=== PATIENT | male | born 1975 | race Caucasian/White ===

== ENCOUNTER 2022-12-31 09:59 | Outpatient (OUT) | payer BC, SELFPAY ==
--- NOTE | 2022-12-31 10:33 | PM.CN ---
Consult Note: HPI Data of Consult Patient: known to practice within the last 3 years Consult date: 12/31/22 Requesting Physician: CHUNG SKINNER NP Primary Care Provider: TELLO POWER Consult Narrative Narrative: Patient is here for f/u of chronic left lumbar pain . Pain today is left lower lumbar radiating to left leg with slight weakness left leg . We discussed the TFNB procedure. He would like to review educational materials and call later to schedule. Denies new sensorimotor or bowel or bladder issues. Denies medication adverse SE. Pain medication regimen assists patient in better ability to complete ADLs. He had TPI at last visit without any relief of pain. States he has been moving and lifting heavy boxes this week and has increase in pain in low back. We discussed medrol dose pack. cc:: CC: CHUNG SKINNER NP Review of Systems ROS Status of ROS 10 or more systems reviewed and unremarkable except as noted in history and below Musculoskeletal Reports: back pain Exam Constitutional Documenting provider has reviewed patient's vital signs: yes Common normals: no apparent distress, average body habitus, oriented x3, no limitations, healthy appearing, alert and well nourished General appearance: cooperative, comfortable and well developed Orientation/consciousness: Yes awake, Yes oriented to person, Yes oriented to place and Yes oriented to time HENMT Common normals: normocephalic and moist oral mucous membranes Respiratory Common normals: normal respiratory effort, no retractions and no use of accessory muscles Effort & inspection: able to speak in complete sentences and symmetric chest movement Back & Pelvis Lumbar spine/lower back: normal to inspection, ROM limited, pain with ROM, paraspinal muscle tenderness and paraspinal muscle spasm Other: positive facet load left muscle strength 5/5 bilat LE with intact sensation Assessment and Plan Assessment and Plan (1) Lumbar radiculopathy: (2) Lumbar stenosis: (3) Lumbar spondylosis: Plan may call to schedule left lumbar TFNB L4 L5 under fluoroscopy medrol dose pack
== END 2022-12-31 10:00 | disposition home or self-care (01) ==
LOC: PM 10:00
PROVIDERS: PCP Physician Assistant; Visit Provider Nurse Practitioner
DX: M47.26 Other spondylosis with radiculopathy, lumbar region (principal); M48.061 Spinal stenosis, lumbar region without neurogenic claudication
CPT/HCPCS: G0463

== ENCOUNTER 2023-01-18 07:09 | Day surgery (SDC) | payer BC, SELFPAY ==
[2023-01-18 07:28] VITALS: BP 111/70; PULSE 71; RESP 16; TEMP 36.4; O2SAT 100
[2023-01-18] MEDS: TRIAMCINOLONE ACETONIDE 40 MG/ML VIAL 80 MG INJ (08:37)
[2023-01-18] MEDS: LIDOCAINE HCL 2% PF 100 MG/5 ML VIAL INJ (08:37)
[2023-01-18] MEDS: BUPIVACAINE HCL 0.25% PF 25 MG/10 ML VIAL 2 ML INJ (08:37)
[2023-01-18] MEDS: IOHEXOL 240 MG/ML - 10 ML VIAL INJ (08:37)
[2023-01-18 08:40] VITALS: BP 131/71; BP 132/83; PULSE 75; PULSE 78; RESP 20; O2SAT 96; O2SAT 97
--- NOTE | 2023-01-18 08:43 | P.ON_ITS ---
Date of procedure: 01/18/23 Pre-op diagnosis: Lumbar stenosis with neurogenic claudication Post-op diagnosis: same as pre-op Procedure: Procedure: Left L4-5, L5-S1 transforaminal epidural steroid injection Medications: Bupivacaine 0.25% 2cc, kenalog 80mg The patient was seen and examined in the preoperative holding area.? Informed consent was obtained and placed on the chart.? Patient was brought to the medical procedure unit and placed in the prone position where a timeout was completed verifying the correct patient, procedure site, position, and planned special equipment using sterile aseptic technique.? Under direct fluoroscopic visualization a 25-gauge Quincke tipped spinal needle was advanced to the designated neural foramen where contrast dye was injected to show adequate spread.? The needle was inserted at level left L4-5. There was no evidence of vascular or adverse uptake.? Epidural spread was appreciated.? The above- mentioned injectate was then placed in a 1.5 mL aliquot preceded by negative aspiration.? The needle was removed. The needle was inserted and the procedure repeated at level left L5-S1.? The surgery site was covered.? Patient was taken to the postprocedural recovery area and monitored for an appropriate length of time before found suitable for discharge in the accompaniment of a responsible adult. Anesthesia: Local Surgeon: Spencer Centeno Pathology: none sent Condition: stable Disposition: no change
== END 2023-01-18 08:46 | disposition home or self-care (01) ==
PROVIDERS: PCP Physician Assistant; Visit Provider Anesthesiology
DX: M48.062 Spinal stenosis, lumbar region with neurogenic claudication (principal)
CPT/HCPCS: 64483; 64484; Q9966

== ENCOUNTER 2023-02-08 10:43 | Outpatient (OUT) | payer BC, SELFPAY ==
--- NOTE | 2023-02-08 16:24 | P.CN_ITS ---
Consult Note: HPI Data of Consult Patient: known to practice within the last 3 years Consult date: 02/08/23 Requesting Physician: Spencer Centeno MD Primary Care Provider: TELLO POWER Consult Narrative Reason for consult: low back pain Narrative: 47yom who presents for assessment. significant relief of radiating leg pain after lumbar epidural steroid injection. primary complaint is residual low back pain. imaging reviewed, significant for moderate facet arthropathy at multiple levels in lumbar spine. previously underwent left lumbar RFA >1 year ago, with >6 months relief of >50%. continues in provider directed home exercise program. utilizes robaxin and diclofenac, as needed. cc:: CC: Spencer Centeno MD Review of Systems ROS Status of ROS 10 or more systems reviewed and unremarkable except as noted in history and below Meds Home Medications and Allergies Home Medications Medication Instructions Recorded Confirmed Type albuterol 90 mcg/actuation aerosol 90 mcg inhalation PRN shortness of 01/11/23 History inhaler breath or wheezing diclofenac sodium 50 mg 100 mg PO Q12H 01/11/23 01/18/23 History tablet,delayed release esomeprazole magnesium 40 mg 40 mg PO Q24H 01/11/23 01/18/23 History capsule,delayed release fluticasone propionate 50 1 spray intranasal DAILY PRN 01/11/23 01/18/23 History mcg/actuation nasal allergy symptoms spray,suspension (24 Hour Allergy Relief) loratadine 5 mg-pseudoephedrine ER 1 tab PO Q12H 01/11/23 01/18/23 History 120 mg tablet,extended release,12hr (Claritin-D 12 Hour) losartan 100 mg tablet 100 mg PO DAILY 01/11/23 01/18/23 History olopatadine 0.2 % eye drops 1 drp ophthalmic (eye) DAILY 01/11/23 01/18/23 History (Pataday Once Daily Relief) olopatadine 0.6 % nasal spray 2 spray intranasal BID 01/11/23 01/18/23 History (Patanase) amlodipine 5 mg tablet 5 mg PO DAILY 01/18/23 01/18/23 History metoprolol succinate 25 mg capsule 25 mg PO DAILY 01/18/23 01/18/23 History sprinkle, ext. release 24 hr (Kapspargo Sprinkle) methocarbamol 500 mg tablet 500 mg PO BID 02/08/23 02/08/23 History Allergies Allergy/AdvReac Type Severity Reaction Status Date / Time No Known Drug Allergies Allergy Verified 01/11/23 09:56 Exam Narrative Exam Narrative: Psych-alert and oriented x 3. Attentive and appropriate, constitutionally normal, displays normal mood and affect per situation.? There are no obvious deficits in memory, reasoning, or intellect.? Skin-no obvious rashes, bruising, erythema noted to the patient's area of pain. Extremities- extremities are warm with minimal edema and palpable pulses. Lumbar-no significant tenderness to palpation noted in the lumbar spine and paraspinal musculature.? Pain is elicited with extension, and lateral rotation of the lumbar spine. Range of motion is slightly diminished with these motions due to pain. Facet loading maneuvers are positive on the left and do appear to be concordant with the patient's normal complaints of pain.? Coordination remains intact.? Gait remains non-antalgic. Assessment and Plan Assessment and Plan (1) Lumbar spondylosis: (2) Lumbar stenosis: Plan 47yom who presents for assessment. continues to have axial low back pain, prev iously relieved by lumbar RFA, as noted. given symptoms and previous relief, prudent to repeat left L4-5, L5-S1 RFA under fluoroscopic guidance. to be done at 80 degree celsius temp for 90 seconds at each level. he expressed understanding. medications reviewed, no changes. follow up after procedure.
== END 2023-02-08 10:44 | disposition home or self-care (01) ==
LOC: PM 10:43
PROVIDERS: PCP Physician Assistant; Visit Provider Anesthesiology
DX: M47.816 Spondylosis without myelopathy or radiculopathy, lumbar region (principal); M48.061 Spinal stenosis, lumbar region without neurogenic claudication
CPT/HCPCS: G0463

== ENCOUNTER 2023-03-01 07:24 | Day surgery (SDC) | payer BC, SELFPAY ==
[2023-03-01 07:45] VITALS: BP 125/81; PULSE 74; RESP 16; TEMP 37.1; O2SAT 98
[2023-03-01 08:28] VITALS: BP 129/77; PULSE 80; RESP 16; O2SAT 98
[2023-03-01] MEDS: BUPIVACAINE HCL 0.25% PF 25 MG/10 ML VIAL 2 ML INJ (08:32)
[2023-03-01] MEDS: LIDOCAINE HCL 2% 400 MG/20 ML MDV 10 ML INJ (08:32)
[2023-03-01] MEDS: TRIAMCINOLONE ACETONIDE 40 MG/ML VIAL INJ (08:32)
[2023-03-01 08:40] VITALS: BP 117/73; PULSE 82; O2SAT 96
--- NOTE | 2023-03-01 08:40 | P.ON_ITS ---
Date of procedure: 03/01/23 Pre-op diagnosis: Lumbar spondylosis Post-op diagnosis: same as pre-op Procedure: Procedure: Left L4-5, L5-S1 radiofrequency ablation Medications: Bupivacaine 0.25% 3cc, kenalog 40mg, lidocaine 2% 3cc The patient was seen and examined in the preoperative holding area.? The site was marked.? Written informed consent was obtained and placed on the chart.? The patient was brought to the medical procedure unit and placed in the prone position.? A timeout was completed verifying correct patient, procedure, positioning, and special requirements.? The skin overlying the target points, the designated medial branch, were prepped and draped in the usual sterile fashion.? The target point was achieved with a 20-gauge 15 cm with a 10 mm curved active tip radiofrequency cannula under direct fluoroscopic visualization.? The needle was inserted at level L4 on the left side. Needle tip position was confirmed with lateral fluoroscopic position.? Motor stimulation was carried out at 2 Hz up to 5 volts with the absence of extremity activity.? This was repeated at level L5, S1 on left side.?? Sensory stimulation was carried out.? Concordant pain was realized at the above- mentioned sites.? Then radiofrequency lesioning was carried out times 90 seconds at 80 degrees times 2 lesions at each level.? The radiofrequency probe was removed prior to cannula removal.? The above-mentioned injectate was placed in 1 mL increments.? The needle was removed.? Insertion sites were covered.? The patient was taken to the postoperative recovery area and monitored for an appropriate length of time before being found suitable for discharge in the company of a responsible adult. Anesthesia: Local Surgeon: Spencer Centeno Pathology: none sent Condition: stable Disposition: no change
[2023-03-01 08:41] VITALS: RESP 16
== END 2023-03-01 08:45 | disposition home or self-care (01) ==
PROVIDERS: PCP Physician Assistant; Visit Provider Anesthesiology
DX: M47.816 Spondylosis without myelopathy or radiculopathy, lumbar region (principal)
CPT/HCPCS: 64635; 64636

== ENCOUNTER 2023-04-14 10:48 | Outpatient (OUT) | payer BC, SELFPAY ==
--- NOTE | 2023-04-14 11:28 | PM.CN ---
Consult Note: HPI Data of Consult Patient: known to practice within the last 3 years Requesting Physician: Lorena Santana NP Primary Care Provider: TELLO POWER Consult Narrative Reason for consult: f/u Narrative: Ophelia Cruz a pleasant 47 year old male presents for evaluation and management of chronic back pain. Pain 10% improved since left L4/5 L5/S1 RFA. Patient continues to have low back pain that radiates into left hip, lateral thigh and down to left foot. Patient rating pain 0/10 at this time, it is intermittent and worse with activity and with car rides, gets up to 6-7/10. cc:: CC: Lorena Santana NP Review of Systems ROS Status of ROS 10 or more systems reviewed and unremarkable except as noted in history and below Musculoskeletal Reports: back pain Meds Home Medications and Allergies Home Medications Medication Instructions Recorded Confirmed Type albuterol 90 mcg/actuation aerosol 90 mcg inhalation PRN shortness of 01/11/23 History inhaler breath or wheezing diclofenac sodium 50 mg 100 mg PO Q12H 01/11/23 03/01/23 History tablet,delayed release esomeprazole magnesium 40 mg 40 mg PO Q24H 01/11/23 03/01/23 History capsule,delayed release fluticasone propionate 50 1 spray intranasal DAILY PRN 01/11/23 03/01/23 History mcg/actuation nasal allergy symptoms spray,suspension (24 Hour Allergy Relief) loratadine 5 mg-pseudoephedrine ER 1 tab PO Q12H 01/11/23 03/01/23 History 120 mg tablet,extended release,12hr (Claritin-D 12 Hour) losartan 100 mg tablet 100 mg PO DAILY 01/11/23 03/01/23 History olopatadine 0.2 % eye drops 1 drp ophthalmic (eye) DAILY 01/11/23 03/01/23 History (Pataday Once Daily Relief) olopatadine 0.6 % nasal spray 2 spray intranasal BID 01/11/23 03/01/23 History (Patanase) amlodipine 5 mg tablet 5 mg PO DAILY 01/18/23 03/01/23 History metoprolol succinate 25 mg capsule 25 mg PO DAILY 01/18/23 03/01/23 History sprinkle, ext. release 24 hr (K[place]spargo Sprinkle) methocarbamol 500 mg tablet 500 mg PO BID 02/08/23 03/01/23 History diclofenac sodium 50 mg 50 mg PO TID PRN pain #90 tabs 03/22/23 Rx tablet,delayed release methocarbamol 500 mg tablet 500 mg PO BID PRN spasms #60 tabs 03/22/23 Rx Allergies Allergy/AdvReac Type Severity Reaction Status Date / Time No Known Drug Allergies Allergy Verified 03/01/23 07:43 Exam Constitutional Documenting provider has reviewed patient's vital signs: yes Common normals: no apparent distress, average body habitus, oriented x3, no limitations, healthy appearing, alert and well nourished General appearance: cooperative, comfortable and well developed Orientation/consciousness: Yes awake, Yes oriented to person, Yes oriented to place and Yes oriented to time HENMT Common normals: normocephalic and moist oral mucous membranes Respiratory Common normals: normal respiratory effort, no retractions and no use of accessory muscles Effort & inspection: able to speak in complete sentences and symmetric chest movement Back & Pelvis Lumbar spine/lower back: ROM limited, pain with ROM, paraspinal muscle tenderness and straight leg raise positive left Other: muscle strength 5/5 bilat LE with intact sensation scoliois noted Extremity Common normals: normal to inspection and full ROM Neuro Common normals: oriented x3, CN's II-XII intact bilaterally, moves all extremities, no focal motor deficits, no sensory deficits noted, deep tendon reflexes 2+ bilaterally and gait normal Assessment and Plan Assessment and Plan (1) Lumbar stenosis: (2) Lumbar radiculopathy: (3) Lumbar spondylosis: Plan Left L4-5 L5-S1 TFESI under fluoroscopy continue current medications f/u after procedure
== END 2023-04-14 10:49 | disposition home or self-care (01) ==
LOC: PM 10:55
PROVIDERS: PCP Physician Assistant; Visit Provider Nurse Practitioner
DX: M48.061 Spinal stenosis, lumbar region without neurogenic claudication (principal); M54.16 Radiculopathy, lumbar region; M47.816 Spondylosis without myelopathy or radiculopathy, lumbar region
CPT/HCPCS: G0463

== ENCOUNTER 2023-05-10 08:00 | Day surgery (SDC) | payer BC, SELFPAY ==
[2023-05-10 08:56] VITALS: BP 116/76; PULSE 75; RESP 16; TEMP 36.7; O2SAT 98
[2023-05-10 09:18] VITALS: BP 111/69; BP 115/73; PULSE 72; PULSE 73; RESP 18; O2SAT 98
[2023-05-10] MEDS: 0.9 % SODIUM CHLORIDE 10 ML INJ (09:22)
[2023-05-10] MEDS: BUPIVACAINE HCL 0.25% PF 25 MG/10 ML VIAL INJ (09:23)
[2023-05-10] MEDS: IOHEXOL 240 MG/ML - 10 ML VIAL 24 MG INJ (09:23)
--- NOTE | 2023-05-10 09:23 | P.ON_ITS ---
Date of procedure: 05/10/23 Pre-op diagnosis: Lumbar stenosis with neurogenic claudication Post-op diagnosis: same as pre-op Procedure: Procedure: Left L4-5, L5-S1 transforaminal epidural steroid injection Medications: Bupivacaine 0.25% 2cc, lidocaine 2% 1cc, kenalog 80mg The patient was seen and examined in the preoperative holding area.? Informed consent was obtained and placed on the chart.? Patient was brought to the medical procedure unit and placed in the prone position where a timeout was completed verifying the correct patient, procedure site, position, and planned special equipment using sterile aseptic technique.? Under direct fluoroscopic visualization a 25-gauge Quincke tipped spinal needle was advanced to the designated neural foramen where contrast dye was injected to show adequate spread.? The needle was inserted at level left L4-5. There was no evidence of vascular or adverse uptake.? Epidural spread was appreciated.? The above- mentioned injectate was then placed in a 1.5 mL aliquot preceded by negative aspiration.? The needle was removed. The needle was inserted and the procedure repeated at level left L5-S1.? The surgery site was covered.? Patient was taken to the postprocedural recovery area and monitored for an appropriate length of time before found suitable for discharge in the accompaniment of a responsible adult. Anesthesia: Local Surgeon: Spencer Centeno Pathology: none sent Condition: stable Disposition: no change
[2023-05-10] MEDS: TRIAMCINOLONE ACETONIDE 40 MG/ML VIAL 80 MG INJ (09:24)
[2023-05-10] MEDS: LIDOCAINE HCL 2% PF 100 MG/5 ML VIAL 3 ML INJ (09:24)
== END 2023-05-10 09:25 | disposition home or self-care (01) ==
PROVIDERS: PCP Physician Assistant; Visit Provider Anesthesiology
DX: M48.062 Spinal stenosis, lumbar region with neurogenic claudication (principal)
CPT/HCPCS: 64483; 64484; Q9966

== ENCOUNTER 2023-05-27 10:50 | Outpatient (OUT) | payer BC, SELFPAY ==
--- OUTSIDE RECORDS SUMMARY | 2023-05-27 10:57 | XMS_ITS | CCD ---
Author Name Unknown Address [id number] [place] [id number] Organization [facility] Care Team Providers Care Editor Greeting Card Name Role Phone ALVARADO ., DR ABRAN Mosquera Admitting Unavailable MOSLEY ., JOSE Consulting Unavailable ALVARADO ., DR ABRAN Mosquera Attending Unavailable HEMMER, DR ARLENE Womack Consulting Unavailable MISC, DR MORENO Primary Care Unavailable ALVARADO ., DR ABRAN Mosquera Attending Unavailable MOSLEY ., JOSE Consulting Unavailable ALVARADO ., DR ABRAN Mosquera Admitting Unavailable LAKSHMIPATHY ., NARENDRANATH Consulting Maegan vailable ALVARADO ., DR ABRAN Mosquera Attending Unavailable MISC, DR MORENO Primary Care Unavailable MOSLEY ., JOSE Consulting Unavailable ALVARADO ., DR ABRAN Mosquera Admitting Unavailable ALVARADO ., DR ABRAN Mosquera Attending Unavailable MISC, DR MORENO Primary Care Unavailable MOSLEY ., JOSE Consulting Unavailable ALVARADO ., DR ABRAN Mosquera Admitting Unavailable HEMMER, DR ARLENE Womack Consulting Unavailable ALVARADO ., DR ABRAN Mosquera Attending Unavailable MOSLEY ., JOSE Consulting Unavailable ALVARADO ., DR ABRAN Mosquera Admitting Unavailable HEMMER, DR ARLENE Womack Consulting Unavailable ALVARADO ., DR ABRAN Mosquera Attending Unavailable MOSLEY ., JOSE Consulting Unavailable ALVARADO ., DR ABRAN Mosquera Admitting Unavailable HEMMER, DR ARLENE Womack Consulting Unavailable ALVARADO ., DR ABRAN Mosquera Attending Unavailable MOSLEY ., JOSE Consulting Unavailable ALVARADO ., DR ABRAN Mosquera Admitting Unavailable HEMMER, DR ARLENE Womack Consulting Unavailable MOSLEY ., JOSE Consulting Unavailable ALVARADO ., DR ABRAN Mosquera Admitting Unavailable ALVARADO ., DR ABRAN Mosquera Attending Unavailable HEMMER, DR ARLENE Womack Consulting Unavailable ALVARADO ., DR ABRAN Mosquera Admitting Unavailable ALVARADO ., DR ABRAN Mosquera Consulting Unavailable ALVARADO ., DR ABRAN Mosquera Attending Unavailable RICHMOND ROSAS Consulting Unavailable HEMMER, DR ARLENE M Consulting Unavailable Arlene Power Primary Care Provider MENDOZA Power Attending Provider MENDOZA Power Attending Provider [phone] YENIFER Power Primary Care Provider [phone] YENIFER Power Attending Provider [phone] Arlene Power Admitting Unavailable Arlene Power Primary Care Unavailable Arlene Power Attending Unavailable Arlene Power Admitting Unavailable Arlene Power Attending Unavailable Giedraitis , Spencer Vicente Attending Unavailable Giedraitis , Andmaría Vicente Attending Unavailable Giedraitis , Andrius Vicente Attending Unavailable Gieditis , Spencer Vicente Attending Unavailable ARLENE POWER Attending Unavailable ARLENE POWER Attending Unavailable ARLENE POWER Referring Unavailable Medications Completed/Discontinued Medications Medication Drug Class(es) Dates Sig (Normalized) Sig (Original) [id number] 200 actuat albuterol 0.09 mg/actuat metered dose inhaler (1 source) beta2-Adrenergic Agonist Start: 02-12-2016 take 2 puff(s) by inhalation every six hours as needed albuterol HFA (VENTOLIN HFA) 90 mcg/actuation inhaler Inhale 2 Puffs as instructed every 6 hours as needed. 0 02/12/2016 Active Comment on above: Inhale 2 Puffs as in structed every 6 hours as needed. esomeprazole 40 mg delayed release oral capsule (1 source) Proton Pump Inhibitor Start: 04-06-2013 take 1 capsule by mouth once daily esomeprazole (NEXIUM) 40 mg capsule Take 1 capsule by mouth once daily. 30 capsule 0 04/06/2013 Active Comment on above: Take 1 capsule by [facility] once daily. fluticasone propionate 0.05 mg/actuat metered dose nasal spray (1 source) Corticosteroid Start: 04-06-2013 fluticasone (FLONASE) 50 mcg/actuation nasal spray 2 Sprays once daily. 6 04/06/2013 Active Comment on above: 2 Sprays once daily. Problems Active Problems Problem Classification Problem Date Documented Date Episodic/Chronic Essential hypertension (1 source) Essential (primary) hypertension; Translations: [Essential (primary) hypertension] Onset: 01-29-2023 Chronic Osteoarthritis (1 source) Disorder of patellofemoral joint; Translations: [Unilateral primary osteoarthritis, unspecified knee] Onset: 03-18-2016 03-18-2016 Chronic Other acquired deformities (1 source) Scoliosis deformity of spine; Translations: [Scoliosis, unspecified] 08-06-2021 Chronic Other connective tissue disease (4 sources) Other muscle spasm; Translations: [OTHER MUSCLE SPASM] Onset: 09-17-2022 Episodic Other connective tissue disease (1 source) Myalgia, other site; Translations: [MYALGIA OTHER SITE] Onset: 09-20-2022 Episodic Other nervous system disorders (1 source) Other chronic pain; Translations: [OTHER CHRONIC PAIN] Onset: 10-30-2021 Chronic Spondylosis; intervertebral disc disorders; other back problems (13 sources) Spondylosis without myelopathy or radiculopathy, lumbar region; Translations: [Other intervertebral disc degeneration, lumbar region] Onset: 10-02-2021 Chronic Unclassified (1 source) LOW BACK PAIN, UNSPECIFIED; Translations: [LOW BACK PAIN, UNSPECIFIED] Onset: 10-30-2021 Unclassified (1 source) Pain in right knee; Translations: [Pain in right knee] Onset: 04-28-2023 Past or Other Problems Problem Classification Problem Date Documented Da te Episodic/Chronic Joint disorders and dislocations; trauma-related (1 source) Tear of medial meniscus of knee; Translations: [Other tear of medial meniscus, current injury, unspecified knee, initial encounter] Onset: 01-01-2016 01-01-2016 Episodic Spondylosis; intervertebral disc disorders; other back problems (10 sources) Muscle spasm of back; Translations: [Intervertebral disc disorders with radiculopathy, lumbar region] Onset: 10-08-2021 Episodic Results Test Name Value Interpretation Reference Range Facility MR KNEE RIGHT WO IV CONTRAST on 05-11-2023 MR KNEE RIGHT WO IV CONTRAST Exam: MR KNEE RIGHT WO IV CONTRAST History: Chronic increasing knee pain. Meniscal tear. Technique: Multiplanar multisequence MRI of the knee was performed without contrast. Comparison: None available Findings: Quadriceps and patellar tendons are intact. Small joint effusion. Anterior and posterior cruciate ligaments are intact. The medial collateral ligament, lateral collateral ligament, and popliteus are intact. Horizontal tear of the body through posterior horn of the medial meniscus. The lateral meniscus is intact. Diffuse cartilage abnormality of the weightbearing medial femoral condyle including full-thickness cartilage loss of the outer weightbearing medial femoral condyle with mild subcortical bone marrow edema. Full-thickness cartilage loss of the anterior medial tibial plateau with mild subcortical bone marrow edema. Popliteal fossa structures are intact. Septated Berumen's cyst measures approximately 4 cm in AP dimension by 4.5 cm in transverse dimension by 9 cm in craniocaudal dimension. IMPRESSION: Horizontal tear of the body through posterior horn of the medial meniscus. Medial compartment osteoarthritis. ELECTRONICALLY SIGNED BY: Romel Fonseca DO Normal Not Available XR knee RT 4V*on 04-28-2023 XR knee RT 4V* [facility] [address] [place] [address] [place] [address] XRay Report Signed Patient: Ophelia Cruz MR#: [id number] : 1975 Acct:[id number] Age/Sex: 47 / M ADM Date: 04/28/23 Loc: XD Room: Type: [facility] Attending Dr: Arlene MENDEZC Copies to: [facility] Ordering Provider: [facility] Date of Service: 04/28/23 XR/XR knee RT 4V*: M25.561, M17.11 RIGHT KNEE - 4 views COMPARISON: None CLINICAL DATA: Pain behind the patella and swelling for the past month. Patient dense and needles a lot of work. AP, lateral and both oblique views were obtained. There is no acute fracture or dislocation. There is mild narrowing of the medial tibiofemoral joint compartment. Is also mild spurring, greater medially. There is a trace amount of joint fluid. XR/XR knee RT 4V* IMPRESSION: MILD DEGENERATIVE CHANGES, GREATEST MEDIALLY. Impression dictated by: Arlene Colon M.D.04/28/2023 4:58 PM Dictation Location: [place] [address] Transcribed By: [facility] 04/28/231657 Dictated By: Arlene Colon MD 12/06/23 1653 Signed By: 04/28/23 1658 Normal [facility] Alanine aminotransferase [En zymatic activity/volume] in Serum or PlasmaOrdered By: Arlene Power on 01-29-2023 ALT [Catalytic activity/Vol] 25 U/L 7-52 [facility] Albumin [Mass/volume] in Ser um or Plasma by Bromocresol green (BCG) dye binding methoOrdered By: Arlene Power on 01-29-2023 Albumin BCG dye [Mass/Vol] 4.3 g/dL 3.5-5.7 [facility] Alkaline phosphatase [Enzyma tic activity/volume] in Serum or PlasmaOrdered By: Arlene Power on 01-29-2023 ALP [Catalytic activity/Vol] 52 U/L 34-104 [facility] Aspartate aminotransferase [ Enzymatic activity/volume] in Serum or PlasmaOrdered By: Arlene Power on 01-29-2023 AST [Catalytic activity/Vol] 15 U/L 13-39 [facility] Basophils Auto (Bld) [#/Vol] Ordered By: Arlene Power on 01-29-2023 Basophils (Bld) [#/Vol] 0.0 10*3/uL 0.0-0.2 [facility] Basophils/100 WBC Auto (Bld) Ordered By: Arlene Power on 01-29-2023 Basophils/100 WBC (Bld) 0.5 % . [facility] Bilirubin.total [Mass/volume ] in Serum or PlasmaOrdered By: Arlene Power on 01-29-2023 Bilirubin [Mass/Vol] 0.5 mg/dL 0.3-1.0 [facility] Calcium [Mass/volume] in Ser um or PlasmaOrdered By: Arlene Power on 01-29-2023 Calcium [Mass/Vol] 9.4 mg/dL 8.6-10.3 [facility] Carbon dioxide, total [Moles /volume] in Serum or PlasmaOrdered By: Arlene Power on 01-29-2023 CO2 [Moles/Vol] 31.5 mmol/L 21.0-31.0 [facility] Chloride [Moles/volume] in S jeff or PlasmaOrdered By: Arlene Power on 01-29-2023 Chloride [Moles/Vol] 105 mmol/L 98-107 [facility] Cholesterol [Mass/volume] in Serum or PlasmaOrdered By: Arlene Power on 01-29-2023 Cholesterol [Mass/Vol] 186 mg/dL 140-200 [facility] Comment on above: Chol less than 200 m g/dl low riskChol 201-239 mg/dl borderline riskChol 240 mg/dl and greater high risk Cholesterol in LDL Calc [Mas s/Vol]Ordered By: Arlene Power on 01-29-2023 Cholesterol in LDL [Mass/Vol] 122 mg/dL 0-100 [facility] Comment on above: LDL ATP III CLASSIFI CATIONLDL less than 100 mg/dL OptimalLDL 100-129 mg/dL Near or above optimalLDL 130-159 mg/dL Borderline highLDL 160-189 mg/dL HighLDL greater than 189 mg/dL Very high Cholesterol in VLDL Calc [Ma ss/Vol]Ordered By: Arlene Power on 01-29-2023 Cholesterol in VLDL [Mass/Vol] 22 mg/dL [facility] Complete Blood Count Auto Di ffon 01-29-2023 Basophils (Bld) [#/Vol] 0.0 10*3/uL Normal 0.0-0.2 [facility] Comment on above: Result Comment: PERF ORMED BY: [place] [address] PATHOLOGIST HUMAN RESOURCES DIRECTOR IAN CHRISTINE M.D. Performed By: #### L IPID, CBC, CMP, PSAS #### [facility] [address] [place] [address] [place] Basophils/100 WBC (Bld) 0.5 % Normal . [facility] Comment on above: Performed By: #### L IPID, CBC, CMP, PSAS #### [facility] [address] [place] [address] [place] Eosinophils (Bld) [#/Vol] 0.3 10*3/uL Normal 0.0-0.45 [facility] Comment on above: Performed By: #### L IPID, CBC, CMP, PSAS #### [facility] [address] [place] [address] Eosinophils/100 WBC (Bld) 3.8 % Normal . [facility] Comment on above: Performed By: #### L IPID, CBC, CMP, PSAS #### [address] Erythrocyte distribution width (RBC) [Ratio] 13.8 % Normal 12.0-14.8 [facility] Comment on above: Performed By: #### L IPID, CBC, CMP, PSAS #### [address] Hematocrit (Bld) [Volume fraction] 40.2 % Normal 38.8-50.0 [facility] Comment on above: Performed By: #### L IPID, CBC, CMP, PSAS #### [address] Hemoglobin (Bld) [Mass/Vol] 13.7 g/dL Normal 13.0-17.0 [facility] Comment on above: Performed By: #### L IPID, CBC, CMP, PSAS #### [address] Lymphocytes (Bld) [#/Vol] 2.4 10*3/uL Normal 1.00-4.8 [facility] Comment on above: Performed By: #### L IPID, CBC, CMP, PSAS #### [address] Lymphocytes/100 WBC (Bld) 29.7 % Normal . [facility] Comment on above: Performed By: #### L IPID, CBC, CMP, PSAS #### [address] MCH (RBC) [Entitic mass] 30.0 pg Normal 27.5-35.2 [facility] Comment on above: Performed By: #### L IPID, CBC, CMP, PSAS #### [address] MCV (RBC) [Entitic vol] 87.7 fL Normal 83.5-101 [facility] Comment on above: Performed By: #### L IPID, CBC, CMP, PSAS #### [address] Mean Corpuscular HGB Conc 34.2 g/dL Normal 32.5-35.6 [facility] Comment on above: Performed By: #### L IPID, CBC, CMP, PSAS #### [address] Monocytes (Bld) [#/Vol] 0.5 10*3/uL Normal 0.0-0.8 [facility] Comment on above: Performed By: #### L IPID, CBC, CMP, PSAS #### [address] Monocytes/100 WBC (Bld) 6.6 % Normal . [facility] Comment on above: Performed By: #### L IPID, CBC, CMP, PSAS #### [address] Neutrophils (Bld) [#/Vol] 4.8 10*3/uL Normal 1.8-7.7 [facility] Comment on above: Performed By: #### L IPID, CBC, CMP, PSAS #### [address] Neutrophils/100 WBC (Bld) 59.4 % Normal . [facility] Comment on above: Performed By: #### L IPID, CBC, CMP, PSAS #### [address] NRBC% 0.1 /100{WBC} Normal 0-0.5 [facility] Comment on above: Performed By: #### L IPID, CBC, CMP, PSAS #### [address] Platelet mean volume (Bld) [Entitic vol] 8.9 fL Normal 6.6-10.1 [facility] Comment on above: Performed By: #### L IPID, CBC, CMP, PSAS #### [address] Platelets (Bld) [#/Vol] 269 10*3/uL Normal 150-450 [facility] Comment on above: Performed By: #### L IPID, CBC, CMP, PSAS #### [address] RBC (Bld) [#/Vol] 4.58 10*6/uL Normal 3.90-5.60 [facility] Comment on above: Performed By: #### L IPID, CBC, CMP, PSAS #### [address] WBC (Bld) [#/Vol] 8.0 10*3/uL Normal 4.1-10.5 [facility] Comment on above: Performed By: #### L IPID, CBC, CMP, PSAS #### [address] Comprehensive Metabolic Pane luis 01-29-2023 Albumin [Mass/Vol] 4.3 g/dL Normal 3.5-5.7 [facility] Comment on above: Performed By: #### L IPID, CBC, CMP, PSAS #### [address] Albumin/Globulin [Mass ratio] 2.0 {ratio} Normal [facility] Comment on above: Performed By: #### L IPID, CBC, CMP, PSAS #### [address] ALP [Catalytic activity/Vol] 52 U/L Normal 34-104 [facility] Comment on above: Performed By: #### L IPID, CBC, CMP, PSAS #### [address] ALT [Catalytic activity/Vol] 25 U/L Normal 7-52 [facility] Comment on above: Performed By: #### L IPID, CBC, CMP, PSAS #### [address] Anion gap [Moles/Vol] 9.8 mmol/L Normal 6.0-15.0 [facility] Comment on above: Performed By: #### L IPID, CBC, CMP, PSAS #### [facility] [address] AST [Catalytic activity/Vol] 15 U/L Normal 13-39 [facility] Comment on above: Performed By: #### L IPID, CBC, CMP, PSAS #### [address] Bilirubin [Mass/Vol] 0.5 mg/dL Normal 0.3-1.0 [facility] Comment on above: Performed By: #### L IPID, CBC, CMP, PSAS #### [address] Calcium [Mass/Vol] 9.4 mg/dL Normal 8.6-10.3 [facility] Comment on above: Performed By: #### L IPID, CBC, CMP, PSAS #### [address] Chloride [Moles/Vol] 105 mmol/L Normal 98-107 [facility] Comment on above: Performed By: #### L IPID, CBC, CMP, PSAS #### [address] CO2 [Moles/Vol] 31.5 mmol/L High 21.0-31.0 [facility] Comment on above: Performed By: #### L IPID, CBC, CMP, PSAS #### [address] Creatinine [Mass/Vol] 0.94 mg/dL Normal 0.70-1.30 [facility] Comment on above: Performed By: #### L IPID, CBC, CMP, PSAS #### [address] GFR/1.73 sq M.predicted MDRD (S/P/Bld) [Vol rate/Area] mL/min/{1.73_m2} Normal [facility] Comment on above: Performed By: #### L IPID, CBC, CMP, PSAS #### [facility] [address] Globulin (S) [Mass/Vol] 2.1 g/dL Normal [facility] Comment on above: Performed By: #### L IPID, CBC, CMP, PSAS #### [facility] [address] Glucose [Mass/Vol] 87 mg/dL Normal 70-100 [facility] Comment on above: Result Comment: [facility] Glucose Reference Range is dependent on time and content of last meal. Glucose of more than 200 mg/dL in a nonstressed, ambulatory subject supports the diagnosis of Diabetes Mellitus. ADA recommended reference range Performed By: #### L IPID, CBC, CMP, PSAS #### [facility] [address] [place] [address] [place] Potassium [Moles/Vol] 4.3 mmol/L Normal 3.5-5.1 [facility] Comment on above: Performed By: #### L IPID, CBC, CMP, PSAS #### [facility] [address] [place] [address] [place] Protein [Mass/Vol] 6.4 g/dL Normal 6.4-8.9 [facility] Comment on above: Performed By: #### L IPID, CBC, CMP, PSAS #### [facility] [address] [place] [address] [place] Sodium [Moles/Vol] 142 mmol/L Normal 136-145 [facility] Comment on above: Performed By: #### L IPID, CBC, CMP, PSAS #### [facility] [address] [place] [address] [place] Urea nitrogen [Mass/Vol] 18 mg/dL Normal 7-25 [facility] Comment on above: Performed By: #### L IPID, CBC, CMP, PSAS #### [facility] [address] [place] [address] [place] Creatinine [Mass/volume] in Serum or PlasmaOrdered By: Arlene Power on 01-29-2023 Creatinine [Mass/Vol] 0.94 mg/dL 0.70-1.30 [facility] Eosinophils Auto (Bld) [#/Vo l]Ordered By: Arlene Power on 01-29-2023 Eosinophils (Bld) [#/Vol] 0.3 10*3/uL 0.0-0.45 [facility] Eosinophils/100 WBC Auto (Bl d)Ordered By: Arlene Power on 01-29-2023 Eosinophils/100 WBC (Bld) 3.8 % . [facility] Erythrocyte distribution wid th Auto (RBC) [Ratio]Ordered By: Arlene Power on 01-29-2023 Erythrocyte distribution width (RBC) [Ratio] 13.8 % 12.0-14.8 [facility] Globulin Calc (S) [Mass/Vol] Ordered By: Arlene Power on 01-29-2023 Globulin (S) [Mass/Vol] 2.1 g/dL [facility] Glucose [Mass/volume] in Ser um or PlasmaOrdered By: Arlene Power on 01-29-2023 Glucose [Mass/Vol] 87 mg/dL 70-100 [facility] Comment on above: ADA recommended refe rence rangeRandom Glucose Reference Range is dependent on time and content of last meal. Glucose of more than 200 mg/dL in a nonstressed, ambulatory subject supports the diagnosis of Diabetes Mellitus. Hematocrit Auto (Bld) [Volum e fraction]Ordered By: Arlene Power on 01-29-2023 Hematocrit (Bld) [Volume fraction] 40.2 % 38.8-50.0 [facility] Hemoglobin [Mass/volume] in BloodOrdered By: Arlene Power on 01-29-2023 Hemoglobin (Bld) [Mass/Vol] 13.7 g/dL 13.0-17.0 [facility] Leukocytes [#/volume] correc jaime for nucleated erythrocytes in Blood by Automated counOrdered By: Arlene Power on 01-29-2023 WBC corrected for nucl RBC Auto (Bld) [#/Vol] 8.0 10*3/uL 4.1-10.5 [facility] Lipid Panelon 01-29-2023 Cholesterol [Mass/Vol] 186 mg/dL Normal 140-200 [facility] Comment on above: Result Comment: Chol less than 200 mg/dl low risk Chol 201-239 mg/dl borderline risk Chol 240 mg/dl and greater high risk Performed By: #### L IPID, CBC, CMP, PSAS #### [facility] [address] Cholesterol in HDL [Mass/Vol] 42 mg/dL Normal 23-92 [facility] Comment on above: Result Comment: HDL CHOL ATP-III CLASSIFICATION Cardiovascular Risk HDL > or equal to 60 mg/dL LOW HDL < 40 mg/dL HIGH Performed By: #### L IPID, CBC, CMP, PSAS #### [facility] [address] Cholesterol.total/Choles terol in HDL [Mass ratio] 4.4 {ratio} Normal <5.0 [facility] Comment on above: Result Comment: PERF ORMED BY: [place] [address] PATHOLOGIST HUMAN RESOURCES DIRECTOR IAN CHRISTINE M.D. Performed By: #### L IPID, CBC, CMP, PSAS #### [facility] [address] [place] [address] LDL Cholesterol,Calculated 122 mg/dL High 0-100 [facility] Comment on above: Result Comment: LDL ATP III CLASSIFICATION LDL less than 100 mg/dL Optimal LDL 100-129 mg/dL Near or above optimal LDL 130-159 mg/dL Borderline high LDL 160-189 mg/dL High LDL greater than 189 mg/dL Very high Performed By: #### L IPID, CBC, CMP, PSAS #### [facility] [address] [place] [address] [place] Triglyceride w/Reflex 110 mg/dL Normal 0-149 [facility] Comment on above: Result Comment: TRIG ATP III CLASSIFICATION TRIG less than 150 mg/dL Normal TRIG 150-199 mg/dL Borderline high TRIG 200-500 mg/dL High TRIG greater than 500 mg/dL Very high Standard traceable to the Center for Disease Conrtrol and Prevention (CDC) test method. Performed By: #### L IPID, CBC, CMP, PSAS #### [facility] [address] VLDL CHOLESTEROL 22 mg/dL Normal [facility] Comment on above: Performed By: #### L IPID, CBC, CMP, PSAS #### [facility] [address] Lymphocytes Auto (Bld) [#/Vo l]Ordered By: Arlene Power on 01-29-2023 Lymphocytes (Bld) [#/Vol] 2.4 10*3/uL 1.00-4.8 [facility] Lymphocytes/100 WBC Auto (Bl d)Ordered By: Arlene Power on 01-29-2023 Lymphocytes/100 WBC (Bld) 29.7 % . [facility] MCH Auto (RBC) [Entitic mass ]Ordered By: Arlene Power on 01-29-2023 MCH (RBC) [Entitic mass] 30.0 pg 27.5-35.2 [facility] MCHC Auto (RBC) [Mass/Vol]Or dered By: Arlene Power on 01-29-2023 MCHC (RBC) [Mass/Vol] 34.2 g/dL 32.5-35.6 [facility] MCV Auto (RBC) [Entitic vol] Ordered By: Arlene Power on 01-29-2023 MCV (RBC) [Entitic vol] 87.7 fL 83.5-101 [facility] Monocytes Auto (Bld) [#/Vol] Ordered By: Arlene Power on 01-29-2023 Monocytes (Bld) [#/Vol] 0.5 10*3/uL 0.0-0.8 [facility] Monocytes/100 WBC Auto (Bld) Ordered By: Arlene Power on 01-29-2023 Monocytes/100 WBC (Bld) 6.6 % . [facility] Neutrophils Auto (Bld) [#/Vo l]Ordered By: Arlene Power on 01-29-2023 Neutrophils (Bld) [#/Vol] 4.8 10*3/uL 1.8-7.7 [facility] Neutrophils/100 WBC Auto (Bl d)Ordered By: Arlene Power on 01-29-2023 Neutrophils/100 WBC (Bld) 59.4 % . [facility] No Panel InformationOrdered By: Arlene Power on 01-29-2023 Estimated GFR (CKD-EPI) > 60.0 mL/Min [facility] Creatinine Clearance (Chem N/A [facility] Nucleated erythrocytes [Pres ence] in Blood by Automated countOrdered By: Arlene Power on 01-29-2023 Nucleated RBC Auto Ql (Bld) 0.1 /100{WBC} 0-0.5 [facility] PSA Screen (Yearly Only)on 0 01-29-2023 PSA Screen (Yearly Only) 0.590 ng/mL Normal 0.000-4.00 0 [facility] Comment on above: Order Comment: Is pa tient <50 yrs? Medicare does not pay <50.: NA What is the date of the last PSA Screen?: NA OR...The date Patient is eligible for PSA Screen?: NA Is Medicare the insurance?: NA Did you verify eligibility (Dx Time) check TestViewGp: NOT MEDICARE Result Comment: PERF ORMED BY: [place] [address] PATHOLOGIST HUMAN RESOURCES DIRECTOR IAN CHRISTINE M.D. Performed By: #### L IPID, CBC, CMP, PSAS #### [address] Platelet mean volume Auto (B ld) [Entitic vol]Ordered By: Arlene Power on 01-29-2023 Platelet mean volume (Bld) [Entitic vol] 8.9 fL 6.6-10.1 [facility] Platelets Auto (Bld) [#/Vol] Ordered By: Arlene Power on 01-29-2023 Platelets (Bld) [#/Vol] 269 10*3/uL 150-450 [facility] Potassium [Moles/volume] in Serum or PlasmaOrdered By: Arlene Power on 01-29-2023 Potassium [Moles/Vol] 4.3 mmol/L 3.5-5.1 [facility] Prostate specific Ag [Mass/v olume] in Serum or PlasmaOrdered By: Arlene Power on 01-29-2023 Prostate specific Ag [Mass/Vol] 0.590 ng/mL 0.000-4.000 [facility] Protein [Mass/volume] in Ser um or PlasmaOrdered By: Arlene Power on 01-29-2023 Protein [Mass/Vol] 6.4 g/dL 6.4-8.9 [facility] RBC Auto (Bld) [#/Vol]Ordere d By: Arlene Power on 01-29-2023 RBC (Bld) [#/Vol] 4.58 10*6/uL 3.90-5.60 [facility] Serum or plasma albumin/glob ulin mass ratioOrdered By: Arlene Power on 01-29-2023 Albumin/Globulin [Mass ratio] 2.0 {ratio} [facility] Serum or plasma anion gap de terminationOrdered By: Arlene Power on 01-29-2023 Anion gap [Moles/Vol] 9.8 mmol/L 6.0-15.0 [facility] Serum or plasma high density lipoprotein (HDL) cholesterol measurementOrdered By: Arlene Power on 01-29-2023 Cholesterol in HDL [Mass/Vol] 42 mg/dL 23-92 [facility] Comment on above: HDL CHOL ATP-III CLA SSIFICATION Cardiovascular RiskHDL > or equal to 60 mg/dL LOWHDL < 40 mg/dL HIGH Serum or plasma total choles terol/high density lipoprotein (HDL) cholesterol mass ratOrdered By: Arlene Power on 01-29-2023 Cholesterol.total/Choles terol in HDL [Mass ratio] 4.4 {ratio} <5.0 [facility] Sodium [Moles/volume] in Ser um or PlasmaOrdered By: Arlene Power on 01-29-2023 Sodium [Moles/Vol] 142 mmol/L 136-145 [facility] Triglyceride [Mass/volume] i n Serum or PlasmaOrdered By: Arlene Power on 01-29-2023 Triglyceride [Mass/Vol] 110 mg/dL 0-149 [facility] Comment on above: TRIG ATP III CLASSIF ICATIONTRIG less than 150 mg/dL NormalTRIG 150-199 mg/dL Borderline highTRIG 200-500 mg/dL High TRIG greater than 500 mg/dL Very highStandard traceable to the Center for Disease Conrtrol and Prevention (CDC) test method. Urea nitrogen [Mass/volume] in Serum or PlasmaOrdered By: Arlene Power on 01-29-2023 Urea nitrogen [Mass/Vol] 18 mg/dL 7-25 [facility] WBC Auto (Bld) [#/Vol]Ordere d By: Arlene Power on 01-29-2023 WBC (Bld) [#/Vol] 8.0 10*3/uL 4.1-10.5 [facility] XR Chest 2 Views*on 11-13-19 XR Chest 2 Views* HISTORY: Unexplained weight loss COMPARISON: None available TECHNIQUE: Frontal and lateral views of the chest FINDINGS: The cardiomediastinal silhouette is within normal limits. No pneumothorax, pleural effusion, or consolidation. No lung mass or mediastinal mass identified. If there is concern for mass, CT of the chest with contrast is recommended. No acute osseous abnormality. IMPRESSION: No radiographic evidence of acute intrathoracic process. Report reported and signed by Romel Fonseca on 11/12/2021 1646 Normal [facility] Manager Photo No Panel Informationon 08-06 [facility] XR LUMBAR 4V AP/LAT/ FLEX/EX Ton 08-06-2021 XR LUMBAR 4V AP/LAT/ FLEX/EXT * * *Final Report* * * DATE OF EXAM: Aug 06 2021 12:13PM [id number] [id number] - XR LUMBAR 4V AP/LAT/ FLEX/EXT / PROCEDURE REASON: multiple diagnoses * * * * Physician Interpretation * * * * HISTORY: Chronic Low back pain. Pain radiates into Left hip. History of scoliosis Degeneration of lumbar intervertebral disc Scoliosis of lumbosacral spine, unspecified scoliosis type Degeneration of lumbar or lumbosacral intervertebral disc . TECHNIQUE: XR LUMBAR 4V AP/LAT/ FLEX/EXT, XR SCOLIOSIS 2V PA STAND/LAT Laterality: NOT APPLICABLE Number of different views (projections): 4 (accession [id number]), 2 (accession [id number]) COMPARISON: 06/18/2021 MRI RESULT: Counting reference: Lumbosacral junction. For the purposes of this report, L4-5 is considered the level of the iliac crest and assume there are 5 lumbar-type vertebrae. Anatomic variant: None. Alignment: S-shaped scoliosis of the thoracic and lumbar spine with a dextroscoliosis in the thoracic spine centered at approximately T8 and a levoscoliosis in the lumbar spine centered at L3. Slightly exaggerated thoracic kyphosis at T11 with exaggeration of the lumbar lordosis. Grade 1-2 anterolisthesis of L5 on S1. Stepwise retrolisthesis of L1 on L2, L2 on L3 and L3 on L4. Lumbar alignment does not appear to significantly change between flexion or extension. Vertebral body heights: Vertebral body heights appear maintained Disc heights: Multilevel degenerative disc changes throughout the lumbar spine. With moderate narrowing throughout multiple lumbar spine levels. Mild disc height loss throughout the thoracic spine, though exam is limited due to patient positioning and technique. Facet joints: Moderate facet arthropathy. Pedicles: Pedicles appear to be intact. Other: Sacroiliac joints are maintained. IMPRESSION: S-shaped scoliosis of the thoracic and lumbar spine as described with associated thoracic and lumbar spondylosis. Life Enrichment Director: RENE Transcribe Date/Time: Aug 08 2021 10:07A Dictated by : DASIA RATLIFF MD This examination was interpreted and the report reviewed and electronically signed by: DASIA RATLIFF MD on Aug 08 2021 10:09AM EST [id number] Normal [facility] XR SCOLIOSIS 2V PA STAND/LAT on 08-06-2021 XR SCOLIOSIS 2V PA STAND/LAT * * *Final Report* * * DATE OF EXAM: Aug 06 2021 12:13PM [id number] [id number] - XR SCOLIOSIS 2V PA STAND/LAT / PROCEDURE REASON: multiple diagnoses * * * * Physician Interpretation * * * * HISTORY: Chronic Low back pain. Pain radiates into Left hip. History of scoliosis Degeneration of lumbar intervertebral disc Scoliosis of lumbosacral spine, unspecified scoliosis type Degeneration of lumbar or lumbosacral intervertebral disc . TECHNIQUE: XR LUMBAR 4V AP/LAT/ FLEX/EXT, XR SCOLIOSIS 2V PA STAND/LAT Laterality: NOT APPLICABLE Number of different views (projections): 4 (accession [id number]), 2 (accession [id number]) COMPARISON: 06/18/2021 MRI RESULT: Counting reference: Lumbosacral junction. For the purposes of this report, L4-5 is considered the level of the iliac crest and assume there are 5 lumbar-type vertebrae. Anatomic variant: None. Alignment: S-shaped scoliosis of the thoracic and lumbar spine with a dextroscoliosis in the thoracic spine centered at approximately T8 and a levoscoliosis in the lumbar spine centered at L3. Slightly exaggerated thoracic kyphosis at T11 with exaggeration of the lumbar lordosis. Grade 1-2 anterolisthesis of L5 on S1. Stepwise retrolisthesis of L1 on L2, L2 on L3 and L3 on L4. Lumbar alignment does not appear to significantly change between flexion or extension. Vertebral body heights: Vertebral body heights appear maintained Disc heights: Multilevel degenerative disc changes throughout the lumbar spine. With moderate narrowing throughout multiple lumbar spine levels. Mild disc height loss throughout the thoracic spine, though exam is limited due to patient positioning and technique. Facet joints: Moderate facet arthropathy. Pedicles: Pedicles appear to be intact. Other: Sacroiliac joints are maintained. IMPRESSION: S-shaped scoliosis of the thoracic and lumbar spine as described with associated thoracic and lumbar spondylosis. Life Enrichment Director: RENE Transcribe Date/Time: Aug 08 2021 10:07A Dictated by : DASIA RATLIFF MD This examination was interpreted and the report reviewed and electronically signed by: DASIA RATLIFF MD on Aug 08 2021 10:09AM EST [id number] Normal [facility] MRI Lumbar Spine w/oon 06-18 MRI Lumbar Spine w/o HISTORY: Low back pain with radiation to the left leg, ongoing for 3 years. TECHNIQUE: Routine lumbosacral spine MR protocol WITHOUT gadolinium. Contrast: None. COMPARISON: Lumbar spine radiograph 02/03/19. RESULT: Counting reference: Lumbosacral junction. For the purposes of this report, L5-S1 is considered the last well-formed disc space. Alignment: Mild straightening of the lumbar lordosis. Stable moderate levoscoliosis centered at L2-3. Vertebral body heights are maintained. Loss of disc space at L5-S1. Grade 1 anterolisthesis of L5 on S1. Bone marrow signal/fracture: Heterogeneity of the bone marrow without suspicious replacement. Conus: The conus is within normal limits of signal intensity and morphology. Paraspinal soft tissues: Paraspinal soft tissues are within normal limits. Lower thoracic spine: Visualized lower thoracic canal and foramina are without significant narrowing. Multilevel degenerative changes of the lumbar spine including endplate remodeling, Schmorl's nodes, disc bulges, facet degenerative changes and ligamentum flavum hypertrophy L1-L2: Disc bulge asymmetric to the right, ligamentum flavum hypertrophy and facet degenerative changes without significant canal stenosis. Mild right subarticular recess narrowing. Mild right neural foraminal narrowing. Left neural foramen is patent. L2-L3: Disc bulge asymmetric to the right, ligamentum flavum hypertrophy and facet degenerative changes with mild canal stenosis. Severe narrowing of the right subarticular recess. Moderate right neural foraminal narrowing with abutment of the exiting right L2 nerve root. Left neural foramen is patent. L3-L4: Disc bulge asymmetric to the right, facet degenerative change and ligamentum flavum hypertrophy with moderate canal stenosis. Right greater than left narrowing of the subarticular recesses. Right greater than left mild neural foraminal narrowing. L4-L5: Disc bulge slightly asymmetric to the left, facet degenerative changes and ligamentum flavum hypertrophy with resultant moderate canal stenosis. Moderate left and mild right neural foraminal narrowing. L5-S1: Disc bulge asymmetric to the left, facet degenerative changes and ligamentum flavum hypertrophy without significant canal stenosis. Severe left and moderate right neural foraminal narrowing with mild mass-effect on the exiting left L5 nerve. Sacrum and iliac wings: The visualized sacrum and iliac wings are within normal limits. The presacral soft tissues are normal in appearance. IMPRESSION: Advanced multilevel degenerative changes of the lumbar spine with up to moderate canal stenosis and severe neural foraminal narrowing, most prominent at L4-L5 and L5-S1. Mass-effect on the exiting right L2 and left L5 nerve roots. Multilevel subarticular recess narrowing, most prominent at L2-L3 and L3-L4. Report reported and signed by MARY JANE HILARIO on 06/19/2021 1215 Normal [facility] Manager Photo Complete Blood Count with Au to Diffon 05-29-2021 Basophils (Bld) [#/Vol] 0.04 10*3/uL Normal 0.00-0.20 [facility] Manager Photo Comment on above: Performed By: #### T SH reflex FT4, LIPD, CBCAD, CMP #### [facility] [address] [place], [place] [id number] Basophils/100 WBC (Bld) 0.6 % Normal [facility] Comment on above: Performed By: #### T SH reflex FT4, LIPD, CBCAD, CMP #### [facility] [address], [place] [id number] Eosinophils (Bld) [#/Vol] 0.38 10*3/uL Normal 0.02-0.50 [facility] Specialist Comment on above: Performed By: #### T SH reflex FT4, LIPD, CBCAD, CMP #### [facility] [address], [place] [id number] Eosinophils/100 WBC (Bld) 5.5 % Normal [facility] Specialist Comment on above: Performed By: #### T SH reflex FT4, LIPD, CBCAD, CMP #### [facility] [address], [place] [id number] Erythrocyte distribution width (RBC) [Ratio] 13.4 % Normal 11.0-15.0 [facility] Comment on above: Performed By: #### T SH reflex FT4, LIPD, CBCAD, CMP #### [facility] [address], [place] [id number] Hematocrit (Bld) [Volume fraction] 44.5 % Normal 38.5-50.0 [facility] Specialist Comment on above: Performed By: #### T SH reflex FT4, LIPD, CBCAD, CMP #### [facility] [address], [place] [id number] Hemoglobin (Bld) [Mass/Vol] 14.9 g/dL Normal 13.0-17.1 [facility] Specialist Comment on above: Performed By: #### T SH reflex FT4, LIPD, CBCAD, CMP #### [facility] [address], [place] [id number] Lymphocytes (Bld) [#/Vol] 2.4 10*3/uL Normal 0.9-3.9 [facility] Specialist Comment on above: Performed By: #### T SH reflex FT4, LIPD, CBCAD, CMP #### [facility] [address], [place] [id number] Lymphocytes/100 WBC (Bld) 34.9 % Normal [place] Manager Photo Comment on above: Performed By: #### T SH reflex FT4, LIPD, CBCAD, CMP #### [facility] [address], [place] [id number] MCH (RBC) [Entitic mass] 29.6 pg Normal 27.0-33.0 [facility] Comment on above: Performed By: #### T SH reflex FT4, LIPD, CBCAD, CMP #### [facility] [address], [place] [id number] MCHC (RBC) [Mass/Vol] 33.5 g/dL Normal 32.0-36.0 [facility] Comment on above: Performed By: #### T SH reflex FT4, LIPD, CBCAD, CMP #### [facility] [address], [place] [id number] MCV (RBC) [Entitic vol] 89 fL Normal 80-100 [facility] Comment on above: Performed By: #### T SH reflex FT4, LIPD, CBCAD, CMP #### [facility] [address], [place] [id number] Monocytes (Bld) [#/Vol] 0.6 10*3/uL Normal 0.2-0.9 [facility] Comment on above: Performed By: #### T SH reflex FT4, LIPD, CBCAD, CMP #### [facility] [address], [place] [id number] Monocytes/100 WBC (Bld) 8.1 % Normal [facility] Comment on above: Performed By: #### T SH reflex FT4, LIPD, CBCAD, CMP #### [facility] [address], [place] [id number] Neutrophils (Bld) [#/Vol] 3.5 10*3/uL Normal 1.5-7.8 [facility] Comment on above: Performed By: #### T SH reflex FT4, LIPD, CBCAD, CMP #### [facility] [address], [place] [id number] Neutrophils/100 WBC (Bld) 50.6 % Normal [facility] Comment on above: Performed By: #### T SH reflex FT4, LIPD, CBCAD, CMP #### [facility] [address], [place] [id number] Platelet mean volume (Bld) [Entitic vol] 11.20 fL Normal 7.50-12.50 [facility] Comment on above: Performed By: #### T SH reflex FT4, LIPD, CBCAD, CMP #### [facility] [address], [place] [id number] Platelets (Bld) [#/Vol] 234 10*3/uL Normal 140-400 [facility] Specialist Comment on above: Performed By: #### T SH reflex FT4, LIPD, CBCAD, CMP #### [facility] [address], [place] [id number] RBC (Bld) [#/Vol] 5.03 10*6/uL Normal 4.20-5.80 [facility] Specialist Comment on above: Performed By: #### T SH reflex FT4, LIPD, CBCAD, CMP #### [facility] [address], [place] [id number] RDW-SD 43.7 fL Normal 37.0-50.0 [facility] Specialist Comment on above: Performed By: #### T SH reflex FT4, LIPD, CBCAD, CMP #### [facility] [address], [place] [id number] WBC (Bld) [#/Vol] 6.9 10*3/uL Normal 3.8-11.0 [facility] Manager Photo Comment on above: Performed By: #### T SH reflex FT4, LIPD, CBCAD, CMP #### [facility] [address], [place] [id number] Comprehensive Metabolic Pane luis 05-29-2021 Albumin [Mass/Vol] 4.6 g/dL Normal 3.6-5.1 [facility] Manager Photo Comment on above: Performed By: #### T SH reflex FT4, LIPD, CBCAD, CMP #### [facility] [address], [place] [id number] Albumin/Globulin [Mass ratio] 2.1 {ratio} Normal 1.0-2.5 [place] Manager Photo Comment on above: Performed By: #### T SH reflex FT4, LIPD, CBCAD, CMP #### [facility] [address], [place] [id number] ALP [Catalytic activity/Vol] 82 U/L Normal 40-129 [facility] Specialist Comment on above: Performed By: #### T SH reflex FT4, LIPD, CBCAD, CMP #### [facility] [address] [facility] [place] [id number] ALT [Catalytic activity/Vol] 47 U/L High 9-46 [facility] Specialist Comment on above: Result Comment: 04/23 Female reference range changed. Performed By: #### T SH reflex FT4, LIPD, CBCAD, CMP #### [facility] [address], [place] [id number] Anion gap [Moles/Vol] 20 mmol/L Normal 12-20 [facility] Comment on above: Result Comment: Effe ctive 05/29/2019 reference range changed. Performed By: #### T SH reflex FT4, LIPD, CBCAD, CMP #### [facility] [address], [place] [id number] AST [Catalytic activity/Vol] 26 U/L Normal 10-40 [facility] Specialist Comment on above: Performed By: #### T SH reflex FT4, LIPD, CBCAD, CMP #### [facility] [address], [place] [id number] Bilirubin [Mass/Vol] 0.67 mg/dL Normal 0.30-1.20 [facility] Comment on above: Performed By: #### T SH reflex FT4, LIPD, CBCAD, CMP #### [facility] [address], [place] [id number] BUN/CREA 13 Ratio Normal 6-22 [facility] Specialist Comment on above: Performed By: #### T SH reflex FT4, LIPD, CBCAD, CMP #### [facility] [address] [id number] Calcium [Mass/Vol] 9.5 mg/dL Normal 8.6-10.2 [facility] Comment on above: Performed By: #### T SH reflex FT4, LIPD, CBCAD, CMP #### [facility] [address], [place] [id number] Chloride [Moles/Vol] 102 mmol/L Normal 98-107 [facility] Comment on above: Performed By: #### T SH reflex FT4, LIPD, CBCAD, CMP #### [facility] [address], [place] [id number] CO2 [Moles/Vol] 24 mmol/L Normal 20-31 [facility] Comment on above: Performed By: #### T SH reflex FT4, LIPD, CBCAD, CMP #### [facility] [address], [place] [id number] Creatinine [Mass/Vol] 1.0 mg/dL Normal 0.7-1.4 [facility] Comment on above: Performed By: #### T SH reflex FT4, LIPD, CBCAD, CMP #### [facility] [address], [place] [id number] eGFRAA 101 mL/min/1.73m2 Normal >60 [facility] Comment on above: Performed By: #### T SH reflex FT4, LIPD, CBCAD, CMP #### [facility] [address], [place] [id number] eGFRNAA 83 mL/min/1.73m2 Normal >60 [facility] Comment on above: Performed By: #### T SH reflex FT4, LIPD, CBCAD, CMP #### [facility] [address], [place] [id number] Globulin (S) [Mass/Vol] 2.2 g/dL Normal 1.9-3.7 [facility] Comment on above: Performed By: #### T SH reflex FT4, LIPD, CBCAD, CMP #### [facility] [address], [place] [id number] Glucose [Mass/Vol] 94 mg/dL Normal 65-99 [facility] Comment on above: Result Comment: For FASTING Glucose --- ADA reference ranges: Normal 65-99 mg/dl Prediabetes 100-125 Diabetes >/= 126 Performed By: #### T SH reflex FT4, LIPD, CBCAD, CMP #### [facility] [address], [place] [id number] Potassium [Moles/Vol] 4.0 mmol/L Normal 3.5-5.5 [facility] Comment on above: Performed By: #### T SH reflex FT4, LIPD, CBCAD, CMP #### [facility] [address], [place] [id number] Protein [Mass/Vol] 6.8 g/dL Normal 6.1-8.1 [facility] Manager Photo Comment on above: Performed By: #### T SH reflex FT4, LIPD, CBCAD, CMP #### [facility] [address], [place] [id number] Sodium [Moles/Vol] 142 mmol/L Normal 135-146 [facility] [place] Manager Photo Comment on above: Performed By: #### T SH reflex FT4, LIPD, CBCAD, CMP #### [facility] [address], [place] [id number] Urea nitrogen [Mass/Vol] 13 mg/dL Normal 7-25 [facility] Manager Photo Comment on above: Performed By: #### T SH reflex FT4, LIPD, CBCAD, CMP #### [facility] [address], [place] [id number] Lipid Panelon 05-29-2021 Cholesterol [Mass/Vol] 214 mg/dL High 125-200 [facility] Comment on above: Result Comment: Low risk < 200mg/dL Borderline risk 201-239 mg/dl High risk > or equal to 240 Performed By: #### T SH reflex FT4, LIPD, CBCAD, CMP #### [facility] [address], [place] [id number] Cholesterol in HDL [Mass/Vol] 41 mg/dL Normal >40 [facility] Manager Photo Comment on above: Result Comment: High Cardiovascular Risk HDL <40 mg/dL Low Cardiovascular Risk HDL > or equal to 60 mg/dl Performed By: #### T SH reflex FT4, LIPD, CBCAD, CMP #### [facility] [address], [place] [id number] Cholesterol in LDL [Mass/Vol] 132 mg/dL Normal [facility] Specialist Comment on above: Result Comment: LDL ATP III CLASSIFICATION LDL less than 100 mg/dl Optimal LDL 100-129 mg/dl Near or above optimal LDL 130-159 Borderline high LDL 160-189 High LDL greater than 189 mg/dl Very High Performed By: #### T SH reflex FT4, LIPD, CBCAD, CMP #### [facility] [address], [place] [id number] Cholesterol in VLDL [Mass/Vol] 41 mg/dL Normal [facility] Specialist Comment on above: Performed By: #### T SH reflex FT4, LIPD, CBCAD, CMP #### [facility] [address], [place] [id number] Cholesterol.total/Choles terol in HDL [Mass ratio] 5 {ratio} Normal [facility] Specialist Comment on above: Performed By: #### T SH reflex FT4, LIPD, CBCAD, CMP #### [facility] [address], [place] [id number] Triglyceride [Mass/Vol] 204 mg/dL High 30-150 [facility] Manager Photo Comment on above: Result Comment: TRIG ATPIII CLASSIFICATIONS TRIG less than 150 mg/dl Normal TRIG 150-199 mg/dl Borderline High TRIG 200-500 mg/dl High TRIG greather than 500 mg/dl Very High Performed By: #### T SH reflex FT4, LIPD, CBCAD, CMP #### [facility] [address], [place] [id number] TSH w/ Reflex to Free T4on 0 05-29-2021 TSH 1.320 uIU/mL Normal 0.400-4.500 [facility] Manager Photo Comment on above: Performed By: #### T SH reflex FT4, LIPD, CBCAD, CMP #### [facility] [address], [place] [id number] Encounters Encounter Date Encounter Type Care Provider Facility Start: 05-11-2023 End: 05-12-2023 ambulatory ARLENE POWER Not Available Start: 05-10-2023 End: 05-11-2023 ambulatory Spencer Centeno MD Facility:[facility] Start: 04-29-2023 End: 04-29-2023 ambulatory ARLENE M HEMMER Not Available Start: 04-28-2023 End: 04-28-2023 ambulatory Arlene Hemmer Facility:[facility] Start: 04-28-2023 End: 04-28-2023 ambulatory PA-C Arlene Hemmer Work Phone: [facility] Work Phone: Start: 04-28-2023 End: 04-28-2023 Patient encounter procedure PA-C Arlene Hemmer Work Phone: [facility] Work Phone: Start: 04-09-2023 End: 04-09-2023 ambulatory ARLENE Womack HEMMER Not Available Start: 03-01-2023 End: 03-02-2023 ambulatory Spencer Centeno MD Facility: [facility] Start: 02-08-2023 End: 02-09-2023 ambulatory Spencer Centeno MD Facility: [facility] Start: 01-29-2023 End: 01-29-2023 ambulatory Arlene Hemmer Facility:[facility] Start: 01-29-2023 End: 01-29-2023 ambulatory [employer]-C Arlene Hemmer Work Phone: [facility] Work Phone: Start: 01-29-2023 End: 01-29-2023 Patient encounter procedure [employer]PER[employer]OR-C Arlene Hemmer Work Phone: [facility] [place] Work Phone: Start: 01-18-2023 End: 01-19-2023 ambulatory Spencer Centeno MD Facility:[facility] Start: 09-17-2022 End: 09-18-[address] DOCTOR SAUL Facility:[facility] Start: 06-18-2022 End: 06-19-[address] ABRAN ALVARADO . Facility:[facility] Start: 06-11-2022 End: [address] ABRAN ALVARADO . Facility:[facility] Start: 03-19-2022 End: 03-20-[address] ABRAN ALVARADO . Facility:[facility] Start: 02-19-2022 End: 02-20-[address] ABRAN ALVARADO . Facility:[facility] Start: 12-17-2021 End: 12-18-[address] ABRAN ALVARADO . Facility:[facility] Start: 11-27-2021 End: 11-28-2021 ambulatory JOSE MOSLEY . Facility:[facility] Start: 10-28-2021 End: 10-28-[address] ABRAN ALVARADO . Facility:[facility] Start: 10-02-2021 End: 10-03-[address] ABRAN ALVARADO . Facility:[facility] Start: 08-06-2021 End: 08-06-2021 Subsequent hospital visit by physician Xr [facility] Comment on above: Degeneration of lumb ar intervertebral disc [M51.36] Procedures Date Procedure Procedure Detail Performing Clinician Start: 04-28-2023 X-ray of right knee PAHafsa Power Work Phone: Start: 08-06-2021 Radex spine lumbosac ral minimum 4 views Marilyn Stallworth PA-C Work Phone: Plan of Treatment Date Care Activity Detail Author Start: 01-22-2023 Influenza vaccination INFLUENZA (#1) [facility] Start: 05-24-2022 DEPRESSION ASSESSMENT DEPRESSION ASS ESSMENT [facility] Start: 07-09-2021 COVID-19 VACCINE (3 - Booster for Malissa series) COVID-19 VACCINE (3 - Booster for Malissa series) [facility] Start: 2019 COLOGUARD (FIT-DNA) COLOGUARD (FIT-D NA) [facility] Start: 2019 Colonoscopy COLONOSCOPY [facility] Start: 2019 COLORECTAL CANCER SCREENING COLORECTAL CANCER SCREENING [facility] Start: [address] COLONOGRAPHY [facility] Start: 2019 DIABETES SCREEN DIABETES SCREEN [facility] Start: 2019 FECAL OCCULT BLOOD FECAL OCCULT BLOO D [facility] Start: 2019 [facility] Start: 2009 LIPID SCREEN LIPID SCREEN [facility] Start: 1993 Urine microalbumin profile DTAP,TDAP ,TD (1 - Tdap) [facility] Start: 1992 HEPATITIS C SCREENING HEPATITIS C SC MACK [facility] Start: 1992 HIV SCREENING HIV SCREENING [facility] Start: 1974 HEPATITIS B (1 of 3 - 3-dose series) HEPATITIS B (1 of 3 - 3-dose series) [facility] Payers Date Payer Category Payer Self-pay [id number] 2017 Unknown [id number] 1974 Unknown [id number] [id number] 1974 Unknown [id number] 2.16.840.1.894419.3.579.2.593 1974 Unknown [id number] 2.16.840.1.743593.3.579.2.593 1974 Unknown [id number] 2.16.840.1.796797.3.579.2.593 1974 Unknown [id number] 2.16.840.1.557349.3.579.2.593 1974 Unknown [id number] 2.16.840.1.543898.3.579.2.593 1974 Unknown [id number] 2.16.840.1.093759.3.579.2.593 1974 Unknown [id number] 2.16.840.1.339469.3.579.2.593 1974 Unknown [id number] 2.16.840.1.045988.3.579.2.593 1974 Unknown [id number] 2.16.840.1.763821.3.579.2.196 1974 Unknown [id number] 2.16.840.1.852093.3.579.2.196 1974 Unknown [id number] 2.16.840.1.957375.3.579.2.196 1974 Unknown [id number] 2.16.840.1.348099.3.579.2.196 1974 Unknown [id number] 2.16.840.1.711188.3.579.2.9 1974 Unknown [id number] 2.16.840.1.691281.3.579.2.1259 1974 Unknown [id number] 2.16.840.1.891169.3.579.2.9 1959 Unknown [id number] Private Health Insurance [employer] [id number] Unknown [id number] 2.16.840.1.564504.3.579.2.531 Unknown [id number] 2.16.840.1.055648.3.579.2.531 Social History Date Type Detail Facility Start: 07-04-2019 Tobacco smoking stat RUSTIS Never smoked tobacco [facility] Start: 07-04-2019 Tobacco use and exposure Smoke less tobacco non-user [facility] Start: 08-01-2021 Alcohol intake Current drinke r of alcohol (finding) [facility] Start: 04-28-2020 End: 08-01-2021 History of Social function [facility] Start: 04-28-2020 End: 08-01-2021 Tobacco use panel [facility] Adult Depression Screening Assessment 0 [facility] Start: 02-12-2016 Alcohol Comment occ [facility] Start: 1975 Sex Assigned At Male C [facility] Start: 07-29-2021 Gender identity Identifies as male gender (finding) [facility] Start: 07-29-2021 Sexual orientation Heterosexual (uzma cardenas) [facility] Clinical Notes 07-03-2021 to 09-17-2022 Note Date & Type Note Facility 09-17-2022 Note CONSULTATION PROCEDURE DATE: 09/17/2022 PROCEDURE: Trigger point injection left gluteus ronna. PREOPERATIVE DIAGNOSIS: Pain secondary to myofascial spasm left gluteus ronna, as well as lumbar spondylosis. POSTOPERATIVE DIAGNOSIS: Pain secondary to myofascial spasm left gluteus ronna, as well as lumbar spondylosis. SOLUTION USED FOR INJECTION: 2 mL of 2% lidocaine, 2 mL of 0.25% Marcaine and 10 mg of Kenalog, total of 5 mL and 5 mL used for the injection at all three sites, along the same muscle group. PROCEDURE: After informed consent was obtained from the patient, placed in the prone position. Skin overlying the area was prepped with alcohol. A 25 gauge 1 1/2 inch needle was inserted over the left upper outer quadrant of the gluteus ronna. Needle tip was advanced until a mild twitch response. This was repeated in two other locations in the gluteus ronna as well, a total of 5 mL; approximately 1-1.5 mL used for the injection at each site. Post procedure reports reduction in pain symptoms. IMMEDIATE COMPLICATIONS: None. [facility] 06-18-2022 Note CONSULTATION PROCEDURE DATE: 06/18/2022 PREOPERATIVE DIAGNOSIS: Left gluteal muscle spasm. POSTOPERATIVE DIAGNOSIS: Left gluteal muscle spasm. PROCEDURE: Left gluteal trigger point injection. Subsequent to obtaining informed consent, the patient was placed in the upright standing forward flexion position. Alcohol prep was used to sterilize the site. A 25 gauge needle with 0.125% Marcaine and 40 mg of Kenalog was placed to rest inside the trigger zone. Negative heme. Medication was injected in a slow, fan-like pattern and the patient tolerated the procedure well. She will be followed up in the office. [facility] 06-11-2022 Note CONSULTATION CONSULTATION DATE: 06/11/2022 HISTORY OF PRESENT ILLNESS: This is a 46-year-old male who returns to the clinic for a three month follow up for his left hip pain and chronic back pain. The patient did have lumbar radiofrequency ablations between L2-L5 in November of 2021. He also received a left lumbar trigger point injection on 03/19/2022, which gave him great relief. Patient did take a two week vacation to [place] and overall did quite well. Upon returning to work in early April, patient was having increased left gluteal spasms and hip pain. Activities such as pushing, pulling, standing, walking and lifting aggravate the pain. He does use Biofreeze but not heat. He feels the heat aggravates his pain. Medications include diclofenac 50 mg t.i.d., Robaxin 500 mg b.i.d., which he finds helpful. Patient's REVIEW OF SYSTEMS / PAST MEDICAL HISTORY / ALLERGIES and IMAGES have been reviewed and noted on the chart. PHYSICAL EXAM: VITAL SIGNS: Blood pressure 128/85, heart rate is 79. Temperature is 96.9. He is 5'11 , weighs 96 kg. GENERAL IMPRESSION: Pleasant, appropriate, no acute distress. FOCUSED EXAM - BACK: No reproduction of spinal axial pain upon compression along the lumbar facets. Left paravertebral and gluteal muscles are spasmodic with a trigger point identified to the left gluteal muscle. Positive jump response to palpation, which reproduces his symptomatology. Aiyana's point is non-tender bilaterally. Negative FABERs and compression test. MUSCULOSKELETAL: Motor is intact, 5/5 bilaterally. Patient walks unassisted with a stable gait. Good muscle tone throughout. NEUROLOGICAL: Radicular sensory is intact. +2 bilateral patellar and Achilles reflexes. DIAGNOSIS: Left gluteal spasm, lumbar degenerative disc disease, lumbar spondylosis. PLAN: We will refill his diclofenac and Robaxin at the set dose and frequency. We will preauthorize for left gluteal trigger point injection and bring him back to the clinic at the time of authorization. In the meantime, he is to continue with Biofreeze and stretches which were shown to him in the clinic today. Patient agrees with this plan and all questions answered. [facility] 03-19-2022 Note CONSULTATION PROCEDURE DATE: 03/19/2022 PREOPERATIVE DIAGNOSIS: Left lumbar paravertebral spasm. POSTOPERATIVE DIAGNOSIS: Left lumbar paravertebral spasm. PROCEDURE: Left lumbar trigger point injection x1. Subsequent to obtaining informed consent, the patient was placed in the upright standing forward flexion position. Alcohol prep was used to sterilize the site. A 25 gauge needle with 0.125% Marcaine and 40 mg of Kenalog was placed to rest inside the trigger zone. Negative heme. Medication was injected in a slow, fan-like pattern and patient tolerated the procedure well. She will be followed up in the office in three months. [facility] 02-19-2022 Note CONSULTATION CONSULTATION DATE: 02/19/2022 HISTORY OF PRESENT ILLNESS: This is a 46-year-old male who return to the clinic for a three month follow up and status post lumbar trigger point injection. His last visit was on 12/17/2021, and the patient reports that the trigger point injection greatly decreased his pain for about a week. His medications include tizanidine 4 mg q.h.s. and diclofenac 15 mg once or two daily. Today, the patient describes pain 1/10. As the day goes on and in the evening, the pain gets up to 8/10. The patient, during the work day, feels a catch in his left lower lumbar area, as well as night time, and it feels like a tight, binding, achy feeling. The patient did have radiofrequency ablation to his lumbar region, which was completed on 10/28/2021. The patient is still feeling relief from that procedure. The patient's shares that she rubs his back down with a menthol heat rub, and can feel slight bumps which are possible muscle spasms in his left lumbar region. Patient denies any radicular pain or vasomotor changes. Patient shares that he and his family are going to [place] for a couple weeks at the end of February, and the patient is worried about mobility and pain during that trip. Activities that aggravate his pain are prolonged standing, walking, prolonged supine position and lifting. He does daily use Voltaren and a menthol heat rub with heat application, which is beneficial. Patient's REVIEW OF SYSTEMS / PAST MEDICAL HISTORY / ALLERGIES and IMAGES have been reviewed and they are noted on the chart. PHYSICAL EXAM: VITAL SIGNS: Blood pressure 134/89, heart rate is 73. Temperature is 97.7. He is 5'11, weigh 92.5 kg. GENERAL IMPRESSION: Pleasant, appropriate, no acute distress. FOCUSED EXAM - BACK: Range of motion is functional in lateral rotation and flexion/extension. Paravertebral muscles are taut on the left and paravertebral muscles are supple and atrophied to the right thoracic and lumbar region. Reproduction of patient's pain symptomatology to compression along the left thoracic trapezius and left lumbar muscles. Positive jump response to palpation both locations. Aiyana's point mildly tender to the left with no radiating pain. FABERs mildly positive. MUSCULOSKELETAL: Motor is intact, 4/5 bilaterally. No vasomotor weakness to lower extremities. Patient walks with a stable gait. NEUROLOGICAL: Radicular sensory is intact. Negative polyneuropathy. +2 bilateral patellar and Achilles reflexes. DIAGNOSIS: Lumbar paravertebral spasms, lumbar degenerative disc, lumbar spondylosis. PLAN: I feel the patient's pain pattern during the day is muscle related. We will change his muscle relaxer to Robaxin 500 mg b.i.d. to help capture some of that tightness during the daytime. He was instructed to stop the tizanidine. A refill for diclofenac 50 mg t.i.d. will be prescribed as well. We will preauthorize for left lumbar trigger point injection in two locations for his lumbar spasms. Patient will be brought back to the clinic on March 19 for these injections, pending approval. In the meantime, he is to continue using a menthol heat rub and heat application as well as take his magnesium 400 mg daily. Patient agrees with the plan of care and would like to proceed. [facility] 12-17-2021 Note CONSULTATION PROCEDURE DATE: 12/17/2021 PREOPERATIVE DIAGNOSIS: Left lumbar paravertebral spasm. POSTOPERATIVE DIAGNOSIS: Left lumbar paravertebral spasm. PROCEDURE: Left lumbar trigger point injection. Subsequent to obtaining informed consent, the patient was placed in the upright standing forward flexion position. A 25 gauge needle with 0.125% Marcaine and 40 mg of Kenalog was placed to rest inside the trigger point. Negative heme. Medication was injected in a fan-like pattern and patient tolerated the procedure well and will be followed up in the clinic for re-evaluation. [facility] 11-27-2021 Note CONSULTATION CONSULTATION DATE: 11/27/2021 This is a 46-year-old male who returns to the clinic status post left-sided RFA of L2, L3 and L4, L5 completed on 10/28/2021. The patient states this has afforded him 70-80% but he is still having mild hip pain at this time. It is worse with twisting, turning, standing, walking and stairs. He does report improvement with his radicular pain to his left toes. Medications include tizanidine 4 mg q.h.s., diclofenac 50 mg q. day p.r.n. The patient reports to having more good days than bad days. He is concerned that he has a left hip problem. MRI does show lumbar pathology. REVIEW OF SYSTEMS, PAST MEDICAL HISTORY, ALLERGIES AND IMAGES: Have been reviewed and noted in the chart. PHYSICAL EXAM: VITAL SIGNS: Blood pressure 135/90, heart rate is 67, temperature is 98.2. Height is 5'11 , weighs 73.7 kg. GENERAL APPEARANCE: Pleasant, appropriate, no acute distress. BACK: Range of motion is functional, lateral rotation and flexion extension. No reproduction of spinoaxial pain to direct compression along the lumbar facets. Left lumbar paravertebral spasms noted at the level of L4, L5 and compression reproduces the patient's pain symptomatology to his left hip. MUSCULOSKELETAL: Motor is intact, 4 out of 5 bilaterally. Good muscle tone. NEUROLOGICAL: Patchy hypesthesia noted along the left L4, L5 dermatomes that radiates just below the knee. Plus 1 patellar Achilles reflex. DIAGNOSIS: Left lumbar spasms, lumbar spondylosis, lumbar degenerative disk disease, lumbar radiculitis. PLAN: We will preauthorize for the patient to receive a left lumbar trigger point injection. Currently the patient is not using heat or doing stretches and was encouraged to mix Vicks with Voltaren gel and apply a heat source nightly, if not twice a night. Stretches were encouraged and demonstrated in the office. Upon authorization of the treatment point injection, the patient will be brought back to the clinic to receive that. The patient has agreed to the plan of care and would like to proceed. [facility] Signed and Approved by: JOSE MOSLEY . 12/04/2021 09:49:00 [facility] 10-02-2021 Note CONSULTATION CONSULTATION DATE: 10/02/2021 HISTORY: This is a 46-year-old male who returns to the clinic status post #2 left sided MBB of L2, L3 and L4, L5 completed on 09/16/2021. The patient reports it has afforded him 80% relief and is ongoing. He does have hypoesthesia along the lateral aspect of his left lower extremity. Overall, the patient is pleased with the results. Activities such as prolonged standing, walking, stairs, lifting and ADLs aggravate his pain. He has not tried heat or ice. Current medications include diclofenac 100 mg b.i.d. Patient reports this does upset his stomach and only takes it once a day as needed. He is currently not on a muscle relaxer. He denies any new radicular pain or vasomotor changes. Patient's REVIEW OF SYSTEMS / PAST MEDICAL HISTORY / ALLERGIES and IMAGES have been reviewed and they are noted on the chart. PHYSICAL EXAM: VITALS: Blood pressure is 134/83. Heart rate is 77. Height is 5'11 and weighs 97 kilos. GENERAL APPEARANCE: Pleasant, appropriate. is present in the room. FOCUSED EXAM - BACK: Lateral rotation is guarded as is flexion/extension. Reproduction of spinal axial pain noted to direct compression along the posterior elements of the facets of left side of L2, L3 and L4, L5. Paravertebral muscles are taut but non-spasmodic. MUSCULOSKELETAL: Motor is intact, 4/5 bilaterally. Patient has a stable gait with good muscle tone. NEUROLOGICAL: Patchy hypoesthesia noted along the L5 dermatome to the left. IMPRESSION: Lumbar spondylosis, lumbar degenerative disc, spinal axial lower back pain and lumbar radiculitis. PLAN: We will gain authorization to move ahead with the left sided RFA at L2, L3 and L4, L5. Patient's diclofenac dose will be decreased to 50 mg b.i.d. He will start tizanidine 4 mg q.h.s. Nutrition/vitamin importance was stressed and patient verbalizes compliance. Patient agrees with the plan of care and would like to proceed. [facility] Signed and Approved by: JOSE MOSLEY . 10/09/2021 17:09:00 [facility] 08-06-2021 Note HNO ID: [id number] Author: RT Linda(R) Service: ? Author Type: Technologist Type: Progress Notes Filed: 08/06/2021 12:17 PM Note Text: Radiology Service Progress Note PATIENT NAME: Ophelia Cruz DATE OF SERVICE: August 06, 2021 TIME: 12:16 PM PATIENT IDENTITY VERIFICATION COMPLETED USING TWO (2) IDENTIFIERS: Name and Date of confirmed by patient verbally. FALL SCREENING: Has the patient had 2 falls in the last year or 1 fall with injury or currently using an Ambulatory Assistive Device (Walker, Cane, Wheelchair, Crutches, etc.)? No PATIENT GENDER DATA: Male PATIENT RELEVANT IMPLANT DATA REVIEWED: Not Applicable RADIOLOGY DEPARTMENT: General X-ray: Exam(s) Completed: Spine X-Ray(s): Lumbar AP / LAT / L5-S1 / FLEX-EXT and Scoliosis Series PERIPHERAL IV DATA: Not applicable SIGNED BY: Dasia Jurado, RT(R) August 06, 2021 12:16 PM [facility] 08-01-2021 Note HNO ID: [id number] Author: Marilyn Stallworth PA-C Service: ? Author Type: Physician Anodic Operator Type: Progress Notes Filed: 08/01/2021 10:58 AM Note Text: SPINE SURGERY NEW PATIENT VIRTUAL PCP: SHAYNE Fried REFERRING PROVIDER: ARLENE POWER SUBJECTIVE HISTORY OF PRESENT ILLNESS: Ophelia Cruz is a 46 year old male presenting with spouse. CHIEF COMPLAINT: Left Buttock/hip pain PRECIPITATING EVENT: None Patient reports low back pain described as moving and popping but this is not significant. occasional stiffness in back Radiation: Left buttocks and lateral hip pain that is described as frank horse and cramp Numbness/Tingling: Left leg tingling (unsure location) Difficulty Walking: Yes Due to pain in hip/buttock and causes him to leg Weakness: Previously had difficulty going up steps, since taking diclofenac this has improved weakness Falling: No Loss of Bowel or Bladder: No Aggravated: Standing, Walking A1C: No A1C but 2 fasting glucose <100 Smoking Status: never a smoker BMI: 32.1 Ht:5'11 Wt:230 pounds He sees PM and RFA was discussed. DERMATOMAL DISTRIBUTION: Left: L5 AMBULATORY STATUS: Independent Community Distances PREVIOUS CONSERVATIVE TREATMENTS: See below Acupuncture PT Oral steroids Chiro Diclofenac 3 weeks ago PREVIOUS SPINAL SURGERY: None ACTIVE PROBLEM LIST Torn Medial Meniscus Patellofemoral Arthrosis PAST MEDICAL HISTORY Diagnosis Date - Asthma Over 1 year since he had to use rescue inhaler - Reflux - Secondary hypertension PAST SURGICAL HISTORY Procedure Laterality Date - PAST SURGICAL HISTORY OF tonsils - PAST SURGICAL HISTORY OF Left 1995 FAMILY HISTORY Problem Relation Age of Onset - Cancer Father - Heart Father Social History Tobacco Use - Smoking status: Never Smoker - Smokeless tobacco: Never Used Substance Use Topics - Alcohol use: Yes Comment: occ - Drug use: No ALLERGIES No Known Allergies MEDICATIONS: jfkqbuxh-ymmhcikei-mpzufxknrnwshm (CORTISPORIN) 3.5-10,000-1 mg/mL-unit/mL-% otic suspension PLACE FOUR DROPS INTO AFFECTED EAR THREE TIMES DAILY FOR 7 DAYS albuterol HFA (VENTOLIN HFA) 90 mcg/actuation inhaler Inhale 2 Puffs as instructed every 6 hours as needed. naproxen (NAPROSYN) 500 mg tablet Take 500 mg by mouth once daily. esomeprazole (NEXIUM) 40 mg capsule Take 1 capsule by mouth once daily. fluticasone (FLONASE) 50 mcg/actuation nasal spray 2 Sprays once daily. Patient Entered Questionnaires Spine Questions 07/29/2021 Pain Location: Other Pain Duration: 1 to 5 years Pain over last 6 months: Every day or nearly every day in the past 6 months Symptoms from neck/cervical spine: No Employment Status: Working now Involved in law suit/legal claim: No PROMIS Score Percentiles Physical Health 07/29/2021 Physical Function Percentile 31 Sleep Percentile 62 Fatigue Percentile 95 Pain Interference Percentile 4 PROMIS SOCIAL ROLE SCORE 07/29/2021 Social Role Satisfaction Percentile 21* PROMIS Global Health Scale 07/29/2021 Physical Health Percentile 22* Mental Health Percentile 73 Percentiles provide an indication of how the patient's score ranks in relation to the general population. Higher percentile rankings indicate better function/quality of life. 50th percentile is the average of the general population and indicates half of respondents had a worse score. Depression Screening: PHQ-9 07/29/2021 Score 0 PHQ-9 Self-harm Question 07/29/2021 Thoughts that you would be better off , or of hurting yourself in some way 0 PHQ-9 Self-Harm (Item 9) response options: 0 Not at all 1 Several days 2 More than half the days 3 Nearly every day PHQ-9 Levels: 0-4 No to mild depression 5-9 Mild depression 10-14 Moderate depression 15-19 Moderately severe depression 20-27 Severe depression OBJECTIVE: PHYSICAL EXAM GENERAL APPEARANCE: Well nourished, well developed, and no apparent distress. NEURO PSYCH: Patient oriented to person, place, and time. Mood pleasant. Benign affect. DATA REVIEW [facility] records independently reviewed Imaging and outside records independently reviewed Images independently reviewed with the patient MRI lumbar spine report 06/18/21: Grade 1 anterolisthesis L5-S1 Moderate canal stenosis and severe bilateral foraminal stenosis at L4-5 and L5-S1 Significant DDD with endplate changes seen at L5/S1, anterolisthesis with severe bilateral foraminal stenosis and moderate canal narrowing, compressing left L5 nerve root. Moderate canal narrowing at L4/5 with moderate left foraminal narrowing. Severe right subarticular recess stenosis at L2/3 compressing right L2 nerve root. Moderate canal narrowing L3.4, ASSESSMENT/PLAN (M51.36) Degeneration of lumbar intervertebral disc (primary encounter diagnosis) (M41.9) Scoliosis of lumbosacral spine, unspecified scoliosis type (M51.37) Degeneration of lumbar or lumbosacr (more content not included)... [facility] 07-04-2021 Note HNO ID: [id number] Author: Sheeba Montes PA-C Service: ? Author Type: Physician Anodic Operator Type: Progress Notes Filed: 07/04/2021 4:34 PM Note Text: Per Triage: Ophelia Cruz is a 46 year old male that requests evaluation of spine. Per review, they have symptoms of back pain, leg pain, arm pain. Difficulty walking, weakness CMT: Acupuncture PT Oral steroids Chiro Studies (Reports unless indicated) MRI lumbar spine report 06/18/21: Grade 1 anterolisthesis L5-S1 Moderate canal stenosis and severe bilateral foraminal stenosis at L4-5 and L5-S1 Disposition: Based on triage, recommend patient be scheduled with Marilyn Stallworth for eval Please make sure patient imaging is available for review. Sheeba Montes PA-C [facility] 07-03-2021 Note HNO ID: [id number] Author: Sekou Braswell Service: ? Author Type: ? Type: Progress Notes Filed: 07/04/2021 4:34 PM Note Text: Patient name: Ophelia Cruz Are you being referred by a [facility] Provider or Pain Management Provider at [facility]? No If answer is YES please schedule directly with surgeon, triage does not need to be completed. Is this a self-referral No If not, who is the Referring Provider Dr Arlene Power Is this a 2nd opinion, have you been offered surgery by another surgeon? No MRI/CT/myelogram within 12 months? Yes If NO , please refer to medical spine or PCP to complete above imaging, triage does not need to be completed If YES,? please ask for the name/address of the facility where the MRI/CT/myelogram was completed: [facility] Address: [facility] [address], [place] [address] MRI/CT/myelogram viewable in Epic: No If not, please provide [phone] to fax in imaging reports for review. Also, please inform patient to hand carry imaging disc to appointment. XR (spine) within 12 months: No If YES,? please ask for the name/address of the facility where the XR was completed: No Requested provider (First and Last name): Steven Mijares Are you interested in a virtual visit if offered? No 1. Where are you having symptoms related to this visit? Yes Back pain Yes Leg pain Yes Arm pain Yes Neck pain No 2. Are you having any of the following symptoms: Difficulty walking Yes Numbness No Weakness Yes Trouble using your hands? No 3. Have you had any injections or physical therapy in the last 12 months? Yes If YES then please ask for the name/address of the facility where the injections and/or physical therapy was completed [facility] Address: [address] [place] [address] [address], [place] [id number] Have you tried any other kinds of non-surgical treatments in the last 12 months? (For example: NSAIDS, muscle relaxants, analgesics, oral steroids, Chiropractor, Acupuncture): Yes Acupuncture oral steroids, Chiropractor [facility] Address: [address], [place] [id number] 4. Are you currently taking daily prescribed narcotic medications for your current symptoms (For example Oxycodone, Hydrocodone, Tramadol, Morphine, Other)? No 5. Have you had previous spinal surgery for this same symptoms? No If YES? please ask for the name of facility/address of where the surgery was completed: No Additional Comments [phone] (Home Phone) [facility] Evaluation note Diagnosis Degeneration of lumbar intervertebral disc Degeneration of lumbar or lumbosacral intervertebral disc Scoliosis of lumbosacral spine, unspecified scoliosis type Degeneration of lumbar or lumbosacral intervertebral disc documented in this encounter [facility] noteNo assessment information availableTrumbull [facility] Work Phone: Reason for referral (narrative)* Diagnostic Procedure Only (Routine) - Closed Specialty Diagnoses / Procedures Referred By Marilynac t Referred To Contact XR IMAGING Diagnoses Degeneration of lumbar intervertebral disc Scoliosis of lumbosacral spine, unspecified scoliosis type Degeneration of lumbar or lumbosacral intervertebral disc Procedures XR LUMBAR MOTION 4V AP/LAT/ FLEX/EXT RADEX SPINE LUMBOSACRAL MINIMUM 4 VIEWS Marilyn Stallworth PA-C [address] [place] [address] Xr Imaging Referral ID Status Reason Start Date Expiration Date V isits Requested Visits Authorized [id number] Closed Auto-Generate d Referral 08/01/2021 08/31/2022 1 1 * Diagnostic Procedure Only (Routine) - Closed Specialty Diagnoses / Procedures Referred By Contac t Referred To Contact XR IMAGING Diagnoses Degeneration of lumbar intervertebral disc Scoliosis of lumbosacral spine, unspecified scoliosis type Degeneration of lumbar or lumbosacral intervertebral disc Procedures XR SCOLIOSIS PA STAND/LAT 2V RADEX ENTIR THRC LMBR CRV SAC SPI W/SKULL 2/3 VW Marilyn Stallworth PA-C [address] [place] [address] Xr Imaging Referral ID Status Reason Start Date Expiration Date V isits Requested Visits Authorized [id number] Closed Auto-Generate d Referral 08/01/2021 08/31/2022 1 1 [facility] for visit Narrative* Diagnostic Procedure Only (Routine) - Closed Specialty Diagnoses / Procedures Referred By Contac t Referred To Contact XR IMAGING Diagnoses Degeneration of lumbar intervertebral disc Scoliosis of lumbosacral spine, unspecified scoliosis type Degeneration of lumbar or lumbosacral intervertebral disc Procedures XR LUMBAR MOTION 4V AP/LAT/ FLEX/EXT RADEX SPINE LUMBOSACRAL MINIMUM 4 VIEWS Marilyn Stallworth PA-C [address] [place] [address] Xr Imaging Referral ID Status Reason Start Date Expiration Date V isits Requested Visits Authorized [id number] Closed Auto-Generate d Referral 08/01/2021 08/31/2022 1 1 [facility] Summary Purpose Family History No Family History Records FoundNo Family History Records FoundNo Family History Records FoundNo Family History Records FoundNo Family History Records FoundNo Family History Records Found Advance Directives No Advanced Directives Records Found Advance Directive Response Recorded Date/ Time Advance Directives No January 10:39am Advance Directive Response Recorded Date/ Time Advance Directives No January 9:39am Chief Complaint and Reason for Visit Chief Complaint I10 R74.01 E78.2 Z12 .5 m25.561 m17.11 Additional Source Comments (unrecognized sect ion and content) No Status Records FoundNo Status Records FoundNo Status Records FoundNo Status Records FoundNo Status Records FoundNo Status Records Found INFORMATION SOURCE (unrecogn ized section and content) DATE CREATED AUTHOR 08/12/2021 [facility] DATE CREATED AUTHOR AUTHOR'S ORGANIZ ATION 11/13/2021 [facility] DATE CREATED AUTHOR AUTHOR'S ORGANIZ ATION 09/21/2022 [facility] DATE CREATED AUTHOR AUTHOR'S ORGANIZ ATION 05/06/2023 [facility] DATE CREATED AUTHOR AUTHOR'S ORGANIZ ATION 05/14/2023 [facility] DATE CREATED AUTHOR AUTHOR'S ORGANIZ ATION 05/16/2023 [facility] EPIC Source Comments (unrecognize d section and content) In the event this informatio n is protected by the Federal Confidentiality of Alcohol and Drug Abuse Patient Records regulations: The Federal rules restrict any use of the information to criminally investigate or prosecute any alcohol or drug abuse patient.[facility] Care Teams (unrecognized sec tion and content) Editor Greeting Card Relationship Specialty Start Date End Date Arlene Power PCP - General Family Medicine 01/10/16 Team Status: Inactive Member Role Status Dates MENDOZA Treadwell Attending Provider Active Team Status: Active Member Role Status Dates Arlene Power PA-C Primary Care Provider Active Team Status: Inactive Member Role Status Dates Arlene Power PA-C Primary Care Provider, Attending Zafar walter Active Goals (unrecognized section and content) Goals may be documented in a n alternate sectionGoals may be documented in an alternate section FOR RECORDS PERTAINING TO PATIENTS WHO ARE OR HAVE BEEN ENROLLED IN A CHEMICAL DEPENDENCY/SUBSTANCEABUSE PROGRAM, SOME INFORMATION MAY BE OMITTED. This clinical summary was aggregated from multiple sources. Caution should be exercised in using it in the provision of clinical care. This summary normalizes information from multiple sources, and as a consequence, information in this document may materially change the coding, format and clinical context of patient data. In addition, data may be omitted in some cases. CLINICAL DECISIONS SHOULD BE BASED ON THE PRIMARY CLINICAL RECORDS. [employer] provides no warranty or guarantee of the accuracy or completeness of information in this document.
--- NOTE | 2023-05-27 11:04 | P.CN_ITS ---
Consult Note: HPI Data of Consult Patient: known to practice within the last 3 years Requesting Physician: Lorena Santana NP Primary Care Provider: TELLO POWER Consult Narrative Reason for consult: f/u Narrative: Ophelia Cruz a pleasant 47 year old male presents for evaluation and management of chronic back pain. Pain 10% improved since left L4/5 L5/S1 RFA and no improvement from recent left L4-5 L5-S1 TFESI. Patient continues to have low back pain that radiates into left hip, lateral thigh and down to left foot. Patient rating pain 0/10 at this time, it is intermittent and worse with activity and with car rides, gets up to 6-7/10. cc:: CC: Lorena Santana NP Review of Systems ROS Status of ROS 10 or more systems reviewed and unremark able except as noted in history and below Musculoskeletal Reports: back pain Meds Home Medications and Allergies Home Medications Medication Instructions Recorded Confirmed Type albuterol 90 mcg/actuation aerosol 90 mcg inhalation PRN shortness of 01/11/23 History inhaler breath or wheezing diclofenac sodium 50 mg 100 mg PO Q12H 01/11/23 05/10/23 History tablet,delayed release esomeprazole magnesium 40 mg 40 mg PO Q24H 01/11/23 05/10/23 History capsule,delayed release fluticasone propionate 50 1 spray intranasal DAILY PRN 01/11/23 05/10/23 History mcg/actuation nasal allergy symptoms spray,suspension (24 Hour Allergy Relief) loratadine 5 mg-pseudoephedrine ER 1 tab PO Q12H 01/11/23 05/10/23 History 120 mg tablet,extended release,12hr (Claritin-D 12 Hour) losartan 100 mg tablet 100 mg PO DAILY 01/11/23 05/10/23 History olopatadine 0.2 % eye drops 1 drp ophthalmic (eye) DAILY 01/11/23 05/10/23 History (Pataday Once Daily Relief) olopatadine 0.6 % nasal spray 2 spray intranasal BID 01/11/23 05/10/23 History (Patanase) amlodipine 5 mg tablet 5 mg PO DAILY 01/18/23 05/10/23 History metoprolol succinate 25 mg capsule 25 mg PO DAILY 01/18/23 05/10/23 History sprinkle, ext. release 24 hr (Kapspargo Sprinkle) methocarbamol 500 mg tablet 500 mg PO BID 02/08/23 05/10/23 History diclofenac sodium 50 mg 50 mg PO TID PRN pain #90 tabs 03/22/23 05/10/23 Rx tablet,delayed release Allergies Allergy/AdvReac Type Severity Reaction Status Date / Time No Known Drug Allergies Allergy Verified 03/01/23 07:43 Exam Constitutional Documenting provider has reviewed patient's vital signs: yes Common normals: no apparent distress, average body habitus, oriented x3, no limitations, healthy appearing, alert and well nourished General appearance: cooperative, comfortable and well developed Orientation/consciousness: Yes awake, Yes oriented to person, Yes oriented to place and Yes oriented to time HENMT Common normals: normocephalic and moist oral mucous membranes Respiratory Common normals: normal respiratory effort, no retractions and no use of accessory muscles Effort & inspection: able to speak in complete sentences and symmetric chest movement Back & Pelvis Lumbar spine/lower back: pain with ROM, paraspinal muscle tenderness and straight leg raise negative bilaterally Other: muscle strength 5/5 bilat LE with intact sensation scoliois noted Extremity Common normals: normal to inspection and full ROM Neuro Common normals: oriented x3, CN's II-XII intact bilaterally, moves all extremities, no focal motor deficits, no sensory deficits noted, deep tendon reflexes 2+ bilaterally and gait normal Motor exam: strength 5/5 throughout Assessment and Plan Assessment and Plan (1) Lumbar stenosis with neurogenic claudication: (2) Lumbar spondylosis: (3) Myofascial pain: Plan update lumbar MRI due to lumbar stenosis with NC and chronic low back pain unresponsive to medication therapy, injection therapy, and PT/HEP. This is essential to evaluate alternative injection therapy, nerve stimulation, and s urgical necessity. Previous MRI from 05/2021 start gabapentin 100mg daily, will increase to 200 mg daily after 1 month if needed. risks vs benefits discussed, potential side effects reviewed continue diclofenac 50mg TID PRN and robaxin 500mg BID PRN f/u after MRI
== END 2023-05-27 10:51 | disposition home or self-care (01) ==
LOC: PM 10:50
PROVIDERS: PCP Physician Assistant; Visit Provider Nurse Practitioner
DX: M48.062 Spinal stenosis, lumbar region with neurogenic claudication (principal); M47.816 Spondylosis without myelopathy or radiculopathy, lumbar region; M79.18 Myalgia, other site
CPT/HCPCS: G0463

== ENCOUNTER 2023-06-14 10:27 | Outpatient (OUT) | payer BC, SELFPAY ==
--- NOTE | 2023-06-14 10:31 | MR_ITS ---
The [address] [address] Patient Name: LILLIANA ESCOBAR MRN: [id number] date: 1975 Sex: M Assigned Patient Location: MRI Current Patient Location: MRI Accession/Order Number: [id number] Exam Date: 06/14/2023 10:44 Report Date: 06/14/2023 11:33 At the request of: GINI FELIPE Procedure: MR lumbar spine wo con EXAM: MR lumbar spine wo con REASON FOR EXAM: Lumbar Stenosis. TECHNIQUE: Multiplanar, multisequence imaging of the lumbar spine was performed without contrast COMPARISON: 06/18/2021. FINDINGS: Study mildly degraded by motion. 5 nonrib-bearing lumbar vertebrae. Unchanged lamina lumbar spine with mild scoliosis and mild to moderate anterolisthesis of L5-S1. Anterolisthesis of the L5-S1 level. Progressed along the left side. There is an age-indeterminate, new from prior MRI more conspicuous possible fracture involving the vertebral body/pedicle junction (series 5, images 5-7). Chronic bilateral L5 pars defects are again noted. No significant edema at this level identified favoring to represent a subacute or chronic finding. No other acute or aggressive osseous abnormality identified. Modic type changes are present at the L3-L4 and L5-S1 levels. 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 Limited evaluation of the abdominopelvic viscera is without acute or suspicious abnormality. T12-L1: No focal disc herniation identified. No significant spinal canal stenosis. Mild left neural foraminal stenosis. L1-L2: Mild broad-based disc bulge without severe spinal canal stenosis. Mild right neural foraminal stenosis. L2-L3: Broad-based disc bulge with mild spinal canal stenosis when combined with ligamentum flavum hypertrophy and facet arthropathy. Moderate to severe right neural foraminal stenosis secondary to disc osteophyte complex and facet arthropathy. This has not significantly changed. L3-L4: Broad-based disc bulge with [id number] spinal canal stenosis. Moderate to severe bilateral neural foraminal stenosis, right greater than left secondary to disc osteophyte complex and facet arthropathy. This has not significantly changed. L4-L5: Broad-based disc bulge with more focal left foraminal lateral protrusion. Mild spinal canal stenosis. Moderate to severe bilateral neural foraminal stenosis, left greater than right secondary to disc osteophyte complex and facet arthropathy. This has not significantly changed. L5-S1: Broad-based disc bulge without severe spinal canal stenosis. Severe bilateral neural foraminal stenosis, left greater than right secondary to disc osteophyte complex and facet arthropathy. This has not significantly changed. MR/MR lumbar spine wo con IMPRESSION: 1. New linear sclerosis identified involving the body pedicle junction on the left at the L5 vertebral body. No significant edema identified. This is more conspicuous on today's exam compared to prior could represent a subacute or chronic nondisplaced fracture, however, there is slight increased anterolisthesis at the L5-S1 level when compared with prior study. 2. Overall, no significant change in moderate to severe degenerative disc disease and facet arthropathy involving the lumbar spine as described above. Electronically authenticated by: SOBIA ORTIZ Date: 06/14/2023 11:33
== END 2023-06-14 10:28 | disposition home or self-care (01) ==
LOC: MRI 10:27
PROVIDERS: PCP Physician Assistant; Visit Provider Nurse Practitioner
DX: M48.061 Spinal stenosis, lumbar region without neurogenic claudication (principal)
CPT/HCPCS: 72148

== ENCOUNTER 2023-06-23 08:08 | Outpatient (OUT) | payer BC, SELFPAY ==
--- OUTSIDE RECORDS SUMMARY | 2023-06-23 08:12 | XMS_ITS | CCD ---
Author Name Unknown Address [address] [place] [address] Organization [facility] Care Team Providers Care Credit Card Specialist Name Role Phone ALVARADO ., DR ABRAN [...] RICHMOND ROSAS Consulting Unavailable HEMMER, DR ARLENE Womack Consulting Unavailable Hemellen, Arlene Womack Primary Care Provider MENDOZA Power Attending Provider MENDOZA Power Attending Provider YENIFER Power Primary Care Provider YENIFER Power Attending Provider Arlene Power Admitting Unavailable Arlene Power Primary Care Unavailable Arlene Power Attending Unavailable HemArlene cartagena Admitting Unavailable Hemellen, Arlene Attending Unavailable Giedraitis , Spencer Vicente Attending Unavailable Giedraitis , Spencer Vicente Attending Unavailable Giedraitis , Spencer Vicente Attending Unavailable Gieditis , Spencer Vicente Attending Unavailable HEMARLEEN CARTAGENA Attending Unavailable HEMARLENE CARTAGENA Attending Unavailable ARLENE POWER M Referring Unavailable Tone Jessica Unavailable Allergies Allergy Classification Reported Allergen(s) Allergy Type Date of Onset Reaction(s) Facility (1 source) cats,horses hay Propensity to adverse reactions sinus drainage [employer] Other Medications Current Medications Medication Drug Class(es) Dates Sig (Normalized) Sig (Original) amLODIPine 5 mg oral tablet (1 source) Dihydropyridine Calcium Channel Donald take 1 tablet by mouth every twenty-four hours amLODIPine Besylate 5 MG 1 tablet Orally Once a day Active diclofenac sodium 50 mg delayed release oral tablet (1 source) Nonsteroidal Anti-inflammatory Drug take 1 tablet by mouth every twelve hours Diclofenac Sodium 50 MG 1 tablet as needed Orally Twice a day Active gabapentin 100 mg oral capsule (1 source) Anti-epileptic Agent take 1 capsule by mouth every twenty-four hours Gabapentin 100 MG 1 capsule Orally Once a day Active losartan potassium 100 mg oral tablet (1 source) Angiotensin 2 Receptor Donald take 1 tablet by mouth every twenty-four hours Losartan Potassium 100 MG 1 tablet Orally Once a day Active Methocarbamol (1 source) Muscle Relaxant Robaxin Active metoprolol tartrate 25 mg oral tablet (1 source) beta-Adrenergic Donald take 1 capsule by mouth once daily Metoprolol Succinate 25 MG 1 capsule Orally Once a day Active Completed/Discontinued Medications Medication Drug Class(es) Dates Sig (Normalized) Sig (Original) [id number] actuat albuterol 0.09 mg/actuat metered dose inhaler (1 source) beta2-Adrenergic Agonist Start: 02-12-2016 take 2 puff(s) by inhalation every six hours as needed albuterol HFA (VENTOLIN HFA) 90 mcg/actuation inhaler Inhale 2 Puffs as instructed every 6 hours as needed. 0 02/12/2016 Active Comment on above: Inhale 2 Puffs as in structed every 6 hours as needed. Albuterol 90 MCG/ACT (1 source) take 1 puff(s) by inhalation every four hours as needed Albuterol 90 MCG/ACT 1 puff Inhalation every 4 hrs prn Not-Taking/PRN erythromycin 500 mg oral tablet (1 source) Macrolide, Macrolide Antimicrobial Start: 05-31-2013 take 2 tablets by mouth every six hours Erythromycin Base 500 MG 2 tablets Orally every 6 hrs for 14 days May, Not-Taking/PRN esomeprazole 40 mg delayed release oral capsule (3 sources) Proton Pump Inhibitor Start: 04-06-2013 take 1 capsule by mouth once daily esomeprazole (NEXIUM) 40 mg capsule Take 1 capsule by mouth once daily. 30 capsule 0 04/06/2013 Active take 1 tablet by servando once daily as needed for gastroesophageal reflux disease NexIUM 40 1 tablet Orally once daily p.r.n. GERD Not-Taking/PRN Comment on above: Take 1 capsule by mo [facility] once daily. fluticasone propionate 0.05 mg/actuat metered dose nasal spray (2 sources) Corticosteroid Start: 04-06-2013 fluticasone (FLONASE) 50 mcg/actuation nasal spray 2 Sprays once daily. 6 04/06/2013 Active take 2 puff(s) nasal route once daily as needed Flonase 50 MCG/ACT 2 puff in each nostri l Nasally Once a day for 90 day(s) Not-Taking/PRN Comment on above: 2 Sprays once daily. homatropine / HYDROcodone (1 source) Opioid Agonist, Cholinergic Muscarinic Agonist take 5 mL by mouth every six hours as needed Hydromet 5-1.5 MG/5ML 5 ml as needed Orally every 6 hrs as needed Not-Taking/PRN naproxen sodium 550 mg oral tablet (1 source) Nonsteroidal Anti-inflammatory Drug Start: 03-26-20 14 take 1 tablet by mouth every twelve hours Naproxen Sodium 550 MG 1 tablet Orally Twice a day for 90 days Mar, Not-Taking/PRN olopatadine 2 mg/ml ophthalmic solution (1 source) Histamine-1 Receptor Inhibitor Start: 01-06-20 11 take 1 drop(s) into the eye(s) once daily as needed Pataday 0.2 % 1 drop into both eyes Ophthalmic Once a day Dec, Not-Taking/PRN Patanase 665 mcg/spray (1 source) Start: 01-06-20 11 Patanase 665 mcg/spray 2 sprays per nostril Nasally Twice a day Dec, Not-Taking/PRN ProAir HFA 108 (90 Base) MCG/ACT (1 source) take 2 puff(s) by inhalation every four hours as needed ProAir HFA 108 (90 Base) MCG/ACT 2 puffs as needed Inhalation every 4 hrs Not-Taking/PRN Problems Active Problems Problem Classification Problem Date Documented Date Episodic/Chronic Asthma (1 source) Asthma without status asthmaticus; Translations: [Asthma without Acute Exacerbation] Chronic Bacterial infection; unspecified site (1 source) Pertussis; Translations: [Pertussis] Episodic Disorders of lipid metabolism (1 source) Pure hypercholesterolemia; Translations: [Pure hypercholesterolemia] Chronic Disorders of teeth and jaw (1 source) Temporomandibular joint disorder; Translations: [TMJ (temporomandibular joint syndrome)] Episodic Esophageal disorders (1 source) Gastroesophageal reflux disease; Translations: [GERD] Chronic Essential hypertension (1 source) Essential (primary) hypertension; Translations: [Essential (primary) hypertension] Onset: 01-29-2023 Chronic Joint disorders and dislocations; trauma-related (2 sources) Tear of medial meniscus of knee; Translations: [Other tear of medial meniscus, current injury, unspecified knee, initial encounter] Onset: 01-01-2016 01-01-2016 Episodic Osteoarthritis (4 sources) Disorder of patellofemoral joint; Translations: [Unilateral primary osteoarthritis, unspecified knee] Onset: 03-18-2016 03-18-2016 Chronic Other acquired deformities (1 source) Scoliosis deformity of spine; Translations: [Scoliosis, unspecified] 08-06-2021 Chronic Other circulatory disease (1 source) Elevated blood-pressure reading without diagnosis of hypertension; Translations: [Elevated blood pressure reading without diagnosis of hypertension] Episodic Other connective tissue disease (4 sources) Other muscle spasm; Translations: [OTHER MUSCLE SPASM] Onset: 09-17-2022 Episodic Other connective tissue disease (1 source) Myalgia, other site; Translations: [MYALGIA OTHER SITE] Onset: 09-20-2022 Episodic Other connective tissue disease (1 source) Synovial cyst of popliteal space [Berumen], right knee Episodic Other nervous system disorders (1 source) Other chronic pain; Translations: [OTHER CHRONIC PAIN] Onset: 10-30-2021 Chronic Other non-traumatic joint disorders (1 source) Pain in right hip joint; Translations: [Right hip pain] Episodic Other skin disorders (1 source) Folliculitis; Translations: [Folliculitis] Episodic Other upper respiratory infections (1 source) Chronic sinusitis; Translations: [Other chronic sinusitis] Chronic Otitis media and related conditions (1 source) Dysfunction of eustachian tube; Translations: [Eustachian tube dysfunction] Episodic Spondylosis; intervertebral disc disorders; other back problems (14 sources) Spondylosis without myelopathy or radiculopathy, lumbar region; Translations: [Other intervertebral disc degeneration, lumbar region] Onset: 10-02-2021 Chronic Unclassified (1 source) LOW BACK PAIN, UNSPECIFIED; Translations: [LOW BACK PAIN, UNSPECIFIED] Onset: 10-30-2021 Unclassified (1 source) Pain in right knee; Translations: [Pain in right knee] Onset: 04-28-2023 Viral infection (1 source) Plantar wart of right foot; Translations: [Plantar wart of right foot] Episodic Past or Other Problems Problem Classification Problem Date Documented Da te Episodic/Chronic Spondylosis; intervertebral disc disorders; other back problems [...] RT 4V*on 04-28-2023 XR knee RT 4V* [facility] [place] [address] [place] [address] XRay Report Signed Patient: Ophelia Cruz MR#: [id number] : 1975 Acct:[id number] Age/Sex: 47 / M ADM Date: 04/28/23 Loc: XD Room: Type: [facility] Attending Dr: Arlene MENDEZC Copies to: SHAYNE [...] Arlene Colon M.D.04/28/2023 4:58 PM Dictation Location: [place] [address] Transcribed By: [facility] 04/28/23 2794 Dictated By: Arlene Colon MD 04/28/233 Signed By: 04/28/23 1658 Normal [facility] Alanine aminotransferase [En zymatic activity/volume] in Serum or PlasmaOrdered By: Arlene Power on 01-29-2023 ALT [Catalytic activity/Vol] 25 U/L 7-52 [facility] Albumin [Mass/volume] in Ser um or Plasma by Bromocresol green (BCG) dye binding methoOrdered By: Arlene Power on 01-29-2023 Albumin BCG dye [Mass/Vol] 4.3 g/dL 3.5-5.7 [facility] Alkaline phosphatase [Enzyma tic activity/volume] in Serum or PlasmaOrdered By: Arlene Power on 01-29-2023 ALP [Catalytic activity/Vol] 52 U/L 34-104 [facility] Aspartate aminotransferase [ Enzymatic activity/volume] in Serum or PlasmaOrdered By: Arlene Power on 01-29-2023 AST [Catalytic activity/Vol] 15 U/L 13-39 [facility] Basophils Auto (Bld) [#/Vol] Ordered By: Arlene Power on 01-29-2023 Basophils (Bld) [#/Vol] 0.0 10*3/uL 0.0-0.2 [facility] Basophils/100 WBC Auto (Bld) Ordered By: Arlene Power on 01-29-2023 Basophils/100 WBC (Bld) 0.5 % . [facility] Bilirubin.total [Mass/volume ] in Serum or PlasmaOrdered By: Arlene Power on 01-29-2023 Bilirubin [Mass/Vol] 0.5 mg/dL 0.3-1.0 [facility] Calcium [Mass/volume] in Ser um or PlasmaOrdered By: Arlene Power on 01-29-2023 Calcium [Mass/Vol] 9.4 mg/dL 8.6-10.3 [facility] Carbon dioxide, total [Moles /volume] in Serum or PlasmaOrdered By: Arlene Power on 01-29-2023 CO2 [Moles/Vol] 31.5 mmol/L 21.0-31.0 [facility] Chloride [Moles/volume] in S jeff or PlasmaOrdered By: Arlene Power on 01-29-2023 Chloride [Moles/Vol] 105 mmol/L 98-107 [facility] Cholesterol [Mass/volume] in Serum or PlasmaOrdered By: Arlene Power on 01-29-2023 Cholesterol [Mass/Vol] 186 mg/dL 140-200 [facility] Comment on above: Chol less than 200 m g/dl low riskChol 201-239 mg/dl borderline riskChol 240 mg/dl and greater high risk Cholesterol in LDL Calc [Mas s/Vol]Ordered By: Arlene Power on 01-29-2023 Cholesterol in LDL [Mass/Vol] 122 mg/dL 0-100 [facility] Comment on above: LDL ATP III CLASSIFI CATIONLDL less than 100 mg/dL OptimalLDL 100-129 mg/dL Near or above optimalLDL 130-159 mg/dL Borderline highLDL 160-189 mg/dL HighLDL greater than 189 mg/dL Very high Cholesterol in VLDL Calc [Ma ss/Vol]Ordered By: Arlene Power on 01-29-2023 Cholesterol in VLDL [Mass/Vol] 22 mg/dL [facility] Complete Blood Count Auto Di ffon 01-29-2023 Basophils (Bld) [#/Vol] 0.0 10*3/uL Normal 0.0-0.2 [facility] Comment on above: Result Comment: PERF ORMED BY: [place] [address] PATHOLOGIST COMPUTER PROGRAMMING MANAGER IAN CHRISTINE M.D. Performed By: #### L IPID, CBC, CMP, PSAS #### [facility] [address] Basophils/100 WBC (Bld) 0.5 % Normal . [facility] Comment on above: Performed By: #### L IPID, CBC, CMP, PSAS #### [facility] [address] [place] [address] [place] Eosinophils (Bld) [#/Vol] 0.3 10*3/uL Normal 0.0-0.45 [facility] Comment on above: Performed By: #### L IPID, CBC, CMP, PSAS #### [facility] [address] Eosinophils/100 WBC (Bld) 3.8 % Normal . [facility] Comment on above: Performed By: #### L IPID, CBC, CMP, PSAS #### [address] Erythrocyte distribution width (RBC) [Ratio] 13.8 % Normal 12.0-14.8 [facility] Comment on above: Performed By: #### L IPID, CBC, CMP, PSAS #### [address] Hematocrit (Bld) [Volume fraction] 40.2 % Normal 38.8-50.0 [facility] Comment on above: Performed By: #### L IPID, CBC, CMP, PSAS #### [address] Hemoglobin (Bld) [Mass/Vol] 13.7 g/dL Normal 13.0-17.0 [facility] Comment on above: Performed By: #### L IPID, CBC, CMP, PSAS #### [address] Lymphocytes (Bld) [#/Vol] 2.4 10*3/uL Normal 1.00-4.8 [facility] Comment on above: Performed By: #### L IPID, CBC, CMP, PSAS #### [address] Lymphocytes/100 WBC (Bld) 29.7 % Normal . [facility] Comment on above: Performed By: #### L IPID, CBC, CMP, PSAS #### [address] MCH (RBC) [Entitic mass] 30.0 pg Normal 27.5-35.2 [facility] Comment on above: Performed By: #### L IPID, CBC, CMP, PSAS #### [address] MCV (RBC) [Entitic vol] 87.7 fL Normal 83.5-101 [facility] Comment on above: Performed By: #### L IPID, CBC, CMP, PSAS #### [address] Mean Corpuscular HGB Conc 34.2 g/dL Normal 32.5-35.6 [facility] Comment on above: Performed By: #### L IPID, CBC, CMP, PSAS #### [place] [address] [place] Monocytes (Bld) [#/Vol] 0.5 10*3/uL Normal 0.0-0.8 [facility] Comment on above: Performed By: #### L IPID, CBC, CMP, PSAS #### [address] Monocytes/100 WBC (Bld) 6.6 % Normal . [facility] Comment on above: Performed By: #### L IPID, CBC, CMP, PSAS #### [address] Neutrophils (Bld) [#/Vol] 4.8 10*3/uL Normal 1.8-7.7 [facility] Comment on above: Performed By: #### L IPID, CBC, CMP, PSAS #### [place] [address] [place] Neutrophils/100 WBC (Bld) 59.4 % Normal . [facility] Comment on above: Performed By: #### L IPID, CBC, CMP, PSAS #### [place] [address] [place] NRBC% 0.1 /100{WBC} Normal 0-0.5 [facility] Comment on above: Performed By: #### L IPID, CBC, CMP, PSAS #### [place] [address] [place] Platelet mean volume (Bld) [Entitic vol] 8.9 fL Normal 6.6-10.1 [facility] Comment on above: Performed By: #### L IPID, CBC, CMP, PSAS #### [address] Platelets (Bld) [#/Vol] 269 10*3/uL Normal 150-450 [facility] Comment on above: Performed By: #### L IPID, CBC, CMP, PSAS #### [address] RBC (Bld) [#/Vol] 4.58 10*6/uL Normal 3.90-5.60 [facility] Comment on above: Performed By: #### L IPID, CBC, CMP, PSAS #### [address] WBC (Bld) [#/Vol] 8.0 10*3/uL Normal 4.1-10.5 [facility] Comment on above: Performed By: #### L IPID, CBC, CMP, PSAS #### [address] Comprehensive Metabolic Pane luis 01-29-2023 Albumin [Mass/Vol] 4.3 g/dL Normal 3.5-5.7 [facility] Comment on above: Performed By: #### L IPID, CBC, CMP, PSAS #### [address] Albumin/Globulin [Mass ratio] 2.0 {ratio} Normal [facility] Comment on above: Performed By: #### L IPID, CBC, CMP, PSAS #### [address] ALP [Catalytic activity/Vol] 52 U/L Normal 34-104 [facility] Comment on above: Performed By: #### L IPID, CBC, CMP, PSAS #### [address] ALT [Catalytic activity/Vol] 25 U/L Normal 7-52 [facility] Comment on above: Performed By: #### L IPID, CBC, CMP, PSAS #### [place] [address] [place] Anion gap [Moles/Vol] 9.8 mmol/L Normal 6.0-15.0 [facility] Comment on above: Performed By: #### L IPID, CBC, CMP, PSAS #### [facility] [address] AST [Catalytic activity/Vol] 15 U/L Normal 13-39 [facility] Comment on above: Performed By: #### L IPID, CBC, CMP, PSAS #### [address] Bilirubin [Mass/Vol] 0.5 mg/dL Normal 0.3-1.0 [facility] Comment on above: Performed By: #### L IPID, CBC, CMP, PSAS #### [address] Calcium [Mass/Vol] 9.4 mg/dL Normal 8.6-10.3 [facility] Comment on above: Performed By: #### L IPID, CBC, CMP, PSAS #### [address] Chloride [Moles/Vol] 105 mmol/L Normal 98-107 [facility] Comment on above: Performed By: #### L IPID, CBC, CMP, PSAS #### [address] CO2 [Moles/Vol] 31.5 mmol/L High 21.0-31.0 [facility] Comment on above: Performed By: #### L IPID, CBC, CMP, PSAS #### [facility] [address] [place] [address] Creatinine [Mass/Vol] 0.94 mg/dL Normal 0.70-1.30 [facility] Comment on above: Performed By: #### L IPID, CBC, CMP, PSAS #### [place] [address] [place] GFR/1.73 sq M.predicted MDRD (S/P/Bld) [Vol rate/Area] mL/min/{1.73_m2} Normal [facility] Comment on above: Performed By: #### L IPID, CBC, CMP, PSAS #### [facility] [address] Globulin (S) [Mass/Vol] 2.1 g/dL Normal [facility] Comment on above: Performed By: #### L IPID, CBC, CMP, PSAS #### [facility] [address] Glucose [Mass/Vol] 87 mg/dL Normal 70-100 [facility] Comment on above: Result Comment: [facility] Glucose Reference Range is dependent on time and content of last meal. Glucose of more than 200 mg/dL in a nonstressed, ambulatory subject supports the diagnosis of Diabetes Mellitus. ADA recommended reference range Performed By: #### L IPID, CBC, CMP, PSAS #### [address] Potassium [Moles/Vol] 4.3 mmol/L Normal 3.5-5.1 [facility] Comment on above: Performed By: #### L IPID, CBC, CMP, PSAS #### [address] Protein [Mass/Vol] 6.4 g/dL Normal 6.4-8.9 [facility] Comment on above: Performed By: #### L IPID, CBC, CMP, PSAS #### [place] [address] [place] Sodium [Moles/Vol] 142 mmol/L Normal 136-145 [facility] Comment on above: Performed By: #### L IPID, CBC, CMP, PSAS #### [address] Urea nitrogen [Mass/Vol] 18 mg/dL Normal 7-25 [facility] Comment on above: Performed By: #### L IPID, CBC, CMP, PSAS #### [place] [address] [place] Creatinine [Mass/volume] in Serum or PlasmaOrdered By: Arlene Power on 01-29-2023 Creatinine [Mass/Vol] 0.94 mg/dL 0.70-1.30 [facility] Eosinophils Auto (Bld) [#/Vo l]Ordered By: Arlene Power on 01-29-2023 Eosinophils (Bld) [#/Vol] 0.3 10*3/uL 0.0-0.45 [facility] Eosinophils/100 WBC Auto (Bl d)Ordered By: Arlene Power on 01-29-2023 Eosinophils/100 WBC (Bld) 3.8 % . [facility] Erythrocyte distribution wid th Auto (RBC) [Ratio]Ordered By: Arlene Power on 01-29-2023 Erythrocyte distribution width (RBC) [Ratio] 13.8 % 12.0-14.8 [facility] Globulin Calc (S) [Mass/Vol] Ordered By: Arlene Power on 01-29-2023 Globulin (S) [Mass/Vol] 2.1 g/dL [facility] Glucose [Mass/volume] in Ser um or PlasmaOrdered By: Arlene Power on 01-29-2023 Glucose [Mass/Vol] 87 mg/dL 70-100 [facility] Comment on above: ADA recommended refe rence rangeRandom Glucose Reference Range is dependent on time and content of last meal. Glucose of more than 200 mg/dL in a nonstressed, ambulatory subject supports the diagnosis of Diabetes Mellitus. Hematocrit Auto (Bld) [Volum e fraction]Ordered By: Arlene Power on 01-29-2023 Hematocrit (Bld) [Volume fraction] 40.2 % 38.8-50.0 [facility] Hemoglobin [Mass/volume] in BloodOrdered By: Arlene Power on 01-29-2023 Hemoglobin (Bld) [Mass/Vol] 13.7 g/dL 13.0-17.0 [facility] Leukocytes [#/volume] correc jaime for nucleated erythrocytes in Blood by Automated counOrdered By: Arlene Power on 01-29-2023 WBC corrected for nucl RBC Auto (Bld) [#/Vol] 8.0 10*3/uL 4.1-10.5 [facility] Lipid Panelon 01-29-2023 Cholesterol [Mass/Vol] 186 mg/dL Normal 140-200 [facility] Comment on above: Result Comment: Chol less than 200 mg/dl low risk Chol 201-239 mg/dl borderline risk Chol 240 mg/dl and greater high risk Performed By: #### L IPID, CBC, CMP, PSAS #### [facility] [address] Cholesterol in HDL [Mass/Vol] 42 mg/dL Normal 23-92 [facility] Comment on above: Result Comment: HDL CHOL ATP-III CLASSIFICATION Cardiovascular Risk HDL > or equal to 60 mg/dL LOW HDL < 40 mg/dL HIGH Performed By: #### L IPID, CBC, CMP, PSAS #### [facility] [address] Cholesterol.total/Choles terol in HDL [Mass ratio] 4.4 {ratio} Normal <5.0 [facility] Comment on above: Result Comment: PERF ORMED BY: [place] [address] PATHOLOGIST COMPUTER PROGRAMMING MANAGER IAN CHRISTINE M.D. Performed By: #### L IPID, CBC, CMP, PSAS #### [facility] [address] LDL Cholesterol,Calculated 122 mg/dL High 0-100 [facility] Comment on above: Result Comment: LDL ATP III CLASSIFICATION LDL less than 100 mg/dL Optimal LDL 100-129 mg/dL Near or above optimal LDL 130-159 mg/dL Borderline high LDL 160-189 mg/dL High LDL greater than 189 mg/dL Very high Performed By: #### L IPID, CBC, CMP, PSAS #### [facility] [address] [place] [address] [place] Triglyceride w/Reflex 110 mg/dL Normal 0-149 [facility] Comment on above: Result Comment: TRIG ATP III CLASSIFICATION TRIG less than 150 mg/dL Normal TRIG 150-199 mg/dL Borderline high TRIG 200-500 mg/dL High TRIG greater than 500 mg/dL Very high Standard traceable to the Center for Disease Conrtrol and Prevention (CDC) test method. Performed By: #### L IPID, CBC, CMP, PSAS #### [facility] [address] VLDL CHOLESTEROL 22 mg/dL Normal [facility] Comment on above: Performed By: #### L IPID, CBC, CMP, PSAS #### [facility] [address] Lymphocytes Auto (Bld) [#/Vo l]Ordered By: Arlene Power on 01-29-2023 Lymphocytes (Bld) [#/Vol] 2.4 10*3/uL 1.00-4.8 [facility] Lymphocytes/100 WBC Auto (Bl d)Ordered By: Arlene Power on 01-29-2023 Lymphocytes/100 WBC (Bld) 29.7 % . [facility] MCH Auto (RBC) [Entitic mass ]Ordered By: Arlene Power on 01-29-2023 MCH (RBC) [Entitic mass] 30.0 pg 27.5-35.2 [facility] MCHC Auto (RBC) [Mass/Vol]Or dered By: Arlene Power on 01-29-2023 MCHC (RBC) [Mass/Vol] 34.2 g/dL 32.5-35.6 [facility] MCV Auto (RBC) [Entitic vol] Ordered By: Arlene Power on 01-29-2023 MCV (RBC) [Entitic vol] 87.7 fL 83.5-101 [facility] Monocytes Auto (Bld) [#/Vol] Ordered By: Arlene Power on 01-29-2023 Monocytes (Bld) [#/Vol] 0.5 10*3/uL 0.0-0.8 [facility] Monocytes/100 WBC Auto (Bld) Ordered By: Arlene Power on 01-29-2023 Monocytes/100 WBC (Bld) 6.6 % . [facility] Neutrophils Auto (Bld) [#/Vo l]Ordered By: Arlene Power on 01-29-2023 Neutrophils (Bld) [#/Vol] 4.8 10*3/uL 1.8-7.7 [facility] Neutrophils/100 WBC Auto (Bl d)Ordered By: Arlene Power on 01-29-2023 Neutrophils/100 WBC (Bld) 59.4 % . [facility] No Panel InformationOrdered By: Arlene Power on 01-29-2023 Estimated GFR (CKD-EPI) > 60.0 mL/Min [facility] Creatinine Clearance (Chem N/A [facility] Nucleated erythrocytes [Pres ence] in Blood by Automated countOrdered By: Arlene Power on 01-29-2023 Nucleated RBC Auto Ql (Bld) 0.1 /100{WBC} 0-0.5 [facility] PSA Screen (Yearly Only)on 0 01-29-2023 PSA Screen (Yearly Only) 0.590 ng/mL Normal 0.000-4.00 0 [facility] Comment on above: Order Comment: Is pa tient <50 yrs? Medicare does not pay <50.: NA What is the date of the last PSA Screen?: NA OR...The date Patient is eligible for PSA Screen?: NA Is Medicare the insurance?: NA Did you verify eligibility (Dx Time) check TestViewGp: NOT MEDICARE Result Comment: PERF ORMED BY: [place] [address] PATHOLOGIST COMPUTER PROGRAMMING MANAGER IAN CHRISTINE M.D. Performed By: #### L IPID, CBC, CMP, PSAS #### [address] Platelet mean volume Auto (B ld) [Entitic vol]Ordered By: Arlene Power on 01-29-2023 Platelet mean volume (Bld) [Entitic vol] 8.9 fL 6.6-10.1 [facility] Platelets Auto (Bld) [#/Vol] Ordered By: Arlene Power on 01-29-2023 Platelets (Bld) [#/Vol] 269 10*3/uL 150-450 [facility] Potassium [Moles/volume] in Serum or PlasmaOrdered By: Arlene Power on 01-29-2023 Potassium [Moles/Vol] 4.3 mmol/L 3.5-5.1 [facility] Prostate specific Ag [Mass/v olume] in Serum or PlasmaOrdered By: Arlene Power on 01-29-2023 Prostate specific Ag [Mass/Vol] 0.590 ng/mL 0.000-4.000 [facility] Protein [Mass/volume] in Ser um or PlasmaOrdered By: Arlene Power on 01-29-2023 Protein [Mass/Vol] 6.4 g/dL 6.4-8.9 [facility] RBC Auto (Bld) [#/Vol]Ordere d By: Arlene Power on 01-29-2023 RBC (Bld) [#/Vol] 4.58 10*6/uL 3.90-5.60 [facility] Serum or plasma albumin/glob ulin mass ratioOrdered By: Arlene Power on 01-29-2023 Albumin/Globulin [Mass ratio] 2.0 {ratio} [facility] Serum or plasma anion gap de terminationOrdered By: Arlene Power on 01-29-2023 Anion gap [Moles/Vol] 9.8 mmol/L 6.0-15.0 [facility] Serum or plasma high density lipoprotein (HDL) cholesterol measurementOrdered By: Arlene Power on 01-29-2023 Cholesterol in HDL [Mass/Vol] 42 mg/dL 23-92 [facility] Comment on above: HDL CHOL ATP-III CLA SSIFICATION Cardiovascular RiskHDL > or equal to 60 mg/dL LOWHDL < 40 mg/dL HIGH Serum or plasma total choles terol/high density lipoprotein (HDL) cholesterol mass ratOrdered By: Arlene Power on 01-29-2023 Cholesterol.total/Choles terol in HDL [Mass ratio] 4.4 {ratio} <5.0 [facility] Sodium [Moles/volume] in Ser um or PlasmaOrdered By: Arlene Power on 01-29-2023 Sodium [Moles/Vol] 142 mmol/L 136-145 [facility] Triglyceride [Mass/volume] i n Serum or PlasmaOrdered By: Arlene Power on 01-29-2023 Triglyceride [Mass/Vol] 110 mg/dL 0-149 F [facility] Comment on above: TRIG ATP III CLASSIF ICATIONTRIG less than 150 mg/dL NormalTRIG 150-199 mg/dL Borderline highTRIG 200-500 mg/dL High TRIG greater than 500 mg/dL Very highStandard traceable to the Center for Disease Conrtrol and Prevention (CDC) test method. Urea nitrogen [Mass/volume] in Serum or PlasmaOrdered By: Arlene Power on 01-29-2023 Urea nitrogen [Mass/Vol] 18 mg/dL 7-25 [facility] WBC Auto (Bld) [#/Vol]Ordere d By: Arlene Power on 01-29-2023 WBC (Bld) [#/Vol] 8.0 10*3/uL 4.1-10.5 [facility] XR Chest 2 Views*on 11-13-19 XR Chest [...] by Romel Fonseca on 11/12/2021 1646 Normal [facility] No Panel Informationon 08-06 [facility] XR LUMBAR 4V AP/LAT/ FLEX/EX Ton 08-06-2021 [...] Number of different views (projections): 4 (accession [id number]), 2 (accession [id number]) COMPARISON: 06/18/2021 MRI RESULT: Counting reference: Lumbosacral [...] described with associated thoracic and lumbar spondylosis. Protein Chemist: [facility] Transcribe Date/Time: Aug 08 2021 10:07A Dictated by : DASIA RATLIFF MD This examination was interpreted and the report reviewed and electronically signed by: DASIA RATLIFF MD on Aug 08 2021 10:09AM EST [id number] N Normal [facility] XR SCOLIOSIS 2V PA STAND/LAT on 08-06-2021 [...] Number of different views (projections): 4 (accession [id number]), 2 (accession [id number]) COMPARISON: 06/18/2021 MRI RESULT: Counting reference: Lumbosacral [...] described with associated thoracic and lumbar spondylosis. Protein Chemist: [facility] Transcribe Date/Time: Aug 08 2021 10:07A Dictated by : DASIA RATLIFF MD This examination was interpreted and the report reviewed and electronically signed by: DASIA RATLIFF MD on Aug 08 2021 10:09AM EST [id number] N Normal [facility] MRI Lumbar Spine w/oon 06-18 MRI Lumbar [...] MARY JANE HILARIO on 06/19/2021 1215 Normal [facility] Complete Blood Count with Au to Diffon 05-29-2021 Basophils (Bld) [#/Vol] 0.04 10*3/uL Normal 0.00-0.20 [facility] Comment on above: Performed By: #### T SH reflex FT4, LIPD, CBCAD, CMP #### [facility] [address] [facility] [place] [place] [id number] Basophils/100 WBC (Bld) 0.6 % [facility] Comment on above: Performed By: #### T SH reflex FT4, LIPD, CBCAD, CMP #### [facility] [address] [place], [place] [id number] Eosinophils (Bld) [#/Vol] 0.38 10*3/uL Normal 0.02-0.50 [facility] Comment on above: Performed By: #### T SH reflex FT4, LIPD, CBCAD, CMP #### [facility] [address] [place], [place] [id number] Eosinophils/100 WBC (Bld) 5.5 % Normal [facility] Comment on above: Performed By: #### T SH reflex FT4, LIPD, CBCAD, CMP #### [facility] [address] [place], [place] [id number] Erythrocyte distribution width (RBC) [Ratio] 13.4 % Normal 11.0-15.0 [facility] Comment on above: Performed By: #### T SH reflex FT4, LIPD, CBCAD, CMP #### [facility] [address] [place], [place] [id number] Hematocrit (Bld) [Volume fraction] 44.5 % Normal 38.5-50.0 [facility] Comment on above: Performed By: #### T SH reflex FT4, LIPD, CBCAD, CMP #### [facility] [address] [place], [place] [id number] Hemoglobin (Bld) [Mass/Vol] 14.9 g/dL Normal 13.0-17.1 [facility] Comment on above: Performed By: #### T SH reflex FT4, LIPD, CBCAD, CMP #### [facility] [address] [place], [place] [id number] Lymphocytes (Bld) [#/Vol] 2.4 10*3/uL Normal 0.9-3.9 [facility] Comment on above: Performed By: #### T SH reflex FT4, LIPD, CBCAD, CMP #### [facility] [address] [place], [place] [id number] Lymphocytes/100 WBC (Bld) 34.9 % Normal [facility] Comment on above: Performed By: #### T SH reflex FT4, LIPD, CBCAD, CMP #### [facility] [address] [place], [place] [id number] MCH (RBC) [Entitic mass] 29.6 pg Normal 27.0-33.0 [facility] Comment on above: Performed By: #### T SH reflex FT4, LIPD, CBCAD, CMP #### [facility] [address] [place], [place] [id number] MCHC (RBC) [Mass/Vol] 33.5 g/dL Normal 32.0-36.0 [facility] Comment on above: Performed By: #### T SH reflex FT4, LIPD, CBCAD, CMP #### [facility] [address] [place], [place] [id number] MCV (RBC) [Entitic vol] 89 fL Normal 80-100 [facility] Comment on above: Performed By: #### T SH reflex FT4, LIPD, CBCAD, CMP #### [facility] [address] [place], [place] [id number] Monocytes (Bld) [#/Vol] 0.6 10*3/uL Normal 0.2-0.9 [facility] Comment on above: Performed By: #### T SH reflex FT4, LIPD, CBCAD, CMP #### [facility] [address] [place], [place] [id number] Monocytes/100 WBC (Bld) 8.1 % Normal N [facility] Comment on above: Performed By: #### T SH reflex FT4, LIPD, CBCAD, CMP #### [facility] [address] [place], [place] [id number] Neutrophils (Bld) [#/Vol] 3.5 10*3/uL Normal 1.5-7.8 [facility] Comment on above: Performed By: #### T SH reflex FT4, LIPD, CBCAD, CMP #### [facility] [address] [place], [place] [id number] Neutrophils/100 WBC (Bld) 50.6 % Normal [facility] Comment on above: Performed By: #### T SH reflex FT4, LIPD, CBCAD, CMP #### [facility] [address] [place], [place] [id number] Platelet mean volume (Bld) [Entitic vol] 11.20 fL Normal 7.50-12.50 [facility] Comment on above: Performed By: #### T SH reflex FT4, LIPD, CBCAD, CMP #### [facility] [address] [place], [place] [id number] Platelets (Bld) [#/Vol] 234 10*3/uL Normal 140-400 [facility] Comment on above: Performed By: #### T SH reflex FT4, LIPD, CBCAD, CMP #### [facility] [address] [place], [place] [id number] RBC (Bld) [#/Vol] 5.03 10*6/uL Normal 4.20-5.80 [facility] Comment on above: Performed By: #### T SH reflex FT4, LIPD, CBCAD, CMP #### [facility] [address], [place] [id number] RDW-SD 43.7 fL Normal 37.0-50.0 [facility] Comment on above: Performed By: #### T SH reflex FT4, LIPD, CBCAD, CMP #### [facility] [address] [place], [place] [id number] WBC (Bld) [#/Vol] 6.9 10*3/uL Normal 3.8-11.0 [facility] Comment on above: Performed By: #### T SH reflex FT4, LIPD, CBCAD, CMP #### [facility] [address] [place], [place] [id number] Comprehensive Metabolic Pane luis 05-29-2021 Albumin [Mass/Vol] 4.6 g/dL Normal 3.6-5.1 [facility] Comment on above: Performed By: #### T SH reflex FT4, LIPD, CBCAD, CMP #### [facility] [address], [place] [id number] Albumin/Globulin [Mass ratio] 2.1 {ratio} Normal 1.0-2.5 [facility] Comment on above: Performed By: #### T SH reflex FT4, LIPD, CBCAD, CMP #### [facility] [address], [place] [id number] ALP [Catalytic activity/Vol] 82 U/L Normal 40-129 [facility] Comment on above: Performed By: #### T SH reflex FT4, LIPD, CBCAD, CMP #### [facility] [address], [place] [id number] ALT [Catalytic activity/Vol] 47 U/L High 9-46 [facility] Comment on above: Result Comment: 04/23 Female reference range changed. Performed By: #### T SH reflex FT4, LIPD, CBCAD, CMP #### [facility] [address] [place], [place] [id number] Anion gap [Moles/Vol] 20 mmol/L Normal 12-20 [facility] Comment on above: Result Comment: Effe ctive 05/29/2019 reference range changed. Performed By: #### T SH reflex FT4, LIPD, CBCAD, CMP #### [facility] [address], [place] [id number] AST [Catalytic activity/Vol] 26 U/L Normal 10-40 [facility] Comment on above: Performed By: #### T SH reflex FT4, LIPD, CBCAD, CMP #### [facility] [address], [place] [id number] Bilirubin [Mass/Vol] 0.67 mg/dL Normal 0.30-1.20 [facility] Comment on above: Performed By: #### T SH reflex FT4, LIPD, CBCAD, CMP #### [facility] [address], [place] [id number] BUN/CREA 13 Ratio Normal 6-22 [facility] Comment on above: Performed By: #### T SH reflex FT4, LIPD, CBCAD, CMP #### [facility] [address] [place], [place] [id number] Calcium [Mass/Vol] 9.5 mg/dL Normal 8.6-10.2 [facility] [place] [facility] Comment on above: Performed By: #### T SH reflex FT4, LIPD, CBCAD, CMP #### [facility] [address], [place] [id number] Chloride [Moles/Vol] 102 mmol/L Normal 98-107 [facility] Comment on above: Performed By: #### T SH reflex FT4, LIPD, CBCAD, CMP #### [facility] [address] [place], [place] [id number] CO2 [Moles/Vol] 24 mmol/L Normal 20-31 [facility] Comment on above: Performed By: #### T SH reflex FT4, LIPD, CBCAD, CMP #### [facility] [address], [place] [id number] Creatinine [Mass/Vol] 1.0 mg/dL Normal 0.7-1.4 [facility] Comment on above: Performed By: #### T SH reflex FT4, LIPD, CBCAD, CMP #### [facility] [address], [place] [id number] eGFRAA 101 mL/min/1.73m2 Normal >60 [facility] Comment on above: Performed By: #### T SH reflex FT4, LIPD, CBCAD, CMP #### [facility] [address], [place] [id number] eGFRNAA 83 mL/min/1.73m2 Normal >60 [facility] Comment on above: Performed By: #### T SH reflex FT4, LIPD, CBCAD, CMP #### [facility] [address], [place] [id number] Globulin (S) [Mass/Vol] 2.2 g/dL Normal 1.9-3.7 [facility] Specialist Comment on above: Performed By: #### T SH reflex FT4, LIPD, CBCAD, CMP #### [facility] [address] [place], [place] [id number] Glucose [Mass/Vol] 94 mg/dL Normal 65-99 [facility] Comment on above: Result Comment: For FASTING Glucose --- ADA reference ranges: Normal 65-99 mg/dl Prediabetes 100-125 Diabetes >/= 126 Performed By: #### T SH reflex FT4, LIPD, CBCAD, CMP #### [facility] [address] [place], [place] [id number] Potassium [Moles/Vol] 4.0 mmol/L Normal 3.5-5.5 [facility] Comment on above: Performed By: #### T SH reflex FT4, LIPD, CBCAD, CMP #### [facility] [address], [place] [id number] Protein [Mass/Vol] 6.8 g/dL Normal 6.1-8.1 [facility] Comment on above: Performed By: #### T SH reflex FT4, LIPD, CBCAD, CMP #### [facility] [address] [place], [place] [id number] Sodium [Moles/Vol] 142 mmol/L Normal 135-146 [facility] Comment on above: Performed By: #### T SH reflex FT4, LIPD, CBCAD, CMP #### [facility] [address], [place] [id number] Urea nitrogen [Mass/Vol] 13 mg/dL Normal 7-25 [facility] Comment on above: Performed By: #### T SH reflex FT4, LIPD, CBCAD, CMP #### [facility] [address], [place] [id number] Lipid Panelon 05-29-2021 Cholesterol [Mass/Vol] 214 mg/dL High 125-200 [facility] Comment on above: Result Comment: Low risk < 200mg/dL Borderline risk 201-239 mg/dl High risk > or equal to 240 Performed By: #### T SH reflex FT4, LIPD, CBCAD, CMP #### [facility] [address], [place] [id number] Cholesterol in HDL [Mass/Vol] 41 mg/dL Normal >40 [facility] Comment on above: Result Comment: High Cardiovascular Risk HDL <40 mg/dL Low Cardiovascular Risk HDL > or equal to 60 mg/dl Performed By: #### T SH reflex FT4, LIPD, CBCAD, CMP #### [facility] [address], [place] [id number] Cholesterol in LDL [Mass/Vol] 132 mg/dL Normal [facility] Comment on above: Result Comment: LDL ATP III CLASSIFICATION LDL less than 100 mg/dl Optimal LDL 100-129 mg/dl Near or above optimal LDL 130-159 Borderline high LDL 160-189 High LDL greater than 189 mg/dl Very High Performed By: #### T SH reflex FT4, LIPD, CBCAD, CMP #### [facility] [address], [place] [id number] Cholesterol in VLDL [Mass/Vol] 41 mg/dL Normal [facility] Comment on above: Performed By: #### T SH reflex FT4, LIPD, CBCAD, CMP #### [facility] [address], [place] [id number] Cholesterol.total/Choles terol in HDL [Mass ratio] 5 {ratio} Normal [facility] Comment on above: Performed By: #### T SH reflex FT4, LIPD, CBCAD, CMP #### [facility] [address], [place] [id number] Triglyceride [Mass/Vol] 204 mg/dL High 30-150 [facility] Film Pain[facility] Comment on above: Result Comment: TRIG ATPIII CLASSIFICATIONS TRIG less than 150 mg/dl Normal TRIG 150-199 mg/dl Borderline High TRIG 200-500 mg/dl High TRIG greather than 500 mg/dl Very High Performed By: #### T SH reflex FT4, LIPD, CBCAD, CMP #### [facility] [address] [place], [place] [id number] TSH w/ Reflex to Free T4on 0 05-29-2021 TSH 1.320 uIU/mL Normal 0.400-4.500 [facility] Film [facility] Comment on above: Performed By: #### T SH reflex FT4, LIPD, CBCAD, CMP #### [facility] [address] [place], [place] [id number] Vital Signs Date Time Vital Sign Value Performing Clinician Katelynn fournier 06-10-2023 15:30-0500 Body height 180.34 cm Tone Jessica Other [employer] Other Encounters Encounter Date Encounter Type Care Provider Facility Start: 06-10-2023 End: 06-10-2023 ambulatory Tone Jessica Other [employer] Other Start: 06-10-2023 Encounter for other preprocedural examination Tone Jessica [facility] Start: 06-10-2023 Office outpatient ne w 45 minutes Tone Jessica [facility] Start: 05-11-2023 End: 05-12-2023 ambulatory ARLENE Vu HEMMER Not Available Start: 05-10-2023 End: 05-11-2023 ambulatory Spencer Centeno MD Facility:[facility] Start: 04-29-2023 End: 04-29-2023 ambulatory ARLENE Vu HEMMER Not Available Start: 04-28-2023 End: 04-28-2023 ambulatory Arlene Hemmer Facility:[facility] Start: 04-28-2023 End: 04-28-2023 ambulatory PA-C Arlene Hemmer Work Phone: [facility] Work Phone: Start: 04-28-2023 End: 04-28-2023 Patient encounter procedure PA-C Arlene Hemmer Work Phone: [facility] Work Phone: Start: 04-09-2023 End: 04-09-2023 ambulatory ARLENE Vu HEMMER Not Available Start: 03-01-2023 End: 03-02-2023 ambulatory Spencer Centeno MD Facility:[facility] Start: 02-08-2023 End: 02-09-2023 ambulatory Spencer Centeno MD Facility:[facility] Start: 01-29-2023 End: 01-29-2023 ambulatory Arlene Hemmer Facility:[facility] Start: 01-29-2023 End: 01-29-2023 ambulatory CUPOLA PATCHER-C Arlene Hemmer Work Phone: [facility] Work Phone: Start: 01-29-2023 End: 01-29-2023 Patient encounter procedure CUPOLA PATCHER-C Arlene Power Work Phone: [facility] Work Phone: Start: 01-18-2023 End: 01-19-2023 ambulatory Spencer Centeno MD Facility:[facility] Start: 09-17-2022 End: 09-18-[address] DOCTOR [...] 08-06-2021 Subsequent hospital visit by physician Xr [facility] Comment on above: Degeneration of lumb ar intervertebral disc [M51.36] Procedures Date Procedure Procedure Detail Performing Clinician Start: 04-28-2023 X-ray of right knee VANESSA Power Work Phone: Start: 08-06-2021 Radex spine lumbosac ral minimum 4 views Marilyn Stallworth PA-C Work Phone: Plan of Treatment Date Care Activity Detail Author Start: 01-22-2023 Influenza vaccination INFLUENZA (#1) [facility] Start: 05-24-2022 DEPRESSION ASSESSMENT DEPRESSION ASS ESSMENT [facility] Start: 07-09-2021 COVID-19 VACCINE (3 - Booster for Malissa series) COVID-19 VACCINE (3 - Booster for Malissa series) [facility] Start: 2019 COLOGUARD (FIT-DNA) COLOGUARD (FIT-D NA) [facility] Start: 2019 Colonoscopy COLONOSCOPY [facility] Start: 2019 COLORECTAL CANCER SCREENING COLORECTAL CANCER SCREENING [facility] Start: [address] COLONOGRAPHY [facility] Start: 2019 DIABETES SCREEN DIABETES SCREEN [facility] Start: 2019 FECAL OCCULT BLOOD FECAL OCCULT BLOO D [facility] Start: 2019 SIGMOIDOSCOPY SIGMOIDOSCOPY [facility] Start: 2009 LIPID SCREEN LIPID SCREEN [facility] Start: 1993 Urine microalbumin profile DTAP,TDAP ,TD (1 - Tdap) [facility] Start: 1992 HEPATITIS C SCREENING HEPATITIS C SC REENING [facility] Start: 1992 HIV SCREENING HIV SCREENING [facility] Start: 1974 HEPATITIS B (1 of 3 - 3-dose series) HEPATITIS B (1 of 3 - 3-dose series) [facility] Payers Date Payer Category Payer Self-pay [id number] 2017 Unknown [id number] 1974 Unknown [id number] 2.16.840.1.151179.3.579.2.593 1974 Unknown [id number] 2.16.840.1.905531.3.579.2.593 1974 Unknown [id number] 2.16.840.1.310098.3.579.2.593 1974 Unknown [id number] 2.16.840.1.458174.3.579.2.593 1974 Unknown [id number] 2.16.840.1.817347.3.579.2.593 1974 Unknown [id number] 2.16.840.1.330748.3.579.2.593 1974 Unknown [id number] 2.16.840.1.396621.3.579.2.593 1974 Unknown [id number] 2.16.840.1.442146.3.579.2.593 1974 Unknown [id number] 2.16.840.1.254560.3.579.2.593 1974 Unknown [id number] 2.16.840.1.582055.3.579.2.196 1974 Unknown [id number] 2.16.840.1.901984.3.579.2.196 1974 Unknown [id number] 2.16.840.1.423868.3.579.2.196 1974 Unknown [id number] 2.16.840.1.382914.3.579.2.196 1974 Unknown [id number] 2.16.840.1.426919.3.579.2.1259 1974 Unknown [id number] 2.16.840.1.835446.3.579.2.1259 1974 Unknown [id number] 2.16.840.1.912528.3.579.2.1259 1959 Unknown [id number] Private Health Insurance [employer] [id number] Unknown [id number] 2.16.840.1.430366.3.579.2.531 Unknown [id number] 2.16.840.1.957139.3.579.2.531 Social History Date Type Detail Facility [facility]: [facility] Start: 07-04-2019 Tobacco use and exposure Smoke less tobacco non-user [facility] Start: 08-01-2021 Alcohol intake Current drinke r of alcohol (finding) [facility] Start: 04-28-2020 End: 08-01-2021 History of Social function [facility] Start: 04-28-2020 End: 08-01-2021 Tobacco use panel [facility] Adult Depression Screening Assessment 0 [facility] Start: 02-12-2016 Alcohol Comment occ [place] [facility] Start: 1975 Sex Assigned At Male C [facility] Start: 07-29-2021 Gender identity Identifies as male gender (finding) [facility] Start: 07-29-2021 Sexual orientation Heterosexual (fin ding) [facility] Clinical Notes 01-22-2011 to 06-10-2023 Note Date & Type Note Facility 06-10-2023 Evaluation note Encounter Date Diagnosis Assessment Notes May, Other tear of medial meniscus of right knee as current injury, initial encounter (ICD-10 - S83.241A) We discussed exam findings, symptoms, and imaging and likely etiologies of the patient's pain. MRI results reviewed in detail as medial meniscal tear with associated berumen's cyst. The patient wishes to proceed with surgery in the form of right knee arthroscopy with medial meniscus repair versus meniscectomy, and drainage of berumen's cyst. We discussed the risks, benefits, and alternatives to surgery in general, including the potential outcomes with foregoing treatment altogether. The risks include, but are not limited to, the risk of anesthesia up to and including , infection, bleeding, tendon damage, nerve damage, vascular damage, stiffness, weakness, loss of range of motion, arthrofibrosis, failure to alleviate symptoms, worsening of symptoms, continued pain, continued mechanical symptoms, arthritic pain, post traumatic arthritis, wound healing problems, formation of cutaneous scars secondary to surgical incisions, deep venous thrombosis, pulmonary embolism, reflex sympathetic dystrophy, unforeseen complications and the need for further surgery. The specific risks of knee arthroscopy were discussed including but not limited to: Failure of any repair (tendon, ligament, meniscus, cartilage), symptomatic hardware, chondrolysis, fracture, instability, unforeseen complications and the need for further or revision surgery. Specifics in recovery of meniscectomy versus meniscal repair discussed in detail, including being non weight bearing for a period of weeks if meniscal repair is performed. Also discussed the potential that the berumen's cyst could recur after surgery. Patient was in understanding and wishes to proceed. May, Cyst, berumen's knee, right (ICD-10 - M71.21) May, Arthritis of right knee (ICD-10 - M17.11) May, Pre-op exam (ICD-10 - Z01.818) [facility] Other 04-27-2023 NoteCONSULTATION PROCEDURE DATE: 09/17/2022 PROCEDURE: Trigger point injection [...] reports reduction in pain symptoms. IMMEDIATE COMPLICATIONS: None.[facility] [id number] NoteCONSULTATION PROCEDURE DATE: 06/18/2022 PREOPERATIVE DIAGNOSIS: Left gluteal [...] She will be followed up in the office.[facility] [id number] NoteCONSULTATION CONSULTATION DATE: 06/11/2022 HISTORY OF PRESENT ILLNESS: [...] agrees with this plan and all questions answered.[facility] [id number] NoteCONSULTATION PROCEDURE DATE: 03/19/2022 PREOPERATIVE DIAGNOSIS: Left lumbar [...] followed up in the office in three months.[facility] [id number] Note CONSULTATION CONSULTATION DATE: 02/19/2022 HISTORY OF [...] plan of care and would like to proceed.[facility] [id number] NoteCONSULTATION PROCEDURE DATE: 12/17/2021 PREOPERATIVE DIAGNOSIS: Left lumbar [...] be followed up in the clinic for re-evaluation.[facility] [id number] NoteCONSULTATION CONSULTATION DATE: 11/27/2021 This is a 46-year-old [...] of care and would like to proceed. [facility] Signed and Approved by: JOSE MOSLEY . 12/04/2021 09:49:00[facility]05-12-2022 NoteCONSULTATION CONSULTATION DATE: 10/02/2021 HISTORY: This is a [...] of care and would like to proceed. [facility] Signed and Approved by: JOSE MOSLEY . 10/09/2021 17:09:00[facility]03-16-2022 NoteHNO ID: [id number] Author: RT Linda(R) Service: ? Author Type: [...] PERIPHERAL IV DATA: Not applicable SIGNED BY: RT Linda(R) August 06, 2021 12:16 [facility]03-11-2022 NoteHNO ID: [id number] Author: Marilyn Stallworth PA-C Service: ? Author Type: Physician Maintenance Tech Type: Progress Notes Filed: 08/01/2021 10:58 AM [...] use: No ALLERGIES No Known Allergies MEDICATIONS: wzcehoij-bxvcbxmpr-vfkeiemkqdjdnd (CORTISPORIN) 3.5-10,000-1 mg/mL-unit/mL-% otic suspension PLACE FOUR [...] lumbar or lumbosacr (more content not included)... [facility]02-11-2022 NoteHNO ID: [id number] Author: Sheeba Montes PA-C Service: ? Author Type: Physician Maintenance Tech Type: Progress Notes Filed: 07/04/2021 4:34 PM [...] sure patient imaging is available for review. [facility] NoteHNO ID: [id number] Author: Sekou Braswell Service: ? Author Type: ? Type: Progress Notes Filed: 07/04/2021 4:34 PM Note Text: Patient name: Ophelia Cruz Are you being referred by a [facility] Provider or Pain Management Provider at [facility]? No If answer is YES please schedule directly with surgeon, triage does not need to be completed. Is this a self-referral No If not, who is the Referring Provider Dr Arlene Hemmer Is this a 2nd opinion, have you been offered surgery by another surgeon? No MRI/CT/myelogram within 12 months? Yes If NO , please refer to medical spine or PCP to complete above imaging, triage does not need to be completed If YES,? please ask for the name/address of the facility where the MRI/CT/myelogram was completed: [facility] Address: [address] [place] [address] [address], [place] [address] MRI/CT/myelogram viewable in Epic: No If not, please provide [phone] to fax in imaging reports for review. [...] injections and/or physical therapy was completed PT [facility] Address: [address] [place] [address] [address], [place] [address] Have you tried any other kinds of non-surgical treatments in the last 12 months? (For example: NSAIDS, muscle relaxants, analgesics, oral steroids, Chiropractor, Acupuncture): Yes Acupuncture oral steroids, Chiropractor [facility] Address: [address] [place] [address] [address] [id number] 4. Are you currently taking daily prescribed narcotic medications for your current symptoms (For example Oxycodone, Hydrocodone, Tramadol, Morphine, Other)? No 5. Have you had previous spinal surgery for this same symptoms? No If YES? please ask for the name of facility/address of where the surgery was completed: No Additional Comments [phone] (Home Phone)[facility] 01-22-2011 History general Narrative - Reported* Type Description Date Medical History hypercholesterolemia Medical History Esophageal reflux Medical History allergic rhinitis Medical History abscess tooth 01/2011 Medical History Pertussis, May 2013 Surgical History ACL L knee 96 Surgical History tonsilectomy Surgical History vasectomy 03 Hospitalization History see above surgeries AppSlingr Other Evaluation note* Diagnosis Degeneration of lumbar intervertebral disc Degeneration of lumbar or lumbosacral intervertebral disc Scoliosis of lumbosacral spine, unspecified scoliosis type Degeneration of lumbar or lumbosacral intervertebral disc documented in this encounter [facility] noteNo assessment information availableMer[facility] Work Phone: Reason for referral (narrative)* Diagnostic Procedure Only (Routine) - Closed Specialty Diagnoses / Procedures Referred By Contac t Referred To Contact XR IMAGING Diagnoses Degeneration of lumbar intervertebral disc Scoliosis of lumbosacral spine, unspecified scoliosis type Degeneration of lumbar or lumbosacral intervertebral disc Procedures XR LUMBAR MOTION 4V AP/LAT/ FLEX/EXT RADEX SPINE LUMBOSACRAL MINIMUM 4 VIEWS Marilyn Stallworth PA-C [address] [place] [address] Xr Imaging Referral ID Status Reason Start Date Expiration Date V isits Requested Visits Authorized [id number] Closed Auto-Generate d Referral 08/01/2021 08/31/2022 1 [...] SPI W/SKULL 2/3 VW Marilyn Stallworth PA-C [address] [place] [address] Xr Imaging Referral ID Status Reason Start Date Expiration Date V isits Requested Visits Authorized [id number] Closed Auto-Generate d Referral 08/01/2021 08/31/2022 1 1 [facility] for visit Narrative* Diagnostic Procedure Only (Routine) - Closed Specialty Diagnoses / Procedures Referred By Ezekiel t Referred To Contact XR IMAGING Diagnoses Degeneration of lumbar intervertebral disc Scoliosis of lumbosacral spine, unspecified scoliosis type Degeneration of lumbar or lumbosacral intervertebral disc Procedures XR LUMBAR MOTION 4V AP/LAT/ FLEX/EXT RADEX SPINE LUMBOSACRAL MINIMUM 4 VIEWS Marilyn Stallworth, YENIFER [address] [place] [address] Xr Imaging Referral ID Status Reason Start Date Expiration Date V isits Requested Visits Authorized [id number] Closed Auto-Generate d Referral 08/01/2021 08/31/2022 1 1 [facility] Summary Purpose Family History No Family History Records FoundNo Family History Records FoundNo Family History Records FoundNo Family History Records FoundNo Family History Records FoundNo Family History Records Found Advance Directives Advance Directive Response Recorded Date/ Time Advance [...] section and content) DATE CREATED AUTHOR 08/12/2021 [facility] DATE CREATED AUTHOR AUTHOR'S ORGANIZ ATION 11/13/2021 [facility] dical Specialist DATE CREATED AUTHOR AUTHOR'S ORGANIZ ATION 09/21/2022 [facility] DATE CREATED AUTHOR AUTHOR'S ORGANIZ ATION 05/06/2023 [facility] DATE CREATED AUTHOR AUTHOR'S ORGANIZ ATION 05/14/2023 [facility] DATE CREATED AUTHOR AUTHOR'S ORGANIZ ATION 05/16/2023 [facility] dical Specialists EPIC Source Comments (unrecognize d section and content) In the event this informatio n is protected by the Federal Confidentiality of Alcohol and Drug Abuse Patient Records regulations: The Federal rules restrict any use of the information to criminally investigate or prosecute any alcohol or drug abuse patient.[facility] Care Teams (unrecognized sec tion and content) Credit Card Specialist Relationship Specialty Start Date End Date JavierEbenezerdelia Womack PCP - General Family Medicine 01/10/16 Team [...] sectionGoals may be documented in an alternate sectionNo Information REASON FOR VISIT (unrecogniz ed section and content) Right Knee Pain FOR RECORDS PERTAINING TO PATIENTS WHO ARE [...] BE BASED ON THE PRIMARY CLINICAL RECORDS. [facility]. provides no warranty or guarantee of the accuracy or completeness of information in this document.
--- NOTE | 2023-06-23 08:33 | P.CN_ITS ---
Consult Note: HPI Data of Consult Patient: known to practice within the last 3 years Requesting Physician: Lorena Santana NP Primary Care Provider: TELLO POWER Consult Narrative Reason for consult: f/u Narrative: Ophelia Cruz a pleasant 47 year old male presents for evaluation and management of chronic back pain. Pain 10% improved since left L4/5 L5/S1 RFA and no improvement from recent left L4-5 L5-S1 TFESI. Patient continues to have low back pain that radiates into left hip, lateral thigh and down to left foot. Patient rating pain 1/10 at this time, it is intermittent and worse with activity and with car rides, gets up to 6-7/10. Patient recently underwent MRI of lumbar spine with results detailed below. cc:: CC: Lorena Santana NP Review of Systems ROS Status of ROS 10 or more systems reviewed and unremark able except as noted in history and below Musculoskeletal Reports: back pain Meds Home Medications and Allergies Home Medications Medication Instructions Recorded Confirmed Type albuterol 90 mcg/actuation aerosol 90 mcg inhalation PRN shortness of 01/11/23 History inhaler breath or wheezing diclofenac sodium 50 mg 100 mg PO Q12H 01/11/23 05/10/23 History tablet,delayed release esomeprazole magnesium 40 mg 40 mg PO Q24H 01/11/23 05/10/23 History capsule,delayed release fluticasone propionate 50 1 spray intranasal DAILY PRN 01/11/23 05/10/23 History mcg/actuation nasal allergy symptoms spray,suspension (24 Hour Allergy Relief) loratadine 5 mg-pseudoephedrine ER 1 tab PO Q12H 01/11/23 05/10/23 History 120 mg tablet,extended release,12hr (Claritin-D 12 Hour) losartan 100 mg tablet 100 mg PO DAILY 01/11/23 05/10/23 History olopatadine 0.2 % eye drops 1 drp ophthalmic (eye) DAILY 01/11/23 05/10/23 History (Pataday Once Daily Relief) olopatadine 0.6 % nasal spray 2 spray intranasal BID 01/11/23 05/10/23 History (Patanase) amlodipine 5 mg tablet 5 mg PO DAILY 01/18/23 05/10/23 History metoprolol succinate 25 mg capsule 25 mg PO DAILY 08/28/23 12/18/23 History sprinkle, ext. release 24 hr (Kapspargo Sprinkle) methocarbamol 500 mg tablet 500 mg PO BID 02/08/23 05/10/23 History diclofenac sodium 50 mg 50 mg PO TID PRN pain #90 tabs 03/22/23 05/10/23 Rx tablet,delayed release Allergies Allergy/AdvReac Type Severity Reaction Status Date / Time No Known Drug Allergies Allergy Verified 03/01/23 07:43 Exam Constitutional Documenting provider has reviewed patient's vital signs: yes Common normals: no apparent distress, oriented x3, healthy appearing, alert and well nourished General appearance: cooperative Orientation/consciousness: Yes awake, Yes oriented to person, Yes oriented to place and Yes oriented to time HENMT Common normals: normocephalic, hearing grossly normal bilaterally and moist oral mucous membranes Head and scalp: normocephalic Eye Common normals: PERRL Pupil: PERRL Neck & C-Spine Common normals: full ROM General: normal visual inspection Chest Common normals: inspection of chest normal Respiratory Common normals: normal respiratory effort, no retractions and no use of accessory muscles Effort & inspection: able to speak in complete sentences and symmetric chest movement Back & Pelvis Lumbar spine/lower back: pain with ROM, paraspinal muscle tenderness and straight leg raise negative bilaterally Other: muscle strength 5/5 bilat LE with intact sensation scoliois noted Extremity Common normals: normal to inspection and full ROM Neuro Common normals: oriented x3, CN's II-XII intact bilaterally, moves all extremities, no focal motor deficits, no sensory deficits noted and deep tendon reflexes 2+ bilaterally Sensorium/orientation: alert Motor exam: strength 5/5 throughout and no movement abnormalities noted Psych Common normals: mental status grossly normal, thought process normal, coope rative, affect normal, speech normal and activity/motor behavior normal Speech: normal speech Thought process: normal thought process Results Imaging MRI-Lumbar Spine: Attestation: I have reviewed the pertinent imaging results. Radiologist's impression: Unchanged lamina lumbar spine with mild scoliosis and mild to moderate anterolisthesis of L5-S1. Anterolisthesis of the L5-S1 level. Progressed along the left side. There is an age-indeterminate, new from prior MRI more conspicuous possible fracture involving the vertebral body/pedicle junction (series 5, images 5-7). Chronic bilateral L5 pars defects are again noted. No significant edema at this level identified favoring to represent a subacute or chronic finding. No other acute or aggressive osseous abnormality identified. Modic type changes are present at the L3-L4 and L5-S1 levels. 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 Limited evaluation of the abdominopelvic viscera is without acute or suspicious abnormality. T12-L1: No focal disc herniation identified. No significant spinal canal stenosis. Mild left neural foraminal stenosis. L1-L2: Mild broad-based disc bulge without severe spinal canal stenosis. Mild right neural foraminal stenosis. L2-L3: Broad-based disc bulge with mild spinal canal stenosis when combined with ligamentum flavum hypertrophy and facet arthropathy. Moderate to severe right neural foraminal stenosis secondary to disc osteophyte complex and facet arthropathy. This has not significantly changed. L3-L4: Broad-based disc bulge with thqr-bh-avffkoof spinal canal stenosis. Moderate to sever Additional Findings Additional findings: I have checked an [place]AR[place] report on this patient today and there are no aberrancies noted in the prescribing history.?? A drug screen was completed and reviewed within the last year, and if there has not been a drug screen completed we ordered one today to monitor higher risk, state monitored pain medication use. As part of providing excellent, safe, comprehensive care, the following was completed at our patient's visit: 1. A medication reconciliation and review to ensure accurate knowledge of current/active medications, including asking our patients to inform us about any tkad-trw-asibhtu medications or herbal remedies/nutritional supplements/alternative remedies. 2. A review to specifically ensure our patients have had annual screening for: elevated body mass index (BMI), tobacco use, screening for depression, and screening for unhealthy alcohol use. When screening is concerning, patients are provided with education and the specific recommendation to discuss the concerning health issue and treatment options with their primary care provider. Assessment and Plan Assessment and Plan (1) Fracture of L5 vertebra: (2) Chronic low back pain: (3) Myofascial pain: (4) Lumbar stenosis with neurogenic claudication: (5) Lumbar spondylosis: (6) Lumbar radiculopathy: Plan MRI of lumbar spine reviewed, with lack of response to previous left L4 L5 nerve root injections left L4,5 TFESI and recent lumbar RFA we will refer to NS and to review recent MRI findings increase gabapentin to 200mg daily continue other medications f/u 2 months
== END 2023-06-23 08:09 | disposition home or self-care (01) ==
LOC: PM 08:09
PROVIDERS: PCP Physician Assistant; Visit Provider Nurse Practitioner
DX: S32.059A Unspecified fracture of fifth lumbar vertebra, initial encounter for closed fracture (principal); M54.50 Low back pain, unspecified; M79.18 Myalgia, other site; M48.062 Spinal stenosis, lumbar region with neurogenic claudication; M47.816 Spondylosis without myelopathy or radiculopathy, lumbar region; M54.16 Radiculopathy, lumbar region
CPT/HCPCS: G0463

== ENCOUNTER 2023-08-18 09:52 | Outpatient (OUT) | payer BC, SELFPAY ==
--- OUTSIDE RECORDS SUMMARY | 2023-08-18 09:55 | XMS_ITS | CCD ---
Author Organization [facility] Care Team Providers Care Chemist Steroids Name Role Phone ALVARADO ., DR ABRAN [...] Unavailable HEMMER, DR ARLENE Womack Consulting Unavailable Javier, Arlene Womack Primary Care Provider MENDOZA Power Attending Provider MENDOZA Power Attending Provider YENIFER Power Primary Care Provider YENIFER Power Attending Provider Arlene Power Admitting Unavailable Arlene Power Primary Care Unavailable Arlene Power Attending Unavailable Arlene Power Admitting Unavailable Arlene Power Attending Unavailable Gisaloniitis , Spencer Vicente Attending Unavailable Gieditis , Spencer Vicente Attending Unavailable Jacobo RESENDIZ, Spencer Vicente Attending Unavailable Jacobo RESENDIZ, Spencer Vicente Attending Unavailable Tone Jessica Unavailable ARLENE POWER Attending Unavailable ARLENE POWER Attending Unavailable ARLENE POWER Attending Unavailable ARLENE POWER Referring Unavailable ARLENE POWER Attending Unavailable JUAN M CORBETT Referring Unavailable ARLENE POWER Primary Care Unavailable Allergies Allergy Classification Reported Allergen(s) Allergy Type Date of Onset Reaction(s) Facility (1 source) cats,horses hay Propensity to adverse reactions sinus drainage [employer] Other Medications Current Medications Medication Drug Class(es) [...] Drug Class(es) Dates Sig (Normalized) Sig (Original) [id number] 200 actuat albuterol 0.09 mg/actuat metered dose [...] 0 04/06/2013 Active take 1 tablet by [facility] once daily as needed for gastroesophageal reflux disease NexIUM 40 1 tablet Orally once daily p.r.n. GERD Not-Taking/PRN Comment on above: Take 1 capsule by [facility] daily. 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 Other circulatory disease (1 source) Elevated blood-pressure [...] Test Name Value Interpretation Reference Range Facility Cult,Urineon 08-06-2023 Cult,Urine Specimen Description .CLEAN CATCH URINE Culture NO SIGNIFICANT GROWTH Report Status FINAL 08/06/2023 Normal [facility] Comment on above: Performed By: #### U RC #### [facility] [address] [place] [address] Manager Of Data: Panchito Harper MD [address] [id number] Manager Of Data: Farhad Milton MD MRSA, DNA, Nasalon MRSA, DNA, Nasal Negative Normal NEG [facility] Comment on above: Result Comment: NEGA TIVE: MRSA DNA not detected by nucleic acid amplification. Results should be used as an adjunct to nosocomial control efforts to identify patients needing enhanced precautions. The test is not intended to identify patients with staphylococcal infections. Results should not be used to guide or monitor treatment for MRSA infections. Performed By: #### M RSANO #### [facility] [address] [place] [address] Manager Of Data: Panchito Harper MD [address] [address] Manager Of Data: Farhad Milton MD APTTon 08-05-2023 aPTT Coag (Bld) [Time] 28.6 s Normal 23.9-33.8 [facility] Comment on above: Result Comment: IV Heparin Therapy Range: 62.0-94.0 Performed By: #### P T, BMP, CDP, PTT #### [facility] [address] [place] [address] Manager Of Data: Panchito Harper MD Basic Metabolic Profon 08-04 Anion gap [Moles/Vol] 7 mmol/L Low 9-17 [facility] Comment on above: Performed By: #### P T, BMP, CDP, PTT #### [facility] [address] [place] [address] Manager Of Data: Panchito Harper MD BUN/CRE Ratio 26 High 9-20 [facility] Comment on above: Performed By: #### P T, BMP, CDP, PTT #### [facility] [address] [facility] [place] [address] Manager Of Data: Panchito Harper MD Calcium [Mass/Vol] 9.1 mg/dL Normal 8.6-10.4 [facility] Comment on above: Performed By: #### P T, BMP, CDP, PTT #### [facility] [address] [place] [address] Manager Of Data: Panchito Harper MD Chloride [Moles/Vol] 106 mmol/L Normal 98-107 [facility] Comment on above: Performed By: #### P T, BMP, CDP, PTT #### [facility] [address] [place] [address]. [place] [address] Manager Of Data: Panchito Harper MD CO2 [Moles/Vol] 30 mmol/L Normal 20-31 [facility] Comment on above: Performed By: #### P T, BMP, CDP, PTT #### [facility] [address] [facility] [place] [address] Manager Of Data: Panchito Harper MD Creatinine [Mass/Vol] 0.8 mg/dL Normal 0.7-1.2 [facility] Comment on above: Performed By: #### P T, BMP, CDP, PTT #### [facility] [place] [address] Manager Of Data: Panchito Harper MD GFR/1.73 sq M.predicted among non-blacks MDRD (S/P/Bld) [Vol rate/Area] mL/min/{1.73_m2} Normal >60 [facility] Comment on above: Result Comment: These results are not intended for use in patients <18 years of age. eGFR results are calculated without a race factor using the 2020 CKD-EPI equation. Careful clinical correlation is recommended, particularly when comparing to results calculated using previous equations. The CKD-EPI equation is less accurate in patients with extremes of muscle mass, extra-renal metabolism of creatine, excessive creatine ingestion, or following therapy that affects renal tubular secretion. Performed By: #### P T, BMP, CDP, PTT #### [facility] [address] [facility] [place] [address] Manager Of Data: Panchito Harper MD Glucose [Mass/Vol] 77 mg/dL Normal 70-99 [facility] Comment on above: Performed By: #### P T, BMP, CDP, PTT #### [facility] [address] [place] [address]. [place] [address] Manager Of Data: Panchito Harper MD Potassium [Moles/Vol] 3.9 mmol/L Normal 3.7-5.3 [facility] Comment on above: Performed By: #### P T, BMP, CDP, PTT #### [facility] [address] [place] [address]. [place] [address] Manager Of Data: Panchito Harper MD Sodium [Moles/Vol] 143 mmol/L Normal 135-144 [facility] Comment on above: Performed By: #### P T, BMP, CDP, PTT #### [facility] [address] [place] [address]. [place] [address] Manager Of Data: Panchito Harper MD Urea nitrogen [Mass/Vol] 21 mg/dL High 6-20 [facility] Comment on above: Performed By: #### P T, BMP, CDP, PTT #### [facility] [address] [place] [address]. [place] [address] Manager Of Data: Panchito Harper MD CBC with Diffon 08-05-2023 Abs. Basophil 0.03 k/uL Normal 0.00-0.20 [facility] Comment on above: Performed By: #### P T, BMP, CDP, PTT #### [facility] [address] [place] [address]. [place] [address] Manager Of Data: Panchito Harper MD Abs.Imm.Granulocyte 0.02 k/uL Normal 0.00-0.30 [facility] Comment on above: Performed By: #### P T, BMP, CDP, PTT #### [facility] [address] [place] [address] Manager Of Data: Panchito Harper MD Abs.Neutrophil (Seg) 3.31 k/uL Normal 1.50-8.10 [facility] Comment on above: Performed By: #### P T, BMP, CDP, PTT #### [facility] [address] [place] [address] Manager Of Data: Panchito Harper MD Basophils/100 WBC (Bld) 1 % Normal 0-2 [facility] Comment on above: Performed By: #### P T, BMP, CDP, PTT #### [facility] [address] [place] [address] Manager Of Data: Panchito Harper MD Eosinophils (Bld) [#/Vol] 0.36 10*3/uL Normal 0.00-0.44 [facility] Comment on above: Performed By: #### P T, BMP, CDP, PTT #### [facility] [address] [place] [address] Manager Of Data: Panchito Harper MD Eosinophils/100 WBC (Bld) 6 % High 1-4 [facility] Comment on above: Performed By: #### P T, BMP, CDP, PTT #### [facility] [address] [place] [address] Manager Of Data: Panchito Harper MD Erythrocyte distribution width (RBC) [Ratio] 12.8 % Normal 11.8-14.4 [facility] Comment on above: Performed By: #### P T, BMP, CDP, PTT #### [facility] [facility] [place] [address] Manager Of Data: Panchito Harper MD Hematocrit (Bld) [Volume fraction] 38.9 % Low 40.7-50.3 [facility] Comment on above: Performed By: #### P T, BMP, CDP, PTT #### [facility] [address] [place] [address]. [place] [address] Manager Of Data: Panchito Harper MD Hemoglobin (Bld) [Mass/Vol] 13.0 g/dL Normal 13.0-17.0 [facility] Comment on above: Performed By: #### P T, BMP, CDP, PTT #### [facility] [address] [place] [address] Manager Of Data: Panchito Harper MD Immature granulocytes/100 WBC (Bld) 0 % Normal 0 [facility] Comment on above: Performed By: #### P T, BMP, CDP, PTT #### [facility] [address] [place] [address]. [place] [address] Manager Of Data: Panchito Harper MD Lymphocytes (Bld) [#/Vol] 1.60 10*3/uL Normal 1.10-3.70 [facility] Comment on above: Performed By: #### P T, BMP, CDP, PTT #### [facility] [address] [place] [address]. [place] [address] Manager Of Data: Panchito Harper MD Lymphocytes/100 WBC (Bld) 28 % Normal 24-43 [facility] Comment on above: Performed By: #### P T, BMP, CDP, PTT #### [facility] [address] [place] [address] Manager Of Data: Panchito Harper MD MCH (RBC) [Entitic mass] 30.4 pg Normal 25.2-33.5 [facility] Comment on above: Performed By: #### P T, BMP, CDP, PTT #### [facility] [address] [place] [address] Manager Of Data: Panchito Harper MD MCHC (RBC) [Mass/Vol] 33.4 g/dL Normal 28.4-34.8 [facility] Comment on above: Performed By: #### P T, BMP, CDP, PTT #### [facility] [facility] [place] [address] Manager Of Data: Panchito Harper MD MCV (RBC) [Entitic vol] 90.9 fL Normal 82.6-102.9 [facility] Comment on above: Performed By: #### P T, BMP, CDP, PTT #### [facility] [place] [address] Manager Of Data: Panchito Harper MD Monocytes (Bld) [#/Vol] 0.44 10*3/uL Normal 0.10-1.20 [facility] Comment on above: Performed By: #### P T, BMP, CDP, PTT #### [facility] [facility] [place] [address] Manager Of Data: Panchito Harper MD Monocytes/100 WBC (Bld) 8 % Normal 3-12 [facility] Comment on above: Performed By: #### P T, BMP, CDP, PTT #### [facility] [facility] [place] [address] Manager Of Data: Panchito Harper MD Neutrophil (Seg) 57 % Normal 36-[address] [facility] Comment on above: Performed By: #### P T, BMP, CDP, PTT #### [facility] [place] [address] Manager Of Data: Panchito Harper MD NRBC Automated 0.0 per 100 WBC Normal 0.0 [facility] Comment on above: Performed By: #### P T, BMP, CDP, PTT #### [facility] [place] [address] Manager Of Data: Panchito Harper MD Platelet mean volume (Bld) [Entitic vol] 10.7 fL Normal 8.1-13.5 [facility] Comment on above: Performed By: #### P T, BMP, CDP, PTT #### [facility] [address] [place], [place] [address]ia [facility] [place] [address] Manager Of Data: Panchito Harper MD Platelets (Bld) [#/Vol] 230 10*3/uL Normal 138-453 [facility] Comment on above: Performed By: #### P T, BMP, CDP, PTT #### [facility] [address] [place], [place] [address]ia [facility] [place] [address] Manager Of Data: Panchito Harper MD RBC (Bld) [#/Vol] 4.28 10*6/uL Normal 4.21-5.77 [facility] Comment on above: Performed By: #### P T, BMP, CDP, PTT #### [facility] [address] [place], [place] [address]ia [facility] [place] [address] Manager Of Data: Panchito Harper MD WBC (Bld) [#/Vol] 5.8 10*3/uL Normal 3.5-11.3 [facility] Comment on above: Performed By: #### P T, BMP, CDP, PTT #### [facility] [address] [place], [place] [address] [place] [address] Manager Of Data: Panchito Harper MD MRSA, DNA, Nasalon Specimen Description .NASAL SWAB Normal [facility] Comment on above: Performed By: #### M RSANO #### [facility] [address] [place] [address] Manager Of Data: Panchito Harper MD [facility] [address] [place] [address] Manager Of Data: Farhad Milton MD PTon 08-05-2023 INR Coag (PPP) [Relative time] 0.9 {INR} Normal [facility] Comment on above: Result Comment: Therapeutic Range: Moderate Anticoagulant Intensity: INR = 2.0-3.0 High Anticoagulant Intensity: INR = 2.5-3.5 Performed By: #### P T, BMP, CDP, PTT #### [facility] [address] [facility] [place] [address] Manager Of Data: Panchito Harper MD PT Coag (PPP) [Time] 12.7 s Normal 11.5-14.2 [facility] Comment on above: Performed By: #### P T, BMP, CDP, PTT #### [facility] [address] [facility] [place] [address] Manager Of Data: Panchito Harper MD Urinalysis, Routineon 2023 Bilirubin, SemiQt,Ur Negative Normal NEG [facility] Comment on above: Performed By: #### U A #### [facility] [address] [facility] [place] [address] Manager Of Data: Panchito Harper MD Blood, Urine Negative Normal NEG [facility] Comment on above: Performed By: #### U A #### [facility] [address] [address] Manager Of Data: Panchito Harper MD Clarity (U) Clear Normal CLEAR [facility] Comment on above: Performed By: #### U A #### [facility] [address] [place] [address] Manager Of Data: Panchito Harper MD Color (U) Yellow Normal YEL [facility] Comment on above: Performed By: #### U A #### [facility] [address] [place] [address] Manager Of Data: Panchito Harper MD Comment Microscopic exam not performed based on chemical results unless requested in Normal [facility] Comment on above: Result Comment: orig inal order. Performed By: #### U A #### [facility] [address] [facility] [place] [address] Manager Of Data: Panchito Harper MD Glucose Ql (U) Negative Normal NEG [facility] Comment on above: Performed By: #### U A #### [facility] [address] [facility] [place] [address] Manager Of Data: Panchito Harper MD Ketones Ql (U) Negative Normal NEG [facility] Comment on above: Performed By: #### U A #### [facility] [address] [facility] [place] [address] Manager Of Data: Panchito Harper MD Leukocyte esterase Test strip Ql (U) Negative Normal NEG [facility] Comment on above: Performed By: #### U A #### [facility] [address] [facility] [place] [address] Manager Of Data: Panchito Harper MD Nitrite,Ur Negative Normal NEG [facility] Comment on above: Performed By: #### U A #### [facility] [address] [place] [address] Manager Of Data: Panchito Harper MD PH,Ur 6.0 Normal 5.0-8.0 [facility] Comment on above: Performed By: #### U A #### [facility] [address] [place] [address] Manager Of Data: Panchito Harper MD Protein Ql (U) Negative Normal NEG [facility] Comment on above: Performed By: #### U A #### [facility] [address] [facility] [place] [address] Manager Of Data: Panchito Harper MD Spec. [place],Ur 1.025 Normal 1.005-1.030 [facility] Comment on above: Performed By: #### U A #### [facility] [address] [facility] [place] [address] Manager Of Data: Panchito Harper MD Urobilinogen,Ur Normal Normal 0.0-1.0 [facility] Comment on above: Performed By: #### U A #### [facility] [address] [facility] [place] [address] Manager Of Data: Panchito Harper MD MR KNEE RIGHT WO IV CONTRAST on [...] RT 4V*on 04-28-2023 XR knee RT 4V* [place] [address] XRay Report Signed Patient: Ophelia Cruz MR#: [id number] : [id number] Acct:[id number] Age/Sex: 47 / M ADM Date: 04/28/23 Loc: XD Room: Type: [facility] Attending Dr: Arlene Power PA-C Copies to: [facility] Ordering [...] Arlene Colon M.D.04/28/2023 4:58 PM Dictation Location: [place] [address] Transcribed By: [facility] 04/28/231657 Dictated By: Arlene Colon MD 04/28/231652 Signed By: 04/28/231657 Normal [facility] Alanine aminotransferase [En zymatic activity/volume] in Serum or PlasmaOrdered By: Arlene Power on 01-29-2023 ALT [Catalytic activity/Vol] 25 U/L 7-52 [facility] Albumin [Mass/volume] in Ser um or Plasma by Bromocresol green (BCG) dye binding methoOrdered By: Arlene Power on 01-29-2023 Albumin BCG dye [Mass/Vol] 4.3 g/dL 3.5-5.7 [facility] Alkaline phosphatase [Enzyma tic activity/volume] in Serum or PlasmaOrdered By: Arlene Power on 01-29-2023 ALP [Catalytic activity/Vol] 52 U/L 34-104 [facility] Aspartate aminotransferase [ Enzymatic activity/volume] in Serum or PlasmaOrdered By: Arlene Power on 01-29-2023 AST [Catalytic activity/Vol] 15 U/L 13-39 [facility] Basophils Auto (Bld) [#/Vol] Ordered By: Arlene Power on 01-29-2023 Basophils (Bld) [#/Vol] 0.0 10*3/uL 0.0-0.2 [facility] Basophils/100 WBC Auto (Bld) Ordered By: Arlene Power on 01-29-2023 Basophils/100 WBC (Bld) 0.5 % . F [facility] Bilirubin.total [Mass/volume ] in Serum or PlasmaOrdered By: Arlene Power on 01-29-2023 Bilirubin [Mass/Vol] 0.5 mg/dL 0.3-1.0 [facility] Calcium [Mass/volume] in Ser um or PlasmaOrdered By: Arlene Power on 01-29-2023 Calcium [Mass/Vol] 9.4 mg/dL 8.6-10.3 [facility] Carbon dioxide, total [Moles /volume] in Serum or PlasmaOrdered By: Arlene Power on 01-29-2023 CO2 [Moles/Vol] 31.5 mmol/L 21.0-31.[address] [facility] Chloride [Moles/volume] in S jeff or PlasmaOrdered By: Arlene Power on 01-29-2023 Chloride [Moles/Vol] 105 mmol/L 98-107 [facility] Cholesterol [Mass/volume] in Serum or PlasmaOrdered By: Arlene Power on 01-29-2023 Cholesterol [Mass/Vol] 186 mg/dL 140-200 [facility] Comment on above: Chol less than 200 m g/dl low riskChol 201-239 mg/dl borderline riskChol 240 mg/dl and greater high risk Cholesterol in LDL Calc [Mas s/Vol]Ordered By: Arlene Power on 01-29-2023 Cholesterol in LDL [Mass/Vol] 122 mg/dL 0-100 [facility] Comment on above: LDL ATP III CLASSIFI CATIONLDL less than 100 mg/dL OptimalLDL 100-129 mg/dL Near or above optimalLDL 130-159 mg/dL Borderline highLDL 160-189 mg/dL HighLDL greater than 189 mg/dL Very high Cholesterol in VLDL Calc [Ma ss/Vol]Ordered By: Arlene Power on 01-29-2023 Cholesterol in VLDL [Mass/Vol] 22 mg/dL [facility] Complete Blood Count Auto Di ffon 01-29-2023 Basophils (Bld) [#/Vol] 0.0 10*3/uL Normal 0.0-0.2 [facility] Comment on above: Result Comment: PERF ORMED BY: [place] [address] PATHOLOGIST TRAFFIC ATTENDANT IAN CHRISTINE M.D. Performed By: #### L IPID, CBC, CMP, PSAS #### [facility] [address] [place] [address] [place] Basophils/100 WBC (Bld) 0.5 % Normal . F [facility] Comment on above: Performed By: #### L IPID, CBC, CMP, PSAS #### [facility] [address] [place] [address] [place] Eosinophils (Bld) [#/Vol] 0.3 10*3/uL Normal 0.0-0.45 [facility] Comment on above: Performed By: #### L IPID, CBC, CMP, PSAS #### [facility] [address] [place] [address] [place] Eosinophils/100 WBC (Bld) 3.8 % Normal . [facility] Comment on above: Performed By: #### L IPID, CBC, CMP, PSAS #### [facility] [address] [place] [address] [place] Erythrocyte distribution width (RBC) [Ratio] 13.8 % Normal 12.0-14.8 [facility] Comment on above: Performed By: #### L IPID, CBC, CMP, PSAS #### [address] Hematocrit (Bld) [Volume fraction] 40.2 % Normal 38.8-50.0 [facility] Comment on above: Performed By: #### L IPID, CBC, CMP, PSAS #### [address] Hemoglobin (Bld) [Mass/Vol] 13.7 g/dL Normal 13.0-17.0 [facility] Comment on above: Performed By: #### L IPID, CBC, CMP, PSAS #### [address] Lymphocytes (Bld) [#/Vol] 2.4 10*3/uL Normal 1.00-4.8 [facility] Comment on above: Performed By: #### L IPID, CBC, CMP, PSAS #### [address] Lymphocytes/100 WBC (Bld) 29.7 % Normal . [facility] Comment on above: Performed By: #### L IPID, CBC, CMP, PSAS #### [address] MCH (RBC) [Entitic mass] 30.0 pg Normal 27.5-35.2 [facility] Comment on above: Performed By: #### L IPID, CBC, CMP, PSAS #### [address] MCV (RBC) [Entitic vol] 87.7 fL Normal 83.5-101 F [facility] Comment on above: Performed By: #### L IPID, CBC, CMP, PSAS #### [address] Mean Corpuscular HGB Conc 34.2 g/dL Normal 32.5-35.6 [facility] Comment on above: Performed By: #### L IPID, CBC, CMP, PSAS #### [address] [place] [address] [place] Monocytes (Bld) [#/Vol] 0.5 10*3/uL Normal 0.0-0.8 [facility] Comment on above: Performed By: #### L IPID, CBC, CMP, PSAS #### [facility] [address] [place] [address] [place] Monocytes/100 WBC (Bld) 6.6 % Normal . F [facility] Comment on above: Performed By: #### L IPID, CBC, CMP, PSAS #### [address] Neutrophils (Bld) [#/Vol] 4.8 10*3/uL Normal 1.8-7.7 [facility] Comment on above: Performed By: #### L IPID, CBC, CMP, PSAS #### [address] Neutrophils/100 WBC (Bld) 59.4 % Normal . [facility] Comment on above: Performed By: #### L IPID, CBC, CMP, PSAS #### [place] [address] [place] NRBC% 0.1 /100{WBC} Normal 0-0.5 [facility] Comment on above: Performed By: #### L IPID, CBC, CMP, PSAS #### [address] Platelet mean volume (Bld) [Entitic vol] 8.9 fL Normal 6.6-10.1 [facility] Comment on above: Performed By: #### L IPID, CBC, CMP, PSAS #### [facility] [address] [place] [address] [place] Platelets (Bld) [#/Vol] 269 10*3/uL Normal 150-450 [facility] Comment on above: Performed By: #### L IPID, CBC, CMP, PSAS #### [place] [address] [place] RBC (Bld) [#/Vol] 4.58 10*6/uL Normal 3.90-5.60 [facility] Comment on above: Performed By: #### L IPID, CBC, CMP, PSAS #### [facility] [address] [place] [address] WBC (Bld) [#/Vol] 8.0 10*3/uL Normal 4.1-10.5 [facility] Comment on above: Performed By: #### L IPID, CBC, CMP, PSAS #### [address] Comprehensive Metabolic Pane luis 01-29-2023 Albumin [Mass/Vol] 4.3 g/dL Normal 3.5-5.7 [facility] Comment on above: Performed By: #### L IPID, CBC, CMP, PSAS #### [address] Albumin/Globulin [Mass ratio] 2.0 {ratio} Normal [facility] Comment on above: Performed By: #### L IPID, CBC, CMP, PSAS #### [address] ALP [Catalytic activity/Vol] 52 U/L Normal 34-104 [facility] Comment on above: Performed By: #### L IPID, CBC, CMP, PSAS #### [address] ALT [Catalytic activity/Vol] 25 U/L Normal 7-52 [facility] Comment on above: Performed By: #### L IPID, CBC, CMP, PSAS #### [facility] [address] [place] [address] Anion gap [Moles/Vol] 9.8 mmol/L Normal 6.0-15.0 [facility] Comment on above: Performed By: #### L IPID, CBC, CMP, PSAS #### [address] AST [Catalytic activity/Vol] 15 U/L Normal 13-39 [facility] Comment on above: Performed By: #### L IPID, CBC, CMP, PSAS #### [address] Bilirubin [Mass/Vol] 0.5 mg/dL Normal 0.3-1.0 [facility] Comment on above: Performed By: #### L IPID, CBC, CMP, PSAS #### [address] Calcium [Mass/Vol] 9.4 mg/dL Normal 8.6-10.3 [facility] Comment on above: Performed By: #### L IPID, CBC, CMP, PSAS #### [address] Chloride [Moles/Vol] 105 mmol/L Normal 98-107 [facility] Comment on above: Performed By: #### L IPID, CBC, CMP, PSAS #### [address] CO2 [Moles/Vol] 31.5 mmol/L High 21.0-31.[address] [facility] Comment on above: Performed By: #### L IPID, CBC, CMP, PSAS #### [address] Creatinine [Mass/Vol] 0.94 mg/dL Normal 0.70-1.30 [facility] Comment on above: Performed By: #### L IPID, CBC, CMP, PSAS #### [address] GFR/1.73 sq M.predicted MDRD (S/P/Bld) [Vol rate/Area] mL/min/{1.73_m2} Normal [facility] Comment on above: Performed By: #### L IPID, CBC, CMP, PSAS #### [address] Globulin (S) [Mass/Vol] 2.1 g/dL Normal [facility] Comment on above: Performed By: #### L IPID, CBC, CMP, PSAS #### [address] [place] [address] [place] Glucose [Mass/Vol] 87 mg/dL Normal 70-100 [facility] Comment on above: Result Comment: [place] Glucose Reference Range is dependent on time and content of last meal. Glucose of more than 200 mg/dL in a nonstressed, ambulatory subject supports the diagnosis of Diabetes Mellitus. ADA recommended reference range Performed By: #### L IPID, CBC, CMP, PSAS #### [facility] [address] [place] [address] Potassium [Moles/Vol] 4.3 mmol/L Normal 3.5-5.1 [facility] Comment on above: Performed By: #### L IPID, CBC, CMP, PSAS #### [address] Protein [Mass/Vol] 6.4 g/dL Normal 6.4-8.9 [facility] Comment on above: Performed By: #### L IPID, CBC, CMP, PSAS #### [address] Sodium [Moles/Vol] 142 mmol/L Normal 136-145 [facility] Comment on above: Performed By: #### L IPID, CBC, CMP, PSAS #### [address] Urea nitrogen [Mass/Vol] 18 mg/dL Normal 7-25 [facility] Comment on above: Performed By: #### L IPID, CBC, CMP, PSAS #### [place] [address] [place] Creatinine [Mass/volume] in Serum or PlasmaOrdered By: Arlene Power on 01-29-2023 Creatinine [Mass/Vol] 0.94 mg/dL 0.70-1.30 [facility] Eosinophils Auto (Bld) [#/Vo l]Ordered By: Arlene Power on 01-29-2023 Eosinophils (Bld) [#/Vol] 0.3 10*3/uL 0.0-0.45 [facility] Eosinophils/100 WBC Auto (Bl d)Ordered By: Arlene Power on 01-29-2023 Eosinophils/100 WBC (Bld) 3.8 % . [facility] Erythrocyte distribution wid th Auto (RBC) [Ratio]Ordered By: Arlene Power on 01-29-2023 Erythrocyte distribution width (RBC) [Ratio] 13.8 % 12.0-14.8 [facility] Globulin Calc (S) [Mass/Vol] Ordered By: Arlene Power on 01-29-2023 Globulin (S) [Mass/Vol] 2.1 g/dL F [facility] Glucose [Mass/volume] in Ser um or PlasmaOrdered By: Arlene Power on 01-29-2023 Glucose [Mass/Vol] 87 mg/dL 70-100 [facility] Comment on above: ADA recommended refe rence rangeRandom Glucose Reference Range is dependent on time and content of last meal. Glucose of more than 200 mg/dL in a nonstressed, ambulatory subject supports the diagnosis of Diabetes Mellitus. Hematocrit Auto (Bld) [Volum e fraction]Ordered By: Arlene Power on 01-29-2023 Hematocrit (Bld) [Volume fraction] 40.2 % 38.8-50.0 [facility] Hemoglobin [Mass/volume] in BloodOrdered By: Arlene Power on 01-29-2023 Hemoglobin (Bld) [Mass/Vol] 13.7 g/dL 13.0-17.0 [facility] Leukocytes [#/volume] correc jaime for nucleated erythrocytes in Blood by Automated counOrdered By: Arlene Power on 01-29-2023 WBC corrected for nucl RBC Auto (Bld) [#/Vol] 8.0 10*3/uL 4.1-10.5 [facility] Lipid Panelon 01-29-2023 Cholesterol [Mass/Vol] 186 mg/dL Normal 140-200 [facility] Comment on above: Result Comment: Chol less than 200 mg/dl low risk Chol 201-239 mg/dl borderline risk Chol 240 mg/dl and greater high risk Performed By: #### L IPID, CBC, CMP, PSAS #### [facility] [address] Cholesterol in HDL [Mass/Vol] 42 mg/dL Normal 23-92 [facility] Comment on above: Result Comment: HDL CHOL ATP-III CLASSIFICATION Cardiovascular Risk HDL > or equal to 60 mg/dL LOW HDL < 40 mg/dL HIGH Performed By: #### L IPID, CBC, CMP, PSAS #### [address] Cholesterol.total/Choles terol in HDL [Mass ratio] 4.4 {ratio} Normal <5.0 [facility] Comment on above: Result Comment: PERF ORMED BY: [place] [address] PATHOLOGIST TRAFFIC ATTENDANT IAN CHRISTINE M.D. Performed By: #### L IPID, CBC, CMP, PSAS #### [address] LDL Cholesterol,Calculated 122 mg/dL High 0-100 [facility] Comment on above: Result Comment: LDL ATP III CLASSIFICATION LDL less than 100 mg/dL Optimal LDL 100-129 mg/dL Near or above optimal LDL 130-159 mg/dL Borderline high LDL 160-189 mg/dL High LDL greater than 189 mg/dL Very high Performed By: #### L IPID, CBC, CMP, PSAS #### [address] Triglyceride w/Reflex 110 mg/dL Normal 0-149 [facility] Comment on above: Result Comment: TRIG ATP III CLASSIFICATION TRIG less than 150 mg/dL Normal TRIG 150-199 mg/dL Borderline high TRIG 200-500 mg/dL High TRIG greater than 500 mg/dL Very high Standard traceable to the Center for Disease Conrtrol and Prevention (CDC) test method. Performed By: #### L IPID, CBC, CMP, PSAS #### [address] VLDL CHOLESTEROL 22 mg/dL Normal [facility] Comment on above: Performed By: #### L IPID, CBC, CMP, PSAS #### [address] Lymphocytes Auto (Bld) [#/Vo l]Ordered By: Arlene Power on 01-29-2023 Lymphocytes (Bld) [#/Vol] 2.4 10*3/uL 1.00-4.8 [facility] Lymphocytes/100 WBC Auto (Bl d)Ordered By: Arlene Power on 01-29-2023 Lymphocytes/100 WBC (Bld) 29.7 % . [facility] MCH Auto (RBC) [Entitic mass ]Ordered By: Arlene Power on 01-29-2023 MCH (RBC) [Entitic mass] 30.0 pg 27.5-35.2 [facility] MCHC Auto (RBC) [Mass/Vol]Or dered By: Arlene Power on 01-29-2023 MCHC (RBC) [Mass/Vol] 34.2 g/dL 32.5-35.6 Fir [facility] MCV Auto (RBC) [Entitic vol] Ordered By: Arlene Power on 01-29-2023 MCV (RBC) [Entitic vol] 87.7 fL 83.5-101 F [facility] Monocytes Auto (Bld) [#/Vol] Ordered By: Arlene Power on 01-29-2023 Monocytes (Bld) [#/Vol] 0.5 10*3/uL 0.0-0.8 [facility] Monocytes/100 WBC Auto (Bld) Ordered By: Arlene Power on 01-29-2023 Monocytes/100 WBC (Bld) 6.6 % . F [facility] Neutrophils Auto (Bld) [#/Vo l]Ordered By: Arlene Power on 01-29-2023 Neutrophils (Bld) [#/Vol] 4.8 10*3/uL 1.8-7.7 [facility] Neutrophils/100 WBC Auto (Bl d)Ordered By: Arlene Power on 01-29-2023 Neutrophils/100 WBC (Bld) 59.4 % . [facility] No Panel InformationOrdered By: Arlene Power on 01-29-2023 Estimated GFR (CKD-EPI) > 60.0 mL/Min [facility] Creatinine Clearance (Chem N/A [facility] Nucleated erythrocytes [Pres ence] in Blood by Automated countOrdered By: Arlene Power on 01-29-2023 Nucleated RBC Auto Ql (Bld) 0.1 /100{WBC} 0-0.5 [facility] PSA Screen (Yearly Only)on 0 01-29-2023 PSA Screen (Yearly Only) 0.590 ng/mL Normal 0.000-4.00 0 [facility] Comment on above: Order Comment: Is pa tient <50 yrs? Medicare does not pay <50.: NA What is the date of the last PSA Screen?: NA OR...The date Patient is eligible for PSA Screen?: NA Is Medicare the insurance?: NA Did you verify eligibility (Dx Time) check TestViewGp: NOT MEDICARE Result Comment: PERF ORMED BY: [place] [address] PATHOLOGIST TRAFFIC ATTENDANT IAN CHRISTINE M.D. Performed By: #### L IPID, CBC, CMP, PSAS #### [address] Platelet mean volume Auto (B ld) [Entitic vol]Ordered By: Arlene Power on 01-29-2023 Platelet mean volume (Bld) [Entitic vol] 8.9 fL 6.6-10.1 [facility] Platelets Auto (Bld) [#/Vol] Ordered By: Arlene Power on 01-29-2023 Platelets (Bld) [#/Vol] 269 10*3/uL 150-450 [facility] Potassium [Moles/volume] in Serum or PlasmaOrdered By: Arlene Power on 01-29-2023 Potassium [Moles/Vol] 4.3 mmol/L 3.5-5.1 [facility] Prostate specific Ag [Mass/v olume] in Serum or PlasmaOrdered By: Arlene Power on 01-29-2023 Prostate specific Ag [Mass/Vol] 0.590 ng/mL 0.000-4.000 [facility] Protein [Mass/volume] in Ser um or PlasmaOrdered By: Arlene Power on 01-29-2023 Protein [Mass/Vol] 6.4 g/dL 6.4-8.9 [facility] RBC Auto (Bld) [#/Vol]Ordere d By: Arlene Power on 01-29-2023 RBC (Bld) [#/Vol] 4.58 10*6/uL 3.90-5.60 [facility] Serum or plasma albumin/glob ulin mass ratioOrdered By: Arlene Power on 01-29-2023 Albumin/Globulin [Mass ratio] 2.0 {ratio} [facility] Serum or plasma anion gap de terminationOrdered By: Arlene Power on 01-29-2023 Anion gap [Moles/Vol] 9.8 mmol/L 6.0-15.0 [facility] Serum or plasma high density lipoprotein (HDL) cholesterol measurementOrdered By: Arlene Power on 01-29-2023 Cholesterol in HDL [Mass/Vol] 42 mg/dL 23- [facility] Comment on above: HDL CHOL ATP-III CLA SSIFICATION Cardiovascular RiskHDL > or equal to 60 mg/dL LOWHDL < 40 mg/dL HIGH Serum or plasma total choles terol/high density lipoprotein (HDL) cholesterol mass ratOrdered By: Arlene Power on 01-29-2023 Cholesterol.total/Choles terol in HDL [Mass ratio] 4.4 {ratio} <5.0 [facility] Sodium [Moles/volume] in Ser um or PlasmaOrdered By: Arlene Power on 01-29-2023 Sodium [Moles/Vol] 142 mmol/L 136-145 [facility] Triglyceride [Mass/volume] i n Serum or PlasmaOrdered By: Arlene Power on 01-29-2023 Triglyceride [Mass/Vol] 110 mg/dL 0-149 F [facility] Comment on above: TRIG ATP III CLASSIF ICATIONTRIG less than 150 mg/dL NormalTRIG 150-199 mg/dL Borderline highTRIG 200-500 mg/dL High TRIG greater than 500 mg/dL Very highStandard traceable to the Center for Disease Conrtrol and Prevention (CDC) test method. Urea nitrogen [Mass/volume] in Serum or PlasmaOrdered By: Arlene Power on 01-29-2023 Urea nitrogen [Mass/Vol] 18 mg/dL 7-25 [facility] WBC Auto (Bld) [#/Vol]Ordere d By: Arlene Fostermer on 01-29-2023 WBC (Bld) [#/Vol] 8.0 10*3/uL 4.1-10.5 [facility] XR Chest 2 Views*on 11-13-19 XR Chest [...] by Romel Fonseca on 11/12/2021 1646 Normal [facility] No Panel Informationon 08-06 [facility] XR LUMBAR 4V AP/LAT/ FLEX/EX Ton [...] Number of different views (projections): 4 (accession [id number]), 2 (accession [id number]) COMPARISON: 06/18/2021 MRI RESULT: Counting reference: Lumbosacral [...] described with associated thoracic and lumbar spondylosis. Human Resources Psychologist: PSCB Transcribe Date/Time: Aug 08 2021 10:07A Dictated by : DASIA RATLIFF MD This examination was interpreted and the report reviewed and electronically signed by: DASIA RATLIFF MD on Aug 08 2021 10:09AM EST [id number] N Normal [facility] XR SCOLIOSIS 2V PA STAND/LAT on 08-06-2021 [...] Number of different views (projections): 4 (accession [id number]), 2 (accession [id number]) COMPARISON: 06/18/2021 MRI RESULT: Counting reference: Lumbosacral [...] described with associated thoracic and lumbar spondylosis. Human Resources Psychologist: PSCManasa Transcribe Date/Time: Aug 08 2021 10:07A Dictated by : DASIA RATLIFF MD This examination was interpreted and the report reviewed and electronically signed by: DASIA RATLIFF MD on Aug 08 2021 10:09AM EST [id number] N Normal [facility] MRI Lumbar Spine w/oon 06-18 MRI Lumbar [...] MARY JANE HILARIO on 06/19/[address] [facility] Complete Blood Count with Au to Diffon 05-29-2021 Basophils (Bld) [#/Vol] 0.04 10*3/uL Normal 0.00-0.20 [facility] Comment on above: Performed By: #### T SH reflex FT4, LIPD, CBCAD, CMP #### [facility] [address] [place], [place] [id number] Basophils/100 WBC (Bld) 0.6 % Normal [facility] Comment on above: Performed By: #### T SH reflex FT4, LIPD, CBCAD, CMP #### [facility] [address] [place], [place] [id number] Eosinophils (Bld) [#/Vol] 0.38 10*3/uL Normal 0.02-0.50 [facility] Comment on above: Performed By: #### T SH reflex FT4, LIPD, CBCAD, CMP #### [facility] [address] [place], [place] [id number] Eosinophils/100 WBC (Bld) 5.5 % Normal [facility] Comment on above: Performed By: #### T SH reflex FT4, LIPD, CBCAD, CMP #### [facility] [address] [place], [place] [id number] Erythrocyte distribution width (RBC) [Ratio] 13.4 % Normal 11.0-15.0 [facility] Comment on above: Performed By: #### T SH reflex FT4, LIPD, CBCAD, CMP #### [facility] [address] [place], [place] [id number] Hematocrit (Bld) [Volume fraction] 44.5 % Normal 38.5-50.0 [facility] Comment on above: Performed By: #### T SH reflex FT4, LIPD, CBCAD, CMP #### [facility] [address] [place], [place] [id number] Hemoglobin (Bld) [Mass/Vol] 14.9 g/dL Normal 13.0-17.1 [facility] Comment on above: Performed By: #### T SH reflex FT4, LIPD, CBCAD, CMP #### [facility] [address] [place], [place] [id number] Lymphocytes (Bld) [#/Vol] 2.4 10*3/uL Normal 0.9-3.9 [facility] Comment on above: Performed By: #### T SH reflex FT4, LIPD, CBCAD, CMP #### [facility] [address] [place], [place] [id number] Lymphocytes/100 WBC (Bld) 34.9 % Normal [facility] Comment on above: Performed By: #### T SH reflex FT4, LIPD, CBCAD, CMP #### [facility] [address] [place], [place] [id number] MCH (RBC) [Entitic mass] 29.6 pg Normal 27.0-33.0 [facility] Comment on above: Performed By: #### T SH reflex FT4, LIPD, CBCAD, CMP #### [facility] [address] [place], [place] [id number] MCHC (RBC) [Mass/Vol] 33.5 g/dL Normal 32.0-36.0 [facility] Comment on above: Performed By: #### T SH reflex FT4, LIPD, CBCAD, CMP #### [facility] [address] [place], [place] [id number] MCV (RBC) [Entitic vol] 89 fL Normal 80-100 [facility] Comment on above: Performed By: #### T SH reflex FT4, LIPD, CBCAD, CMP #### [facility] [address] [place], [place] [id number] Monocytes (Bld) [#/Vol] 0.6 10*3/uL Normal 0.2-0.9 [facility] Comment on above: Performed By: #### T SH reflex FT4, LIPD, CBCAD, CMP #### [facility] [address], [place] [id number] Monocytes/100 WBC (Bld) 8.1 % Normal [facility] Comment on above: Performed By: #### T SH reflex FT4, LIPD, CBCAD, CMP #### [facility] [address] [place], [place] [id number] Neutrophils (Bld) [#/Vol] 3.5 10*3/uL Normal 1.5-7.8 [facility] Comment on above: Performed By: #### T SH reflex FT4, LIPD, CBCAD, CMP #### [facility] [address] [place], [place] [id number] Neutrophils/100 WBC (Bld) 50.6 % Normal [facility] Comment on above: Performed By: #### T SH reflex FT4, LIPD, CBCAD, CMP #### [facility] [address] [place], [place] [id number] Platelet mean volume (Bld) [Entitic vol] 11.20 fL Normal 7.50-12.50 [facility] Comment on above: Performed By: #### T SH reflex FT4, LIPD, CBCAD, CMP #### [facility] [address], [place] [id number] Platelets (Bld) [#/Vol] 234 10*3/uL Normal 140-400 [facility] Comment on above: Performed By: #### T SH reflex FT4, LIPD, CBCAD, CMP #### [facility] [address], [place] [id number] RBC (Bld) [#/Vol] 5.03 10*6/uL Normal 4.20-5.80 [facility] Comment on above: Performed By: #### T SH reflex FT4, LIPD, CBCAD, CMP #### [facility] [address], [place] [id number] RDW-SD 43.7 fL Normal 37.0-50.0 [facility] Comment on above: Performed By: #### T SH reflex FT4, LIPD, CBCAD, CMP #### [facility] [address] [place], [place] [id number] WBC (Bld) [#/Vol] 6.9 10*3/uL Normal 3.8-11.0 [facility] Comment on above: Performed By: #### T SH reflex FT4, LIPD, CBCAD, CMP #### [facility] [address] [place], [place] [id number] Comprehensive Metabolic Pane [facility] 05-29-2021 Albumin [Mass/Vol] 4.6 g/dL Normal 3.6-5.1 [facility] Comment on above: Performed By: #### T SH reflex FT4, LIPD, CBCAD, CMP #### [facility] [address], [place] [id number] Albumin/Globulin [Mass ratio] 2.1 {ratio} Normal 1.0-2.5 [facility] Comment on above: Performed By: #### T SH reflex FT4, LIPD, CBCAD, CMP #### [facility] [address] [place], [place] [id number] ALP [Catalytic activity/Vol] 82 U/L Normal 40-129 [facility] Comment on above: Performed By: #### T SH reflex FT4, LIPD, CBCAD, CMP #### [facility] [address], [place] [id number] ALT [Catalytic activity/Vol] 47 U/L High 9-46 [facility] Comment on above: Result Comment: 04/23 Female reference range changed. Performed By: #### T SH reflex FT4, LIPD, CBCAD, CMP #### [facility] [address], [place] [id number] Anion gap [Moles/Vol] 20 mmol/L Normal 12-20 [facility] Comment on above: Result Comment: Effe ctive 05/29/2019 reference range changed. Performed By: #### T SH reflex FT4, LIPD, CBCAD, CMP #### [facility] [address], [place] [id number] AST [Catalytic activity/Vol] 26 U/L Normal 10-40 [facility] Comment on above: Performed By: #### T SH reflex FT4, LIPD, CBCAD, CMP #### [facility] [address], [place] [id number] Bilirubin [Mass/Vol] 0.67 mg/dL Normal 0.30-1.20 [facility] Comment on above: Performed By: #### T SH reflex FT4, LIPD, CBCAD, CMP #### [facility] [address], [place] [id number] BUN/CREA 13 Ratio Normal 6-22 [facility] Comment on above: Performed By: #### T SH reflex FT4, LIPD, CBCAD, CMP #### [facility] [address], [place] [id number] Calcium [Mass/Vol] 9.5 mg/dL Normal 8.6-10.2 [facility] Comment on above: Performed By: #### T SH reflex FT4, LIPD, CBCAD, CMP #### [facility] [address], [place] [id number] Chloride [Moles/Vol] 102 mmol/L Normal 98-107 [facility] Comment on above: Performed By: #### T SH reflex FT4, LIPD, CBCAD, CMP #### [facility] [address], [place] [id number] CO2 [Moles/Vol] 24 mmol/L Normal 20-31 [facility] Comment on above: Performed By: #### T SH reflex FT4, LIPD, CBCAD, CMP #### [facility] [address], [place] [id number] Creatinine [Mass/Vol] 1.0 mg/dL Normal 0.7-1.4 [facility] Comment on above: Performed By: #### T SH reflex FT4, LIPD, CBCAD, CMP #### [facility] [address], [place] [id number] eGFRAA 101 mL/min/1.73m2 Normal >60 [facility] Comment on above: Performed By: #### T SH reflex FT4, LIPD, CBCAD, CMP #### [facility] [address], [place] [id number] eGFRNAA 83 mL/min/1.73m2 Normal >60 [facility] Comment on above: Performed By: #### T SH reflex FT4, LIPD, CBCAD, CMP #### [facility] [address], [place] [id number] Globulin (S) [Mass/Vol] 2.2 g/dL Normal 1.9-3.7 [facility] Comment on above: Performed By: #### T SH reflex FT4, LIPD, CBCAD, CMP #### [facility] [address], [place] [id number] Glucose [Mass/Vol] 94 mg/dL Normal 65-99 [facility] Comment on above: Result Comment: For FASTING Glucose --- ADA reference ranges: Normal 65-99 mg/dl Prediabetes 100-125 Diabetes >/= 126 Performed By: #### T SH reflex FT4, LIPD, CBCAD, CMP #### [facility] [address], [place] [id number] Potassium [Moles/Vol] 4.0 mmol/L Normal 3.5-5.5 [facility] Comment on above: Performed By: #### T SH reflex FT4, LIPD, CBCAD, CMP #### [facility] [address], [place] [id number] Protein [Mass/Vol] 6.8 g/dL Normal 6.1-8.1 [facility] Comment on above: Performed By: #### T SH reflex FT4, LIPD, CBCAD, CMP #### [facility] [address], [place] [id number] Sodium [Moles/Vol] 142 mmol/L Normal 135-146 [facility] Comment on above: Performed By: #### T SH reflex FT4, LIPD, CBCAD, CMP #### [facility] [address], [place] [id number] Urea nitrogen [Mass/Vol] 13 mg/dL Normal 7-25 [facility] Comment on above: Performed By: #### T SH reflex FT4, LIPD, CBCAD, CMP #### [facility] [address] [place], [place] [id number] Lipid Panelon 05-29-2021 Cholesterol [Mass/Vol] 214 mg/dL High 125-200 [facility] Comment on above: Result Comment: Low risk < 200mg/dL Borderline risk 201-239 mg/dl High risk > or equal to 240 Performed By: #### T SH reflex FT4, LIPD, CBCAD, CMP #### [facility] [address], [place] [id number] Cholesterol in HDL [Mass/Vol] 41 mg/dL Normal >40 [facility] Comment on above: Result Comment: High Cardiovascular Risk HDL <40 mg/dL Low Cardiovascular Risk HDL > or equal to 60 mg/dl Performed By: #### T SH reflex FT4, LIPD, CBCAD, CMP #### [facility] [address], [place] [id number] Cholesterol in LDL [Mass/Vol] 132 mg/dL Normal [facility] Comment on above: Result Comment: LDL ATP III CLASSIFICATION LDL less than 100 mg/dl Optimal LDL 100-129 mg/dl Near or above optimal LDL 130-159 Borderline high LDL 160-189 High LDL greater than 189 mg/dl Very High Performed By: #### T SH reflex FT4, LIPD, CBCAD, CMP #### [facility] [address] [place], [place] [id number] Cholesterol in VLDL [Mass/Vol] 41 mg/dL Normal [facility] Comment on above: Performed By: #### T SH reflex FT4, LIPD, CBCAD, CMP #### [facility] [address], [place] [id number] Cholesterol.total/Choles terol in HDL [Mass ratio] 5 {ratio} Normal [facility] Comment on above: Performed By: #### T SH reflex FT4, LIPD, CBCAD, CMP #### [facility] [address], [place] [id number] Triglyceride [Mass/Vol] 204 mg/dL High 30-150 [facility] Comment on above: Result Comment: TRIG ATPIII CLASSIFICATIONS TRIG less than 150 mg/dl Normal TRIG 150-199 mg/dl Borderline High TRIG 200-500 mg/dl High TRIG greather than 500 mg/dl Very High Performed By: #### T SH reflex FT4, LIPD, CBCAD, CMP #### [facility] [address], [place] [id number] TSH w/ Reflex to Free T4on 0 - TSH 1.320 uIU/mL Normal 0.400-4.500 [facility] Comment on above: Performed By: #### T SH reflex FT4, LIPD, CBCAD, CMP #### [facility] [address], [place] [id number] Vital Signs Date Time Vital Sign Value Performing Clinician Katelynn fournier 06-10-2023 15:30-0500 Body height 180.34 cm Tone Jessica Other [employer] Other Encounters Encounter Date Encounter Type Care Provider Facility Start: 08-09-2023 End: 08-09-2023 ambulatory ARLENE POWER Not Available Start: 08-05-2023 End: 08-10-2023 ambulatory [facility] Start: 07-27-2023 End: 07-27-2023 ambulatory ARLENE POWER Not Available Start: 06-10-2023 End: 06-10-2023 ambulatory Tone Jessica Other [employer] Other Start: 06-10-2023 Encounter for other preprocedural examination Tone Jessica [facility] Start: 06-10-2023 Office outpatient ne w 45 minutes Tone Jessica [facility] Start: 05-11-2023 End: 05-12-2023 ambulatory ARLENE Vu HEMMER Not Available Start: 05-10-2023 End: 05-11-2023 ambulatory Spencer Centeno MD Facility:[facility] Start: 04-29-2023 End: 04-29-2023 ambulatory ARLENE M HEMMER Not Available Start: 04-28-2023 End: 04-28-2023 ambulatory Arlene Hemmer Facility:[facility] Start: 04-28-2023 End: 04-28-2023 ambulatory PA-C Arlene Hemmer Work Phone: [facility] Work Phone: Start: 04-28-2023 End: 04-28-2023 Patient encounter procedure PA-C Arlene Hemmer Work Phone: [facility] Work Phone: Start: 04-09-2023 End: 04-09-2023 ambulatory ARLENE Vu HEMMER Not Available Start: 03-01-2023 End: 03-02-2023 ambulatory Spencer Centeno MD Facility:[facility] Start: 02-08-2023 End: 02-09-2023 ambulatory Spencer Centeno MD Facility:[facility] Start: 01-29-2023 End: 01-29-2023 ambulatory Arlene Hemmer Facility:[facility] Start: 01-29-2023 End: 01-29-2023 ambulatory TOOLROOM HELPER-C Arlene Hemmer Work Phone: [facility] Work Phone: Start: 01-29-2023 End: 01-29-2023 Patient encounter procedure TOOLROOM HELPER-C Arlene Hemmer Work Phone: [facility] [place] Work Phone: Start: 01-18-2023 End: 01-19-2023 ambulatory [...] 08-06-2021 Subsequent hospital visit by physician Xr [facility] Comment on above: Degeneration of lumb ar intervertebral disc [M51.36] Procedures Date Procedure Procedure Detail Performing Clinician Start: 04-28-2023 X-ray of right knee VANESSA Power Work Phone: Start: 08-06-2021 Radex spine lumbosac ral minimum 4 views Marilyn Stallworth PA-C Work Phone: Plan of Treatment Date Care Activity Detail Author Start: 01-22-2023 Influenza vaccination INFLUENZA (#1) [facility] Start: 05-24-2022 DEPRESSION ASSESSMENT DEPRESSION ASS ESSMENT [facility] Start: 07-09-2021 COVID-19 VACCINE (3 - Booster for Malissa series) COVID-19 VACCINE (3 - Booster for Malissa series) [facility] Start: 2019 COLOGUARD (FIT-DNA) COLOGUARD (FIT-D NA) [facility] Start: 2019 Colonoscopy COLONOSCOPY [facility] Start: 2019 COLORECTAL CANCER SCREENING COLORECTAL CANCER SCREENING [facility] Start: [address] COLONOGRAPHY [facility] Start: 2019 DIABETES SCREEN DIABETES SCREEN [facility] Start: 2019 FECAL OCCULT BLOOD FECAL OCCULT BLOO D [facility] Start: 2019 SIGMOIDOSCOPY SIGMOIDOSCOPY [facility] Start: 2009 LIPID SCREEN LIPID SCREEN [facility] Start: 1993 Urine microalbumin profile DTAP,TDAP ,TD (1 - Tdap) [facility] Start: 1992 HEPATITIS C SCREENING HEPATITIS C SC REENING [facility] Start: 1992 HIV SCREENING HIV SCREENING [facility] Start: 1974 HEPATITIS B (1 of 3 - 3-dose series) HEPATITIS B (1 of 3 - 3-dose series) [facility] Payers Date Payer Category Payer Self-pay [id number] 2017 Unknown [id number] 1974 Unknown [id number] 2.16.840.1.079930.3.579.2.593 1974 Unknown [id number] 2.16.840.1.076142.3.579.2.593 1974 Unknown [id number] 2.16.840.1.385401.3.579.2.593 1974 Unknown [id number] 2.16.840.1.779537.3.579.2.593 1974 Unknown [id number] 2.16.840.1.901175.3.579.2.593 1974 Unknown [id number] 2.16.840.1.378744.3.579.2.593 1974 Unknown [id number] 2.16.840.1.444101.3.579.2.593 1974 Unknown [id number] 2.16.840.1.479667.3.579.2.593 1974 Unknown [id number] 2.16.840.1.006217.3.579.2.593 1974 Unknown [id number] 2.16.840.1.913934.3.579.2.196 1974 Unknown [id number] 2.16.840.1.582095.3.579.2.196 1974 Unknown [id number] 2.16.840.1.501673.3.579.2.196 1974 Unknown [id number] 2.16.840.1.004752.3.579.2.196 1974 Unknown [id number] 2.16.840.1.707088.3.579.2.1259 1974 Unknown [id number] 2.16.840.1.412483.3.579.2.1259 1974 Unknown [id number] 2.16.840.1.114100.3.579.2.1259 1974 Unknown [id number] 2.16.840.1.708819.3.579.2.1259 1974 Unknown [id number] 2.16.840.1.488289.3.579.2.1259 1974 Unknown [id number] 2.16.840.1.270073.3.579.2.177 1959 Unknown [id number] Private Health Insurance [employer] [id number] Unknown [id number] 2.16.840.1.454178.3.579.2.531 Unknown [id number] 2.16.840.1.118421.3.579.2.531 Social History Date Type Detail Facility Start: 07-04-2019 Tobacco smoking stat us NHIS Never smoked tobacco [facility] Start: 07-04-2019 Tobacco use and exposure Smoke less tobacco non-user [facility] Start: 08-01-2021 Alcohol intake Current drinke r of alcohol (finding) [facility] Start: 04-28-2020 End: 08-01-2021 History of Social function [facility] Start: 04-28-2020 End: 08-01-2021 Tobacco use panel [facility] Adult Depression Screening Assessment 0 [facility] Start: 02-12-2016 Alcohol Comment occ [facility] Start: 1975 Sex Assigned At Male C [facility] Start: 07-29-2021 Gender identity Identifies as male gender (finding) [facility] Start: 07-29-2021 Sexual orientation Heterosexual (uzma cardenas) [facility] Clinical Notes 01-22-2011 to 06-10-2023 Note [...] M17.11) May, Pre-op exam (ICD-10 - Z01.818) [employer] Other 04-27-2023 NoteCONSULTATION PROCEDURE DATE: 09/17/2022 PROCEDURE: [...] reduction in pain symptoms. IMMEDIATE COMPLICATIONS: None.[id number] NoteCONSULTATION PROCEDURE DATE: 06/18/2022 PREOPERATIVE DIAGNOSIS: Left [...] will be followed up in the office.[facility] [id number] NoteCONSULTATION CONSULTATION DATE: 06/11/2022 HISTORY OF PRESENT [...] with this plan and all questions answered.[facility] [id number] NoteCONSULTATION PROCEDURE DATE: 03/19/2022 PREOPERATIVE DIAGNOSIS: Left [...] up in the office in three months.[facility] [id number] Note CONSULTATION CONSULTATION DATE: 02/19/2022 HISTORY OF [...] of care and would like to proceed.[facility] [id number] NoteCONSULTATION PROCEDURE DATE: 12/17/2021 PREOPERATIVE DIAGNOSIS: Left [...] followed up in the clinic for re-evaluation.[facility] [id number] NoteCONSULTATION CONSULTATION DATE: 11/27/2021 This is a [...] of care and would like to proceed. [facility] Signed and Approved by: JOES MOSLEY . 12/04/2021 09:49:00[facility]05-12-2022 NoteCONSULTATION CONSULTATION DATE: 10/02/2021 HISTORY: This is [...] of care and would like to proceed. [facility] Signed and Approved by: JOSE MOSLEY . 10/09/2021 17:09:00[facility]03-16-2022 NoteHNO ID: [id number] Author: RT Linda(R) Service: ? Author Type: [...] BY: RT Linda(R) August 06, 2021 12:16 [facility]03-11-2022 NoteHNO ID: [id number] Author: Marilyn Stallworth PA-C Service: ? Author Type: Physician [employer] Technical Lead Senior Developer Type: Progress Notes Filed: 08/01/2021 10:58 AM [...] use: No ALLERGIES No Known Allergies MEDICATIONS: pjmbcnru-nkmbqzdfm-vuuikqmwnfcori (CORTISPORIN) 3.5-10,000-1 mg/mL-unit/mL-% otic suspension PLACE FOUR [...] lumbar or lumbosacr (more content not included)... [facility]02-11-2022 NoteHNO ID: [id number] Author: Sheeba Montes PA-C Service: ? Author Type: Physician [employer] Technical Lead Senior Developer Type: Progress Notes Filed: 07/04/2021 4:34 PM [...] patient imaging is available for review. [facility] NoteHNO ID: [id number] Author: Sekou Braswell Service: ? Author Type: ? Type: Progress Notes Filed: 07/04/2021 4:34 PM Note Text: Patient name: Ophelia Cruz Are you being referred by a [facility] Provider or Pain Management Provider at [facility]? No If answer is YES please schedule [...] the facility where the MRI/CT/myelogram was completed: [facility] Address: [address] [place] [address] [address], [place] [address] MRI/CT/myelogram viewable in Epic: No If not, please provide [phone] to fax in imaging reports for review. [...] injections and/or physical therapy was completed [facility] Address: [address] [place] [address] [address], [place] [phone] Have you tried any other kinds of non-surgical treatments in the last 12 months? (For example: NSAIDS, muscle relaxants, analgesics, oral steroids, Chiropractor, Acupuncture): Yes Acupuncture oral steroids, Chiropractor [facility] Address: [address] [place] [address] [address], [place] [phone] 4. Are you currently taking daily prescribed narcotic medications for your current symptoms (For example Oxycodone, Hydrocodone, Tramadol, Morphine, Other)? No 5. Have you had previous spinal surgery for this same symptoms? No If YES? please ask for the name of facility/address of where the surgery was completed: No Additional Comments [phone] (Home Phone)[facility] 01-22-2011 History general Narrative - Reported* Type Description Date Medical History hypercholesterolemia Medical History Esophageal reflux Medical History allergic rhinitis Medical History abscess tooth 01/2011 Medical History Pertussis, May 2013 Surgical History ACL L knee 96 Surgical History tonsilectomy Surgical History vasectomy 03 Hospitalization History see above surgeries [employer] Other Evaluation note* Diagnosis Degeneration of lumbar intervertebral disc Degeneration of lumbar or lumbosacral intervertebral disc Scoliosis of lumbosacral spine, unspecified scoliosis type Degeneration of lumbar or lumbosacral intervertebral disc documented in this encounter [facility]: Reason for referral (narrative)* Diagnostic Procedure Only (Routine) - Closed Specialty Diagnoses / Procedures Referred By Contac t Referred To Contact XR IMAGING Diagnoses Degeneration of lumbar intervertebral disc Scoliosis of lumbosacral spine, unspecified scoliosis type Degeneration of lumbar or lumbosacral intervertebral disc Procedures XR LUMBAR MOTION 4V AP/LAT/ FLEX/EXT RADEX SPINE LUMBOSACRAL MINIMUM 4 VIEWS Marilyn Stallworth PA-C [address] [place] [address] Xr Imaging Referral ID Status Reason Start Date Expiration Date V isits Requested Visits Authorized [id number] Closed Auto-Generate d Referral 08/01/2021 08/31/2022 1 [...] SPI W/SKULL 2/3 VW Marilyn Stallworth PA-C [address] [place] [address] Xr Imaging Referral ID Status Reason Start Date Expiration Date V isits Requested Visits Authorized [id number] Closed Auto-Generate d Referral 08/01/2021 08/31/2022 1 1 [facility] for visit Narrative* Diagnostic Procedure Only (Routine) - Closed Specialty Diagnoses / Procedures Referred By Contac t Referred To Contact XR IMAGING Diagnoses Degeneration of lumbar intervertebral disc Scoliosis of lumbosacral spine, unspecified scoliosis type Degeneration of lumbar or lumbosacral intervertebral disc Procedures XR LUMBAR MOTION 4V AP/LAT/ FLEX/EXT RADEX SPINE LUMBOSACRAL MINIMUM 4 VIEWS Marilyn Stallworth PA-C [address] [place] [address] Xr Imaging Referral ID Status Reason Start Date Expiration Date V isits Requested Visits Authorized [id number] Closed Auto-Generate d Referral 08/01/2021 08/31/2022 1 1 [facility] Summary Purpose Family History No Family [...] section and content) DATE CREATED AUTHOR 08/12/[address] [facility] DATE CREATED AUTHOR AUTHOR'S ORGANIZ ATION 11/13/2021 [facility] dical Specialist DATE CREATED AUTHOR AUTHOR'S ORGANIZ ATION 09/21/2022 [facility] DATE CREATED AUTHOR AUTHOR'S ORGANIZ ATION 05/06/2023 [facility] DATE CREATED AUTHOR AUTHOR'S ORGANIZ ATION 05/14/2023 [facility] DATE CREATED AUTHOR AUTHOR'S ORGANIZ ATION 08/09/2023 [facility] dical Specialists EPIC DATE CREATED AUTHOR AUTHOR'S ORGANIZ ATION 08/10/2023 Rozina Mcdonald Source Comments (unrecognize d section and content) In the event this informatio n is protected by the Federal Confidentiality of Alcohol and Drug Abuse Patient Records regulations: The Federal rules restrict any use of the information to criminally investigate or prosecute any alcohol or drug abuse patient.[facility] Care Teams (unrecognized sec tion and content) Chemist Steroids Relationship Specialty Start Date End Date Arlene [...] BE BASED ON THE PRIMARY CLINICAL RECORDS. [facility] [facility]. provides no warranty or guarantee of the accuracy or completeness of information in this document.
--- NOTE | 2023-08-18 10:18 | P.CN_ITS ---
Consult Note: HPI Data of Consult Patient: known to practice within the last 3 years Requesting Physician: Lorena Santana NP Primary Care Provider: TELLO POWER Consult Narrative Reason for consult: f/u Narrative: Ophelia Cruz a pleasant 47 year old male presents for evaluation and management of chronic back pain. Patient continues to have low back pain that radiates into left hip, lateral thigh and down to left foot. Patient rating pain 4/10 at this time, it is intermittent and worse with activity and with car rides, gets up to 6-7/10. Patient recently underwent MRI of lumbar spine with results detailed below. Patient following with NS, planning TLIF PSFI with laminectomy next week. Finds benefit to gabapentin 100mg TID, could not tolerate higher dosage, does notice irritability. cc:: CC: Lorena Santana NP Review of Systems ROS Status of ROS 10 or more systems reviewed and unremark able except as noted in history and below Musculoskeletal Reports: back pain Meds Home Medications and Allergies Home Medications ?Medication ?Instructions ?Recorded ?Confirmed ?Type albuterol 90 mcg/actuation aerosol 90 mcg inhalation PRN shortness of 01/11/23 History inhaler breath or wheezing diclofenac sodium 50 mg 100 mg PO Q12H 01/11/23 05/10/23 History tablet,delayed release esomeprazole magnesium 40 mg 40 mg PO Q24H 01/11/23 05/10/23 History capsule,delayed release fluticasone propionate 50 1 spray intranasal DAILY PRN 01/11/23 05/10/23 History mcg/actuation nasal allergy symptoms spray,suspension (24 Hour Allergy Relief) loratadine 5 mg-pseudoephedrine ER 1 tab PO Q12H 01/11/23 05/10/23 History 120 mg tablet,extended release,12hr (Claritin-D 12 Hour) losartan 100 mg tablet 100 mg PO DAILY 01/11/23 05/10/23 History olopatadine 0.2 % eye drops 1 drp ophthalmic (eye) DAILY 01/11/23 05/10/23 History (Pataday Once Daily Relief) olopatadine 0.6 % nasal spray 2 spray intranasal BID 01/11/23 05/10/23 History (Patanase) amlodipine 5 mg tablet 5 mg PO DAILY 01/18/23 05/10/23 History metoprolol succinate 25 mg capsule 25 mg PO DAILY 01/18/23 05/10/23 History sprinkle, ext. release 24 hr (Kapspargo Sprinkle) methocarbamol 500 mg tablet 500 mg PO BID 02/08/23 05/10/23 History diclofenac sodium 50 mg 50 mg PO TID PRN pain #90 tabs 03/22/23 05/10/23 Rx tablet,delayed release Allergies Allergy/AdvReac Type Severity Reaction Status Date / Time No Known Drug Allergies Allergy Verified 03/01/23 07:43 Exam Constitutional Documenting provider has reviewed patient's vital signs: yes Common normals: no apparent distress, oriented x3, healthy appearing, alert and well nourished General appearance: cooperative Orientation/consciousness: Yes awake, Yes oriented to person, Yes oriented to place and Yes oriented to time HENMT Common normals: normocephalic, hearing grossly normal bilaterally and moist oral mucous membranes Head and scalp: normocephalic Eye Common normals: PERRL Pupil: PERRL Neck & C-Spine Common normals: full ROM General: normal visual inspection Chest Common normals: inspection of chest normal Respiratory Common normals: normal respiratory effort, no retractions and no use of accessory muscles Effort & inspection: able to speak in complete sentences and symmetric chest movement Back & Pelvis Lumbar spine/lower back: pain with ROM, paraspinal muscle tenderness and straight leg raise negative bilaterally Other: muscle strength 5/5 bilat LE with intact sensation scoliois noted Extremity Common normals: normal to inspection and full ROM Neuro Common normals: oriented x3, CN's II-XII intact bilaterally, moves all extremities, no focal motor deficits, no sensory deficits noted and deep tendon reflexes 2+ bilaterally Sensorium/orientation: alert Motor exam: strength 5/5 throughout and no movement abnormalities noted Psych Common normals: mental status grossly normal, thought process normal, cooperative, affect normal, speech normal and activity/motor behavior normal Speech: normal speech Thought process: normal thought process Results Additional Findings Additional findings: If on a controlled substance or opioids, I have checked an [place]AR[place] report on this patient and there are no aberrancies noted in the prescribing history.??If on a controlled substance or opioid a drug screen was completed and reviewed within the last year, and if there has not been a drug screen completed we ordered one today to monitor higher risk, state monitored pain medication use. As part of providing excellent, safe, comprehensive care, the following was completed at our patient's visit: 1. A medication reconciliation and review to ensure accurate knowledge of current/active medications, including asking our patients to inform us about any sczd-tad-gziidiu medications or herbal remedies/nutritional supplements/alternative remedies. 2. A review to specifically ensure our patients have had annual screening for screening for depression, screening for tobacco use, and screening for unhealthy alcohol use. For concerning screenings had a discussion with the patient, provided patient education, and recommended follow-up with primary care provider when appropriate. If patient noted with a risk of falling, they received education on strength, gait, and balance training to prevent future risk of falling. Assessment and Plan Assessment and Plan (1) Chronic low back pain: (2) Fracture of L5 vertebra: (3) Myofascial pain: (4) Lumbar stenosis with neurogenic claudication: (5) Lumbar spondylosis: (6) Lumbar radiculopathy: Plan continue f/u with NS, they will manage post op pain continue gabapentin 100mg TID, consider rotation to lyrica in the future f/u 4 months, sooner if needed
== END 2023-08-18 09:53 | disposition home or self-care (01) ==
LOC: PM 09:52
PROVIDERS: PCP Physician Assistant; Visit Provider Nurse Practitioner
DX: M54.50 Low back pain, unspecified (principal); S32.058A Other fracture of fifth lumbar vertebra, initial encounter for closed fracture; M79.18 Myalgia, other site; M48.062 Spinal stenosis, lumbar region with neurogenic claudication; M47.816 Spondylosis without myelopathy or radiculopathy, lumbar region; M54.16 Radiculopathy, lumbar region
CPT/HCPCS: G0463

== ENCOUNTER 2024-01-06 09:21 | Outpatient (OUT) | payer BC, SELFPAY ==
--- OUTSIDE RECORDS SUMMARY | 2024-01-06 09:31 | XMS_ITS | CCD ---
Author Organization [facility] Care Team Providers Care Food Preservation Scientist Name Role Phone ALVARADO ., DR ABRAN Moqsuera Admitting Unavailable MOSLEY ., JOSE Consulting Unavailable [...] Unavailable HEMMER, DR ARLENE Womack Consulting Unavailable HemArlene cartagena Primary Care Provider Hemellen, SUBSTITUTE TEACHERHafsaC Arlene Attending Provider [phone] Hemellen, SUBSTITUTE TEACHERHafsaC Arlene Attending Provider Hemellen, YENIFER Jacobs Primary Care Provider [phone] Hemellen, YENIFER Jacobs Attending Provider [phone] Arlene Power Admitting Unavailable HemArlene cartagena Primary Care Unavailable HemArlene cartagena Attending Unavailable HemArlene cartagena Admitting Unavailable Hemellen, Arlene Attending Unavailable Giedraitis , Andmaría Vicente Attending Unavailable Manuelraitis , Andrius Cinthia Attending Unavailable Jacobo RESENDIZ, Andrius Darlynytjessica Attending Unavailable Jacobo RESENDIZ, Andrius Darlynytjessica Attending Unavailable Tone Jessica Unavailable ARLENE POWER Primary Care Unavailable ENRIQUE COFFEY Consulting Unavailable KRISTOF, JUAN M Attending Unavailable KRISTOF, JUAN M Admitting Unavailable ROWENA HAYNES Consulting Unavailable KRISTOF, JUAN M Referring Unavailable ARLENE POWER Primary Care Unavailable ARLENE POWER Attending Unavailable HEMARLENE CARTAGENA Attending Unavailable HEMARLENE CARTAGENA Attending Unavailable TEAGAN GRACIA Attending Unavailable KRISTOF, JUAN M A Referring Unavailable OLVIN SPARKS Attending Unavailable KRISTOF, JUAN M A Referring Unavailable BRENDA MATHEW Attending Unavailable ARIC, JUAN M A Referring Unavailable CHRISTIANNE MARCH Attending Unavailable KRISTOF, JUAN M A Referring Unavailable REBECCAOSCHRISTIANNE ARAUJO Attending Unavailable KRISTOF, JAUN M A Referring Unavailable PUSHAHEEN LINDSEYOTHY Attending Unavailable KRISTOF, JUAN M A Referring Unavailable BRENDA MATHEW Attending Unavailable KRISTOF, JUAN M A Referring Unavailable TEAGAN GRACIA Attending Unavailable KRISTOF, JUAN M A Referring Unavailable SAMIATEAGAN MELO Attending Unavailable KRISTOF, JUAN M A Referring Unavailable PUCHRISTIANNE LINDSEY Attending Unavailable KRISTOF, JUAN M A Referring Unavailable BRENDA MATHEW Attending Unavailable RONNAISTOF, JUAN M A Referring Unavailable HEMARLENE CARTAGENA Attending Unavailable HEMARLENE CARTAGENA Referring Unavailable PUDLOSCHRISTIANNE ARAUJO Attending Unavailable JUAN M CORBETT Referring Unavailable TEAGAN GRACIA Attending Unavailable JUAN M CORBETT Referring Unavailable Allergies Allergy Classification Reported Allergen(s) Allergy Type Date of Onset Reaction(s) Facility (1 source) cats,horses hay Propensity to adverse reactions sinus drainage [employer] Other Medications Current Medications Medication Drug Class(es) [...] Drug Class(es) Dates Sig (Normalized) Sig (Original) [id number] 200 actuat albuterol 0.09 mg/actuat metered dose [...] 0 04/06/2013 Active take 1 tablet by [facility] once daily as needed for gastroesophageal reflux disease NexIUM 40 1 tablet Orally once daily p.r.n. GERD Not-Taking/PRN Comment on above: Take 1 capsule by mo [facility] once daily. 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, lumbar region] Onset: 10-02-2021 Chronic Spondylosis; intervertebral disc disorders; other back problems (11 sources) Muscle spasm of back; Translations: [Intervertebral disc disorders with radiculopathy, lumbar region] Onset: 10-08-2021 Episodic Unclassified (1 source) LOW BACK PAIN, UNSPECIFIED; Translations: [LOW BACK PAIN, UNSPECIFIED] Onset: 10-30-2021 Unclassified (1 source) Pain in right knee; Translations: [Pain in right knee] Onset: 04-28-2023 Viral infection (1 source) Plantar wart of right foot; Translations: [Plantar wart of right foot] Episodic Results Test Name Value Interpretation Reference Range Facility Basic Metabolic Profon 08-23 Anion gap [Moles/Vol] 12 mmol/L Normal - [facility] Comment on above: Performed By: #### B KOMAL, CDP #### [facility] [address] [facility] [place] [address] Real Estate Associate Attorney: Panchito Harper MD BUN/CRE Ratio 20 Normal - [facility] Comment on above: Performed By: #### B KOMAL, CDP #### [facility] [address] [facility] [place] [address] Real Estate Associate Attorney: Panchito Harper MD Calcium [Mass/Vol] 9.0 mg/dL Normal 8.6-10.4 [facility] Comment on above: Performed By: #### B MP, CDP #### [facility] [address] [place] [address] Real Estate Associate Attorney: Panchito Harper MD Chloride [Moles/Vol] 106 mmol/L Normal 98-107 [facility] Comment on above: Performed By: #### B MP, CDP #### [facility] [address] [place] [address] Real Estate Associate Attorney: Panchito Harper MD CO2 [Moles/Vol] 24 mmol/L Normal 20-31 [facility] Comment on above: Performed By: #### B KOMAL, CDP #### [facility] [address] [facility] [place] [address] Real Estate Associate Attorney: Panchito Harper MD Creatinine [Mass/Vol] 0.7 mg/dL Normal 0.7-1.2 [facility] Comment on above: Performed By: #### B KOMAL, CDP #### [facility] [address] [facility] [place] [address] Real Estate Associate Attorney: Panchito Harper MD GFR/1.73 sq M.predicted among non-blacks MDRD (S/P/Bld) [Vol rate/Area] mL/min/{1.73_m2} Normal >60 [facility] Comment on above: Result Comment: These results [...] affects renal tubular secretion. Performed By: #### B KOMAL, CDP #### [facility] [address] [place] [address] Real Estate Associate Attorney: Panchito Harper MD Glucose [Mass/Vol] 141 mg/dL High 70-99 [facility] Comment on above: Performed By: #### B KOMAL, CDP #### [facility] [address] [facility] [place] [address] Real Estate Associate Attorney: Panchito Harper MD Potassium [Moles/Vol] 4.4 mmol/L Normal 3.7-5.3 [facility] Comment on above: Performed By: #### B KOMAL, CDP #### [facility] [place] [address] Real Estate Associate Attorney: Panchito Harper MD Sodium [Moles/Vol] 142 mmol/L Normal 135-144 [facility] Comment on above: Performed By: #### B KOMAL, CDP #### [facility] [address] [place] [address] Real Estate Associate Attorney: Panchito Harper MD Urea nitrogen [Mass/Vol] 14 mg/dL Normal 6-20 [facility] Comment on above: Performed By: #### B KOMAL, CDP #### [facility] [address] [place] [address]. [place] [address] Real Estate Associate Attorney: Panchito Harper MD CBC with Diffon 08-24-2023 Abs. Basophil <0.03 Normal 0.00-0.20 [facility] Comment on above: Performed By: #### B KOMAL, CDP #### [facility] [place] [address] Real Estate Associate Attorney: Panchito Harper MD Abs. Eosinophil <0.03 Normal 0.00-0.44 [facility] Comment on above: Performed By: #### B KOMAL, CDP #### [facility] [place] [address] Real Estate Associate Attorney: Panchito Harper MD Abs.Imm.Granulocyte 0.15 k/uL Normal 0.00-0.30 [facility] Comment on above: Performed By: #### B MP, CDP #### [facility] [place] [address] Real Estate Associate Attorney: Panchito Harper MD Abs.Neutrophil (Seg) 16.42 k/uL High 1.50-8.10 [facility] Comment on above: Performed By: #### B MP, CDP #### [facility] [address] [place] [address] Real Estate Associate Attorney: Panchito Harper MD Basophils/100 WBC (Bld) 0 % Normal 0-2 [facility] Comment on above: Performed By: #### B KOMAL, CDP #### [facility] [address] [place] [address] Real Estate Associate Attorney: Panchito Harper MD Eosinophils/100 WBC (Bld) 0 % Low 1-4 [facility] Comment on above: Performed By: #### B KOMAL, CDP #### [facility] [address] [place] [address]. [place] [address] Real Estate Associate Attorney: Panchito Harper MD Erythrocyte distribution width (RBC) [Ratio] 12.5 % Normal 11.8-14.4 [facility] Comment on above: Performed By: #### B KOMAL, CDP #### [facility] [address] [place] [address]. [place] [address] Real Estate Associate Attorney: Panchito Harper MD Hematocrit (Bld) [Volume fraction] 40.0 % Low 40.7-50.3 [facility] Comment on above: Performed By: #### B MP, CDP #### [facility] [address] [place] [address]. [place] [address] Real Estate Associate Attorney: Panchito Harper MD Hemoglobin (Bld) [Mass/Vol] 13.4 g/dL Normal 13.0-17.0 [facility] Comment on above: Performed By: #### B MP, CDP #### [facility] [address] [place] [address] Real Estate Associate Attorney: Panchito Harper MD Immature granulocytes/100 WBC (Bld) 1 % High 0 [facility] Comment on above: Performed By: #### B MP, CDP #### [facility] [address] [place] [address] Real Estate Associate Attorney: Panchito Harper MD Lymphocytes (Bld) [#/Vol] 0.99 10*3/uL Low 1.10-3.70 [facility] Comment on above: Performed By: #### B KOMAL, CDP #### [facility] [address] [place] [address] Real Estate Associate Attorney: Panchito Harper MD Lymphocytes/100 WBC (Bld) 5 % Low 24-43 [facility] Comment on above: Performed By: #### B KOMAL, CDP #### [facility] [address] [place] [address] Real Estate Associate Attorney: Panchito Harper MD MCH (RBC) [Entitic mass] 30.1 pg Normal 25.2-33.5 [facility] Comment on above: Performed By: #### B KOMAL, CDP #### [facility] [address] [place] [address] Real Estate Associate Attorney: Panchito Harper MD MCHC (RBC) [Mass/Vol] 33.5 g/dL Normal 28.4-34.8 [facility] Comment on above: Performed By: #### B MP, CDP #### [facility] [address] [place] [address] Real Estate Associate Attorney: Panchito Harper MD MCV (RBC) [Entitic vol] 89.9 fL Normal 82.6-102.9 [facility] Comment on above: Performed By: #### B KOMAL, CDP #### [facility] [place] [address] Real Estate Associate Attorney: Panchito Harper MD Monocytes (Bld) [#/Vol] 0.82 10*3/uL Normal 0.10-1.20 [facility] Comment on above: Performed By: #### B MP, CDP #### [facility] [place] [address] Real Estate Associate Attorney: Panchito Harper MD Monocytes/100 WBC (Bld) 5 % Normal 3-12 [facility] Comment on above: Performed By: #### B MP, CDP #### [facility] [address] [place] [address]. [place] [address] Real Estate Associate Attorney: Panchito Harper MD Neutrophil (Seg) 89 % High 36-65 [facility] Comment on above: Performed By: #### B KOMAL, CDP #### [facility] [address] [place] [address]. [place] [address] Real Estate Associate Attorney: Panchito Harper MD NRBC Automated 0.0 per 100 WBC Normal 0.0 [facility] Comment on above: Performed By: #### B MP, CDP #### [facility] [address] [place] [address]. [place] [address] Real Estate Associate Attorney: Panchito Harper MD Platelet mean volume (Bld) [Entitic vol] 11.1 fL Normal 8.1-13.5 [facility] Comment on above: Performed By: #### B MP, CDP #### [facility] [address] [place] [address]. [place] [address] Real Estate Associate Attorney: Panchito Harper MD Platelets (Bld) [#/Vol] 289 10*3/uL Normal 138-453 [facility] Comment on above: Performed By: #### B MP, CDP #### [facility] [address] [facility] [place] [address] Real Estate Associate Attorney: Panchito Harper MD RBC (Bld) [#/Vol] 4.45 10*6/uL Normal 4.21-5.77 [facility] Comment on above: Performed By: #### B MP, CDP #### [facility] [address] [facility] [place] [address] Real Estate Associate Attorney: Panchito Harper MD WBC (Bld) [#/Vol] 18.4 10*3/uL High 3.5-11.3 [facility] Comment on above: Performed By: #### B MP, CDP #### [facility] [place] [address] Real Estate Associate Attorney: Panchito Harper MD FLUORO FOR SURGICAL PROCEDUR ESon 08-23-2023 FLUORO FOR SURGICAL PROCEDURES Radiology exam is complete. No Radiologist dictation. Please follow up with ordering provider. Final result Normal [facility] Cult,Urineon 08-06-2023 Cult,Urine Specimen Description .CLEAN CATCH URINE Culture NO SIGNIFICANT GROWTH Report Status FINAL 08/06/2023 Normal [facility] Comment on above: Performed By: #### U RC #### [facility] [address] [place] [address] Real Estate Associate Attorney: Panchito Harper MD [address] [phone] Real Estate Associate Attorney: Farhad Milton MD MRSA, DNA, Nasalon MRSA, DNA, Nasal Negative Normal NEG [facility] Comment on above: Result Comment: NEGA TIVE: MRSA DNA not detected by nucleic acid amplification. Results should be used as an adjunct to nosocomial control efforts to identify patients needing enhanced precautions. The test is not intended to identify patients with staphylococcal infections. Results should not be used to guide or monitor treatment for MRSA infections. Performed By: #### M RSANO #### [facility] [place] [address] Real Estate Associate Attorney: Panchito Harper MD [id number] [place], [place] [id number] Real Estate Associate Attorney: Farhad Milton MD APTTon 08-05-2023 aPTT Coag (Bld) [Time] 28.6 s Normal 23.9-33.8 [facility] Comment on above: Result Comment: IV Heparin Therapy Range: 62.0-94.0 Performed By: #### C DP, PTT, PT, BMP #### [facility] [address] [place] [address] Real Estate Associate Attorney: Panchito Harper MD Basic Metabolic Profon 08-04 Anion gap [Moles/Vol] 7 mmol/L Low 9-17 [facility] Comment on above: Performed By: #### C DP, PTT, PT, BMP #### [facility] [address] [place] [address] Real Estate Associate Attorney: Panchito Harper MD BUN/CRE Ratio 26 High 9-20 [facility] Comment on above: Performed By: #### C DP, PTT, PT, BMP #### [facility] [address] [place] [address] Real Estate Associate Attorney: Panchito Harper MD Calcium [Mass/Vol] 9.1 mg/dL Normal 8.6-10.4 [facility] Comment on above: Performed By: #### C DP, PTT, PT, BMP #### [facility] [address] [place] [address] Real Estate Associate Attorney: Panchito Harper MD Chloride [Moles/Vol] 106 mmol/L Normal 98-107 [facility] Comment on above: Performed By: #### C DP, PTT, PT, BMP #### [facility] [address] [facility] [place] [address] Real Estate Associate Attorney: Panchito Harper MD CO2 [Moles/Vol] 30 mmol/L Normal 20-31 [facility] Comment on above: Performed By: #### C DP, PTT, PT, BMP #### [facility] [place] [address] Real Estate Associate Attorney: Panchito Harper MD Creatinine [Mass/Vol] 0.8 mg/dL Normal 0.7-1.2 [facility] Comment on above: Performed By: #### C DP, PTT, PT, BMP #### [facility] [address] [place] [address]. [place] [address] Real Estate Associate Attorney: Panchito Harper MD GFR/1.73 sq M.predicted among non-blacks MDRD (S/P/Bld) [Vol rate/Area] mL/min/{1.73_m2} Normal >60 [facility] Comment on above: Result Comment: These results [...] affects renal tubular secretion. Performed By: #### C DP, PTT, PT, BMP #### [facility] [place] [address] Real Estate Associate Attorney: Panchito Harper MD Glucose [Mass/Vol] 77 mg/dL Normal 70-99 [facility] Comment on above: Performed By: #### C DP, PTT, PT, BMP #### [facility] [address] [place], [place] [address]. [place] [address] Real Estate Associate Attorney: Panchito Harper MD Potassium [Moles/Vol] 3.9 mmol/L Normal 3.7-5.3 [facility] Comment on above: Performed By: #### C DP, PTT, PT, BMP #### [facility] [address] [place] [address] Real Estate Associate Attorney: Panchito Harper MD Sodium [Moles/Vol] 143 mmol/L Normal 135-144 [facility] Comment on above: Performed By: #### C DP, PTT, PT, BMP #### [facility] [address] [place] [address] Real Estate Associate Attorney: Panchito Harper MD Urea nitrogen [Mass/Vol] 21 mg/dL High 6-20 [facility] Comment on above: Performed By: #### C DP, PTT, PT, BMP #### [facility] [address] [place] [address] Real Estate Associate Attorney: Panchito Harper MD CBC with Diffon 08-05-2023 Abs. Basophil 0.03 k/uL Normal 0.00-0.20 [facility] Comment on above: Performed By: #### C DP, PTT, PT, BMP #### [facility] [address] [place] [address] Real Estate Associate Attorney: Panchito Harper MD Abs.Imm.Granulocyte 0.02 k/uL Normal 0.00-0.30 [facility] Comment on above: Performed By: #### C DP, PTT, PT, BMP #### [facility] [address] [place] [address] Real Estate Associate Attorney: Panchito Harper MD Abs.Neutrophil (Seg) 3.31 k/uL Normal 1.50-8.10 [facility] Comment on above: Performed By: #### C DP, PTT, PT, BMP #### [facility] [address] [place] [address] Real Estate Associate Attorney: Panchito Harper MD Basophils/100 WBC (Bld) 1 % Normal 0-2 [facility] Comment on above: Performed By: #### C DP, PTT, PT, BMP #### [facility] [address] [place] [address] Real Estate Associate Attorney: Panchito Harper MD Eosinophils (Bld) [#/Vol] 0.36 10*3/uL Normal 0.00-0.44 [facility] Comment on above: Performed By: #### C DP, PTT, PT, BMP #### [facility] [address] [place] [address] Real Estate Associate Attorney: Panchito Harper MD Eosinophils/100 WBC (Bld) 6 % High 1-4 [facility] Comment on above: Performed By: #### C DP, PTT, PT, BMP #### [facility] [address] [place] [address] Real Estate Associate Attorney: Panchito Harper MD Erythrocyte distribution width (RBC) [Ratio] 12.8 % Normal 11.8-14.4 [facility] Comment on above: Performed By: #### C DP, PTT, PT, BMP #### [facility] [address] [place] [address] Real Estate Associate Attorney: Panchito Harper MD Hematocrit (Bld) [Volume fraction] 38.9 % Low 40.7-50.3 [facility] Comment on above: Performed By: #### C DP, PTT, PT, BMP #### [facility] [address] [place] [address] Real Estate Associate Attorney: Panchito Harper MD Hemoglobin (Bld) [Mass/Vol] 13.0 g/dL Normal 13.0-17.0 [facility] Comment on above: Performed By: #### C DP, PTT, PT, BMP #### [facility] [place] [address] Real Estate Associate Attorney: Panchito Harper MD Immature granulocytes/100 WBC (Bld) 0 % Normal 0 [facility] Comment on above: Performed By: #### C DP, PTT, PT, BMP #### [facility] [address] [place] [address] Real Estate Associate Attorney: Panchito Harper MD Lymphocytes (Bld) [#/Vol] 1.60 10*3/uL Normal 1.10-3.70 [facility] Comment on above: Performed By: #### C DP, PTT, PT, BMP #### [facility] [address] [place] [address] Real Estate Associate Attorney: Panchito Harper MD Lymphocytes/100 WBC (Bld) 28 % Normal 24-43 [facility] Comment on above: Performed By: #### C DP, PTT, PT, BMP #### [facility] [address] [place] [address] Real Estate Associate Attorney: Panchito Harper MD MCH (RBC) [Entitic mass] 30.4 pg Normal 25.2-33.5 [facility] Comment on above: Performed By: #### C DP, PTT, PT, BMP #### [facility] [address] [place] [address] Real Estate Associate Attorney: Panchito Harper MD MCHC (RBC) [Mass/Vol] 33.4 g/dL Normal 28.4-34.8 [facility] Comment on above: Performed By: #### C DP, PTT, PT, BMP #### [facility] [place] [address] Real Estate Associate Attorney: Panchito Harper MD MCV (RBC) [Entitic vol] 90.9 fL Normal 82.6-102.9 [facility] Comment on above: Performed By: #### C DP, PTT, PT, BMP #### [facility] [address] [place] [address] Real Estate Associate Attorney: Panchito Harper MD Monocytes (Bld) [#/Vol] 0.44 10*3/uL Normal 0.10-1.20 [facility] Comment on above: Performed By: #### C DP, PTT, PT, BMP #### [facility] [address] [place] [address] Real Estate Associate Attorney: Panchito Harper MD Monocytes/100 WBC (Bld) 8 % Normal 3-12 [facility] Comment on above: Performed By: #### C DP, PTT, PT, BMP #### [facility] [address] [place] [address] Real Estate Associate Attorney: Panchito Harper MD Neutrophil (Seg) 57 % Normal 36-65 [facility] Comment on above: Performed By: #### C DP, PTT, PT, BMP #### [facility] [address] [place] [address] Real Estate Associate Attorney: Panchito Harper MD NRBC Automated 0.0 per 100 WBC Normal 0.0 [facility] Comment on above: Performed By: #### C DP, PTT, PT, BMP #### [facility] [address] [place] [address] Real Estate Associate Attorney: Panchito Harper MD Platelet mean volume (Bld) [Entitic vol] 10.7 fL Normal 8.1-13.5 [facility] Comment on above: Performed By: #### C DP, PTT, PT, BMP #### [facility] [address] [place] [address] Real Estate Associate Attorney: Panchito Harper MD Platelets (Bld) [#/Vol] 230 10*3/uL Normal 138-453 [facility] Comment on above: Performed By: #### C DP, PTT, PT, BMP #### [facility] [address] [place] [address] Real Estate Associate Attorney: Panchito Harper MD RBC (Bld) [#/Vol] 4.28 10*6/uL Normal 4.21-5.77 [facility] Comment on above: Performed By: #### C DP, PTT, PT, BMP #### [facility] [address] [place] [address]. [place] [address] Real Estate Associate Attorney: Panchito Harper MD WBC (Bld) [#/Vol] 5.8 10*3/uL Normal 3.5-11.3 [facility] Comment on above: Performed By: #### C DP, PTT, PT, BMP #### [facility] [address] [place] [address] Real Estate Associate Attorney: Panchito Harper MD MRSA, DNA, Nasalon 4 Specimen Description .NASAL SWAB Normal [facility] Comment on above: Performed By: #### M RSANO #### [facility] [place] [address] Real Estate Associate Attorney: Panchito Harper MD [id number] [place] [address] Real Estate Associate Attorney: Farhad Milton MD PTon 08-05-2023 INR Coag (PPP) [Relative time] 0.9 {INR} Normal [facility] Comment on above: Result Comment: Therapeutic Range: Moderate Anticoagulant Intensity: INR = 2.0-3.0 High Anticoagulant Intensity: INR = 2.5-3.5 Performed By: #### C DP, PTT, PT, BMP #### [facility] [place] [address] Real Estate Associate Attorney: Panchito Harper MD PT Coag (PPP) [Time] 12.7 s Normal 11.5-14.2 [facility] Comment on above: Performed By: #### C DP, PTT, PT, BMP #### [facility] [address] [place] [address]. [place] [address] Real Estate Associate Attorney: Panchito Harper MD Urinalysis, Routineon 2023 Bilirubin, SemiQt,Ur Negative Normal NEG [facility] Comment on above: Performed By: #### U A #### [facility] [address] [place] [address]. [place] [address] Real Estate Associate Attorney: Panchito Harper MD Blood, Urine Negative Normal NEG [facility] Comment on above: Performed By: #### U A #### [facility] [address] [place] [address]. [place] [address] Real Estate Associate Attorney: Panchito Harper MD Clarity (U) Clear Normal CLEAR [facility] Comment on above: Performed By: #### U A #### [facility] [address] [place] [address]. [place] [address] Real Estate Associate Attorney: Panchito Harper MD Color (U) Yellow Normal YEL [facility] Comment on above: Performed By: #### U A #### [facility] [address] [place] [address]. [place] [address] Real Estate Associate Attorney: Panchito Harper MD Comment Microscopic exam not performed based on chemical results unless requested in Normal [facility] Comment on above: Result Comment: orig inal order. Performed By: #### U A #### [facility] [address] [place] [address] Real Estate Associate Attorney: Panchito Harper MD Glucose Ql (U) Negative Normal NEG [facility] Comment on above: Performed By: #### U A #### [facility] [address] [place] [address] Real Estate Associate Attorney: Panchito Harper MD Ketones Ql (U) Negative Normal NEG [facility] Comment on above: Performed By: #### U A #### [facility] [address] [facility] [place] [address] Real Estate Associate Attorney: Panchito Harper MD Leukocyte esterase Test strip Ql (U) Negative Normal NEG [facility] Comment on above: Performed By: #### U A #### [facility] [address] [facility] [place] [address] Real Estate Associate Attorney: Panchito Harper MD Nitrite,Ur Negative Normal NEG [facility] Comment on above: Performed By: #### U A #### [facility] [address] [place] [address] Real Estate Associate Attorney: Panchito Harper MD PH,Ur 6.0 Normal 5.0-8.0 [facility] Comment on above: Performed By: #### U A #### [facility] [address] [place] [address] Real Estate Associate Attorney: Panchito Harper MD Protein Ql (U) Negative Normal NEG [facility] Comment on above: Performed By: #### U A #### [facility] [address] [place] [address] Real Estate Associate Attorney: Panchito Harper MD Spec. [place],Ur 1.025 Normal 1.005-1.030 [facility] Comment on above: Performed By: #### U A #### [facility] [address] [place] [address] Real Estate Associate Attorney: Panchito Harper MD Urobilinogen,Ur Normal Normal 0.0-1.0 [facility] Comment on above: Performed By: #### U A #### [facility] [address] [place] [address] Real Estate Associate Attorney: Panchito Harper MD MR KNEE RIGHT WO [...] Medial compartment osteoarthritis. ELECTRONICALLY SIGNED BY: Romel Fonseca, Normal Not Available XR knee RT 4V*on 04-28-2023 XR knee RT 4V* [facility] [place] [address] XRay Report Signed Patient: Ophelia Cruz MR#: [id number] : 1975 Acct:[id number] Age/Sex: 47 / M ADM Date: 04/28/23 Loc: XD Room: Type: [facility] CLI Attending Dr: Arlene BELLA-C Copies to: [facility] Ordering [...] Arlene Colon M.D.04/28/2023 4:58 PM Dictation Location: [place] [address] Transcribed By: [facility] 04/28/231657 Dictated By: Arlene Colon MD 04/28/231652 Signed By: 04/28/231657 Normal [facility] Alanine aminotransferase [En zymatic activity/volume] in Serum or PlasmaOrdered By: Arlene Power on 01-29-2023 ALT [Catalytic activity/Vol] 25 U/L 7-52 [facility] Albumin [Mass/volume] in Ser um or Plasma by Bromocresol green (BCG) dye binding methoOrdered By: Arlene Power on 01-29-2023 Albumin BCG dye [Mass/Vol] 4.3 g/dL 3.5-5.7 [facility] Alkaline phosphatase [Enzyma tic activity/volume] in Serum or PlasmaOrdered By: Arlene Power on 01-29-2023 ALP [Catalytic activity/Vol] 52 U/L 34-104 [facility] Aspartate aminotransferase [ Enzymatic activity/volume] in Serum or PlasmaOrdered By: Arlene Power on 01-29-2023 AST [Catalytic activity/Vol] 15 U/L 13-39 [facility] Basophils Auto (Bld) [#/Vol] Ordered By: Arlene Power on 01-29-2023 Basophils (Bld) [#/Vol] 0.0 10*3/uL 0.0-0.2 [facility] Basophils/100 WBC Auto (Bld) Ordered By: Arlene Power on 01-29-2023 Basophils/100 WBC (Bld) 0.5 % . [facility] Bilirubin.total [Mass/volume ] in Serum or PlasmaOrdered By: Arlene Power on 01-29-2023 Bilirubin [Mass/Vol] 0.5 mg/dL 0.3-1.0 [facility] Calcium [Mass/volume] in Ser um or PlasmaOrdered By: Arlene Power on 01-29-2023 Calcium [Mass/Vol] 9.4 mg/dL 8.6-10.[address] [facility] Carbon dioxide, total [Moles /volume] in Serum or PlasmaOrdered By: Arlene Power on 01-29-2023 CO2 [Moles/Vol] 31.5 mmol/L 21.0-31.0 [facility] Chloride [Moles/volume] in S jeff or PlasmaOrdered By: Arlene Power on 01-29-2023 Chloride [Moles/Vol] 105 mmol/L 98-107 [facility] Cholesterol [Mass/volume] in Serum or PlasmaOrdered By: Arlene Power on 01-29-2023 Cholesterol [Mass/Vol] 186 mg/dL 140-200 [facility] Comment on above: Chol less than 200 m g/dl low riskChol 201-239 mg/dl borderline riskChol 240 mg/dl and greater high risk Cholesterol in LDL Calc [Mas s/Vol]Ordered By: Arlene Power on 01-29-2023 Cholesterol in LDL [Mass/Vol] 122 mg/dL 0-100 [facility] Comment on above: LDL ATP III CLASSIFI CATIONLDL less than 100 mg/dL OptimalLDL 100-129 mg/dL Near or above optimalLDL 130-159 mg/dL Borderline highLDL 160-189 mg/dL HighLDL greater than 189 mg/dL Very high Cholesterol in VLDL Calc [Ma ss/Vol]Ordered By: Arlene Power on 01-29-2023 Cholesterol in VLDL [Mass/Vol] 22 mg/dL [facility] Complete Blood Count Auto Di ffon 01-29-2023 Basophils (Bld) [#/Vol] 0.0 10*3/uL Normal 0.0-0.2 [facility] Comment on above: Result Comment: PERF ORMED BY: [place] [address] PATHOLOGIST PATIENT SERVICES CLERK IAN CHRISTINE M.D. Performed By: #### L IPID, CBC, CMP, PSAS #### [address] Basophils/100 WBC (Bld) 0.5 % Normal . [facility] Comment on above: Performed By: #### L IPID, CBC, CMP, PSAS #### [address] Eosinophils (Bld) [#/Vol] 0.3 10*3/uL Normal 0.0-0.45 [facility] Comment on above: Performed By: #### L IPID, CBC, CMP, PSAS #### [address] Eosinophils/100 WBC (Bld) 3.8 % Normal . [facility] Comment on above: Performed By: #### L IPID, CBC, CMP, PSAS #### [address] Erythrocyte distribution width (RBC) [Ratio] 13.8 % Normal 12.0-14.8 [facility] Comment on above: Performed By: #### L IPID, CBC, CMP, PSAS #### [address] Hematocrit (Bld) [Volume fraction] 40.2 % Normal 38.8-50.0 [facility] Comment on above: Performed By: #### L IPID, CBC, CMP, PSAS #### [address] Hemoglobin (Bld) [Mass/Vol] 13.7 g/dL Normal 13.0-17.0 [facility] Comment on above: Performed By: #### L IPID, CBC, CMP, PSAS #### [place] [address] [place] Lymphocytes (Bld) [#/Vol] 2.4 10*3/uL Normal 1.00-4.8 [facility] Comment on above: Performed By: #### L IPID, CBC, CMP, PSAS #### [address] Lymphocytes/100 WBC (Bld) 29.7 % Normal . [facility] Comment on above: Performed By: #### L IPID, CBC, CMP, PSAS #### [address] MCH (RBC) [Entitic mass] 30.0 pg Normal 27.5-35.2 [facility] Comment on above: Performed By: #### L IPID, CBC, CMP, PSAS #### [address] MCV (RBC) [Entitic vol] 87.7 fL Normal 83.5-101 [facility] Comment on above: Performed By: #### L IPID, CBC, CMP, PSAS #### [address] Mean Corpuscular HGB Conc 34.2 g/dL Normal 32.5-35.6 [facility] Comment on above: Performed By: #### L IPID, CBC, CMP, PSAS #### [address] Monocytes (Bld) [#/Vol] 0.5 10*3/uL Normal 0.0-0.8 [facility] Comment on above: Performed By: #### L IPID, CBC, CMP, PSAS #### [address] Monocytes/100 WBC (Bld) 6.6 % Normal . [facility] Comment on above: Performed By: #### L IPID, CBC, CMP, PSAS #### [address] Neutrophils (Bld) [#/Vol] 4.8 10*3/uL Normal 1.8-7.7 [facility] Comment on above: Performed By: #### L IPID, CBC, CMP, PSAS #### [address] Neutrophils/100 WBC (Bld) 59.4 % Normal . [facility] Comment on above: Performed By: #### L IPID, CBC, CMP, PSAS #### [address] NRBC% 0.1 /100{WBC} Normal 0-0.5 [facility] Comment on above: Performed By: #### L IPID, CBC, CMP, PSAS #### [address] Platelet mean volume (Bld) [Entitic vol] 8.9 fL Normal 6.6-10.1 [facility] Comment on above: Performed By: #### L IPID, CBC, CMP, PSAS #### [address] Platelets (Bld) [#/Vol] 269 10*3/uL Normal 150-450 [facility] Comment on above: Performed By: #### L IPID, CBC, CMP, PSAS #### [address] RBC (Bld) [#/Vol] 4.58 10*6/uL Normal 3.90-5.60 [facility] Comment on above: Performed By: #### L IPID, CBC, CMP, PSAS #### [address] WBC (Bld) [#/Vol] 8.0 10*3/uL Normal 4.1-10.[address] [facility] Comment on above: Performed By: #### L IPID, CBC, CMP, PSAS #### [address] Comprehensive Metabolic Pane luis 01-29-2023 Albumin [Mass/Vol] 4.3 g/dL Normal 3.5-5.[address] [facility] Comment on above: Performed By: #### L IPID, CBC, CMP, PSAS #### [facility] [address] [place] [address] [place] Albumin/Globulin [Mass ratio] 2.0 {ratio} Normal [facility] Comment on above: Performed By: #### L IPID, CBC, CMP, PSAS #### [facility] [address] ALP [Catalytic activity/Vol] 52 U/L Normal 34-104 [facility] Comment on above: Performed By: #### L IPID, CBC, CMP, PSAS #### [facility] [address] ALT [Catalytic activity/Vol] 25 U/L Normal 7-52 [facility] Comment on above: Performed By: #### L IPID, CBC, CMP, PSAS #### [facility] [address] Anion gap [Moles/Vol] 9.8 mmol/L Normal 6.0-15.0 [facility] Comment on above: Performed By: #### L IPID, CBC, CMP, PSAS #### [facility] [address] AST [Catalytic activity/Vol] 15 U/L Normal 13-39 [facility] Comment on above: Performed By: #### L IPID, CBC, CMP, PSAS #### [facility] [address] [place] [address] [place] Bilirubin [Mass/Vol] 0.5 mg/dL Normal 0.3-1.0 [facility] Comment on above: Performed By: #### L IPID, CBC, CMP, PSAS #### [facility] [address] [place] [address] [place] Calcium [Mass/Vol] 9.4 mg/dL Normal 8.6-10.[address] [facility] Comment on above: Performed By: #### L IPID, CBC, CMP, PSAS #### [facility] [address] [place] [address] [place] Chloride [Moles/Vol] 105 mmol/L Normal 98-107 [facility] Comment on above: Performed By: #### L IPID, CBC, CMP, PSAS #### [facility] [address] CO2 [Moles/Vol] 31.5 mmol/L High 21.0-31.0 [facility] Comment on above: Performed By: #### L IPID, CBC, CMP, PSAS #### [address] Creatinine [Mass/Vol] 0.94 mg/dL Normal 0.70-1.30 [facility] Comment on above: Performed By: #### L IPID, CBC, CMP, PSAS #### [address] GFR/1.73 sq M.predicted MDRD (S/P/Bld) [Vol rate/Area] mL/min/{1.73_m2} Normal [facility] Comment on above: Performed By: #### L IPID, CBC, CMP, PSAS #### [address] Globulin (S) [Mass/Vol] 2.1 g/dL Normal [facility] Comment on above: Performed By: #### L IPID, CBC, CMP, PSAS #### [address] Glucose [Mass/Vol] 87 mg/dL Normal 70-[address] [facility] Comment on above: Result Comment: [place] Glucose Reference Range is dependent on time and content of last meal. Glucose of more than 200 mg/dL in a nonstressed, ambulatory subject supports the diagnosis of Diabetes Mellitus. ADA recommended reference range Performed By: #### L IPID, CBC, CMP, PSAS #### [address] Potassium [Moles/Vol] 4.3 mmol/L Normal 3.5-5.1 [facility] Comment on above: Performed By: #### L IPID, CBC, CMP, PSAS #### [address] [place] [address] [place] Protein [Mass/Vol] 6.4 g/dL Normal 6.4-8.[address] [facility] Comment on above: Performed By: #### L IPID, CBC, CMP, PSAS #### [facility] [address] [place] [address] [place] Sodium [Moles/Vol] 142 mmol/L Normal 136-[address] [facility] Comment on above: Performed By: #### L IPID, CBC, CMP, PSAS #### [facility] [address] [place] [address] [place] Urea nitrogen [Mass/Vol] 18 mg/dL Normal 7-25 [facility] Comment on above: Performed By: #### L IPID, CBC, CMP, PSAS #### [facility] [address] [place] [address] [place] Creatinine [Mass/volume] in Serum or PlasmaOrdered By: Arlene Power on 01-29-2023 Creatinine [Mass/Vol] 0.94 mg/dL 0.70-1.30 [facility] Eosinophils Auto (Bld) [#/Vo l]Ordered By: Arlene Power on 01-29-2023 Eosinophils (Bld) [#/Vol] 0.3 10*3/uL 0.0-0.45 [facility] Eosinophils/100 WBC Auto (Bl d)Ordered By: Arlene Power on 01-29-2023 Eosinophils/100 WBC (Bld) 3.8 % . [facility] Erythrocyte distribution wid th Auto (RBC) [Ratio]Ordered By: Arlene Power on 01-29-2023 Erythrocyte distribution width (RBC) [Ratio] 13.8 % 12.0-14.8 [facility] Globulin Calc (S) [Mass/Vol] Ordered By: Arlene Power on 01-29-2023 Globulin (S) [Mass/Vol] 2.1 g/dL [facility] Glucose [Mass/volume] in Ser um or PlasmaOrdered By: Arlene Power on 01-29-2023 Glucose [Mass/Vol] 87 mg/dL 70-[address] [facility] Comment on above: ADA recommended refe rence rangeRandom Glucose Reference Range is dependent on time and content of last meal. Glucose of more than 200 mg/dL in a nonstressed, ambulatory subject supports the diagnosis of Diabetes Mellitus. Hematocrit Auto (Bld) [Volum e fraction]Ordered By: Arlene Power on 01-29-2023 Hematocrit (Bld) [Volume fraction] 40.2 % 38.8-50.0 [facility] Hemoglobin [Mass/volume] in BloodOrdered By: Arlene Power on 01-29-2023 Hemoglobin (Bld) [Mass/Vol] 13.7 g/dL 13.0-17.0 [facility] Leukocytes [#/volume] correc jaime for nucleated erythrocytes in Blood by Automated counOrdered By: Arlene Power on 01-29-2023 WBC corrected for nucl RBC Auto (Bld) [#/Vol] 8.0 10*3/uL 4.1-10.5 [facility] Lipid Panelon 01-29-2023 Cholesterol [Mass/Vol] 186 mg/dL Normal 140-200 [facility] Comment on above: Result Comment: Chol less than 200 mg/dl low risk Chol 201-239 mg/dl borderline risk Chol 240 mg/dl and greater high risk Performed By: #### L IPID, CBC, CMP, PSAS #### [facility] [address] Cholesterol in HDL [Mass/Vol] 42 mg/dL Normal 23-92 [facility] Comment on above: Result Comment: HDL CHOL ATP-III CLASSIFICATION Cardiovascular Risk HDL > or equal to 60 mg/dL LOW HDL < 40 mg/dL HIGH Performed By: #### L IPID, CBC, CMP, PSAS #### [facility] [address] Cholesterol.total/Choles terol in HDL [Mass ratio] 4.4 {ratio} Normal <5.0 [facility] Comment on above: Result Comment: PERF ORMED BY: [place] [address] PATHOLOGIST PATIENT SERVICES CLERK IAN CHRISTINE M.D. Performed By: #### L IPID, CBC, CMP, PSAS #### [facility] [address] LDL Cholesterol,Calculated 122 mg/dL High 0-100 [facility] Comment on above: Result Comment: LDL ATP III CLASSIFICATION LDL less than 100 mg/dL Optimal LDL 100-129 mg/dL Near or above optimal LDL 130-159 mg/dL Borderline high LDL 160-189 mg/dL High LDL greater than 189 mg/dL Very high Performed By: #### L IPID, CBC, CMP, PSAS #### [facility] [address] Triglyceride w/Reflex 110 mg/dL Normal 0-149 [facility] Comment on above: Result Comment: TRIG ATP III CLASSIFICATION TRIG less than 150 mg/dL Normal TRIG 150-199 mg/dL Borderline high TRIG 200-500 mg/dL High TRIG greater than 500 mg/dL Very high Standard traceable to the Center for Disease Conrtrol and Prevention (CDC) test method. Performed By: #### L IPID, CBC, CMP, PSAS #### [facility] [address] VLDL CHOLESTEROL 22 mg/dL Normal [facility] Comment on above: Performed By: #### L IPID, CBC, CMP, PSAS #### [facility] [address] Lymphocytes Auto (Bld) [#/Vo l]Ordered By: Arlene Power on 01-29-2023 Lymphocytes (Bld) [#/Vol] 2.4 10*3/uL 1.00-4.8 [facility] Lymphocytes/100 WBC Auto (Bl d)Ordered By: Arlene Power on 01-29-2023 Lymphocytes/100 WBC (Bld) 29.7 % . [facility] MCH Auto (RBC) [Entitic mass ]Ordered By: Arlene Power on 01-29-2023 MCH (RBC) [Entitic mass] 30.0 pg 27.5-35.2 [facility] MCHC Auto (RBC) [Mass/Vol]Or dered By: Arlene Power on 01-29-2023 MCHC (RBC) [Mass/Vol] 34.2 g/dL 32.5-35.6 [facility] MCV Auto (RBC) [Entitic vol] Ordered By: Arlene Power on 01-29-2023 MCV (RBC) [Entitic vol] 87.7 fL 83.5-101 [facility] Monocytes Auto (Bld) [#/Vol] Ordered By: Arlene Power on 01-29-2023 Monocytes (Bld) [#/Vol] 0.5 10*3/uL 0.0-0.8 [facility] Monocytes/100 WBC Auto (Bld) Ordered By: Arlene Power on 01-29-2023 Monocytes/100 WBC (Bld) 6.6 % . [facility] Neutrophils Auto (Bld) [#/Vo l]Ordered By: Arlene Power on 01-29-2023 Neutrophils (Bld) [#/Vol] 4.8 10*3/uL 1.8-7.7 [facility] Neutrophils/100 WBC Auto (Bl d)Ordered By: Arlene Power on 01-29-2023 Neutrophils/100 WBC (Bld) 59.4 % . [facility] No Panel InformationOrdered By: Arlene Power on 01-29-2023 Estimated GFR (CKD-EPI) > 60.0 mL/Min [facility] Creatinine Clearance (Chem N/A [facility] Nucleated erythrocytes [Pres ence] in Blood by Automated countOrdered By: Arlene Power on 01-29-2023 Nucleated RBC Auto Ql (Bld) 0.1 /100{WBC} 0-0.5 [facility] PSA Screen (Yearly Only)on 0 01-29-2023 PSA Screen (Yearly Only) 0.590 ng/mL Normal 0.000-4.00 0 [facility] Comment on above: Order Comment: Is pa tient <50 yrs? Medicare does not pay <50.: NA What is the date of the last PSA Screen?: NA OR...The date Patient is eligible for PSA Screen?: NA Is Medicare the insurance?: NA Did you verify eligibility (Dx Time) check TestViewGp: NOT MEDICARE Result Comment: PERF ORMED BY: [facility] [address] [place] [address] PATHOLOGIST PATIENT SERVICES CLERK IAN CHRISTINE M.D. Performed By: #### L IPID, CBC, CMP, PSAS #### [facility] [address] Platelet mean volume Auto (B ld) [Entitic vol]Ordered By: Arlene Power on 01-29-2023 Platelet mean volume (Bld) [Entitic vol] 8.9 fL 6.6-10.1 [facility] Platelets Auto (Bld) [#/Vol] Ordered By: Arlene Power on 01-29-2023 Platelets (Bld) [#/Vol] 269 10*3/uL 150-450 [facility] Potassium [Moles/volume] in Serum or PlasmaOrdered By: Arlene Power on 01-29-2023 Potassium [Moles/Vol] 4.3 mmol/L 3.5-5.1 [facility] Prostate specific Ag [Mass/v olume] in Serum or PlasmaOrdered By: Arlene Power on 01-29-2023 Prostate specific Ag [Mass/Vol] 0.590 ng/mL 0.000-4.000 [facility] Protein [Mass/volume] in Ser um or PlasmaOrdered By: Arlene Power on 01-29-2023 Protein [Mass/Vol] 6.4 g/dL 6.4-8.[address] [facility] RBC Auto (Bld) [#/Vol]Ordere d By: Arlene Power on 01-29-2023 RBC (Bld) [#/Vol] 4.58 10*6/uL 3.90-5.60 [facility] Serum or plasma albumin/glob ulin mass ratioOrdered By: Arlene Power on 01-29-2023 Albumin/Globulin [Mass ratio] 2.0 {ratio} [facility] Serum or plasma anion gap de terminationOrdered By: Arlene Power on 01-29-2023 Anion gap [Moles/Vol] 9.8 mmol/L 6.0-15.0 [facility] Serum or plasma high density lipoprotein (HDL) cholesterol measurementOrdered By: Arlene Power on 01-29-2023 Cholesterol in HDL [Mass/Vol] 42 mg/dL 23-92 [facility] Comment on above: HDL CHOL ATP-III CLA SSIFICATION Cardiovascular RiskHDL > or equal to 60 mg/dL LOWHDL < 40 mg/dL HIGH Serum or plasma total choles terol/high density lipoprotein (HDL) cholesterol mass ratOrdered By: Arlene Power on 01-29-2023 Cholesterol.total/Choles terol in HDL [Mass ratio] 4.4 {ratio} <5.0 [facility] Sodium [Moles/volume] in Ser um or PlasmaOrdered By: Arlene Power on 01-29-2023 Sodium [Moles/Vol] 142 mmol/L 136-[address] [facility] Triglyceride [Mass/volume] i n Serum or PlasmaOrdered By: Arlene Power on 01-29-2023 Triglyceride [Mass/Vol] 110 mg/dL 0-149 [facility] Comment on above: TRIG ATP III CLASSIF ICATIONTRIG less than 150 mg/dL NormalTRIG 150-199 mg/dL Borderline highTRIG 200-500 mg/dL High TRIG greater than 500 mg/dL Very highStandard traceable to the Center for Disease Conrtrol and Prevention (CDC) test method. Urea nitrogen [Mass/volume] in Serum or PlasmaOrdered By: Arlene Power on 01-29-2023 Urea nitrogen [Mass/Vol] 18 mg/dL 7-25 [facility] WBC Auto (Bld) [#/Vol]Ordere d By: Arlene Power on 01-29-2023 WBC (Bld) [#/Vol] 8.0 10*3/uL 4.1-10.[address] [facility] XR Chest 2 Views*on 11-13-19 XR Chest [...] by Romel Fonseca on 11/12/2021 1646 Normal [facility] No Panel Informationon 08-06 [facility] XR LUMBAR 4V AP/LAT/ FLEX/EX Ton 08-06-2021 [...] Number of different views (projections): 4 (accession [id number]), 2 (accession [id number]) COMPARISON: 06/18/2021 MRI RESULT: Counting reference: Lumbosacral [...] described with associated thoracic and lumbar spondylosis. Clinical Trial Educator: RENE Transcribe Date/Time: Aug 08 2021 10:07A Dictated by : DASIA RATLIFF MD This examination was interpreted and the report reviewed and electronically signed by: DASIA RATLIFF MD on Aug 08 2021 10:09AM EST [id number] N Normal [facility] XR SCOLIOSIS 2V PA STAND/LAT on [...] Number of different views (projections): 4 (accession [id number]), 2 (accession [id number]) COMPARISON: 06/18/2021 MRI RESULT: Counting reference: Lumbosacral [...] described with associated thoracic and lumbar spondylosis. Clinical Trial Educator: RENE Transcribe Date/Time: Aug 08 2021 10:07A Dictated by : DASIA RATLIFF MD This examination was interpreted and the report reviewed and electronically signed by: DASIA RATLIFF MD on Aug 08 2021 10:09AM EST [id number] N Normal [facility] MRI Lumbar Spine w/oon 06-18 MRI [...] MARY JANE HILARIO on 06/19/2021 1215 Normal [facility] Complete Blood Count with Au to Diffon 05-29-2021 Basophils (Bld) [#/Vol] 0.04 10*3/uL Normal 0.00-0.20 [facility] Specialist Comment on above: Performed By: #### T SH reflex FT4, LIPD, CBCAD, CMP #### [facility] [address], [place] [id number] Basophils/100 WBC (Bld) 0.6 % Normal N [facility] Specialist Comment on above: Performed By: #### T SH reflex FT4, LIPD, CBCAD, CMP #### [facility] [address], [place] [id number] Eosinophils (Bld) [#/Vol] 0.38 10*3/uL Normal 0.02-0.50 [facility] Specialist Comment on above: Performed By: #### T SH reflex FT4, LIPD, CBCAD, CMP #### [facility] [address], [place] [id number] Eosinophils/100 WBC (Bld) 5.5 % Normal [facility] Specialist Comment on above: Performed By: #### T SH reflex FT4, LIPD, CBCAD, CMP #### [facility] [address], [place] [id number] Erythrocyte distribution width (RBC) [Ratio] 13.4 % Normal 11.0-15.0 [facility] Specialist Comment on above: Performed By: #### T SH reflex FT4, LIPD, CBCAD, CMP #### [facility] [address], [place] [id number] Hematocrit (Bld) [Volume fraction] 44.5 % Normal 38.5-50.0 [facility] Specialist Comment on above: Performed By: #### T SH reflex FT4, LIPD, CBCAD, CMP #### [facility] [address], [place] [id number] Hemoglobin (Bld) [Mass/Vol] 14.9 g/dL Normal 13.0-17.1 [facility] Specialist Comment on above: Performed By: #### T SH reflex FT4, LIPD, CBCAD, CMP #### [facility] [address], [place] [id number] Lymphocytes (Bld) [#/Vol] 2.4 10*3/uL Normal 0.9-3.9 [facility] Specialist Comment on above: Performed By: #### T SH reflex FT4, LIPD, CBCAD, CMP #### [facility] [address], [place] [id number] Lymphocytes/100 WBC (Bld) 34.9 % Normal [facility] Specialist Comment on above: Performed By: #### T SH reflex FT4, LIPD, CBCAD, CMP #### [facility] [address], [place] [id number] MCH (RBC) [Entitic mass] 29.6 pg Normal 27.0-33.0 [facility] Specialist Comment on above: Performed By: #### T SH reflex FT4, LIPD, CBCAD, CMP #### [facility] [address], [place] [id number] MCHC (RBC) [Mass/Vol] 33.5 g/dL Normal 32.0-36.0 [facility] Comment on above: Performed By: #### T SH reflex FT4, LIPD, CBCAD, CMP #### [facility] [address], [place] [id number] MCV (RBC) [Entitic vol] 89 fL Normal 80-100 N [facility] Specialist Comment on above: Performed By: #### T SH reflex FT4, LIPD, CBCAD, CMP #### [facility] [address], [place] [id number] Monocytes (Bld) [#/Vol] 0.6 10*3/uL Normal 0.2-0.9 [facility] Comment on above: Performed By: #### T SH reflex FT4, LIPD, CBCAD, CMP #### [facility] [address], [place] [id number] Monocytes/100 WBC (Bld) 8.1 % Normal N [facility] Comment on above: Performed By: #### T SH reflex FT4, LIPD, CBCAD, CMP #### [facility] [address], [place] [id number] Neutrophils (Bld) [#/Vol] 3.5 10*3/uL Normal 1.5-7.8 [facility] Specialist Comment on above: Performed By: #### T SH reflex FT4, LIPD, CBCAD, CMP #### [facility] [address], [place] [id number] Neutrophils/100 WBC (Bld) 50.6 % Normal [facility] Comment on above: Performed By: #### T SH reflex FT4, LIPD, CBCAD, CMP #### [facility] [address], [place] [id number] Platelet mean volume (Bld) [Entitic vol] 11.20 fL Normal 7.50-12.50 [facility] Comment on above: Performed By: #### T SH reflex FT4, LIPD, CBCAD, CMP #### [facility] [address], [place] [id number] Platelets (Bld) [#/Vol] 234 10*3/uL Normal 140-400 [facility] Specialist Comment on above: Performed By: #### T SH reflex FT4, LIPD, CBCAD, CMP #### [facility] [address], [place] [id number] RBC (Bld) [#/Vol] 5.03 10*6/uL Normal 4.20-5.80 [facility] Comment on above: Performed By: #### T SH reflex FT4, LIPD, CBCAD, CMP #### [facility] [address], [place] [id number] RDW-SD 43.7 fL Normal 37.0-50.0 [facility] Specialist Comment on above: Performed By: #### T SH reflex FT4, LIPD, CBCAD, CMP #### [facility] [address], [place] [id number] WBC (Bld) [#/Vol] 6.9 10*3/uL Normal 3.8-11.0 [facility] [place] [employer] Comment on above: Performed By: #### T SH reflex FT4, LIPD, CBCAD, CMP #### [facility] [address], [place] [id number] Comprehensive Metabolic Pane luis 05-29-2021 Albumin [Mass/Vol] 4.6 g/dL Normal 3.6-5.1 [facility] rn [place] [employer] Comment on above: Performed By: #### T SH reflex FT4, LIPD, CBCAD, CMP #### [facility] [address], [place] [id number] Albumin/Globulin [Mass ratio] 2.1 {ratio} Normal 1.0-2.5 [facility] Comment on above: Performed By: #### T SH reflex FT4, LIPD, CBCAD, CMP #### [facility] [address], [place] [id number] ALP [Catalytic activity/Vol] 82 U/L Normal 40-129 [facility] [employer] Comment on above: Performed By: #### T SH reflex FT4, LIPD, CBCAD, CMP #### [facility] [address], [place] [id number] ALT [Catalytic activity/Vol] 47 U/L High 9-46 [facility] Specialist Comment on above: Result Comment: 04/23 Female reference range changed. Performed By: #### T SH reflex FT4, LIPD, CBCAD, CMP #### [facility] [address], [place] [id number] Anion gap [Moles/Vol] 20 mmol/L Normal 12-20 [facility] Specialist Comment on above: Result Comment: Effe ctive 05/29/2019 reference range changed. Performed By: #### T SH reflex FT4, LIPD, CBCAD, CMP #### [facility] [address], [place] [id number] AST [Catalytic activity/Vol] 26 U/L Normal 10-40 [facility] Comment on above: Performed By: #### T SH reflex FT4, LIPD, CBCAD, CMP #### [facility] [address], [place] [id number] Bilirubin [Mass/Vol] 0.67 mg/dL Normal 0.30-1.20 [facility] Comment on above: Performed By: #### T SH reflex FT4, LIPD, CBCAD, CMP #### [facility] [address], [place] [id number] BUN/CREA 13 Ratio Normal 6-22 [facility] Comment on above: Performed By: #### T SH reflex FT4, LIPD, CBCAD, CMP #### [facility] [address], [place] [id number] Calcium [Mass/Vol] 9.5 mg/dL Normal 8.6-10.2 [facility] Comment on above: Performed By: #### T SH reflex FT4, LIPD, CBCAD, CMP #### [facility] [address], [place] [id number] Chloride [Moles/Vol] 102 mmol/L Normal 98-107 [facility] Comment on above: Performed By: #### T SH reflex FT4, LIPD, CBCAD, CMP #### [facility] [address], [place] [id number] CO2 [Moles/Vol] 24 mmol/L Normal 20-31 [facility] Comment on above: Performed By: #### T SH reflex FT4, LIPD, CBCAD, CMP #### [facility] [address], [place] [id number] Creatinine [Mass/Vol] 1.0 mg/dL Normal 0.7-1.4 [facility] Comment on above: Performed By: #### T SH reflex FT4, LIPD, CBCAD, CMP #### [facility] [address], [place] [id number] eGFRAA 101 mL/min/1.73m2 Normal >60 [facility] Specialist Comment on above: Performed By: #### T SH reflex FT4, LIPD, CBCAD, CMP #### [facility] [address], [place] [id number] eGFRNAA 83 mL/min/1.73m2 Normal >60 [facility] Comment on above: Performed By: #### T SH reflex FT4, LIPD, CBCAD, CMP #### [facility] [address], [place] [id number] Globulin (S) [Mass/Vol] 2.2 g/dL Normal 1.9-3.7 N [facility] Comment on above: Performed By: #### T SH reflex FT4, LIPD, CBCAD, CMP #### [facility] [address], [place] [id number] Glucose [Mass/Vol] 94 mg/dL Normal 65-99 [facility] [place] [employer] Comment on above: Result Comment: For FASTING Glucose --- ADA reference ranges: Normal 65-99 mg/dl Prediabetes 100-125 Diabetes >/= 126 Performed By: #### T SH reflex FT4, LIPD, CBCAD, CMP #### [facility] [address], [place] [id number] Potassium [Moles/Vol] 4.0 mmol/L Normal 3.5-5.5 [facility] Specialist Comment on above: Performed By: #### T SH reflex FT4, LIPD, CBCAD, CMP #### [facility] [address], [place] [id number] Protein [Mass/Vol] 6.8 g/dL Normal 6.1-8.1 [facility] [place] [employer] Comment on above: Performed By: #### T SH reflex FT4, LIPD, CBCAD, CMP #### [facility] [address], [place] [id number] Sodium [Moles/Vol] 142 mmol/L Normal 135-146 [facility] [place] [employer] Comment on above: Performed By: #### T SH reflex FT4, LIPD, CBCAD, CMP #### [facility] [address], [place] [id number] Urea nitrogen [Mass/Vol] 13 mg/dL Normal 7-25 [facility] Comment on above: Performed By: #### T SH reflex FT4, LIPD, CBCAD, CMP #### [facility] [address], [place] [id number] Lipid Panelon 05-29-2021 Cholesterol [Mass/Vol] 214 mg/dL High 125-200 [facility] above: Result Comment: Low risk < 200mg/dL Borderline risk 201-239 mg/dl High risk > or equal to 240 Performed By: #### T SH reflex FT4, LIPD, CBCAD, CMP #### [facility] [address] [place] [id number] Cholesterol in HDL [Mass/Vol] 41 mg/dL Normal >40 [facility] Specialist Comment on above: Result Comment: High Cardiovascular Risk HDL <40 mg/dL Low Cardiovascular Risk HDL > or equal to 60 mg/dl Performed By: #### T SH reflex FT4, LIPD, CBCAD, CMP #### [facility] [address], [place] [id number] Cholesterol in LDL [Mass/Vol] 132 mg/dL Normal [facility] Comment on above: Result Comment: LDL ATP III CLASSIFICATION LDL less than 100 mg/dl Optimal LDL 100-129 mg/dl Near or above optimal LDL 130-159 Borderline high LDL 160-189 High LDL greater than 189 mg/dl Very High Performed By: #### T SH reflex FT4, LIPD, CBCAD, CMP #### [facility] [address], [place] [id number] Cholesterol in VLDL [Mass/Vol] 41 mg/dL Normal [facility] Comment on above: Performed By: #### T SH reflex FT4, LIPD, CBCAD, CMP #### [facility] [address], [place] [id number] Cholesterol.total/Choles terol in HDL [Mass ratio] 5 {ratio} Normal [facility] Specialist Comment on above: Performed By: #### T SH reflex FT4, LIPD, CBCAD, CMP #### [facility] [address], [place] [id number] Triglyceride [Mass/Vol] 204 mg/dL High 30-150 [facility] Comment on above: Result Comment: TRIG ATPIII CLASSIFICATIONS TRIG less than 150 mg/dl Normal TRIG 150-199 mg/dl Borderline High TRIG 200-500 mg/dl High TRIG greather than 500 mg/dl Very High Performed By: #### T SH reflex FT4, LIPD, CBCAD, CMP #### [facility] [address], [place] [id number] TSH w/ Reflex to Free T4on 0 05-29-2021 TSH 1.320 uIU/mL Normal 0.400-4.500 [facility] Comment on above: Performed By: #### T SH reflex FT4, LIPD, CBCAD, CMP #### [facility] [address], [place] [id number] Vital Signs Date Time Vital Sign Value Performing Clinician Katelynn fournier 06-10-2023 15:30-0500 Body height 180.34 cm Tone Jessica Other [employer] Other Encounters Encounter Date Encounter Type Care Provider Facility Start: 11-24-2023 End: 11-24-2023 ambulatory TEAGAN SAMIA Not Available Start: 11-15-2023 End: 11-15-2023 ambulatory CHRISTIANNE PUDLOSKI Not Available Start: 11-12-2023 End: 11-12-2023 ambulatory BRENDA WENGERD Not Available Start: 11-08-2023 End: 11-08-2023 ambulatory CHRISTIANNE PUDLOSKI Not Available Start: 11-04-2023 End: 11-04-2023 ambulatory TEAGAN SAMIA Not Available Start: 11-02-2023 End: 11-02-2023 ambulatory TEAGAN SAMIA Not Available Start: 10-29-2023 End: 10-29-2023 ambulatory BRENDA WENGERD Not Available Start: 10-26-2023 End: 10-26-2023 ambulatory CHRISTIANNE PUDLOSKI Not Available Start: 10-21-2023 End: 10-21-2023 ambulatory CHRISTIANNE PUDLOSKI Not Available Start: 10-19-2023 End: 10-19-2023 ambulatory CHRISTIANNE PUDLOSKI Not Available Start: 10-15-2023 End: 10-15-2023 ambulatory BRENDA WENGERD Not Available Start: 10-13-2023 End: 10-13-2023 ambulatory OLVIN SPARKS Not Available Start: 10-08-2023 End: 10-08-2023 ambulatory TEAGAN GRACIA Not Available Start: 08-23-2023 End: 08-24-2023 Evaluation and management of inpatient ARLENE JAVIERMER [facility] Start: 08-09-2023 End: 08-09-2023 ambulatory ARLENE POWER Not Available Start: 08-05-2023 End: 08-10-2023 ambulatory JUAN M CORBETT [facility] Start: 07-27-2023 End: 07-27-2023 ambulatory ARLENE POWER Not Available Start: 06-10-2023 End: 06-10-2023 ambulatory Tone Jessica Other [employer] Other Start: 06-10-2023 Encounter for other preprocedural examination Tone Jessica [facility] Start: 06-10-2023 Office outpatient ne w 45 minutes Tone Jessica [facility] Start: 05-11-2023 End: 05-11-2023 ambulatory ARLENE POWER Not Available Start: 05-10-2023 End: 05-11-2023 ambulatory Spencer Centeno MD Facility: [facility] Start: 04-29-2023 End: 04-29-2023 ambulatory ARLENE POWER Not Available Start: 04-28-2023 End: 04-28-2023 ambulatory Arlene Hemmer Facility:[facility] Start: 04-28-2023 End: 04-28-2023 ambulatory PA-C Arlene Hemmer Work Phone: [facility] Work Phone: Start: 04-28-2023 End: 04-28-2023 Patient encounter procedure PA-C Arlene Hemmer Work Phone: [facility] [place] Work Phone: Start: 04-09-2023 End: 04-09-2023 ambulatory ARLENE POWER Not Available Start: 03-01-2023 End: 03-02-2023 ambulatory Spencer Centeno MD Facility: [facility] Start: 02-08-2023 End: 02-09-2023 ambulatory Spencer Centeno MD Facility:[facility] Start: 01-29-2023 End: 01-29-2023 ambulatory Arlene Cristianellen Facility:[facility] Start: 01-29-2023 End: 01-29-2023 ambulatory SUBSTITUTE TEACHER-C Arlene Power Work Phone: [facility] Work Phone: Start: 01-29-2023 End: 01-29-2023 Patient encounter procedure SUBSTITUTE TEACHER-C Arlene Power Work Phone: [facility] [place] Work Phone: Start: 01-18-2023 End: 01-19-2023 ambulatory Spencer Centeno MD Facility: [facility] Start: 09-17-2022 End: 09-18-[address] [...] End: 08-06-2021 Subsequent hospital visit by physician Hi [facility] Comment on above: Degeneration of lumb ar intervertebral disc [M51.36] Procedures Date Procedure Procedure Detail Performing Clinician Start: 04-28-2023 X-ray of right knee VANESSA Power Work Phone: Start: 08-06-2021 Radex spine lumbosac ral minimum 4 views Marilyn Stallworth PA-C Work Phone: Plan of Treatment Date Care Activity Detail Author Start: 01-22-2023 Influenza vaccination INFLUENZA (#1) [facility] Start: 05-24-2022 DEPRESSION ASSESSMENT DEPRESSION ASS ESSMENT [facility] Start: 07-09-2021 COVID-19 VACCINE (3 - Booster for Malissa series) COVID-19 VACCINE (3 - Booster for Malissa series) [facility] Start: 2019 COLOGUARD (FIT-DNA) COLOGUARD (FIT-D NA) [facility] Start: 2019 Colonoscopy COLONOSCOPY [facility] Start: 2019 COLORECTAL CANCER SCREENING COLORECTAL CANCER SCREENING [facility] Start: [address] COLONOGRAPHY [facility] Start: 2019 DIABETES SCREEN DIABETES SCREEN [facility] Start: 2019 FECAL OCCULT BLOOD FECAL OCCULT BLOO D [facility] Start: 2019 SIGMOIDOSCOPY SIGMOIDOSCOPY [facility] Start: 2009 LIPID SCREEN LIPID SCREEN [facility] Start: 1993 Urine microalbumin profile DTAP,TDAP ,TD (1 - Tdap) [facility] Start: 1992 HEPATITIS C SCREENING HEPATITIS C SC REEKAYLEY [facility] Start: 1992 HIV SCREENING HIV SCREENING [facility] Start: 1974 HEPATITIS B (1 of 3 - 3-dose series) HEPATITIS B (1 of 3 - 3-dose series) [facility] Payers Date Payer Category Payer Self-pay [id number] 2017 Unknown [id number]. [id number] 1974 Unknown [id number] 2.16.840.1.820269.3.579.2.593 1974 Unknown [id number] 2.16.840.1.775778.3.579.2.593 1974 Unknown [id number] 2.16.840.1.873773.3.579.2.593 1974 Unknown [id number] 2.16.840.1.887595.3.579.2.593 1974 Unknown [id number] 2.16.840.1.604436.3.579.2.593 1974 Unknown [id number] 2.16.840.1.588856.3.579.2.593 1974 Unknown [id number] 2.16.840.1.272814.3.579.2.593 1974 Unknown [id number] 2.16.840.1.285981.3.579.2.593 1974 Unknown [id number] 2.16.840.1.091447.3.579.2.593 1974 Unknown [id number] 2.16.840.1.013271.3.579.2.196 1974 Unknown [id number] 2.16.840.1.452069.3.579.2.196 1974 Unknown [id number] 2.16.840.1.468144.3.579.2.196 1974 Unknown [id number] 2.16.840.1.713328.3.579.2.196 1974 Unknown [id number] 2.16.840.1.143368.3.579.2.177 1974 Unknown [id number] 2.16.840.1.291498.3.579.2.177 1974 Unknown [id number] 2.16.840.1.317898.3.579.2.1259 1974 Unknown [id number] 2.16.840.1.569835.3.579.2.1258 1974 Unknown [id number] 2.16.840.1.774246.3.579.2.1258 1974 Unknown [id number] 2.16.840.1.581179.3.579.2.1258 1974 Unknown [id number] 2.16.840.1.031243.3.579.2.1258 1974 Unknown [id number] 2.16.840.1.424532.3.579.2.1258 1974 Unknown [id number] 2.16.840.1.936803.3.579.2.1258 1974 Unknown [id number] 2.16.840.1.101007.3.579.2.1258 1974 Unknown [id number] 2.16.840.1.918907.3.579.2.1258 1974 Unknown [id number] 2.16.840.1.976559.3.579.2.1258 1974 Unknown [id number] 2.16.840.1.541676.3.579.2.1258 1974 Unknown [id number] 2.16.840.1.679908.3.579.2.1258 1974 Unknown [id number] 2.16.840.1.693468.3.579.2.1258 1974 Unknown [id number] 2.16.840.1.016086.3.579.2.1258 1974 Unknown [id number] 2.16.840.1.407439.3.579.2.1258 1974 Unknown [id number] 2.16.840.1.835031.3.579.2.1258 1974 Unknown [id number] 2.16.840.1.527313.3.579.2.1258 1974 Unknown [id number] 2.16.840.1.638104.3.579.2.1258 1959 Unknown [id number] Private Health Insurance [employer] [id number] Unknown [id number] 2.16.840.1.058431.3.579.2.531 Unknown [id number] 2.16.840.1.565083.3.579.2.531 Social History Date Type Detail Facility [facility] Start: 07-04-2019 Tobacco use and exposure Smoke less tobacco non-user [facility] Start: 08-01-2021 Alcohol intake Current drinke r of alcohol (finding) [facility] Start: 04-28-2020 End: 08-01-2021 History of Social function [facility] Start: 04-28-2020 End: 08-01-2021 Tobacco use panel [facility] Adult Depression Screening Assessment 0 [facility] Start: 02-12-2016 [facility] Start: 1975 Sex Assigned At Male C [facility] Start: 07-29-2021 Gender identity Identifies as male gender (finding) [facility] Start: 07-29-2021 Sexual orientation Heterosexual (fin ding) [facility] Clinical Notes 01-22-2011 to 06-10-2023 Note Date [...] M17.11) May, Pre-op exam (ICD-10 - Z01.818) [employer] Other 04-27-2023 NoteCONSULTATION PROCEDURE DATE: 09/17/2022 PROCEDURE: [...] reduction in pain symptoms. IMMEDIATE COMPLICATIONS: None.[id number] NoteCONSULTATION PROCEDURE DATE: 06/18/2022 PREOPERATIVE DIAGNOSIS: Left [...] will be followed up in the office.[facility] [id number] NoteCONSULTATION CONSULTATION DATE: 06/11/2022 HISTORY OF PRESENT [...] with this plan and all questions answered.[facility] [id number] NoteCONSULTATION PROCEDURE DATE: 03/19/2022 PREOPERATIVE DIAGNOSIS: Left [...] up in the office in three months.[facility] [id number] Note CONSULTATION CONSULTATION DATE: 02/19/2022 HISTORY OF [...] of care and would like to proceed.[facility] [id number] NoteCONSULTATION PROCEDURE DATE: 12/17/2021 PREOPERATIVE DIAGNOSIS: Left [...] followed up in the clinic for re-evaluation.[facility] [id number] NoteCONSULTATION CONSULTATION DATE: 11/27/2021 This is a [...] of care and would like to proceed. [facility] Signed and Approved by: JOSE MOSLEY . 12/04/2021 09:49:00[facility]05-12-2022 NoteCONSULTATION CONSULTATION DATE: 10/02/2021 HISTORY: This is [...] of care and would like to proceed. [facility] Signed and Approved by: JOSE MOSLEY . 10/09/2021 17:09:00[facility]03-16-2022 NoteHNO ID: [id number] Author: RT Linda(R) Service: ? Author Type: [...] BY: RT Linda(R) August 06, 2021 12:16 [facility]03-11-2022 NoteHNO ID: [id number] Author: Marilyn Stallworth PA-C Service: ? Author Type: Physician Aluminum Hydroxide Process Operator Type: Progress Notes Filed: 08/01/2021 10:58 [...] use: No ALLERGIES No Known Allergies MEDICATIONS: vlficjjz-rmoqkqugz-psdnlifuvylzli (CORTISPORIN) 3.5-10,000-1 mg/mL-unit/mL-% otic suspension PLACE FOUR [...] lumbosacr (more content not included)... [facility]02-11-2022 NoteHNO ID: [id number] Author: Sheeba Montes PA-C Service: ? Author Type: Physician Al[employer] Process Operator Type: Progress Notes Filed: 07/04/2021 4:34 [...] sure patient imaging is available for review. [facility]02-10-2022 NoteHNO ID: [id number] Author: Sekou Braswell Service: ? Author Type: ? Type: Progress Notes Filed: 07/04/2021 4:34 PM Note Text: Patient name: Ophelia Cruz Are you being referred by a [place] for Spine Health Provider or Pain Management Provider at [facility]? No If answer is YES please [...] the facility where the MRI/CT/myelogram was completed: [facility] Address: [address] [place] [address] [address], [place] [address] MRI/CT/myelogram viewable in Epic: No If not, please provide [phone] to fax in imaging reports for review. [...] injections and/or physical therapy was completed [facility] Address: [address] [place] [address] [address], [place] [address] Have you tried any other kinds of non-surgical treatments in the last 12 months? (For example: NSAIDS, muscle relaxants, analgesics, oral steroids, Chiropractor, Acupuncture): Yes Acupuncture oral steroids, Chiropractor [facility] Address: [address], [place] [address] 4. Are you currently taking daily prescribed narcotic medications for your current symptoms (For example Oxycodone, Hydrocodone, Tramadol, Morphine, Other)? No 5. Have you had previous spinal surgery for this same symptoms? No If YES? please ask for the name of facility/address of where the surgery was completed: No Additional Comments [phone] (Home Phone)[facility] 01-22-2011 History general Narrative - Reported* Type Description Date Medical History hypercholesterolemia Medical History Esophageal reflux Medical History allergic rhinitis Medical History abscess tooth 01/2011 Medical History Pertussis, May 2013 Surgical History ACL L knee 96 Surgical History tonsilectomy Surgical History vasectomy 03 Hospitalization History see above surgeries [employer] Other Evaluation note* Diagnosis Degeneration of lumbar intervertebral disc Degeneration of lumbar or lumbosacral intervertebral disc Scoliosis of lumbosacral spine, unspecified scoliosis type Degeneration of lumbar or lumbosacral intervertebral disc documented in this [facility] noteNo assessment information availableAultman [facility] Work Phone: Reason for referral (narrative)* Diagnostic Procedure Only (Routine) - Closed Specialty Diagnoses / Procedures Referred By Ezekiel de la fuente Referred To Contact XR IMAGING Diagnoses Degeneration of lumbar intervertebral disc Scoliosis of lumbosacral spine, unspecified scoliosis type Degeneration of lumbar or lumbosacral intervertebral disc Procedures XR LUMBAR MOTION 4V AP/LAT/ FLEX/EXT RADEX SPINE LUMBOSACRAL MINIMUM 4 VIEWS Marilyn Stallworth PA-C [address] [place] [address] Xr Imaging Referral ID Status Reason Start Date Expiration Date V isits Requested Visits Authorized [id number] Closed Auto-Generate d Referral 08/01/2021 08/31/2022 1 [...] SPI W/SKULL 2/3 VW Marilyn Stallworth PA-C [address] [place] [address] Xr Imaging Referral ID Status Reason Start Date Expiration Date V isits Requested Visits Authorized [id number] Closed Auto-Generate d Referral 08/01/2021 08/31/2022 1 1 [facility] for visit Narrative* Diagnostic Procedure Only (Routine) - Closed Specialty Diagnoses / Procedures Referred By Ezekiel t Referred To Contact XR IMAGING Diagnoses Degeneration of lumbar intervertebral disc Scoliosis of lumbosacral spine, unspecified scoliosis type Degeneration of lumbar or lumbosacral intervertebral disc Procedures XR LUMBAR MOTION 4V AP/LAT/ FLEX/EXT RADEX SPINE LUMBOSACRAL MINIMUM 4 VIEWS Marilyn Stallworth PA-C [address] [place] [address] Xr Imaging Referral ID Status Reason Start Date Expiration Date V isits Requested Visits Authorized [id number] Closed Auto-Generate d Referral 08/01/2021 08/31/2022 1 1 [facility] Summary Purpose Family History No Family History [...] content) DATE CREATED AUTHOR 08/12/2021 [facility] DATE CREATED AUTHOR AUTHOR'S ORGANIZ ATION 11/13/2021 [facility] Special[facility] DATE CREATED AUTHOR AUTHOR'S ORGANIZ ATION 09/21/2022 [facility] DATE CREATED AUTHOR AUTHOR'S ORGANIZ ATION 05/06/2023 [facility] DATE CREATED AUTHOR AUTHOR'S ORGANIZ ATION 05/14/2023 [facility] DATE CREATED AUTHOR AUTHOR'S ORGANIZ ATION 08/25/2023 [facility] DATE CREATED AUTHOR AUTHOR'S ORGANIZ ATION 11/25/2023 [facility] dical Specialists EPIC Source Comments (unrecognize d section and content) In the event this informatio n is protected by the Federal Confidentiality of Alcohol and Drug Abuse Patient Records regulations: The Federal rules restrict any use of the information to criminally investigate or prosecute any alcohol or drug abuse patient.[facility] Care Teams (unrecognized sec tion and content) Food Preservation Scientist Relationship Specialty Start Date End Date Arlene Power PCP - General Family Medicine 01/10/16 Team Status: Inactive Member Role Status Dates MENDOZA Treadwell Attending Provider Active Team Status: Active Member Role Status Dates Arlene Power PA-C Primary Care Provider Active Team Status: Inactive Member Role Status Dates Arlene Power PA-C Primary Care Provider, Price walter Active Goals (unrecognized section and content) [...] BE BASED ON THE PRIMARY CLINICAL RECORDS. [employer] [facility]. provides no warranty or guarantee of the accuracy or completeness of information in this document.
--- NOTE | 2024-01-06 09:49 | P.CN_ITS ---
Consult Note: HPI Data of Consult Patient: known to practice within the last 3 years Requesting Physician: Lorena Santana NP Primary Care Provider: TELLO POWER Consult Narrative Reason for consult: f/u Narrative: Ophelia Cruz a pleasant 47 year old male presents for evaluation and management of chronic back pain. Patient following with NS, phe had his TLIF with fusion at unknown levels completed by Dr Cummings 08/23/23. Since the surgery patient has had no low back or left leg pain. Patient occasionally utilizes robaxin 500- 750mg for spasms. Patient completed post-op PT and ALISHA 0%. Patient very pleased. cc:: CC: Lorena Santana NP Review of Systems ROS Status of ROS 10 or more systems reviewed and unremark able except as noted in history and below Meds Home Medications and Allergies Home Medications ?Medication ?Instructions ?Recorded ?Confirmed ?Type albuterol 90 mcg/actuation aerosol 90 mcg inhalation PRN shortness of 01/11/23 History inhaler breath or wheezing diclofenac sodium 50 mg 100 mg PO Q12H 01/11/23 05/10/23 History tablet,delayed release esomeprazole magnesium 40 mg 40 mg PO Q24H 01/11/23 05/10/23 History capsule,delayed release fluticasone propionate 50 1 spray intranasal DAILY PRN 01/11/23 05/10/23 History mcg/actuation nasal allergy symptoms spray,suspension (24 Hour Allergy Relief) loratadine 5 mg-pseudoephedrine ER 1 tab PO Q12H 01/11/23 05/10/23 History 120 mg tablet,extended release,12hr (Claritin-D 12 Hour) losartan 100 mg tablet 100 mg PO DAILY 01/11/23 05/10/23 History olopatadine 0.2 % eye drops 1 drp ophthalmic (eye) DAILY 01/11/23 05/10/23 History (Pataday Once Daily Relief) olopatadine 0.6 % nasal spray 2 spray intranasal BID 01/11/23 05/10/23 History (Patanase) amlodipine 5 mg tablet 5 mg PO DAILY 01/18/23 05/10/23 History metoprolol succinate 25 mg capsule 25 mg PO DAILY 01/18/23 05/10/23 History sprinkle, ext. release 24 hr (Kapspargo Sprinkle) methocarbamol 500 mg tablet 500 mg PO BID 02/08/23 05/10/23 History diclofenac sodium 50 mg 50 mg PO TID PRN pain #90 tabs 03/22/23 05/10/23 Rx tablet,delayed release Allergies Allergy/AdvReac Type Severity Reaction Status Date / Time No Known Drug Allergies Allergy Verified 03/01/23 07:43 Exam Constitutional Documenting provider has reviewed patient's vital signs: yes Common normals: no apparent distress, oriented x3, healthy appearing, alert and well nourished General appearance: cooperative HENMT Common normals: normocephalic, hearing grossly normal bilaterally and moist oral mucous membranes Head and scalp: normocephalic Eye Common normals: PERRL Pupil: PERRL Neck & C-Spine Common normals: full ROM General: normal visual inspection Chest Common normals: inspection of chest normal Respiratory Common normals: normal respiratory effort, no retractions and no use of accessory muscles Back & Pelvis Lumbar spine/lower back: normal to inspection, lumbar ROM normal and straight leg raise negative bilaterally Other: strength 5/5 in BLE sensation intact BLE Neuro Common normals: oriented x3, CN's II-XII intact bilaterally, moves all extremities, no focal motor deficits, no sensory deficits noted and deep tendon reflexes 2+ bilaterally Sensorium/orientation: alert Motor exam: strength 5/5 throughout and no movement abnormalities noted Psych Common normals: mental status grossly normal, thought process normal, cooperative, affect normal, speech normal and activity/motor behavior normal Speech: normal speech Thought process: normal thought process Results Additional Findings Additional findings: If on a controlled substance or opioids, I have checked an [place]AR[place] report on this patient and there are no aberrancies noted in the prescribing history.??If on a controlled substance or opioid a drug screen was completed and reviewed within the last year, and if there has not been a drug screen completed we ordered one today to monitor higher risk, state monitored pain medication use. As part of providing excellent, safe, comprehensive care, the following was completed at our patient's visit: 1. A medication reconciliation and review to ensure accurate knowledge of current/active medications, including asking our patients to inform us about any [id number] medications or herbal remedies/nutritional supplements/alternative remedies. 2. A review to specifically ensure our patients have had annual screening for screening for depression, screening for tobacco use, and screening for unhealthy alcohol use. For concerning screenings had a discussion with the patient, provided patient education, and recommended follow-up with primary care provider when appropriate. If patient noted with a risk of falling, they received education on strength, gait, and balance training to prevent future risk of falling. Assessment and Plan Assessment and Plan (1) Chronic low back pain: (2) Myofascial pain: Plan refill/continue robaxin 500-750mg BID PRN pain/spasms. can request from PCP in the future f/u as needed
== END 2024-01-06 09:22 | disposition home or self-care (01) ==
PROVIDERS: PCP Physician Assistant; Visit Provider Nurse Practitioner
DX: M54.50 Low back pain, unspecified (principal); M79.18 Myalgia, other site
CPT/HCPCS: G0463

== ENCOUNTER 2024-02-09 10:02 | Outpatient (OUT) | payer BC, SELFPAY ==
--- OUTSIDE RECORDS SUMMARY | 2024-02-09 10:25 | XMS_ITS | CCD ---
Author Organization [facility] Care Team Providers Care Pole Incisor Operator Name Role Phone ALVARADO ., DR ABRAN [...] ., DR ABRAN Mosquera Attending Unavailable RICHMOND ROSSA Consulting Unavailable HEMMER, DR ARLENE Womack Consulting Unavailable HemArlene cartagena Primary Care Provider Hemosiel, DRUM SEALER-C Arlene Attending Provider [phone] Hemosiel, DRUM SEALER-C Arlene Attending Provider [phone] Hemosiel, VANESSAC Arlene Primary Care Provider [phone] Hemosiel, VANESSAC Arlene Attending Provider [phone] Jannet Arlene Admitting Unavailable Hemosiel Arlene Primary Care Unavailable HemArlene cartagena Attending Unavailable HemArlene cartagena Admitting Unavailable Hemosiel, Arlene Attending Unavailable Giedraitis , Andmaría Vicente Attending Unavailable Giedraitis , Andrius Cinthia Attending Unavailable Jacobo RESENDIZ, Andrius Vytjessica Attending Unavailable Giedrajean paul RESENDIZ, Andrius Vytjessica Attending Unavailable Tone Jessica Unavailable JANNET, ARLENE M Primary Care Unavailable ENRIQUE COFFEY Consulting Unavailable KRISTOF, JUAN M Attending Unavailable KRISTOF, JUAN M Admitting Unavailable ROWENA HAYNES Consulting Unavailable KRISTOF, JUAN M Referring Unavailable CONCEPCIONOSIEL ARLENE M Primary Care Unavailable ARLENE POWER Attending Unavailable HEMARLENE CARTAGENA Attending Unavailable HEMARLENE CARTAGENA Attending Unavailable SAMIA, TEAGAN Attending Unavailable KRISTOF, JUAN M A Referring Unavailable OLVIN SPARKS Attending Unavailable KRISTOF, JUAN M A Referring Unavailable BRENDA MATHEW Attending Unavailable KRISTOF, JUAN M A Referring Unavailable CHRISTIANNE MARCH Attending Unavailable KRISTOF, JUAN M A Referring Unavailable PUDLOSCHRISTIANNE ARAUJO Attending Unavailable KRISTOF, JUAN M A Referring Unavailable PUDLOSKI, CHRISTIANNE Attending Unavailable KRISTOF, JUAN M A Referring Unavailable BRENDA MATHEW Attending Unavailable KRISTOF, JUAN M A Referring Unavailable SAMIA TEAGAN Attending Unavailable KRISTOF, JUAN M A Referring Unavailable SAMIA TEAGAN Attending Unavailable KRISTOF, JUAN M A Referring Unavailable PUDLOSGAYLE CHRISTIANNE Attending Unavailable KRISTOF, JUAN M A Referring Unavailable BRENDA MATHEW Attending Unavailable KRISTOF, JUAN M A Referring Unavailable CHRISTIANNE MARCH Attending Unavailable KRISTOF, JUAN M A Referring Unavailable TEAGAN GRACIA Attending Unavailable JUAN M CORBETT Referring Unavailable ARLENE POWER Attending Unavailable ARLENE POWER Attending Unavailable ARLENE POWER Referring Unavailable Allergies Allergy Classification Reported Allergen(s) Allergy Type Date of Onset Reaction(s) Facility (1 source) cats,horses hay Propensity to adverse reactions sinus drainage [employer]Leaf Other Medications Current Medications Medication Drug Class(es) [...] Drug Class(es) Dates Sig (Normalized) Sig (Original) [id number] 200 actuat albuterol 0.09 mg/actuat metered dose [...] on above: Take 1 capsule by mo [facility] once daily. fluticasone propionate 0.05 mg/actuat [...] 08-23 Anion gap [Moles/Vol] 12 mmol/L Normal -17 [facility] Comment on above: Performed By: #### B KOMAL, CDP #### [facility] [address] [facility] [facility] [place], [place] [id number] Electron Beam Machine Welder Setter: Panchito Harper MD BUN/CRE Ratio 20 Normal - [facility] Comment on above: Performed By: #### B KOMAL, CDP #### [facility] [address] [place] [address] Electron Beam Machine Welder Setter: Panchito Harper MD Calcium [Mass/Vol] 9.0 mg/dL Normal 8.6-10.4 [facility] Comment on above: Performed By: #### B KOMAL, CDP #### [facility] [address] [place] [address] Electron Beam Machine Welder Setter: Panchito Harper MD Chloride [Moles/Vol] 106 mmol/L Normal 98-107 [facility] Comment on above: Performed By: #### B MP, CDP #### [facility] [address] [place] [address] Electron Beam Machine Welder Setter: Panchito Harper MD CO2 [Moles/Vol] 24 mmol/L Normal 20-31 [facility] Comment on above: Performed By: #### B KOMAL, CDP #### [facility] [address] [place] [address] Electron Beam Machine Welder Setter: Panchito Harper MD Creatinine [Mass/Vol] 0.7 mg/dL Normal 0.7-1.2 [facility] Comment on above: Performed By: #### B KOMAL, CDP #### [facility] [address] [facility] [place] [address] Electron Beam Machine Welder Setter: Panchito Harper MD GFR/1.73 sq M.predicted among non-blacks MDRD (S/P/Bld) [Vol rate/Area] mL/min/{1.73_m2} Normal >60 [facility] Comment on above: Result Comment: These [...] Performed By: #### B KOMAL, CDP #### [facility] [address] [place] [address] Electron Beam Machine Welder Setter: Panchito Harper MD Glucose [Mass/Vol] 141 mg/dL High 70-99 [facility] Comment on above: Performed By: #### B KOMAL, CDP #### [facility] [address] [place] [address] [employer]am Machine Welder Setter: Panchito Harper MD Potassium [Moles/Vol] 4.4 mmol/L Normal 3.7-5.3 [facility] Comment on above: Performed By: #### B KOMAL, CDP #### [facility] [place] [address] Electron Beam Machine Welder Setter: Panchito Harper MD Sodium [Moles/Vol] 142 mmol/L Normal 135-144 [facility] Comment on above: Performed By: #### B KOMAL, CDP #### [facility] [address] [place] [address] [employer] Machine Welder Setter: Panchito Harper MD Urea nitrogen [Mass/Vol] 14 mg/dL Normal 6-20 [facility] Comment on above: Performed By: #### B KOMAL, CDP #### [facility] [address] [place] [address] Electron [employer] Machine Welder Setter: Panchito Harper MD CBC with Diffon 08-24-2023 Abs. Basophil <0.03 Normal 0.00-0.20 [facility] Comment on above: Performed By: #### B KOMAL, CDP #### [facility] [facility] [place] [address] Electron Beam Machine Welder Setter: Panchito Harper MD Abs. Eosinophil <0.03 Normal 0.00-0.44 [facility] Comment on above: Performed By: #### B KOMAL, CDP #### [facility] [facility] [address] Electron Beam Machine Welder Setter: Panchito Harper MD Abs.Imm.Granulocyte 0.15 k/uL Normal 0.00-0.30 [facility] Comment on above: Performed By: #### B KOMAL, CDP #### [facility] [address] [facility] [place] [address] Electron Beam Machine Welder Setter: Panchito Harper MD Abs.Neutrophil (Seg) 16.42 k/uL High 1.50-8.10 [facility] Comment on above: Performed By: #### B KOMAL, CDP #### [facility] [address] [facility] [address] Electron Beam Machine Welder Setter: Panchito Harper MD Basophils/100 WBC (Bld) 0 % Normal 0-2 [facility] Comment on above: Performed By: #### B KOMAL, CDP #### [facility] [address] [place] [address]. [place] [address] Electron Beam Machine Welder Setter: Panchito Harper MD Eosinophils/100 WBC (Bld) 0 % Low 1-4 [facility] Comment on above: Performed By: #### B KOMAL, CDP #### [facility] [place] [address] Electron Beam Machine Welder Setter: Panchito Harper MD Erythrocyte distribution width (RBC) [Ratio] 12.5 % Normal 11.8-14.4 [facility] Comment on above: Performed By: #### B KOMAL, CDP #### [facility] [facility] [place] [address] Electron Beam Machine Welder Setter: Panchito Harper MD Hematocrit (Bld) [Volume fraction] 40.0 % Low 40.7-50.3 [facility] Comment on above: Performed By: #### B KOMAL, CDP #### [facility] [facility] [place] [address] Electron Beam Machine Welder Setter: Panchito Harper MD Hemoglobin (Bld) [Mass/Vol] 13.4 g/dL Normal 13.0-17.0 [facility] Comment on above: Performed By: #### B MP, CDP #### [facility] [facility] [address] Electron Beam Machine Welder Setter: Panchito Harper MD Immature granulocytes/100 WBC (Bld) 1 % High 0 [facility] Comment on above: Performed By: #### B MP, CDP #### [facility] [address] [place] [address] Electron Beam Machine Welder Setter: Panchito Harper MD Lymphocytes (Bld) [#/Vol] 0.99 10*3/uL Low 1.10-3.70 [facility] Comment on above: Performed By: #### B MP, CDP #### [facility] [address] [place] [address] Electron Be[employer] Machine Welder Setter: Panchito Harper MD Lymphocytes/100 WBC (Bld) 5 % Low 24-43 [facility] Comment on above: Performed By: #### B MP, CDP #### [facility] [address] [place] [address] Electron Beam Machine Welder Setter: Panchito Harper MD MCH (RBC) [Entitic mass] 30.1 pg Normal 25.2-33.5 [facility] Comment on above: Performed By: #### B MP, CDP #### [facility] [address] [place] [address] Electron Beam Machine Welder Setter: Panchiot Harper MD MCHC (RBC) [Mass/Vol] 33.5 g/dL Normal 28.4-34.8 [facility] Comment on above: Performed By: #### B MP, CDP #### [facility] [address] [place] [address] Electron Beam Machine Welder Setter: Panchito Harper MD MCV (RBC) [Entitic vol] 89.9 fL Normal 82.6-102.9 [facility] Comment on above: Performed By: #### B MP, CDP #### [facility] [facility] [address] Electron Beam Machine Welder Setter: Panchito Harper MD Monocytes (Bld) [#/Vol] 0.82 10*3/uL Normal 0.10-1.20 [facility] Comment on above: Performed By: #### B MP, CDP #### [facility] [facility] [address] Electron Beam Machine Welder Setter: Panchito Harper MD Monocytes/100 WBC (Bld) 5 % Normal 3-12 [facility] Comment on above: Performed By: #### B MP, CDP #### [facility] [address] [place] [address]. [place] [address] Electron Beam Machine Welder Setter: Panchito Harper MD Neutrophil (Seg) 89 % High 36-65 [facility] Comment on above: Performed By: #### B MP, CDP #### [facility] [address] [place] [address]. [place] [address] Electron Beam Machine Welder Setter: Panchito Harper MD NRBC Automated 0.0 per 100 WBC Normal 0.0 [facility] Comment on above: Performed By: #### B MP, CDP #### [facility] [place] [address] Electron Beam Machine Welder Setter: Panchito Harper MD Platelet mean volume (Bld) [Entitic vol] 11.1 fL Normal 8.1-13.5 [facility] Comment on above: Performed By: #### B MP, CDP #### [facility] [address] [place] [address]. [place] [address] Electron Beam Machine Welder Setter: Panchito Harper MD Platelets (Bld) [#/Vol] 289 10*3/uL Normal 138-453 [facility] Comment on above: Performed By: #### B MP, CDP #### [facility] [address] [place] [address] Electron Beam Machine Welder Setter: Panchito Harper MD RBC (Bld) [#/Vol] 4.45 10*6/uL Normal 4.21-5.77 [facility] Comment on above: Performed By: #### B MP, CDP #### [facility] [address] [facility] [address] Electron Beam Machine Welder Setter: Panchito Harper MD WBC (Bld) [#/Vol] 18.4 10*3/uL High 3.5-11.3 [facility] Comment on above: Performed By: #### B MP, CDP #### [facility] [address] [facility] [place] [address] Electron Beam Machine Welder Setter: Panchito Harper MD FLUORO FOR SURGICAL PROCEDUR ESon 08-23-2023 FLUORO FOR SURGICAL PROCEDURES Radiology exam is complete. No Radiologist dictation. Please follow up with ordering provider. Final result Normal [facility] Cult,Urineon 08-06-2023 Cult,Urine Specimen Description .CLEAN CATCH URINE Culture NO SIGNIFICANT GROWTH Report Status FINAL 08/06/2023 Normal [facility] Comment on above: Performed By: #### U RC #### [facility] [address] [place] [address] Electron Beam Machine Welder Setter: Panchito Harper MD [address] [id number] Electron Beam Machine Welder Setter: Farhad Milton MD MRSA, DNA, Nasalon MRSA, DNA, Nasal Negative Normal NEG [facility] Comment on above: Result Comment: NEGA TIVE: MRSA DNA not detected by nucleic acid amplification. Results should be used as an adjunct to nosocomial control efforts to identify patients needing enhanced precautions. The test is not intended to identify patients with staphylococcal infections. Results should not be used to guide or monitor treatment for MRSA infections. Performed By: #### M RSANO #### [facility] [address] [place] [address] Electron Beam Machine Welder Setter: Panchito Harper MD [address] [id number] Electron Beam Machine Welder Setter: Farhad Milton MD APTTon 08-05-2023 aPTT Coag (Bld) [Time] 28.6 s Normal 23.9-33.8 [facility] Comment on above: Result Comment: IV Heparin Therapy Range: 62.0-94.0 Performed By: #### C DP, PTT, PT, BMP #### [facility] [address] [place] [address] Electron Beam Machine Welder Setter: Panchito Harper MD Basic Metabolic Profon 08-04 Anion gap [Moles/Vol] 7 mmol/L Low 9-17 [facility] Comment on above: Performed By: #### C DP, PTT, PT, BMP #### [facility] [address] [place] [address] Electron Beam Machine Welder Setter: Panchito Harper MD BUN/CRE Ratio 26 High 9-20 [facility] Comment on above: Performed By: #### C DP, PTT, PT, BMP #### [facility] [address] [place] [address] Electron Beam Machine Welder Setter: Panchito Harper MD Calcium [Mass/Vol] 9.1 mg/dL Normal 8.6-10.4 [facility] Comment on above: Performed By: #### C DP, PTT, PT, BMP #### [facility] [place] [address] Electron Beam Machine Welder Setter: Panchito Harper MD Chloride [Moles/Vol] 106 mmol/L Normal 98-107 [facility] Comment on above: Performed By: #### C DP, PTT, PT, BMP #### [facility] [address] [place] [address] Electron Beam Machine Welder Setter: Panchito Harper MD CO2 [Moles/Vol] 30 mmol/L Normal 20-31 [facility] Comment on above: Performed By: #### C DP, PTT, PT, BMP #### [facility] [address] [place] [address] Electron Beam Machine Welder Setter: Panchito Harper MD Creatinine [Mass/Vol] 0.8 mg/dL Normal 0.7-1.2 [facility] Comment on above: Performed By: #### C DP, PTT, PT, BMP #### [facility] [address] [place] [address]. [place] [address] Electron Beam Machine Welder Setter: Panchito Harper MD GFR/1.73 sq M.predicted among non-blacks MDRD (S/P/Bld) [Vol rate/Area] mL/min/{1.73_m2} Normal >60 [facility] Comment on above: Result Comment: These [...] #### C DP, PTT, PT, BMP #### [facility] [place] [address] Electron Beam Machine Welder Setter: Panchito Harper MD Glucose [Mass/Vol] 77 mg/dL Normal 70-99 [facility] Comment on above: Performed By: #### C DP, PTT, PT, BMP #### [facility] [address] [facility] [place] [address] Electron Beam Machine Welder Setter: Panchito Harper MD Potassium [Moles/Vol] 3.9 mmol/L Normal 3.7-5.3 [facility] Comment on above: Performed By: #### C DP, PTT, PT, BMP #### [facility] [place] [address] Electron Beam Machine Welder Setter: Panchito Harper MD Sodium [Moles/Vol] 143 mmol/L Normal 135-144 [facility] Comment on above: Performed By: #### C DP, PTT, PT, BMP #### [facility] [address] [place] [address] Electron [employer] Machine Welder Setter: Panchito Harper MD Urea nitrogen [Mass/Vol] 21 mg/dL High 6-20 [facility] Comment on above: Performed By: #### C DP, PTT, PT, BMP #### [facility] [address] [place] [address] Electron Beam Machine Welder Setter: Panchito Harper MD CBC with Diffon 08-05-2023 Abs. Basophil 0.03 k/uL Normal 0.00-0.20 [facility] Comment on above: Performed By: #### C DP, PTT, PT, BMP #### [facility] [address] [place] [address] Electron Beam Machine Welder Setter: Panchito Harper MD Abs.Imm.Granulocyte 0.02 k/uL Normal 0.00-0.30 [facility] Comment on above: Performed By: #### C DP, PTT, PT, BMP #### [facility] [address] [place] [address] Electron Beam Machine Welder Setter: Panchito Harper MD Abs.Neutrophil (Seg) 3.31 k/uL Normal 1.50-8.10 [facility] Comment on above: Performed By: #### C DP, PTT, PT, BMP #### [facility] [address] [place] [address] Electron Beam Machine Welder Setter: Panchito Harper MD Basophils/100 WBC (Bld) 1 % Normal 0-2 [facility] Comment on above: Performed By: #### C DP, PTT, PT, BMP #### [facility] [address] [place] [address] Electron Beam Machine Welder Setter: Panchito Harper MD Eosinophils (Bld) [#/Vol] 0.36 10*3/uL Normal 0.00-0.44 [facility] Comment on above: Performed By: #### C DP, PTT, PT, BMP #### [facility] [address] [place] [address] Electron Beam Machine Welder Setter: Panchito Harper MD Eosinophils/100 WBC (Bld) 6 % High 1-4 [facility] Comment on above: Performed By: #### C DP, PTT, PT, BMP #### [facility] [address] [place] [address] Electron Beam Machine Welder Setter: Panchito Harper MD Erythrocyte distribution width (RBC) [Ratio] 12.8 % Normal 11.8-14.4 [facility] Comment on above: Performed By: #### C DP, PTT, PT, BMP #### [facility] [address] [place] [address] Electron Beam Machine Welder Setter: Panchito Harper MD Hematocrit (Bld) [Volume fraction] 38.9 % Low 40.7-50.3 [facility] Comment on above: Performed By: #### C DP, PTT, PT, BMP #### [facility] [address] [place] [address] Electron Beam Machine Welder Setter: Panchito Harper MD Hemoglobin (Bld) [Mass/Vol] 13.0 g/dL Normal 13.0-17.0 [facility] Comment on above: Performed By: #### C DP, PTT, PT, BMP #### [facility] [place] [address] Electron Beam Machine Welder Setter: Panchito Harper MD Immature granulocytes/100 WBC (Bld) 0 % Normal 0 [facility] Comment on above: Performed By: #### C DP, PTT, PT, BMP #### [facility] [address] [place] [address] Electron Beam Machine Welder Setter: Panchito Harper MD Lymphocytes (Bld) [#/Vol] 1.60 10*3/uL Normal 1.10-3.70 [facility] Comment on above: Performed By: #### C DP, PTT, PT, BMP #### [facility] [address] [place] [address] Electron Beam Machine Welder Setter: Panchito Harper MD Lymphocytes/100 WBC (Bld) 28 % Normal 24-43 [facility] Comment on above: Performed By: #### C DP, PTT, PT, BMP #### [facility] [address] [place] [address] Electron Beam Machine Welder Setter: Panchito Harper MD MCH (RBC) [Entitic mass] 30.4 pg Normal 25.2-33.5 [facility] Comment on above: Performed By: #### C DP, PTT, PT, BMP #### [facility] [address] [place] [address] Electron Beam Machine Welder Setter: Panchito Harper MD MCHC (RBC) [Mass/Vol] 33.4 g/dL Normal 28.4-34.8 [facility] Comment on above: Performed By: #### C DP, PTT, PT, BMP #### [facility] [address] [facility] [place] [address] Electron Beam Machine Welder Setter: Panchito Harper MD MCV (RBC) [Entitic vol] 90.9 fL Normal 82.6-102.9 [facility] Comment on above: Performed By: #### C DP, PTT, PT, BMP #### [facility] [place] [address] Electron Beam Machine Welder Setter: Panchito Harper MD Monocytes (Bld) [#/Vol] 0.44 10*3/uL Normal 0.10-1.20 [facility] Comment on above: Performed By: #### C DP, PTT, PT, BMP #### [facility] [address] [place] [address]. [place] [address] Electron Beam Machine Welder Setter: Panchito Harper MD Monocytes/100 WBC (Bld) 8 % Normal 3-12 [facility] Comment on above: Performed By: #### C DP, PTT, PT, BMP #### [facility] [address] [place] [address]. [place] [address] Electron Beam Machine Welder Setter: Panchito Harper MD Neutrophil (Seg) 57 % Normal 36-65 [facility] Comment on above: Performed By: #### C DP, PTT, PT, BMP #### [facility] [address] [place] [address]. [place] [address] Electron Beam Machine Welder Setter: Panchito Harper MD NRBC Automated 0.0 per 100 WBC Normal 0.0 [facility] Comment on above: Performed By: #### C DP, PTT, PT, BMP #### [facility] [address] [place] [address]. [place] [address] Electron [employer]am Machine Welder Setter: Panchito Harper MD Platelet mean volume (Bld) [Entitic vol] 10.7 fL Normal 8.1-13.5 [facility] Comment on above: Performed By: #### C DP, PTT, PT, BMP #### [facility] [address] [place] [address] Electron [employer] Machine Welder Setter: Panchito Harper MD Platelets (Bld) [#/Vol] 230 10*3/uL Normal 138-453 [facility] Comment on above: Performed By: #### C DP, PTT, PT, BMP #### [facility] [address] [place] [address] Electron [employer]am Machine Welder Setter: Panchito Harper MD RBC (Bld) [#/Vol] 4.28 10*6/uL Normal 4.21-5.77 [facility] Comment on above: Performed By: #### C DP, PTT, PT, BMP #### [facility] [address] [place], [place] [address] [place] [address] Electron [employer] Machine Welder Setter: Panchito Harper MD WBC (Bld) [#/Vol] 5.8 10*3/uL Normal 3.5-11.3 [facility] Comment on above: Performed By: #### C DP, PTT, PT, BMP #### [facility] [address] [place] [address] Electron [employer]am Machine Welder Setter: Panchito Harper MD MRSA, DNA, Nasalon 4 Specimen Description .NASAL SWAB Normal [facility] Comment on above: Performed By: #### M RSANO #### [facility] [place] [address] Electron Beam Machine Welder Setter: Panchito Harper MD [id number] [place] [address] Electron Beam Machine Welder Setter: Farhad Milton MD PTon 08-05-2023 INR Coag (PPP) [Relative time] 0.9 {INR} Normal [facility] Comment on above: Result Comment: Therapeutic Range: Moderate Anticoagulant Intensity: INR = 2.0-3.0 High Anticoagulant Intensity: INR = 2.5-3.5 Performed By: #### C DP, PTT, PT, BMP #### [facility] [place] [address] Electron Beam Machine Welder Setter: Panchito Harper MD PT Coag (PPP) [Time] 12.7 s Normal 11.5-14.2 [facility] Comment on above: Performed By: #### C DP, PTT, PT, BMP #### [facility] [address] [place] [address]. [place] [address] [employer] Machine Welder Setter: Panchito Harper MD Urinalysis, Routineon 2023 Bilirubin, SemiQt,Ur Negative Normal NEG [facility] Comment on above: Performed By: #### U A #### [facility] [address] [place] [address]. [place] [address] [employer] Machine Welder Setter: Panchito Harper MD Blood, Urine Negative Normal NEG [facility] Comment on above: Performed By: #### U A #### [facility] [address] [place] [address]. [place] [address] [employer] Machine Welder Setter: Panchito Harper MD Clarity (U) Clear Normal CLEAR [facility] Comment on above: Performed By: #### U A #### [facility] [address] [place] [address]. [place] [address] [employer] Machine Welder Setter: Panchito Harper MD Color (U) Yellow Normal YEL [facility] Comment on above: Performed By: #### U A #### [facility] [address] [place] [address] [employer] Welder Setter: Panchito Harper MD Comment Microscopic exam not performed based on chemical results unless requested in Normal [facility] Comment on above: Result Comment: orig inal order. Performed By: #### U A #### [facility] [address] [place] [address] [employer] Machine Welder Setter: Panchito Harper MD Glucose Ql (U) Negative Normal NEG [facility] Comment on above: Performed By: #### U A #### [facility] [address] [place] [address] [employer] Machine Welder Setter: Panchito Harper MD Ketones Ql (U) Negative Normal NEG [facility] Comment on above: Performed By: #### U A #### [facility] [address] [facility] [place] [address] [employer] Machine Welder Setter: Panchito Harper MD Leukocyte esterase Test strip Ql (U) Negative Normal NEG [facility] Comment on above: Performed By: #### U A #### [facility] [address] [place] [address] [employer] Machine Welder Setter: Panchito Harper MD Nitrite,Ur Negative Normal NEG [facility] Comment on above: Performed By: #### U A #### [facility] [address] [place] [address] [employer] Machine Welder Setter: Panchito Harper MD PH,Ur 6.0 Normal 5.0-8.0 [facility] Comment on above: Performed By: #### U A #### [facility] [address] [place] [address] [employer] Machine Welder Setter: Panchito Harper MD Protein Ql (U) Negative Normal NEG [facility] Comment on above: Performed By: #### U A #### [facility] [address] [place] [address] Electron [employer]am Machine Welder Setter: Panchito Harper MD Spec. Advance,Ur 1.025 Normal 1.005-1.030 [facility] Comment on above: Performed By: #### U A #### [facility] [address] [place] [address] Electron Beam Machine Welder Setter: Panchito Harper MD Urobilinogen,Ur Normal Normal 0.0-1.0 [facility] Comment on above: Performed By: #### U A #### [facility] [address] [place] [address] Electron Beam Machine Welder Setter: Panchito Harper MD MR KNEE RIGHT WO [...] compartment osteoarthritis. ELECTRONICALLY SIGNED BY: Romel Fonseca, DO Normal Not Available XR knee RT 4V*on 04-28-2023 XR knee RT 4V* [facility] [place] [address] [place] [address] XRay Report Signed Patient: Ophelia Cruz MR#: [id number] : [id number] Acct:[id number] Age/Sex: 47 / M ADM Date: 04/28/23 Loc: XD Room: [facility]: Arlene BELLA-C Copies to: SHAYNE [...] Arlene Colon M.D.04/28/2023 4:58 PM Dictation Location: [place] [address] Transcribed By: [facility] 04/28/231657 Dictated By: Arlene Colon MD 04/28/231652 Signed By: 04/28/231657 Normal [facility] Alanine aminotransferase [En zymatic activity/volume] in Serum or PlasmaOrdered By: Arlene Power on 01-29-2023 ALT [Catalytic activity/Vol] 25 U/L 7-52 [facility] Albumin [Mass/volume] in Ser um or Plasma by Bromocresol green (BCG) dye binding methoOrdered By: Arlene Power on 01-29-2023 Albumin BCG dye [Mass/Vol] 4.3 g/dL 3.5-5.7 [facility] Alkaline phosphatase [Enzyma tic activity/volume] in Serum or PlasmaOrdered By: Arlene Power on 01-29-2023 ALP [Catalytic activity/Vol] 52 U/L 34-104 [facility] Aspartate aminotransferase [ Enzymatic activity/volume] in Serum or PlasmaOrdered By: Arlene Power on 01-29-2023 AST [Catalytic activity/Vol] 15 U/L 13-39 [facility] Basophils Auto (Bld) [#/Vol] Ordered By: Arlene Power on 01-29-2023 Basophils (Bld) [#/Vol] 0.0 10*3/uL 0.0-0.2 [facility] Basophils/100 WBC Auto (Bld) Ordered By: Arlene Power on 01-29-2023 Basophils/100 WBC (Bld) 0.5 % . [facility] Bilirubin.total [Mass/volume ] in Serum or PlasmaOrdered By: Arlene Power on 01-29-2023 Bilirubin [Mass/Vol] 0.5 mg/dL 0.3-1.0 [facility] Calcium [Mass/volume] in Ser um or PlasmaOrdered By: Arlene Power on 01-29-2023 Calcium [Mass/Vol] 9.4 mg/dL 8.6-10.3 [facility] Carbon dioxide, total [Moles /volume] in Serum or PlasmaOrdered By: Arlene Power on 01-29-2023 CO2 [Moles/Vol] 31.5 mmol/L 21.0-31.0 [facility] Chloride [Moles/volume] in S jeff or PlasmaOrdered By: Arlene Power on 01-29-2023 Chloride [Moles/Vol] 105 mmol/L 98-107 [facility] Cholesterol [Mass/volume] in Serum or PlasmaOrdered By: Arlene Power on 01-29-2023 Cholesterol [Mass/Vol] 186 mg/dL 140-200 [facility] Comment on above: Chol less than 200 m g/dl low riskChol 201-239 mg/dl borderline riskChol 240 mg/dl and greater high risk Cholesterol in LDL Calc [Mas s/Vol]Ordered By: Arlene Power on 01-29-2023 Cholesterol in LDL [Mass/Vol] 122 mg/dL 0-100 [facility] Comment on above: LDL ATP III CLASSIFI CATIONLDL less than 100 mg/dL OptimalLDL 100-129 mg/dL Near or above optimalLDL 130-159 mg/dL Borderline highLDL 160-189 mg/dL HighLDL greater than 189 mg/dL Very high Cholesterol in VLDL Calc [Ma ss/Vol]Ordered By: Arlene Power on 01-29-2023 Cholesterol in VLDL [Mass/Vol] 22 mg/dL [facility] Complete Blood Count Auto Di ffon 01-29-2023 Basophils (Bld) [#/Vol] 0.0 10*3/uL Normal 0.0-0.2 [facility] Comment on above: Result Comment: PERF ORMED BY: [place] [address] PATHOLOGIST DIRECTOR TRADE IAN CHRISTINE M.D. Performed By: #### L IPID, CBC, CMP, PSAS #### [address] Basophils/100 WBC (Bld) 0.5 % Normal . [facility] Comment on above: Performed By: #### L IPID, CBC, CMP, PSAS #### [address] Eosinophils (Bld) [#/Vol] 0.3 10*3/uL Normal 0.0-0.45 [facility] Comment on above: Performed By: #### L IPID, CBC, CMP, PSAS #### [address] Eosinophils/100 WBC (Bld) 3.8 % Normal . [facility] Comment on above: Performed By: #### L IPID, CBC, CMP, PSAS #### [address] Erythrocyte distribution width (RBC) [Ratio] 13.8 % Normal 12.0-14.8 [facility] Comment on above: Performed By: #### L IPID, CBC, CMP, PSAS #### [address] Hematocrit (Bld) [Volume fraction] 40.2 % Normal 38.8-50.0 [facility] Comment on above: Performed By: #### L IPID, CBC, CMP, PSAS #### [address] Hemoglobin (Bld) [Mass/Vol] 13.7 g/dL Normal 13.0-17.0 [facility] Comment on above: Performed By: #### L IPID, CBC, CMP, PSAS #### [place] [address] [place] Lymphocytes (Bld) [#/Vol] 2.4 10*3/uL Normal 1.00-4.8 [facility] Comment on above: Performed By: #### L IPID, CBC, CMP, PSAS #### [address] Lymphocytes/100 WBC (Bld) 29.7 % Normal . [facility] Comment on above: Performed By: #### L IPID, CBC, CMP, PSAS #### [address] MCH (RBC) [Entitic mass] 30.0 pg Normal 27.5-35.2 [facility] Comment on above: Performed By: #### L IPID, CBC, CMP, PSAS #### [address] MCV (RBC) [Entitic vol] 87.7 fL Normal 83.5-101 [facility] Comment on above: Performed By: #### L IPID, CBC, CMP, PSAS #### [address] Mean Corpuscular HGB Conc 34.2 g/dL Normal 32.5-35.6 [facility] Comment on above: Performed By: #### L IPID, CBC, CMP, PSAS #### [address] Monocytes (Bld) [#/Vol] 0.5 10*3/uL Normal 0.0-0.8 [facility] Comment on above: Performed By: #### L IPID, CBC, CMP, PSAS #### [place] [address] [place] Monocytes/100 WBC (Bld) 6.6 % Normal . [facility] Comment on above: Performed By: #### L IPID, CBC, CMP, PSAS #### [address] Neutrophils (Bld) [#/Vol] 4.8 10*3/uL Normal 1.8-7.7 [facility] Comment on above: Performed By: #### L IPID, CBC, CMP, PSAS #### [address] Neutrophils/100 WBC (Bld) 59.4 % Normal . [facility] Comment on above: Performed By: #### L IPID, CBC, CMP, PSAS #### [address] NRBC% 0.1 /100{WBC} Normal 0-0.5 [facility] Comment on above: Performed By: #### L IPID, CBC, CMP, PSAS #### [address] Platelet mean volume (Bld) [Entitic vol] 8.9 fL Normal 6.6-10.1 [facility] Comment on above: Performed By: #### L IPID, CBC, CMP, PSAS #### [address] Platelets (Bld) [#/Vol] 269 10*3/uL Normal 150-450 [facility] Comment on above: Performed By: #### L IPID, CBC, CMP, PSAS #### [address] RBC (Bld) [#/Vol] 4.58 10*6/uL Normal 3.90-5.60 [facility] Comment on above: Performed By: #### L IPID, CBC, CMP, PSAS #### [address] WBC (Bld) [#/Vol] 8.0 10*3/uL Normal 4.1-10.5 [facility] Comment on above: Performed By: #### L IPID, CBC, CMP, PSAS #### [address] Comprehensive Metabolic Pane luis 01-29-2023 Albumin [Mass/Vol] 4.3 g/dL Normal 3.5-5.7 [facility] Comment on above: Performed By: #### L IPID, CBC, CMP, PSAS #### [facility] [address] Albumin/Globulin [Mass ratio] 2.0 {ratio} Normal [facility] Comment on above: Performed By: #### L IPID, CBC, CMP, PSAS #### [facility] [address] ALP [Catalytic activity/Vol] 52 U/L Normal 34-104 [facility] Comment on above: Performed By: #### L IPID, CBC, CMP, PSAS #### [facility] [address] ALT [Catalytic activity/Vol] 25 U/L Normal 7-52 [facility] Comment on above: Performed By: #### L IPID, CBC, CMP, PSAS #### [facility] [address] [place] [address] Anion gap [Moles/Vol] 9.8 mmol/L Normal 6.0-15.0 [facility] Comment on above: Performed By: #### L IPID, CBC, CMP, PSAS #### [facility] [address] [place] [address] AST [Catalytic activity/Vol] 15 U/L Normal 13-39 [facility] Comment on above: Performed By: #### L IPID, CBC, CMP, PSAS #### [facility] [address] [place] [address] Bilirubin [Mass/Vol] 0.5 mg/dL Normal 0.3-1.0 [facility] Comment on above: Performed By: #### L IPID, CBC, CMP, PSAS #### [facility] [address] Calcium [Mass/Vol] 9.4 mg/dL Normal 8.6-10.3 [facility] Comment on above: Performed By: #### L IPID, CBC, CMP, PSAS #### [facility] [address] [place] [address] [place] Chloride [Moles/Vol] 105 mmol/L Normal 98-107 [facility] Comment on above: Performed By: #### L IPID, CBC, CMP, PSAS #### [facility] [address] CO2 [Moles/Vol] 31.5 mmol/L High 21.0-31.0 [facility] Comment on above: Performed By: #### L IPID, CBC, CMP, PSAS #### [address] Creatinine [Mass/Vol] 0.94 mg/dL Normal 0.70-1.30 [facility] Comment on above: Performed By: #### L IPID, CBC, CMP, PSAS #### [address] GFR/1.73 sq M.predicted MDRD (S/P/Bld) [Vol rate/Area] mL/min/{1.73_m2} Normal [facility] Comment on above: Performed By: #### L IPID, CBC, CMP, PSAS #### [address] Globulin (S) [Mass/Vol] 2.1 g/dL Normal [facility] Comment on above: Performed By: #### L IPID, CBC, CMP, PSAS #### [address] Glucose [Mass/Vol] 87 mg/dL Normal 70-100 [facility] Comment on above: Result Comment: [place] Glucose Reference Range is dependent on time and content of last meal. Glucose of more than 200 mg/dL in a nonstressed, ambulatory subject supports the diagnosis of Diabetes Mellitus. ADA recommended reference range Performed By: #### L IPID, CBC, CMP, PSAS #### [address] Potassium [Moles/Vol] 4.3 mmol/L Normal 3.5-5.1 [facility] Comment on above: Performed By: #### L IPID, CBC, CMP, PSAS #### [facility] [address] [place] [address] [place] Protein [Mass/Vol] 6.4 g/dL Normal 6.4-8.9 [facility] Comment on above: Performed By: #### L IPID, CBC, CMP, PSAS #### [facility] [address] [place] [address] [place] Sodium [Moles/Vol] 142 mmol/L Normal 136-145 [facility] Comment on above: Performed By: #### L IPID, CBC, CMP, PSAS #### [facility] [address] [place] [address] [place] Urea nitrogen [Mass/Vol] 18 mg/dL Normal 7-25 [facility] Comment on above: Performed By: #### L IPID, CBC, CMP, PSAS #### [facility] [address] [place] [address] [place] Creatinine [Mass/volume] in Serum or PlasmaOrdered By: Arlene Power on 01-29-2023 Creatinine [Mass/Vol] 0.94 mg/dL 0.70-1.30 [facility] Eosinophils Auto (Bld) [#/Vo l]Ordered By: Arlene Power on 01-29-2023 Eosinophils (Bld) [#/Vol] 0.3 10*3/uL 0.0-0.45 [facility] Eosinophils/100 WBC Auto (Bl d)Ordered By: Arlene Power on 01-29-2023 Eosinophils/100 WBC (Bld) 3.8 % . [facility] Erythrocyte distribution wid th Auto (RBC) [Ratio]Ordered By: Arlene Power on 01-29-2023 Erythrocyte distribution width (RBC) [Ratio] 13.8 % 12.0-14.8 [facility] Globulin Calc (S) [Mass/Vol] Ordered By: Arlene Power on 01-29-2023 Globulin (S) [Mass/Vol] 2.1 g/dL [facility] Glucose [Mass/volume] in Ser um or PlasmaOrdered By: Arlene Power on 01-29-2023 Glucose [Mass/Vol] 87 mg/dL 70-100 [facility] Comment on above: ADA recommended refe rence rangeRandom Glucose Reference Range is dependent on time and content of last meal. Glucose of more than 200 mg/dL in a nonstressed, ambulatory subject supports the diagnosis of Diabetes Mellitus. Hematocrit Auto (Bld) [Volum e fraction]Ordered By: Arlene Power on 01-29-2023 Hematocrit (Bld) [Volume fraction] 40.2 % 38.8-50.0 [facility] Hemoglobin [Mass/volume] in BloodOrdered By: Arlene Power on 01-29-2023 Hemoglobin (Bld) [Mass/Vol] 13.7 g/dL 13.0-17.0 [facility] Leukocytes [#/volume] correc jaime for nucleated erythrocytes in Blood by Automated counOrdered By: Arlene Power on 01-29-2023 WBC corrected for nucl RBC Auto (Bld) [#/Vol] 8.0 10*3/uL 4.1-10.5 [facility] Lipid Panelon 01-29-2023 Cholesterol [Mass/Vol] 186 mg/dL Normal 140-200 [facility] Comment on above: Result Comment: Chol less than 200 mg/dl low risk Chol 201-239 mg/dl borderline risk Chol 240 mg/dl and greater high risk Performed By: #### L IPID, CBC, CMP, PSAS #### [facility] [address] [place] [address] [place] Cholesterol in HDL [Mass/Vol] 42 mg/dL Normal 23-92 [facility] Comment on above: Result Comment: HDL CHOL ATP-III CLASSIFICATION Cardiovascular Risk HDL > or equal to 60 mg/dL LOW HDL < 40 mg/dL HIGH Performed By: #### L IPID, CBC, CMP, PSAS #### [facility] [address] [place] [id number] [facility] Cholesterol.total/Choles terol in HDL [Mass ratio] 4.4 {ratio} Normal <5.0 [facility] Comment on above: Result Comment: PERF ORMED BY: [place] [address] PATHOLOGIST DIRECTOR TRADE IAN CHRISTINE M.D. Performed By: #### L IPID, CBC, CMP, PSAS #### [facility] [address] LDL Cholesterol,Calculated 122 mg/dL High 0-100 [facility] Comment on above: Result Comment: LDL ATP III CLASSIFICATION LDL less than 100 mg/dL Optimal LDL 100-129 mg/dL Near or above optimal LDL 130-159 mg/dL Borderline high LDL 160-189 mg/dL High LDL greater than 189 mg/dL Very high Performed By: #### L IPID, CBC, CMP, PSAS #### [facility] [address] Triglyceride w/Reflex 110 mg/dL Normal 0-149 [facility] Comment on above: Result Comment: TRIG ATP III CLASSIFICATION TRIG less than 150 mg/dL Normal TRIG 150-199 mg/dL Borderline high TRIG 200-500 mg/dL High TRIG greater than 500 mg/dL Very high Standard traceable to the Center for Disease Conrtrol and Prevention (CDC) test method. Performed By: #### L IPID, CBC, CMP, PSAS #### [facility] [address] VLDL CHOLESTEROL 22 mg/dL Normal [facility] Comment on above: Performed By: #### L IPID, CBC, CMP, PSAS #### [facility] [address] Lymphocytes Auto (Bld) [#/Vo l]Ordered By: Arlene Power on 01-29-2023 Lymphocytes (Bld) [#/Vol] 2.4 10*3/uL 1.00-4.8 [facility] Lymphocytes/100 WBC Auto (Bl d)Ordered By: Arlene Power on 01-29-2023 Lymphocytes/100 WBC (Bld) 29.7 % . [facility] MCH Auto (RBC) [Entitic mass ]Ordered By: Arlene Power on 01-29-2023 MCH (RBC) [Entitic mass] 30.0 pg 27.5-35.2 [facility] MCHC Auto (RBC) [Mass/Vol]Or dered By: Arlene Power on 01-29-2023 MCHC (RBC) [Mass/Vol] 34.2 g/dL 32.5-35.6 [facility]ir [facility] MCV Auto (RBC) [Entitic vol] Ordered By: Arlene Power on 01-29-2023 MCV (RBC) [Entitic vol] 87.7 fL 83.5-101 [facility] Monocytes Auto (Bld) [#/Vol] Ordered By: Arlene Power on 01-29-2023 Monocytes (Bld) [#/Vol] 0.5 10*3/uL 0.0-0.8 [facility] Monocytes/100 WBC Auto (Bld) Ordered By: Arlene Power on 01-29-2023 Monocytes/100 WBC (Bld) 6.6 % . [facility] Neutrophils Auto (Bld) [#/Vo l]Ordered By: Arlene Power on 01-29-2023 Neutrophils (Bld) [#/Vol] 4.8 10*3/uL 1.8-7.7 [facility] Neutrophils/100 WBC Auto (Bl d)Ordered By: Arlene Power on 01-29-2023 Neutrophils/100 WBC (Bld) 59.4 % . [facility] No Panel InformationOrdered By: Arlene Power on 01-29-2023 Estimated GFR (CKD-EPI) > 60.0 mL/Min [facility] Creatinine Clearance (Chem N/A [facility] Nucleated erythrocytes [Pres ence] in Blood by Automated countOrdered By: Arlene Power on 01-29-2023 Nucleated RBC Auto Ql (Bld) 0.1 /100{WBC} 0-0.5 [facility] PSA Screen (Yearly Only)on 0 01-29-2023 PSA Screen (Yearly Only) 0.590 ng/mL Normal 0.000-4.00 0 [facility] Comment on above: Order Comment: Is pa tient <50 yrs? Medicare does not pay <50.: NA What is the date of the last PSA Screen?: NA OR...The date Patient is eligible for PSA Screen?: NA Is Medicare the insurance?: NA Did you verify eligibility (Dx Time) check TestViewGp: NOT MEDICARE Result Comment: PERF ORMED BY: [facility] [address] [place] [address] PATHOLOGIST DIRECTOR TRADE IAN CHRISTINE M.D. Performed By: #### L IPID, CBC, CMP, PSAS #### [facility] [address] Platelet mean volume Auto (B ld) [Entitic vol]Ordered By: Arlene Power on 01-29-2023 Platelet mean volume (Bld) [Entitic vol] 8.9 fL 6.6-10.1 [facility] Platelets Auto (Bld) [#/Vol] Ordered By: Arlene Power on 01-29-2023 Platelets (Bld) [#/Vol] 269 10*3/uL 150-450 [facility] Potassium [Moles/volume] in Serum or PlasmaOrdered By: Arlene Power on 01-29-2023 Potassium [Moles/Vol] 4.3 mmol/L 3.5-5.1 [facility] Prostate specific Ag [Mass/v olume] in Serum or PlasmaOrdered By: Arlene Power on 01-29-2023 Prostate specific Ag [Mass/Vol] 0.590 ng/mL 0.000-4.000 [facility] Protein [Mass/volume] in Ser um or PlasmaOrdered By: Arlene Power on 01-29-2023 Protein [Mass/Vol] 6.4 g/dL 6.4-8.9 [facility] RBC Auto (Bld) [#/Vol]Ordere d By: Arlene Power on 01-29-2023 RBC (Bld) [#/Vol] 4.58 10*6/uL 3.90-5.60 [facility] Serum or plasma albumin/glob ulin mass ratioOrdered By: Arlene Power on 01-29-2023 Albumin/Globulin [Mass ratio] 2.0 {ratio} [facility] Serum or plasma anion gap de terminationOrdered By: Arlene Power on 01-29-2023 Anion gap [Moles/Vol] 9.8 mmol/L 6.0-15.0 [facility] Serum or plasma high density lipoprotein (HDL) cholesterol measurementOrdered By: Arlene Power on 09-08-2023 Cholesterol in HDL [Mass/Vol] 42 mg/dL 23-92 [facility] Comment on above: HDL CHOL ATP-III CLA SSIFICATION Cardiovascular RiskHDL > or equal to 60 mg/dL LOWHDL < 40 mg/dL HIGH Serum or plasma total choles terol/high density lipoprotein (HDL) cholesterol mass ratOrdered By: Arlene Power on 01-29-2023 Cholesterol.total/Choles terol in HDL [Mass ratio] 4.4 {ratio} <5.0 [facility] Sodium [Moles/volume] in Ser um or PlasmaOrdered By: Arlene Power on 01-29-2023 Sodium [Moles/Vol] 142 mmol/L 136-145 [facility] Triglyceride [Mass/volume] i n Serum or PlasmaOrdered By: Arlene Power on 01-29-2023 Triglyceride [Mass/Vol] 110 mg/dL 0-149 [facility] Comment on above: TRIG ATP III CLASSIF ICATIONTRIG less than 150 mg/dL NormalTRIG 150-199 mg/dL Borderline highTRIG 200-500 mg/dL High TRIG greater than 500 mg/dL Very highStandard traceable to the Center for Disease Conrtrol and Prevention (CDC) test method. Urea nitrogen [Mass/volume] in Serum or PlasmaOrdered By: Arlene Power on 01-29-2023 Urea nitrogen [Mass/Vol] 18 mg/dL 7- [facility] WBC Auto (Bld) [#/Vol]Ordere d By: Arlene Power on 01-29-2023 WBC (Bld) [#/Vol] 8.0 10*3/uL 4.1-10.5 [facility] XR Chest 2 Views*on 11-13-19 XR [...] by Romel Fonseca on 11/12/2021 1646 Normal [facility] [employer] No Panel Informationon 08-06 [facility] XR LUMBAR 4V AP/LAT/ FLEX/EX Ton [...] Number of different views (projections): 4 (accession [id number]), 2 (accession [id number]) COMPARISON: 06/18/2021 MRI RESULT: Counting reference: Lumbosacral [...] described with associated thoracic and lumbar spondylosis. Check Grader: RENE Transcribe Date/Time: Aug 08 2021 10:07A Dictated by : DASIA RATLIFF MD This examination was interpreted and the report reviewed and electronically signed by: DASIA RATLIFF MD on Aug 08 2021 10:09AM EST [id number] N Normal [facility] XR SCOLIOSIS 2V PA STAND/LAT [...] Number of different views (projections): 4 (accession [id number]), 2 (accession [id number]) COMPARISON: 06/18/2021 MRI RESULT: Counting reference: Lumbosacral [...] described with associated thoracic and lumbar spondylosis. Check Grader: RENE Transcribe Date/Time: Aug 08 2021 10:07A Dictated by : DASIA RATLIFF MD This examination was interpreted and the report reviewed and electronically signed by: DASIA RATLIFF MD on Aug 08 2021 10:09AM EST [id number] N Normal [facility] MRI Lumbar Spine w/oon 06-18 [...] MARY JANE HILARIO on 06/19/2021 [address] [facility] Complete Blood Count with Au to Diffon 05-29-2021 Basophils (Bld) [#/Vol] 0.04 10*3/uL Normal 0.00-0.20 [facility] Comment on above: Performed By: #### T SH reflex FT4, LIPD, CBCAD, CMP #### [facility] [address], [place] [id number] Basophils/100 WBC (Bld) 0.6 % Normal [facility] Comment on above: Performed By: #### T SH reflex FT4, LIPD, CBCAD, CMP #### [facility] [address], [place] [id number] Eosinophils (Bld) [#/Vol] 0.38 10*3/uL Normal 0.02-0.50 [facility] Comment on above: Performed By: #### T SH reflex FT4, LIPD, CBCAD, CMP #### [facility] [address], [place] [id number] Eosinophils/100 WBC (Bld) 5.5 % Normal [facility] Comment on above: Performed By: #### T SH reflex FT4, LIPD, CBCAD, CMP #### [facility] [address], [place] [id number] Erythrocyte distribution width (RBC) [Ratio] 13.4 % Normal 11.0-15.0 [facility] Comment on above: Performed By: #### T SH reflex FT4, LIPD, CBCAD, CMP #### [facility] [address], [place] [id number] Hematocrit (Bld) [Volume fraction] 44.5 % Normal 38.5-50.0 [facility] Comment on above: Performed By: #### T SH reflex FT4, LIPD, CBCAD, CMP #### [facility] [address], [place] [id number] Hemoglobin (Bld) [Mass/Vol] 14.9 g/dL Normal 13.0-17.1 [facility] Comment on above: Performed By: #### T SH reflex FT4, LIPD, CBCAD, CMP #### [facility] [address], [place] [id number] Lymphocytes (Bld) [#/Vol] 2.4 10*3/uL Normal 0.9-3.9 [facility] Comment on above: Performed By: #### T SH reflex FT4, LIPD, CBCAD, CMP #### [facility] [address], [place] [id number] Lymphocytes/100 WBC (Bld) 34.9 % Normal [facility] Comment on above: Performed By: #### T SH reflex FT4, LIPD, CBCAD, CMP #### [facility] [address], [place] [id number] MCH (RBC) [Entitic mass] 29.6 pg Normal 27.0-33.0 [facility] Comment on above: Performed By: #### T SH reflex FT4, LIPD, CBCAD, CMP #### [facility] [address], [place] [id number] MCHC (RBC) [Mass/Vol] 33.5 g/dL Normal 32.0-36.0 [facility] Comment on above: Performed By: #### T SH reflex FT4, LIPD, CBCAD, CMP #### [facility] [address], [place] [id number] MCV (RBC) [Entitic vol] 89 fL Normal 80-100 N [facility] Comment on above: Performed By: #### T SH reflex FT4, LIPD, CBCAD, CMP #### [facility] [address], [place] [id number] Monocytes (Bld) [#/Vol] 0.6 10*3/uL Normal 0.2-0.[address] [facility] Comment on above: Performed By: #### T SH reflex FT4, LIPD, CBCAD, CMP #### [facility] [address], [place] [id number] Monocytes/100 WBC (Bld) 8.1 % Normal N [facility] Comment on above: Performed By: #### T SH reflex FT4, LIPD, CBCAD, CMP #### [facility] [address], [place] [id number] Neutrophils (Bld) [#/Vol] 3.5 10*3/uL Normal 1.5-7.[address] [facility] Comment on above: Performed By: #### T SH reflex FT4, LIPD, CBCAD, CMP #### [facility] [address], [place] [id number] Neutrophils/100 WBC (Bld) 50.6 % Normal [facility] Comment on above: Performed By: #### T SH reflex FT4, LIPD, CBCAD, CMP #### [facility] [address], [place] [id number] Platelet mean volume (Bld) [Entitic vol] 11.20 fL Normal 7.50-12.50 [facility] Comment on above: Performed By: #### T SH reflex FT4, LIPD, CBCAD, CMP #### [facility] [address], [place] [id number] Platelets (Bld) [#/Vol] 234 10*3/uL Normal 140-400 [facility] Comment on above: Performed By: #### T SH reflex FT4, LIPD, CBCAD, CMP #### [facility] [address], [place] [id number] RBC (Bld) [#/Vol] 5.03 10*6/uL Normal 4.20-5.80 [facility] Comment on above: Performed By: #### T SH reflex FT4, LIPD, CBCAD, CMP #### [facility] [address], [place] [id number] RDW-SD 43.7 fL Normal 37.0-50.0 [facility] Comment on above: Performed By: #### T SH reflex FT4, LIPD, CBCAD, CMP #### [facility] [address], [place] [id number] WBC (Bld) [#/Vol] 6.9 10*3/uL Normal 3.8-11.0 [facility] Comment on above: Performed By: #### T SH reflex FT4, LIPD, CBCAD, CMP #### [facility] [address], [place] [id number] Comprehensive Metabolic Pane luis 05-29-2021 Albumin [Mass/Vol] 4.6 g/dL Normal 3.6-5.1 [facility] Comment on above: Performed By: #### T SH reflex FT4, LIPD, CBCAD, CMP #### [facility] [address], [place] [id number] Albumin/Globulin [Mass ratio] 2.1 {ratio} Normal 1.0-2.5 [facility] Comment on above: Performed By: #### T SH reflex FT4, LIPD, CBCAD, CMP #### [facility] [address], [place] [id number] ALP [Catalytic activity/Vol] 82 U/L Normal 40-129 [facility] Comment on above: Performed By: #### T SH reflex FT4, LIPD, CBCAD, CMP #### [facility] [address], [place] [id number] ALT [Catalytic activity/Vol] 47 U/L High 9-46 [facility] Comment on above: Result Comment: 04/23 Female reference range changed. Performed By: #### T SH reflex FT4, LIPD, CBCAD, CMP #### [facility] [address], [place] [id number] Anion gap [Moles/Vol] 20 mmol/L Normal 12-20 [facility] Comment on above: Result Comment: Effe ctive 05/29/2019 reference range changed. Performed By: #### T SH reflex FT4, LIPD, CBCAD, CMP #### [facility] [address], [place] [id number] AST [Catalytic activity/Vol] 26 U/L Normal 10-[address] [facility] Comment on above: Performed By: #### T SH reflex FT4, LIPD, CBCAD, CMP #### [facility] [address], [place] [id number] Bilirubin [Mass/Vol] 0.67 mg/dL Normal 0.30-1.20 [facility] Comment on above: Performed By: #### T SH reflex FT4, LIPD, CBCAD, CMP #### [facility] [address], [place] [id number] BUN/CREA 13 Ratio Normal 6-[address] [facility] Comment on above: Performed By: #### T SH reflex FT4, LIPD, CBCAD, CMP #### [facility] [address], [place] [id number] Calcium [Mass/Vol] 9.5 mg/dL Normal 8.6-10.2 [facility] Comment on above: Performed By: #### T SH reflex FT4, LIPD, CBCAD, CMP #### [facility] [address], [place] [id number] Chloride [Moles/Vol] 102 mmol/L Normal 98-107 [facility] Comment on above: Performed By: #### T SH reflex FT4, LIPD, CBCAD, CMP #### [facility] [address], [place] [id number] CO2 [Moles/Vol] 24 mmol/L Normal 20-[address] [facility] Comment on above: Performed By: #### T SH reflex FT4, LIPD, CBCAD, CMP #### [facility] [address], [place] [id number] Creatinine [Mass/Vol] 1.0 mg/dL Normal 0.7-1.4 [facility]ist Comment on above: Performed By: #### T SH reflex FT4, LIPD, CBCAD, CMP #### [facility] [address], [place] [id number] eGFRAA 101 mL/min/1.73m2 Normal >60 [facility] Specialist Comment on above: Performed By: #### T SH reflex FT4, LIPD, CBCAD, CMP #### [facility] [address], [place] [id number] eGFRNAA 83 mL/min/1.73m2 Normal >60 [facility] Comment on above: Performed By: #### T SH reflex FT4, LIPD, CBCAD, CMP #### [facility] [address], [place] [id number] Globulin (S) [Mass/Vol] 2.2 g/dL Normal 1.9-3.7 N [facility] Specialist Comment on above: Performed By: #### T SH reflex FT4, LIPD, CBCAD, CMP #### [facility] [address], [place] [id number] Glucose [Mass/Vol] 94 mg/dL Normal 65-99 [facility] [place] [facility] Comment on above: Result Comment: For FASTING Glucose --- ADA reference ranges: Normal 65-99 mg/dl Prediabetes 100-125 Diabetes >/= 126 Performed By: #### T SH reflex FT4, LIPD, CBCAD, CMP #### [facility] [address], [place] [id number] Potassium [Moles/Vol] 4.0 mmol/L Normal 3.5-5.5 [facility] Comment on above: Performed By: #### T SH reflex FT4, LIPD, CBCAD, CMP #### [facility] [address] [facility] [place] [place] [id number] Protein [Mass/Vol] 6.8 g/dL Normal 6.1-8.1 [facility] Comment on above: Performed By: #### T SH reflex FT4, LIPD, CBCAD, CMP #### [facility] [address] [facility] [place] [id number] Sodium [Moles/Vol] 142 mmol/L Normal 135-146 [facility] Comment on above: Performed By: #### T SH reflex FT4, LIPD, CBCAD, CMP #### [facility] [address] [facility] [place] [id number] Urea nitrogen [Mass/Vol] 13 mg/dL Normal 7-25 [facility] Comment on above: Performed By: #### T SH reflex FT4, LIPD, CBCAD, CMP #### [facility] [address], [place] [id number] Lipid Panelon 05-29-2021 Cholesterol [Mass/Vol] 214 mg/dL High 125-[address] [facility] Comment on above: Result Comment: Low risk < 200mg/dL Borderline risk 201-239 mg/dl High risk > or equal to 240 Performed By: #### T SH reflex FT4, LIPD, CBCAD, CMP #### [facility] [address], [place] [id number] Cholesterol in HDL [Mass/Vol] 41 mg/dL Normal >40 [facility] Comment on above: Result Comment: High Cardiovascular Risk HDL <40 mg/dL Low Cardiovascular Risk HDL > or equal to 60 mg/dl Performed By: #### T SH reflex FT4, LIPD, CBCAD, CMP #### [facility] [address], [place] [id number] Cholesterol in LDL [Mass/Vol] 132 mg/dL Normal [facility] Comment on above: Result Comment: LDL ATP III CLASSIFICATION LDL less than 100 mg/dl Optimal LDL 100-129 mg/dl Near or above optimal LDL 130-159 Borderline high LDL 160-189 High LDL greater than 189 mg/dl Very High Performed By: #### T SH reflex FT4, LIPD, CBCAD, CMP #### [facility] [address], [place] [id number] Cholesterol in VLDL [Mass/Vol] 41 mg/dL Normal [facility] Comment on above: Performed By: #### T SH reflex FT4, LIPD, CBCAD, CMP #### [facility] [address], [place] [id number] Cholesterol.total/Choles terol in HDL [Mass ratio] 5 {ratio} Normal [facility] Comment on above: Performed By: #### T SH reflex FT4, LIPD, CBCAD, CMP #### [facility] [address], [place] [id number] Triglyceride [Mass/Vol] 204 mg/dL High 30-150 [facility] Comment on above: Result Comment: TRIG ATPIII CLASSIFICATIONS TRIG less than 150 mg/dl Normal TRIG 150-199 mg/dl Borderline High TRIG 200-500 mg/dl High TRIG greather than 500 mg/dl Very High Performed By: #### T SH reflex FT4, LIPD, CBCAD, CMP #### [facility] [address], [place] [id number] TSH w/ Reflex to Free T4on 0 05-29-2021 TSH 1.320 uIU/mL Normal 0.400-4.500 [facility] Comment on above: Performed By: #### T SH reflex FT4, LIPD, CBCAD, CMP #### [facility] [address], [place] [id number] Vital Signs Date Time Vital Sign Value Performing Clinician Katelynn fournier 06-10-2023 15:30-0500 Body height 180.34 cm Tone Jessica Other [facility] Other Encounters Encounter Date Encounter Type Care Provider Facility Start: 01-25-2024 End: 01-25-2024 ambulatory ARLENENANCY POWER Not Available Start: 11-24-2023 End: 11-24-2023 ambulatory TEAGAN SAMIA [...] Available Start: 10-15-2023 End: 10-15-2023 ambulatory BRENDA MATHEW Not Available Start: 10-13-2023 End: 10-13-2023 ambulatory OLVIN SPARKS Not Available Start: 10-08-2023 End: 10-08-2023 ambulatory TEAGAN GRACIA Not Available Start: 08-23-2023 End: 08-24-2023 Evaluation and management of inpatient ARLENE POWER [facility] Start: 08-09-2023 End: 08-09-2023 ambulatory ARLENE POWER Not Available Start: 08-05-2023 End: 08-10-2023 ambulatory JUAN M CORBETT [facility] Start: 07-27-2023 End: 07-27-2023 ambulatory ARLENE POWER Not Available Start: 06-10-2023 End: 06-10-2023 ambulatory Tone Jessica Other [facility] Other Start: 06-10-2023 Encounter for other preprocedural examination Tone Jessica [facility] Start: 06-10-2023 Office outpatient ne w 45 minutes Tone Jessica [facility] Start: 05-11-2023 End: 05-11-2023 ambulatory ARLENE POWER Not Available Start: 05-10-2023 End: 05-11-2023 ambulatory Spencer Centeno MD Facility:[facility] Start: 04-29-2023 End: 04-29-2023 ambulatory ARLENE POWER Not Available Start: 04-28-2023 End: 04-28-2023 ambulatory Arlene Hemosiel Facility:[facility] Start: 04-28-2023 End: 04-28-2023 ambulatory PA-C Arlene Hemmer Work Phone: [facility] Work Phone: Start: 04-28-2023 End: 04-28-2023 Patient encounter procedure PA-C Arlene Hemmer Work Phone: [facility] [place] Work Phone: Start: 04-09-2023 End: 04-09-2023 ambulatory ARLENE Womack HEMMER Not Available Start: 03-01-2023 End: 03-02-2023 ambulatory Spencer [facility] Start: 02-08-2023 End: 02-09-2023 ambulatory Spencer Centeno MD Facility:[facility] Start: 01-29-2023 End: 01-29-2023 ambulatory Arlene Hemmer Facility:[facility] Start: 01-29-2023 End: 01-29-2023 ambulatory DRUM SEALER-C Arlene Hemmer Work Phone: [facility] Work Phone: Start: 01-29-2023 End: 01-29-2023 Patient encounter procedure DRUM SEALER-C Arlene Hemmer Work Phone: [facility] [place] Work Phone: Start: 01-18-2023 End: 01-19-2023 ambulatory [...] 08-06-2021 Subsequent hospital visit by physician Hi [facility] Comment on above: Degeneration of lumb ar intervertebral disc [M51.36] Procedures Date Procedure Procedure Detail Performing Clinician Start: 04-28-2023 X-ray of right knee VANESSA Power Work Phone: Start: 08-06-2021 Radex spine lumbosac ral minimum 4 views Marilyn Stallworth PA-C Work Phone: Plan of Treatment Date Care Activity Detail Author Start: 01-22-2023 Influenza vaccination INFLUENZA (#1) [facility] Start: 05-24-2022 DEPRESSION ASSESSMENT DEPRESSION ASS ESSMENT [facility] Start: 07-09-2021 COVID-19 VACCINE (3 - Booster for Malissa series) COVID-19 VACCINE (3 - Booster for Malissa series) [facility] Start: 2019 COLOGUARD (FIT-DNA) COLOGUARD (FIT-D NA) [facility] Start: 2019 Colonoscopy COLONOSCOPY [facility] Start: 2019 COLORECTAL CANCER SCREENING COLORECTAL CANCER SCREENING [facility] Start: [address] COLONOGRAPHY [facility] Start: 2019 DIABETES SCREEN DIABETES SCREEN [facility] Start: 2019 FECAL OCCULT BLOOD FECAL OCCULT BLOO D [facility] Start: 2019 SIGMOIDOSCOPY SIGMOIDOSCOPY [facility] Start: 2009 LIPID SCREEN LIPID SCREEN [facility] Start: 1993 Urine microalbumin profile DTAP,TDAP ,TD (1 - Tdap) [facility] Start: 1992 HEPATITIS C SCREENING HEPATITIS C SC REENING [facility] Start: 1992 HIV SCREENING HIV SCREENING [facility] Start: 1974 HEPATITIS B (1 of 3 - 3-dose series) HEPATITIS B (1 of 3 - 3-dose series) [facility] Payers Date Payer Category Payer Self-pay [id number] 2017 Unknown [id number]. [id number] 1974 Unknown [id number] 2.16.840.1.517642.3.579.2.593 1974 Unknown [id number] 2.16.840.1.075482.3.579.2.593 1974 Unknown [id number] 2.16.840.1.316861.3.579.2.593 1974 Unknown [id number] 2.16.840.1.203010.3.579.2.593 1974 Unknown [id number] 2.16.840.1.734293.3.579.2.593 1974 Unknown [id number] 2.16.840.1.803209.3.579.2.593 1974 Unknown [id number] 2.16.840.1.991520.3.579.2.593 1974 Unknown [id number] 2.16.840.1.497448.3.579.2.593 1974 Unknown [id number] 2.16.840.1.703944.3.579.2.593 1974 Unknown [id number] 2.16.840.1.953519.3.579.2.196 1974 Unknown [id number] 2.16.840.1.204038.3.579.2.196 1974 Unknown [id number] 2.16.840.1.009079.3.579.2.196 1974 Unknown [id number] 2.16.840.1.504881.3.579.2.196 1974 Unknown [id number] 2.16.840.1.168004.3.579.2.177 1974 Unknown [id number] 2.16.840.1.115082.3.579.2.177 1974 Unknown [id number] 2.16.840.1.108860.3.579.2.1259 1974 Unknown [id number] 2.16.840.1.672599.3.579.2.1258 1974 Unknown [id number] 2.16.840.1.134115.3.579.2.1258 1974 Unknown [id number] 2.16.840.1.093495.3.579.2.1258 1974 Unknown [id number] 2.16.840.1.775545.3.579.2.1258 1974 Unknown [id number] 2.16.840.1.851138.3.579.2.1258 1974 Unknown [id number] 2.16.840.1.791755.3.579.2.1258 1974 Unknown [id number] 2.16.840.1.475634.3.579.2.1258 1974 Unknown [id number] 2.16.840.1.581148.3.579.2.1258 1974 Unknown [id number] 2.16.840.1.037755.3.579.2.1258 1974 Unknown [id number] 2.16.840.1.300594.3.579.2.1258 1974 Unknown [id number] 2.16.840.1.590040.3.579.2.1258 1974 Unknown [id number] 2.16.840.1.122560.3.579.2.1258 1974 Unknown [id number] 2.16.840.1.242512.3.579.2.1258 1974 Unknown [id number] 2.16.840.1.304814.3.579.2.1258 1974 Unknown [id number] 2.16.840.1.995535.3.579.2.1258 1974 Unknown [id number] 2.16.840.1.046799.3.579.2.1258 1974 Unknown [id number] 2.16.840.1.238820.3.579.2.1259 1974 Unknown [id number] 2.16.840.1.814480.3.579.2.1259 1959 Unknown [id number] Private Health Insurance [employer] [id number] Unknown [id number] 2.16.840.1.967441.3.579.2.531 Unknown [id number] 2.16.840.1.091004.3.579.2.531 Social History Date Type Detail Facility Start: 07-04-2019 Tobacco smoking stat [facility] Never smoked tobacco [facility] Start: 07-04-2019 Tobacco use and exposure Smoke less tobacco non-user [facility] Start: 08-01-2021 Alcohol intake Current drinke r of alcohol (finding) [facility] Start: 04-28-2020 End: 08-01-2021 History of Social function [facility] Start: 04-28-2020 End: 08-01-2021 Tobacco use panel [facility] Adult Depression Screening Assessment 0 [facility] Start: 02-12-2016 Alcohol Comment occ [facility] Start: 1975 Sex Assigned At Male [facility] Start: 07-29-2021 Gender identity Identifies as male gender (finding) [facility] Start: 07-29-2021 Sexual orientation Heterosexual (fin ding) [facility] Clinical Notes 01-22-2011 to 06-10-2023 Note [...] M17.11) May, Pre-op exam (ICD-10 - Z01.818) [facility] Other 04-27-2023 NoteCONSULTATION PROCEDURE DATE: 09/17/2022 PROCEDURE: [...] reduction in pain symptoms. IMMEDIATE COMPLICATIONS: None.[facility] [id number] NoteCONSULTATION PROCEDURE DATE: 06/18/2022 PREOPERATIVE DIAGNOSIS: Left [...] will be followed up in the office.[facility] [id number] NoteCONSULTATION CONSULTATION DATE: 06/11/2022 HISTORY OF PRESENT [...] with this plan and all questions answered.[facility] [id number] NoteCONSULTATION PROCEDURE DATE: 03/19/2022 PREOPERATIVE DIAGNOSIS: Left [...] up in the office in three months.[facility] [id number] Note CONSULTATION CONSULTATION DATE: 02/19/2022 HISTORY OF [...] of care and would like to proceed.[facility] [id number] NoteCONSULTATION PROCEDURE DATE: 12/17/2021 PREOPERATIVE DIAGNOSIS: Left [...] followed up in the clinic for re-evaluation.[facility] [id number] NoteCONSULTATION CONSULTATION DATE: 11/27/2021 This is a [...] of care and would like to proceed. [facility] Signed and Approved by: JOSE MOSLEY . 12/04/2021 09:49:00[facility]05-12-2022 NoteCONSULTATION CONSULTATION DATE: 10/02/2021 HISTORY: This is [...] of care and would like to proceed. [facility] Signed and Approved by: JOSE MOSLEY . 10/09/2021 17:09:00[facility]03-16-2022 NoteHNO ID: [id number] Author: RT Linda(R) Service: ? Author Type: [...] BY: RT Linda(R) August 06, 2021 12:16 [facility]03-11-2022 NoteHNO ID: [id number] Author: Marilyn Stallworth PA-C Service: ? Author Type: Physician Mold Construction Supervisor Type: Progress Notes Filed: 08/01/2021 10:58 AM [...] use: No ALLERGIES No Known Allergies MEDICATIONS: jrtmqebu-eqkhmdhcy-ndknxliecgjqta (CORTISPORIN) 3.5-10,000-1 mg/mL-unit/mL-% otic suspension PLACE FOUR [...] lumbar or lumbosacr (more content not included)... [facility]02-11-2022 NoteHNO ID: [id number] Author: Sheeba Montes PA-C Service: ? Author Type: Physician Mold Construction Supervisor Type: Progress Notes Filed: 07/04/2021 4:34 PM [...] patient imaging is available for review. [facility]02-10-2022 NoteHNO ID: [id number] Author: Sekou Braswell Service: ? Author Type: ? Type: Progress Notes Filed: 07/04/2021 4:34 PM Note Text: Patient name: Ophelia Cruz Are you being referred by a [place] for Spine Health Provider or Pain Management Provider at [facility]? No If answer is YES please [...] the facility where the MRI/CT/myelogram was completed: [facility] Address: [address] [place] [address] [address], [place] [address] MRI/CT/myelogram viewable in Epic: No If not, please provide [phone] to fax in imaging reports for review. [...] injections and/or physical therapy was completed PT [facility] Address: [address], [place] [address] Have you tried any other kinds of non-surgical treatments in the last 12 months? (For example: NSAIDS, muscle relaxants, analgesics, oral steroids, Chiropractor, Acupuncture): Yes Acupuncture oral steroids, Chiropractor [facility] Address: [address], [place] [address] 4. Are you currently taking daily prescribed narcotic medications for your current symptoms (For example Oxycodone, Hydrocodone, Tramadol, Morphine, Other)? No 5. Have you had previous spinal surgery for this same symptoms? No If YES? please ask for the name of facility/address of where the surgery was completed: No Additional Comments [phone] (Home Phone)[facility] 01-22-2011 History general Narrative - Reported* Type Description Date Medical History hypercholesterolemia Medical History Esophageal reflux Medical History allergic rhinitis Medical History abscess tooth 01/2011 Medical History Pertussis, May 2013 Surgical History ACL L knee 96 Surgical History tonsilectomy Surgical History vasectomy 03 Hospitalization History see above surgeries [facility] Other Evaluation note* Diagnosis Degeneration of lumbar intervertebral disc Degeneration of lumbar or lumbosacral intervertebral disc Scoliosis of lumbosacral spine, unspecified scoliosis type Degeneration of lumbar or lumbosacral intervertebral disc [facility] noteNo assessment information availableMetrohealth [facility] Work Phone: Reason for [...] LUMBOSACRAL MINIMUM 4 VIEWS Marilyn Stallworth, YENIFER [address] [place] [address] Xr Imaging Referral ID Status Reason Start Date Expiration Date V isits Requested Visits Authorized [id number] Closed Auto-Generate d Referral 08/01/2021 08/31/2022 1 [...] W/SKULL 2/3 VW Marilyn Stallworth PA-C [address] [place] [address] Xr Imaging Referral ID Status Reason Start Date Expiration Date V isits Requested Visits Authorized [id number] Closed Auto-Generate d Referral 08/01/2021 08/31/2022 1 [facility] Procedure Only (Routine) - Closed Specialty Diagnoses / Procedures Referred By Contbrad t Referred To Contact XR IMAGING Diagnoses Degeneration of lumbar intervertebral disc Scoliosis of lumbosacral spine, unspecified scoliosis type Degeneration of lumbar or lumbosacral intervertebral disc Procedures XR LUMBAR MOTION 4V AP/LAT/ FLEX/EXT RADEX SPINE LUMBOSACRAL MINIMUM 4 VIEWS Marilyn Stallworth PA-C [address] [place] [address] Xr Imaging Referral ID Status Reason Start Date Expiration Date V isits Requested Visits Authorized [id number] Closed Auto-Generate d Referral 08/01/2021 08/31/2022 1 1 [facility] Summary Purpose Family History No Family [...] section and content) DATE CREATED AUTHOR 08/12/2021 [facility] DATE CREATED AUTHOR AUTHOR'S ORGANIZ ATION 11/13/2021 [facility] Special[facility] DATE CREATED AUTHOR AUTHOR'S ORGANIZ ATION 09/21/2022 [facility] DATE CREATED AUTHOR AUTHOR'S ORGANIZ ATION 05/06/2023 [facility] DATE CREATED AUTHOR AUTHOR'S ORGANIZ ATION 05/14/2023 [facility] DATE CREATED AUTHOR AUTHOR'S ORGANIZ ATION 08/25/2023 [facility] DATE CREATED AUTHOR AUTHOR'S ORGANIZ ATION 01/26/2024 [facility] Specialists EPIC Source Comments (unrecognize d section and content) In the event this informatio n is protected by the Federal Confidentiality of Alcohol and Drug Abuse Patient Records regulations: The Federal rules restrict any use of the information to criminally investigate or prosecute any alcohol or drug abuse patient.[facility] Care Teams (unrecognized sec tion and content) Pole Incisor Operator Relationship Specialty Start Date End Date Arlene [...] BE BASED ON THE PRIMARY CLINICAL RECORDS. [employer] [facility]. provides no warranty or guarantee of the accuracy or completeness of information in this document.
== END 2024-02-09 10:03 | disposition home or self-care (01) ==
LOC: CARD 10:02
PROVIDERS: PCP Physician Assistant; Visit Provider Physician Assistant
DX: I49.3 Ventricular premature depolarization (principal); I10 Essential (primary) hypertension; R06.02 Shortness of breath
CPT/HCPCS: 93270